=== PATIENT | female | born 1940 | race African-American/Black ===

== ENCOUNTER 2017-01-20 20:28 | Inpatient (IN) | payer MEDICARE ==
[2017-01-20] MEDS ORDERED: ONDANSETRON HCL INJ/PF 4 MG/2 ML SDV IV ONE (21:08)
[2017-01-20] MEDS ORDERED: NORMAL SALINE 1000 ML 1,000 ML IV ONE (21:08)
[2017-01-20 23:05] LABS: ALANINE AMINOTRANSFERASE 17 U/L (9-52); ALBUMIN 2.7 g/dL (3.5-5.0); ALKALINE PHOSPHATASE 70 U/L (38-126); ANION GAP 11 (5-19); ASPARTATE AMINO TRANSFERASE 11 U/L (14-36); BILIRUBIN,DIRECT 0.4 mg/dL (0.0-0.4); BILIRUBIN,TOTAL 0.7 mg/dL (0.2-1.3); BLOOD UREA NITROGEN 85 mg/dL (7-20); CALCIUM 11.1 mg/dL (8.4-10.2); CARBON DIOXIDE 26 mmol/L (22-30); CHLORIDE 109 mmol/L (98-107); CREATININE RESULT 2.04 mg/dL (0.52-1.25); GLUCOSE 148 mg/dL (75-110); LIPASE 47.3 U/L (23-300); SODIUM 146.1 mmol/L (137-145); TOTAL PROTEIN 5.3 g/dL (6.3-8.2)
--- NOTE | 2017-01-21 00:21 | ER Document Report ---
ED GI/ - General Chief Complaint: Vomiting Stated Complaint: VOMITING Time Seen by Provider: 01/20/17 21:08 Mode of Arrival: Wheelchair Information source: Relative Notes: Patient is a 76-year-old female with dementia and diabetes who presents to the ER today for one episode of vomiting today. Daughter who she lives with at home states that she does not usually complain of anything even if she does have pain, states that she has not complained of any abdominal pain. She denies that she has had any fever, chills or diarrhea that she knows of. Patient is on any medications for diabetes, diet controlled and has not seen a primary care provider in a couple of months as her primary care provider Dr. Esquivel left office. TRAVEL OUTSIDE OF THE [place] IN LAST 30 DAYS: No - Related Data Allergies/Adverse Reactions: No Known Allergies Allergy (Unverified 01/20/17 20:50) Past Medical History - General Information source: Relative - Social History Smoking Status: Unknown if Ever Smoked Family History: Reviewed & Not Pertinent Patient has suicidal ideation: No Patient has homicidal ideation: No Endocrine Medical History: Reports: Hx Diabetes Mellitus Type 2 Renal/ Medical History: Denies: Hx Peritoneal Dialysis Review of Systems - Review of Systems Constitutional: No symptoms reported EENT: No symptoms reported Cardiovascular: No symptoms reported Respiratory: No symptoms reported Gastrointestinal: See HPI Genitourinary: No symptoms reported Female Genitourinary: No symptoms reported Musculoskeletal: No symptoms reported Skin: No symptoms reported Hematologic/Lymphatic: No symptoms reported Neurological/Psychological: No symptoms reported Physical Exam - Vital signs Vitals: Temp Pulse Resp BP Pulse Ox 98.1 F 121 H 16 114/94 H 93 01/20/17 20:44 01/20/17 20:44 01/20/17 20:44 01/20/17 20:44 01/20/17 20:44 - Notes Notes: PHYSICAL EXAMINATION: GENERAL:elderly, demented, in no acute distress. HEAD: Atraumatic, normocephalic. EYES: Pupils equal round and reactive to light, extraocular movements intact, sclera anicteric, conjunctiva are normal. NECK: Normal range of motion, supple without lymphadenopathy LUNGS: CTAB and equal. No wheezes rales or rhonchi. HEART: Regular rate and rhythm without murmurs ABDOMEN: Soft, no tenderness. No guarding, no rebound BACK: no vertebral tenderness, normal ROM GI/: wearing adult diaper, no CVA tenderness EXTREMITIES: Normal range of motion, no pitting edema. No cyanosis. NEUROLOGICAL: demented, but normal motor and sensory function, able to answer questions with nods SKIN: Warm, Dry, normal turgor, no rashes or lesions noted Course - Re-evaluation Re-evalutation: 01/21/17 00:45 Patient has evidence of UTI on urinalysis with moderate leukocytes and 114 white blood cells. Patient was given IV fluids and IV Rocephin here in the emergency department. 01/21/17 00:46 01/21/17 04:26 Pt has SBO and bilateral lower lobe pneumonia, acute renal failure. 01/21/17 04:41 Dr. Vera agrees to admit to [facility] at this time. Dr. Acosta was consulted and knows about the case. Pt stable, but still tachycardic in the 120s. - Vital Signs Vital signs: Temp Pulse Resp BP Pulse Ox 98.8 F 120 H 22 H 132/93 H 94 01/21/17 01:51 01/21/17 03:09 01/21/17 05:01 01/21/17 05:01 01/21/17 05:01 - Laboratory Result Diagrams: 01/21/17 02:33 01/21/17 05:04 Laboratory results interpreted by me: 01/20/17 01/20/17 01/20/17 20:44 21:43 23:05 RDW Seg Neutrophils % Lymphocytes % Absolute Lymphocytes Sodium 146.1 H Chloride 109 H BUN 85 H Creatinine 2.04 H Est GFR ( Amer) 28 L Est GFR (Non-Af Amer) 24 L Glucose 148 H POC Glucose 185 H Calcium 11.1 H AST 11 L Total Protein 5.3 L Albumin 2.7 L Urine Protein 100 H Urine Blood SMALL H Ur Leukocyte Esterase MODERATE H 01/21/17 01/21/17 02:33 05:04 RDW 14.2 H Seg Neutrophils % 84.9 H Lymphocytes % 5.8 L Absolute Lymphocytes 0.3 L Sodium 145.2 H Chloride 112 H BUN 78 H Creatinine 1.60 H Est GFR ( Amer) 38 L Est GFR (Non-Af Amer) 31 L Glucose 169 H POC Glucose Calcium AST Total Protein Albumin Urine Protein Urine Blood Ur Leukocyte Esterase Discharge - Discharge Clinical Impression: SBO (small bowel obstruction) UTI (urinary tract infection) Qualifiers: Urinary tract infection type: site unspecified Qualified Code(s): N39.0 - Urinary tract infection, site not specified Nausea and vomiting Qualifiers: Vomiting type: unspecified Vomiting Intractability: non-intractable Qualified Code(s): R11.2 - Nausea with vomiting, unspecified Pneumonia Qualifiers: Pneumonia type: due to unspecified organism Laterality: bilateral Lung location : lower lobe of lung Qualified Code(s): J18.9 - Pneumonia, unspecified organism Acute renal failure Qualifiers: Acute renal failure type: unspecified Qualified Code(s): N17.9 - Acute kidney failure, unspecified Condition: Stable Disposition: ADMITTED INPATIENT Admitting Provider: Hospitalist Unit Admitted: [facility]
[2017-01-21 00:28] LABS: AMORPHOUS SEDIMENT,URINE 4+ /HPF; APPEARANCE,URINE TURBID; BILIRUBIN,URINE NEGATIVE (NEGATIVE); GLUCOSE, URINE NEGATIVE (NEGATIVE); KETONES,URINE NEGATIVE (NEGATIVE); LEUKOCYTE ESTERASE,URINE MODERATE (NEGATIVE); NITRITE,URINE NEGATIVE (NEGATIVE); PROTEIN,URINE 100 mg/dL (NEGATIVE); TRIPLE PHOSPHATE CRYSTAL,URINE FEW /HPF; URINE SPECIFIC GRAVITY 1.013; UROBILINOGEN,URINE NEGATIVE mg/dL (<2.0)
[2017-01-21] MEDS ORDERED: CEFTRIAXONE 1 GM/D5W RTU 50 ML IV ONE (00:34)
[2017-01-21] MEDS ORDERED: NORMAL SALINE 1000 ML 1,000 ML IV ONE (01:51)
[2017-01-21 02:44] LABS: ABSOLUTE LYMPHOCYTES (AUTO) 0.3 10^3/uL (0.5-4.7); ABSOLUTE MONOCYTES (AUTO) 0.4 10^3/uL (0.1-1.4); ABSOLUTE NEUT (AUTO) 3.7 10^3/uL (1.7-8.2); BASOPHILS % (AUTO) 0.2 % (0-2); EOSINOPHILS % (AUTO) 0.2 % (0-6); HEMATOCRIT 37.5 % (36.0-47.0); HEMOGLOBIN 12.3 g/dL (12.0-15.5); HGB HCT DIFFERENCE -0.6; LYMPHOCYTES % (AUTO) 5.8 % (13-45); MEAN CORPUSCULAR HEMOGLOBIN 30.8 pg (27.0-33.4); MEAN CORPUSCULAR HGB CONC 32.7 g/dL (32.0-36.0); MEAN CORPUSCULAR VOLUME 94 fl (80-97); MONOCYTES % (AUTO) 8.9 % (3-13); RED BLOOD COUNT 3.98 10^6/uL (3.72-5.28); RED CELL DISTRIBUTION WIDTH 14.2 % (11.5-14.0); SEGMENTED NEUTROPHILS % (AUTO) 84.9 % (42-78); WHITE BLOOD COUNT 4.4 10^3/uL (4.0-10.5)
--- NOTE | 2017-01-21 04:18 | RADIOLOGY REPORT (SQ) ---
EXAM DESCRIPTION: CT LTD RENAL STONE PROTOCOL ON COMPLETED DATE/TIME: 01/21/2017 3:32 am REASON FOR STUDY: uti, hematuria COMPARISON: None. TECHNIQUE: CT scan of the abdomen and pelvis performed without intravenous or oral contrast. Images reviewed with lung, soft tissue, and bone windows. Reconstructed coronal and sagittal MPR images revi ewed. All images stored on PACS. All CT scanners at this facility use dose modulation, iterative reconstruction, and/or weight based d osing when appropriate to reduce radiation dose to as low as reasonably achievable (ALARA). [facility]: Dose Right [facility]: CareDose [facility]: Dose Right [facility]: Teradose 4D [facility]: [employer] RADIATION DOSE: Up-to-date CT equipment and radiation dose reduction techniques were employed. CTDIv ol: 4.9 mGy. DLP: 231 mGy-cm.mGy. LIMITATIONS: None. FINDINGS: LOWER CHEST: Small-moderate airspace patchy opacities of the lower lungs, left more than r ight partially imaged. Small bilateral pleural effusions. Atherosclerosis. NON-CONTRASTED LIVER, SPLEEN, ADRENALS: Evaluation limited by lack of IV contrast. Enlargement of bi lateral adrenal glands measuring up to 2.1 cm on the left with low-attenuation suggestive of lead adr enal adenomas, not definitively characterized. PANCREAS: No masses. No peripancreatic inflammatory changes. GALLBLADDER: No identified stones by CT criteria. No inflammatory changes to suggest cholecystitis. RIGHT KIDNEY AND URETER: No suspicious masses. Assessment limited by lack of IV contrast. No signif icant calcifications. No hydronephrosis or hydroureter. LEFT KIDNEY AND URETER: No suspicious masses. Assessment limited by lack of IV contrast. No signifi cant calcifications. No hydronephrosis or hydroureter. AORTA AND RETROPERITONEUM: No aneurysm. No retroperitoneal masses or adenopathy. BOWEL AND PERITONEAL CAVITY: 3.9 cm diameter dilation of small bowel with air-fluid levels throughout the mid abdomen. Fluid distention of the stomach and visualized distal esophagus. Moderate colonic stool retention. APPENDIX: Normal. PELVIS, BLADDER, AND ABDOMINAL WALL:No abnormal masses. No free fluid. Bladder normal. BONES: Complex 12 x 12 x 6 cm mixed cystic and sclerotic lesion extends throughout the sacrum, bilate ral iliac wings, and includes an expansile 2.9 cm lytic component of the right iliac wing, image 56 o f series 4. With moderate mixed sclerosis and lucency of bilateral femoral head; cannot exclude avas cular necrosis. Moderate bony demineralization. Mild L3 anterior vertebral compression deformity. No significant ascites. No suspect lymphadenopathy. OTHER: No other significant finding. IMPRESSION: 1. Small bowel obstruction pattern. 2. Small to moderate bilateral lower lobar pneumo aixa, left more than right. 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 Cannot exclude other infect ious and neoplastic processes. 4. Increased sclerosis of bilateral femoral heads may indicate avasc ular necrosis. Consider contrast MRI correlation. COMMENT: This report was called to Dr. Ingram At04:10 on 01/21/2017. TECHNICAL DOCUMENTATION: JOB ID: [id number] Quality ID # [id number]: Final reports with documentation of one or more dose reduction techniques (e.g., Au tomated exposure control, adjustment of the mA and/or kV according to patient size, use of iterative reconstruction technique) 2010 [employer]- All Rights Reserved
[2017-01-21] MEDS ORDERED: LIDOCAINE 1% INJ-PF (10 MG/ML) 30 ML SDV NEB ONE (04:25)
[2017-01-21] MEDS ORDERED: AZITHROMYCIN INJ 500 MG VIAL IV ONE (04:33)
--- NOTE | 2017-01-21 04:43 | RADIOLOGY REPORT (SQ) ---
EXAM DESCRIPTION: CHEST SINGLE VIEW COMPLETED DATE/TIME: 01/21/2017 4:03 am REASON FOR STUDY: tachycardia, vomiting COMPARISON: CT, 01/21/2017. EXAM PARAMETERS: NUMBER OF VIEWS: One view. TECHNIQUE: Single frontal radiographic view of the chest acquired. RADIATION DOSE: NA LIMITATIONS: None. FINDINGS: LUNGS AND PLEURA: Moderate lung volumes. Small to moderate bilateral lower lobar patchine ss, left more than right. Small bilateral pleural effusions. MEDIASTINUM AND HILAR STRUCTURES: No masses. Contour normal. HEART AND VASCULAR STRUCTURES: Heart normal in size. Normal vasculature. BONES: No acute findings. HARDWARE: None in the chest. OTHER: No other significant finding. IMPRESSION: Small to moderate bilateral lower lobar pneumonia, left more than right. TECHNICAL DOCUMENTATION: JOB ID: [id number]
[2017-01-21] MEDS ORDERED: GLUCAGON,HUMAN RECOMB 1 MG INJ IM PRN (05:25)
[2017-01-21] MEDS ORDERED: DEXTROSE 50%-WATER 25 GM/50 ML DISP.SYRIN IV PRN (05:25)
[2017-01-21] MEDS ORDERED: DEXTROSE 40% GEL 15 GM TUBE PO PRN ×2 (05:25)
[2017-01-21] MEDS ORDERED: PHARMACY COMMUNICATION ORDER MC NR (05:30)
[2017-01-21] MEDS ORDERED: ACETAMINOPHEN 650 MG SUPP.RECT PR PRN (05:32)
[2017-01-21] MEDS ORDERED: IPRATROPIUM/ALBUTEROL 0.5-2.5 MG/3 ML AMPUL NEB PRN (05:32)
--- NOTE | 2017-01-21 05:51 | PDOC H&P ---
History of Present Illness Admission Date/PCP: 01/21/17 04:41 Primary care provider uncertain Patient complains of: Nausea and vomiting 1 History of Present Illness: CELESTINA SWEENEY is a 76 year old -[place] female with underlying dementia, along with diet-controlled diabetes mellitus, who was brought to the emergency room by daughter for evaluation of above complaint, along with decreased appetite. Patient has been discussed with emergency room nurse practitioner who evaluated the patient. Patient is oriented to the fact that she is in the hospital, and that she came because of vomiting, thought it was 1939. As a result of this, combined with her underlying dementia, she can provide no other history in terms of acute or chronic events, review of systems, personal habits, family history, etc. No friends or family are present. No old inpatient records available for review. Per emergency room provider notes, daughter stated patient does not complain of anything, and also denied any fever or chills, or diarrhea. Patient currently resting quietly; denies pain.. Dictation via voice recognition software. Laboratory results are listed in [employer] and are reviewed. X-ray summary results are listed below, with full report(s) reviewed. . Social history/personal habits: Reportedly lives with daughter. No further information available this point in time. No known drug allergies. Home medications initially autopopulated into [employer] may not accurately reflect patient's true medications, dosages, and/or frequencies. aviation technician to reconcile medications. Unfortunately, patient not able to provide any information related to medications/dosages/frequencies. REVIEW OF SYSTEMS: See history and present illness. No further information available this point in time. PHYSICAL EXAMINATION: 4 feet 9 inches tall. 32.8 kg. BMI 15.6 kg/m. Blood pressure 132/93. Pulse 127 and regular. 94% saturation on room air. Respirations are 24 and unlabored. Temperature 98.8. Multiple nursing staff present in room. Thin otherwise well-developed elderly -[place] female, appearing perhaps a bit younger than her stated age. Awake and reasonably alert, although appears somewhat fatigued. No obvious distress other than perhaps mildly anxious. Skin is warm and dry. No grossly obvious evidence of rash in areas of skin examined. No subcutaneous nodules palpated. Per nursing staff, no skin breakdown on sacrum or buttocks. ENT: Hearing grossly normal to normal conversation. Tongue midline on protrusion pink and slightly tacky. Eyes: No scleral icterus. Pupils equal and reactive to light at 4 mm. [place] conjunctivae. Neck is supple and nontender to gentle active range of motion and palpation. Midline trachea. No palpable thyroid nodule mass enlargement or tenderness. Lymphatic: No palpable cervical or clavicular nodes. Neck and lymphatic exams limited by patient body habitus. Psychiatric: Cannot be adequately evaluated due to her underlying dementia. Oriented only to location and why here. Lungs: Auscultation reveals clear and equal breath sounds bilaterally. No use of accessory respiratory muscles. Cardiovascular: Heart regular rate and rhythm, without gallop murmur or rub. No carotid or abdominal aortic bruits. No ankle or pedal edema. Faintly palpable dorsalis pedis pulses. Abdomen:soft somewhat distended nontender with positive bowel sounds. Unable to adequately evaluate abdomen for masses or organomegaly due to distention. No evidence of groin or abdominal wall hernia. Extremities: Feet are warm and dry. No calf tenderness to compression. No grossly obvious visual evidence of calf swelling. Gentle manipulation of lower extremities fails to reveal any obvious evidence of injury or instability to knees hips or ankles. Neurologic: Patellar reflexes absent. Absent Babinski. Light touch cannot be adequately determined due to her mental status. Plantarflexion of feet 5 / 5 and symmetric; does not follow basic request for dorsiflexion of feet. Past Medical History Past Medical History: Information from review of records. Patient unable to provide any information. Endocrine Medical History: Reports: Diabetes Mellitus Type 2 Psychiatric Medical History: Reports: Dementia Past Surgical History Past Surgical History: Reports: Other - Uncertain; patient has a well-healed lower midline abdominal incision. Social History Information Source: Emergency Med Personnel, [facility] Records Lives with: Family - Reportedly lives with daughter. Smoking Status: Unknown if Ever Smoked - Advance Directive Resuscitation Status: Full Code Surrogate healthcare decision maker:: Uncertain; likely her daughter. Family History Parental Family History Reviewed: No - Patient unable to provide any information. Children Family History Reviewed: No - Patient unable to provide any information. Sibling(s) Family History Reviewed.: No - Patient unable to provide any information. Medication/Allergy Home Medications: RX: No Home Medications 01/21/17 Allergies/Adverse Reactions: No Known Allergies Allergy (Unverified 01/20/17 20:50) Physical Exam Vital Signs: Temp Pulse Resp BP Pulse Ox 98.8 F 120 H 22 H 132/93 H 94 01/21/17 01:51 01/21/17 03:09 01/21/17 05:01 01/21/17 05:01 01/21/17 05:01 Intake & Output 01/20/17 01/21/17 01/22/17 00:59 00:59 00:59 Output Total 100 Balance -100 Results Impressions: Limited or Localized CT 01/21/17 03:02 IMPRESSION: 1. Small bowel obstruction pattern. 2. Small to moderate bilateral lower lobar pneumonia, left more than right. 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 Cannot exclude other infectious and neoplastic processes. 4. Increased sclerosis of bilateral femoral heads may indicate avascular necrosis. Consider contrast MRI correlation. Chest X-Ray 01/21/17 03:34 IMPRESSION: Small to moderate bilateral lower lobar pneumonia, left more than right. Assessment & Plan - Diagnosis (1) Abnormal CT scan, pelvis Is this a current diagnosis for this admission?: Yes Plan: Consider oncology consult when available. (2) Basal pneumonia of both lungs Is this a current diagnosis for this admission?: Yes Plan: Patient will be admitted under pneumonia protocol. As needed DuoNeb's. Antibiotics will consist of Rocephin along with intravenous Zithromax. Pharmacy to assist with dosing. Patient is a full code. I have strongly encouraged patient not to get out of bed without notifying staff , to avoid a fall with injury. Knee high SCDs for DVT prophylaxis, along with subcutaneous heparin. Time spent in evaluation and management of patient: 55 minutes. (3) Hypercalcemia Is this a current diagnosis for this admission?: Yes Plan: Follow-up chemistry. (4) Hypernatremia Is this a current diagnosis for this admission?: Yes Plan: Appropriate IV fluid. Follow-up chemistry. (5) Renal insufficiency Is this a current diagnosis for this admission?: Yes Plan: No old labs available for comparison. No evidence of obstruction on CT scan of abdomen. Follow-up chemistry. Appropriate IV fluid. (6) SBO (small bowel obstruction) Is this a current diagnosis for this admission?: Yes Plan: Nasogastric tube. Surgery consult. (7) UTI (urinary tract infection) Qualifiers: Urinary tract infection type: site unspecified Is this a current diagnosis for this admission?: Yes Plan: Blood and urine cultures. Rocephin empirically. (8) Dementia Qualifiers: Dementia type: unspecified type Dementia behavioral disturbance: without behavioral disturbance Qualified Code(s): F03.90 - Unspecified dementia without behavioral disturbance Is this a current diagnosis for this admission?: Yes (9) Diabetes mellitus type 2 in nonobese Is this a current diagnosis for this admission?: Yes Plan: Accu-Cheks with appropriate sliding scale coverage. - Time Time Spent: 50 to 70 Minutes Anticipated discharge: Home Within: Other - Inpatient Certification Based on my medical assessment, after consideration of the patient's comorbidities, presenting symptoms, or acuity I expect that the services needed warrant INPATIENT care.: Yes I certify that my determination is in accordance with my understanding of Medicare's requirements for reasonable and necessary INPATIENT services [42 CFR 412.3e].: Yes Medical Necessity: Need Close Monitoring Due to Risk of Patient Decompensation, Need For IV Fluids, Need For Continuous Telemetry Monitoring, Need for IV Antibiotics, Risk of Diagnosis Which Will Require Inpatient Eval/Care/Monitoring Post Hospital Care: D/C or Transfer Summary
[2017-01-21 05:55] LABS: ANION GAP 8 (5-19); BLOOD UREA NITROGEN 78 mg/dL (7-20); CALCIUM 10.2 mg/dL (8.4-10.2); CARBON DIOXIDE 25 mmol/L (22-30); CHLORIDE 112 mmol/L (98-107); GLUCOSE 169 mg/dL (75-110); POTASSIUM 4.3 mmol/L (3.6-5.0); SODIUM 145.2 mmol/L (137-145)
--- NOTE | 2017-01-21 06:13 | RADIOLOGY REPORT (SQ) ---
EXAM DESCRIPTION: CHEST SINGLE VIEW COMPLETED DATE/TIME: 01/21/2017 5:57 am REASON FOR STUDY: ngt placement verification COMPARISON: 01/21/2017. EXAM PARAMETERS: NUMBER OF VIEWS: One view. TECHNIQUE: Single frontal radiographic view of the chest acquired. RADIATION DOSE: NA LIMITATIONS: None. FINDINGS: LUNGS AND PLEURA: Small to moderate opacities of bilateral lower lung solares, left more th an right. Moderate lung volume. MEDIASTINUM AND HILAR STRUCTURES: No masses. Contour normal. HEART AND VASCULAR STRUCTURES: Heart normal in size. Normal vasculature. BONES: No acute findings. HARDWARE: Adequate appearing NG tube. Moderate small bowel obstruction pattern with small bowel diam eter measuring up to 4.3 cm in the left upper abdominal quadrant. OTHER: No other significant finding. IMPRESSION: 1. Small bowel obstruction pattern consistent with CT the same day. NG tube. 2. Smal l to moderate bilateral lower lobar pneumonia. TECHNICAL DOCUMENTATION: JOB ID: [id number]
[2017-01-21 06:16] LABS: ADD ON TESTING BLD IN LAB ACKNOWLEDGE
[2017-01-21 06:25] LABS: MAGNESIUM 2.1 mg/dL (1.6-2.3)
[2017-01-21] MEDS ORDERED: NORMAL SALINE 500 ML IV ONE (07:32)
--- NOTE | 2017-01-21 08:19 | CONSULTATION REPORT E ---
Consultation Report NAME: CELESTINA SWEENEY : 1940 AGE: 76Y DATE: 01/21/2017 ED17 A TO: NETO MANCIA M.D. FROM: REYES MAS M.D. Requesting Physician REASON FOR CONSULTATION: Patient with small bowel obstruction on CAT scan. HISTORY OF PRESENT ILLNESS: This is a 76-year-old female with a history of dementia and diabetes who presented to the ER for episode of vomiting that started 2 days ago and another episode on the day of being seen in the emergency room. Patient is a non-complainer. It seems like this is part of her dementia. She had a CAT scan of the abdomen in the emergency room, which showed small bowel obstruction. Her BUN is 78 and creatinine of 1.60 indicating severe dehydration. She is also tachycardic. ALLERGIES: None known. PAST MEDICAL HISTORY: Insulin-dependent diabetes and likely had 3 sections, according to the daughter. REVIEW OF SYSTEMS: Patient is demented and unable to give any information. PHYSICAL EXAMINATION: VITAL SIGNS: Temperature 98.1 degrees Fahrenheit, pulse rate of 121 per minute, respiratory rate of 16 per minute, blood pressure 114/94 and pulse ox of 93% on room air. GENERAL: Patient appears fairly developed, poorly nourished 76-year-old demented patient not complaining of anything. HEENT: Head is atraumatic, normocephalic. Eyes: PERRLA. Anicteric sclerae. Conjunctivae are normal. NECK: Normal range of motion, supple. LUNGS: Equal breath sounds. No wheezes. HEART: Tachycardic. ABDOMEN: With diffuse tenderness with voluntary guarding, most tender in the right lower quadrant and epigastric areas. BACK: No vertebral tenderness. GASTROINTESTINAL/GENITOURINARY: Wears adult diaper. No CVA tenderness. EXTREMITIES: Range of motion intact. NEUROLOGIC: Patient is demented, and when asked if she has any pains, she said none. SKIN: Warm and dry. IMAGING: CT scan showed small bowel obstruction and bilateral lower lobe pneumonia. LABORATORY: Severe dehydration and BUN of 78, creatinine of 1.60. IMPRESSION: 1. Small bowel obstruction. 2. Severe dehydration. 3. Diabetes mellitus, by history. PLAN: A discussion with the daughter was made. Had a long discussion with her as far as DNR status for her mother. I told her her mother most likely is going to need an operation and I want her to make the decision when that comes. Dr. Mcmanus, the surgeon environmental field office manager will likely talk to her about her mom as far as surgery is concerned. Patient will need IV fluids for the dehydration. DICTATING PHYSICIAN: NETO MANCIA M.D. [id number] PHY#: [id number] ID: [id number] JOB#: [id number] ACCT: [id number] cc:NETO MANCIA M.D. >
[2017-01-21] MEDS: HEPARIN SOD (PORCINE) 5,000 UNIT/ML 1 ML SYRINGE SUBCUT SCH ×2 (10:00→22:01)
[2017-01-21] MEDS: FAMOTIDINE INJ/PF 20 MG/2 ML SDV IV SCH ×2 (10:39→21:59)
[2017-01-21] MEDS ORDERED: HYDRALAZINE HCL INJ/PF 20 MG/1 ML SDV IV PRN (11:28)
[2017-01-21] MEDS ORDERED: METOPROLOL TARTRATE PF/INJ 5 MG/5 ML SDV IV PRN (12:10)
[2017-01-21 13:29] LABS: PROTHROMBIN TIME 13.9 SEC (11.4-15.4)
[2017-01-21 13:30] LABS: PARTIAL THROMBOPLASTIN TIME 30.1 SEC (23.5-35.8)
--- NOTE | 2017-01-21 15:43 | PDOC PROGRESS REPORT ---
Subjective Progress Note for:: 01/21/17 Subjective:: Patient has no complaints. Patient denies fever, chills, headache, new focal weakness, chest pain, shortness of breath, abdominal pain, nausea, vomiting, diarrhea, constipation. Physical Exam Vital Signs: Temp Pulse Resp BP Pulse Ox 98.2 F 96 18 170/59 H 98 01/21/17 11:20 01/21/17 11:34 01/21/17 11:34 01/21/17 11:20 01/21/17 11:34 Intake & Output 01/20/17 01/21/17 01/22/17 06:59 06:59 06:59 Intake Total 2125 Output Total 800 Balance 1325 GENERAL: No acute distress, cachectic HEENT: Conjunctiva clear, nonicteric, moist mucous membranes, no JVD, midline trachea RESPIRATORY: Clear to auscultation bilaterally, no wheezes, no rhonchi CARDIAC: Regular rate and rhythm, no murmurs/gallops/rubs ABDOMEN: Soft, nondistended, nonspecific tenderness, positive bowel sounds, no rebound, no guarding EXTREMETIES: No edema, cyanosis, clubbing NEUROLOGIC: Alert, disoriented/demented, CN's grossly intact, no focal deficits SKIN: Decreased skin turgor Results Impressions: Limited or Localized CT 01/21/17 03:02 IMPRESSION: 1. Small bowel obstruction pattern. 2. Small to moderate bilateral lower lobar pneumonia, left more than right. 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 Cannot exclude other infectious and neoplastic processes. 4. Increased sclerosis of bilateral femoral heads may indicate avascular necrosis. Consider contrast MRI correlation. Chest X-Ray 01/21/17 03:34 IMPRESSION: Small to moderate bilateral lower lobar pneumonia, left more than right. Assessment & Plan - Diagnosis (1) SBO (small bowel obstruction) Is this a current diagnosis for this admission?: YesPlan: Surgery consult appreciated. Conservative management for now. N.p.o., NG tube to wall suction. IV fluids. KUB in a.m. (2) Pneumonia Qualifiers: Pneumonia type: due to unspecified organism Laterality: bilateral Lung location: lower lobe of lung Qualified Code(s): J18.9 - Pneumonia, unspecified organism Is this a current diagnosis for this admission?: YesPlan: Likely bacterial. Continue IV Rocephin and IV azithromycin. (3) Acute renal failure Qualifiers: Acute renal failure type: unspecified Qualified Code(s): N17.9 - Acute kidney failure, unspecified Is this a current diagnosis for this admission?: YesPlan: Secondary to dehydration. Continue IV fluids. (4) Dehydration Is this a current diagnosis for this admission?: Yes (5) Dementia Qualifiers: Dementia type: unspecified type Dementia behavioral disturbance: without behavioral disturbance Qualified Code(s): F03.90 - Unspecified dementia without behavioral disturbance Is this a current diagnosis for this admission?: YesPlan: Continue supportive care. Patient's daughter would like patient to return home under her care after discharge. (6) UTI (urinary tract infection) Qualifiers: Urinary tract infection type: site unspecified Qualified Code(s): N39.0 - Urinary tract infection, site not specified; R31.9 - Hematuria, unspecified Is this a current diagnosis for this admission?: YesPlan: IV Rocephin pending culture. (7) Diabetes mellitus type 2 in nonobese Is this a current diagnosis for this admission?: YesPlan: Sliding scale insulin. (8) Abnormal CT scan, pelvis Is this a current diagnosis for this admission?: YesPlan: CT of the pelvis showing multiple cystic and sclerotic lesions differential including neoplastic disease or Paget's disease.. - Time Time Spent with patient: 35 or more minutes
--- NOTE | 2017-01-21 16:09 | RADIOLOGY REPORT (SQ) ---
EXAM DESCRIPTION: KUB/ABDOMEN (SINGLE VIEW) COMPLETED DATE/TIME: 01/21/2017 3:57 pm REASON FOR STUDY: SBO COMPARISON: None. NUMBER OF VIEWS: One view. TECHNIQUE: Supine radiographic image of the abdomen acquired. LIMITATIONS: Oral contrast. FINDINGS: BOWEL GAS PATTERN: Mildly dilated loops of small bowel in the mid abdomen. Abundant fecal material in nondilated colon. CALCIFICATIONS: No suspicious calcifications. SOFT TISSUES: No gross mass or suggestion of organomegaly. HARDWARE: NG tube tip overlying stomach. Turner catheter. BONES: No bone lesions or fracture. OTHER: No other significant finding. IMPRESSION: Ileus or partial small bowel obstruction. Good position of nasogastric tube.
[2017-01-21] MEDS: HYDRALAZINE HCL INJ/PF 20 MG/1 ML SDV IV PRN (17:02)
--- NOTE | 2017-01-21 19:14 | EKG REPORT ---
SEVERITY:- ABNORMAL ECG - SINUS TACHYCARDIA LVH WITH SECONDARY REPOLARIZATION ABNORMALITY : Confirmed by: Rakesh Enriquez MD 21-Jan-2017 19:13:12
[2017-01-22] MEDS: HYDROMORPHONE HCL INJ/PF 2 MG/ML AMPULE IV PRN ×2 (00:31→21:59)
[2017-01-22] MEDS: DEXTROSE 50%-WATER 25 GM/50 ML DISP.SYRIN IV PRN ×2 (00:32→12:17)
[2017-01-22] MEDS: 1/2 NORMAL SALINE 1,000 ML IV PRN (01:01)
[2017-01-22 06:46] LABS: ABSOLUTE LYMPHOCYTES (AUTO) 0.6 10^3/uL (0.5-4.7); ABSOLUTE MONOCYTES (AUTO) 0.7 10^3/uL (0.1-1.4); ABSOLUTE NEUT (AUTO) 6.1 10^3/uL (1.7-8.2); BASOPHILS % (AUTO) 0.3 % (0-2); EOSINOPHILS % (AUTO) 0.1 % (0-6); LYMPHOCYTES % (AUTO) 8.3 % (13-45); MEAN CORPUSCULAR HEMOGLOBIN 31.1 pg (27.0-33.4); MEAN CORPUSCULAR HGB CONC 33.1 g/dL (32.0-36.0); MEAN CORPUSCULAR VOLUME 94 fl (80-97); MONOCYTES % (AUTO) 9.8 % (3-13); RED CELL DISTRIBUTION WIDTH 14.7 % (11.5-14.0); SEGMENTED NEUTROPHILS % (AUTO) 81.5 % (42-78); WHITE BLOOD COUNT 7.5 10^3/uL (4.0-10.5)
[2017-01-22 06:57] LABS: ANION GAP 5 (5-19); BLOOD UREA NITROGEN 66 mg/dL (7-20); CALCIUM 10.4 mg/dL (8.4-10.2); CARBON DIOXIDE 26 mmol/L (22-30); CHLORIDE 113 mmol/L (98-107); CREATININE RESULT 1.63 mg/dL (0.52-1.25); GLUCOSE 67 mg/dL (75-110); POTASSIUM 4.2 mmol/L (3.6-5.0); SODIUM 143.5 mmol/L (137-145)
--- NOTE | 2017-01-22 09:12 | PROGRESS NOTE E ---
Progress Note NAME: CELESTINA SWEENEY : 1940 AGE: 76Y DATE: 01/22/2017 ROOM: 320 SUBJECTIVE: Patient is still somewhat obtunded and nonresponsive. She still has her NG tube. This apparently drained about 800 mL the past 24 hours. This morning, no drainage from the NG that I can tell. OBJECTIVE: She is afebrile and her white count remained normal and her BUN and creatinine slightly improved with hydration. Her abdomen remained soft with questionable tenderness in the suprapubic area. IMPRESSION: Partial bowel obstruction. At this point, I do not think she needs any emergency surgery since her abdominal findings appear to have improved from yesterday. She is also afebrile and her white count remained normal. Also, I believe she is still a DNR and we will talk to the family again if she needs any further surgical intervention. At this time, there is no need for any emergency operation. DICTATING PHYSICIAN: NETO MANCIA M.D. [id number] GÓMEZ#: [id number] ID: [id number] JOB#: [id number] ACCT: [id number] cc: >
[2017-01-22] MEDS: CEFTRIAXONE 1 GM/D5W RTU 50 ML IV SCH (10:28)
[2017-01-22] MEDS: HEPARIN SOD (PORCINE) 5,000 UNIT/ML 1 ML SYRINGE SUBCUT SCH ×2 (10:28→22:00)
[2017-01-22] MEDS: FAMOTIDINE INJ/PF 20 MG/2 ML SDV IV SCH ×2 (10:28→22:00)
[2017-01-22] MEDS: AZITHROMYCIN 500 MG in DEXTROSE 5%-WATER 250 ML IV SCH (12:05)
--- NOTE | 2017-01-22 12:27 | XCELERA REPORT ---
[address] [address] Transthoracic Echocardiogram Report Name: CELESTINA SWEENEY Age: 76 yrs Gender: Female : 1940 Patient Status: Inpatient Patient Location: 3W\S\320\S\A Study Date: 01/22/2017 08:50 AM Height: 57 in Weight: 72 lb BSA: 1.2 m2 Procedure: A complete two-dimensional transthoracic echocardiogram was performed (2D, M-mode, spectral and color flow Doppler). The study was technically difficult with many images being suboptimal in quality. Reason For Study: heart murmur Ordering Physician: DIANA DILLON Performed By: Sabrina Gilliam Interpretation Summary The study was technically difficult with many images being suboptimal in quality. Left ventricular systolic function is low normal. Doppler measurements suggest pseudonormalized left ventricular relaxation, which is associated with grade II/IV or mild to moderate diastolic dysfunction There is borderline concentric left ventricular hypertrophy. The left ventricle is grossly normal size. Wall motion cannot be accurately commented on, but no definite regional wall motion abnormalities noted. The right ventricular systolic function is normal. The right atrium is normal. The left atrial size is normal. There is no mitral valve stenosis. There is a trace amount of mitral regurgitation There is no aortic valve stenosis No aortic regurgitation is present. There is a trace to mild amount of tricuspid regurgitation There is mild pulmonary hypertension by echo Right ventricular systolic pressure is estimated to be elevated at 30- 40mmHg. The aortic root is not well visualized but is probably normal size. The inferior vena cava was not well visualized Minimal to small pericardial effusion. MMode/2D Measurements \T\ Calculations RVDd: 2.1 cm LVIDd: 3.8 cm FS: 22.5 % Ao root diam: 2.4 cm IVSd: 0.76 cm LVIDs: 2.9 cm EDV(Teich): 62.1 ml LVPWd: 0.85 cmESV(Teich): 33.5 ml Ao root area: 4.4 cm2 EF(Teich): 46.0 % LA dimension: 2.2 cm LVOT diam: 1.8 cm LVOT area: 2.5 cm2 Doppler Measurements \T\ Calculations MV E max sumeet: MV P1/2t max sumeet: Ao V2 max: LV V1 max P.4 cm/sec 57.6 cm/sec 117.9 cm/sec 1.6 mmHg MV A max sumeet: MV P1/2t: 42.6 msec Ao max PG: LV V1 max: 79.5 cm/sec MVA(P1/2t): 5.2 cm2 5.6 mmHg 64.2 cm/sec MV E/A: 0.70 MV dec slope: JOAN(V,D): 1.4 cm2 396.1 cm/sec2 PA V2 max: PI end-d sumeet: TR max sumeet: 123.4 cm/sec 107.2 cm/sec 251.9 cm/sec PA max PG: TR max P.1 mmHg 25.4 mmHg Left Ventricle The left ventricle is grossly normal size. There is borderline concentric left ventricular hypertrophy. Left ventricular systolic function is low normal. Doppler measurements suggest pseudonormalized left ventricular relaxation, which is associated with grade II/IV or mild to moderate diastolic dysfunction. Wall motion cannot be accurately commented on, but no definite regional wall motion abnormalities noted. Right Ventricle The right ventricle is grossly normal size. There is normal right ventricular wall thickness. The right ventricular systolic function is normal. Atria The right atrium is normal. The left atrial size is normal. Interarterial septum not well visualized and not well dopplered. Cannot comment on ASD/PFO presence. Mitral Valve The mitral valve leaflets are sclerotic, but show no functional abnormalities. There is no mitral valve stenosis. There is a trace amount of mitral regurgitation. Aortic Valve The aortic valve is grossly normal. There is no aortic valve stenosis. No aortic regurgitation is present. Tricuspid Valve The tricuspid valve is not well visualized, but is grossly normal. There is no tricuspid stenosis. There is a trace to mild amount of tricuspid regurgitation. There is mild pulmonary hypertension by echo. Right ventricular systolic pressure is estimated to be elevated at 30-40mmHg. Pulmonic Valve The pulmonic valve is not well visualized. Great Vessels The aortic root is not well visualized but is probably normal size. The inferior vena cava was not well visualized. Effusions Minimal pericardial effusion. : DIANA DILLON > Chan Ruth
--- NOTE | 2017-01-22 15:18 | PDOC PROGRESS REPORT ---
Subjective Progress Note for:: 01/22/17 Subjective:: The patient is severely demented. She cannot express any complaints that she may or may not have. According to the nurses report, there was fecal material noted to come out of her NG tube. She has had no appreciable bowel movements. Physical Exam Vital Signs: Temp Pulse Resp BP Pulse Ox 98.4 F 86 16 168/64 H 100 01/22/17 12:10 01/22/17 12:10 01/22/17 12:10 01/22/17 12:10 01/22/17 12:10 Intake & Output 01/21/17 01/22/17 01/23/17 06:59 06:59 06:59 Intake Total 3725 0 Output Total 1550 200 Balance 2175 -200 Weight 35.2 kg GENERAL: Well-developed thin, cachectic appearing -Senegalese female resting in bed currently in no acute distress HEART: Regular rate and rhythm. No murmurs, rubs or gallops. LUNGS: Clear to auscultation anterior perspective bilaterally with equal rise and fall of the chest. ABDOMEN: Soft, nontender, nondistended with normoactive bowel sounds. NG tube is in place. EXTREMETIES: No clubbing, cyanosis or edema. 2+ peripheral pulses bilaterally. NEURO: Awake. Not alert. Disoriented. Results Laboratory Results: 01/22/17 06:21 01/22/17 06:21 01/22/17 01/22/17 06:21 06:21 WBC 7.5 RBC 3.20 L Hgb 10.0 L D Hct 30.0 L MCV 94 MCH 31.1 MCHC 33.1 RDW 14.7 H Plt Count 142 L Seg Neutrophils % 81.5 H Lymphocytes % 8.3 L Monocytes % 9.8 Eosinophils % 0.1 Basophils % 0.3 Absolute Neutrophils 6.1 Absolute Lymphocytes 0.6 Absolute Monocytes 0.7 Absolute Eosinophils 0.0 Absolute Basophils 0.0 Sodium 143.5 Potassium 4.2 Chloride 113 H Carbon Dioxide 26 Anion Gap 5 BUN 66 H Creatinine 1.63 H Est GFR ( Amer) 37 L Est GFR (Non-Af Amer) 31 L Glucose 67 L Calcium 10.4 H Magnesium 2.0 Impressions: KUB X-Ray 01/21/17 00:00 IMPRESSION: Ileus or partial small bowel obstruction. Good position of nasogastric tube. Limited or Localized CT 01/21/17 03:02 IMPRESSION: 1. Small bowel obstruction pattern. 2. Small to moderate bilateral lower lobar pneumonia, left more than right. 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 Cannot exclude other infectious and neoplastic processes. 4. Increased sclerosis of bilateral femoral heads may indicate avascular necrosis. Consider contrast MRI correlation. Chest X-Ray 01/21/17 03:34 IMPRESSION: Small to moderate bilateral lower lobar pneumonia, left more than right. Assessment & Plan - Diagnosis (1) SBO (small bowel obstruction) Is this a current diagnosis for this admission?: YesPlan: ET tube is in place. Await surgical assessment today. It as to whether or not the patient will be going to surgery. Given her age, advanced dementia and general debility, I am not certain that she would not survive surgery. (2) Acute renal failure Qualifiers: Acute renal failure type: unspecified Qualified Code(s): N17.9 - Acute kidney failure, unspecified Is this a current diagnosis for this admission?: YesPlan: Improved with fluid (3) UTI (urinary tract infection) Qualifiers: Urinary tract infection type: site unspecified Is this a current diagnosis for this admission?: YesPlan: M negative rods. Continue current antibiotics. (4) Dehydration Is this a current diagnosis for this admission?: YesPlan: Continue IV fluids for now. Improved overall. (5) Pneumonia Qualifiers: Pneumonia type: due to unspecified organism Laterality: bilateral Lung location: lower lobe of lung Qualified Code(s): J18.9 - Pneumonia, unspecified organism Is this a current diagnosis for this admission?: YesPlan: Continue Rocephin and azithromycin. (6) Abnormal CT scan, pelvis Is this a current diagnosis for this admission?: Yes - Time Time Spent with patient: 15-24 minutes
[2017-01-23] MEDS: DEXTROSE 50%-WATER 25 GM/50 ML DISP.SYRIN IV PRN ×2 (00:33→06:09)
[2017-01-23] MEDS: 1/2 NORMAL SALINE 1,000 ML IV PRN (02:07)
[2017-01-23 07:43] LABS: ABSOLUTE LYMPHOCYTES (AUTO) 0.6 10^3/uL (0.5-4.7); ABSOLUTE MONOCYTES (AUTO) 0.7 10^3/uL (0.1-1.4); ABSOLUTE NEUT (AUTO) 4.4 10^3/uL (1.7-8.2); BASOPHILS % (AUTO) 0.2 % (0-2); EOSINOPHILS % (AUTO) 0.3 % (0-6); HEMOGLOBIN 9.8 g/dL (12.0-15.5); HGB HCT DIFFERENCE -0.6; LYMPHOCYTES % (AUTO) 10.2 % (13-45); MEAN CORPUSCULAR HEMOGLOBIN 30.4 pg (27.0-33.4); MEAN CORPUSCULAR HGB CONC 32.7 g/dL (32.0-36.0); MEAN CORPUSCULAR VOLUME 93 fl (80-97); MONOCYTES % (AUTO) 12.2 % (3-13); RED BLOOD COUNT 3.22 10^6/uL (3.72-5.28); RED CELL DISTRIBUTION WIDTH 14.5 % (11.5-14.0); SEGMENTED NEUTROPHILS % (AUTO) 77.1 % (42-78); WHITE BLOOD COUNT 5.7 10^3/uL (4.0-10.5)
[2017-01-23 07:58] LABS: BLOOD UREA NITROGEN 49 mg/dL (7-20); CALCIUM 10.4 mg/dL (8.4-10.2); CARBON DIOXIDE 26 mmol/L (22-30); CHLORIDE 112 mmol/L (98-107); CREATININE RESULT 1.24 mg/dL (0.52-1.25); GLUCOSE 65 mg/dL (75-110); MAGNESIUM 2.1 mg/dL (1.6-2.3); POTASSIUM 3.7 mmol/L (3.6-5.0); SODIUM 142.2 mmol/L (137-145)
[2017-01-23] MEDS: HYDRALAZINE HCL INJ/PF 20 MG/1 ML SDV IV PRN ×2 (08:35→23:25)
[2017-01-23 10:07] LABS: ANION GAP 5 (5-19)
[2017-01-23] MEDS: CEFTRIAXONE 1 GM/D5W RTU 50 ML IV SCH (10:18)
[2017-01-23] MEDS: HEPARIN SOD (PORCINE) 5,000 UNIT/ML 1 ML SYRINGE SUBCUT SCH ×2 (10:19→22:07)
[2017-01-23] MEDS: FAMOTIDINE INJ/PF 20 MG/2 ML SDV IV SCH ×2 (10:19→22:06)
[2017-01-23] MEDS: AZITHROMYCIN 500 MG in DEXTROSE 5%-WATER 250 ML IV SCH (12:23)
--- NOTE | 2017-01-23 13:49 | PDOC PROGRESS REPORT ---
Subjective Progress Note for:: 01/23/17 Subjective:: The patient is severely demented. She expresses pain with flushing of her IV with normal saline. There have been no acute events overnight. It is documented that her NG tube put out a total of 800 the last 24 hours. Her daughter is with her at the bedside and I confirmed that if necessary she will want her mother to have surgery. Physical Exam Vital Signs: Temp Pulse Resp BP Pulse Ox 97.4 F 100 16 154/59 H 100 01/23/17 11:31 01/23/17 11:31 01/23/17 11:31 01/23/17 11:31 01/23/17 11:31 Intake & Output 01/22/17 01/23/17 01/24/17 06:59 06:59 06:59 Intake Total 3725 2625 0 Output Total 1550 550 0 Balance 2175 2075 0 Weight 36.5 kg GENERAL: Well-developed thin, cachectic appearing -Burmese female resting in bed currently in no acute distress HEART: Tachycardic. No murmurs, rubs or gallops. LUNGS: Clear to auscultation anterior perspective bilaterally with equal rise and fall of the chest. ABDOMEN: Soft, nontender, nondistended with normoactive bowel sounds. NG tube is in place draining simons fluid. The patient passed gas while I was in the room. No bowel movement. EXTREMETIES: No clubbing, cyanosis or edema. 2+ peripheral pulses bilaterally. NEURO: Awake. Alert. Disoriented. Results Laboratory Results: 01/23/17 05:34 01/23/17 05:34 01/23/17 01/23/17 05:34 05:34 WBC 5.7 RBC 3.22 L Hgb 9.8 L Hct 30.0 L MCV 93 MCH 30.4 MCHC 32.7 RDW 14.5 H Plt Count 137 L Seg Neutrophils % 77.1 Lymphocytes % 10.2 L Monocytes % 12.2 Eosinophils % 0.3 Basophils % 0.2 Absolute Neutrophils 4.4 Absolute Lymphocytes 0.6 Absolute Monocytes 0.7 Absolute Eosinophils 0.0 Absolute Basophils 0.0 Sodium 142.2 Potassium 3.7 Chloride 112 H Carbon Dioxide 26 Anion Gap 5 BUN 49 H Creatinine 1.24 Est GFR ( Amer) 51 L Est GFR (Non-Af Amer) 42 L Glucose 65 L Calcium 10.4 H Magnesium 2.1 Impressions: KUB X-Ray 01/21/17 00:00 IMPRESSION: Ileus or partial small bowel obstruction. Good position of nasogastric tube. Limited or Localized CT 01/21/17 03:02 IMPRESSION: 1. Small bowel obstruction pattern. 2. Small to moderate bilateral lower lobar pneumonia, left more than right. 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 Cannot exclude other infectious and neoplastic processes. 4. Increased sclerosis of bilateral femoral heads may indicate avascular necrosis. Consider contrast MRI correlation. Chest X-Ray 01/21/17 03:34 IMPRESSION: Small to moderate bilateral lower lobar pneumonia, left more than right. Assessment & Plan - Diagnosis (1) SBO (small bowel obstruction) Is this a current diagnosis for this admission?: Yes Plan: ET tube is in place. Await surgical assessment today. Hopefully the patient will have a bowel movement today. She passes gas swallows in the room. If she opens up we can hopefully avoid surgery in this 76-year-old patient. (2) Acute renal failure Qualifiers: Acute renal failure type: unspecified Qualified Code(s): N17.9 - Acute kidney failure, unspecified Is this a current diagnosis for this admission?: Yes (3) UTI (urinary tract infection) Qualifiers: Urinary tract infection type: site unspecified Is this a current diagnosis for this admission?: Yes Plan: Urine is positive for Proteus mirabilis. This organism is susceptible to her current antibiotics. Continue to monitor. (4) Dehydration Is this a current diagnosis for this admission?: Yes Plan: Continue IV fluids for now. Improved overall. (5) Pneumonia Qualifiers: Pneumonia type: due to unspecified organism Laterality: bilateral Lung location: lower lobe of lung Qualified Code(s): J18.9 - Pneumonia, unspecified organism Is this a current diagnosis for this admission?: Yes Plan: Continue Rocephin and azithromycin. (6) Abnormal CT scan, pelvis Is this a current diagnosis for this admission?: Yes (7) Diabetes mellitus type 2 in nonobese Is this a current diagnosis for this admission?: Yes Plan: The patient was hypoglycemic today. Suspect this is largely due to the fact that she is not eating. We will change her fluids to D5 half-normal saline with 20 of KCl. (8) Anemia of chronic disease Plan: Blood counts are currently stable. Continue to monitor. - Time Time Spent with patient: 25-34 minutes - Inpatient Certification Medical Necessity: Significant Comorbidiites Make Outpatient Treatment Too Risky , Need Close Monitoring Due to Risk of Patient Decompensation, Need For IV Fluids, Need for IV Antibiotics
[2017-01-23] MEDS: POTASSI CL 20 MEQ/D5-1/2NS 1L 1000 ML IV PRN (14:54)
--- NOTE | 2017-01-23 16:57 | PROGRESS NOTE E ---
Progress Note NAME: CELESTINA SWEENEY : 1940 AGE: 76Y DATE: 01/23/2017 ROOM: 320 SUBJECTIVE: The patient had a bowel movement according to her nurse. The NG drainage was about 800 from last night to this morning, but from this morning to early afternoon has drained is about 200 mL. Her abdomen is less distended and soft, though difficult to tell whether she does have less tenderness, although it appears that way. She is a lot less tender in the lower abdomen. PLAN: I would hold removing the NG tube for now because of the difficulty putting it in according to the nurse and watch her closely overnight. If she continues to have bowel movement or pass gas then I will discontinue the NG tube tomorrow, or the NG drainage decreases considerably. DICTATING PHYSICIAN: NETO MANCIA M.D. [id number] PHY#: [id number] ID: [id number] JOB#: [id number] ACCT: [id number] cc: >
[2017-01-24] MEDS: POTASSI CL 20 MEQ/D5-1/2NS 1L 1000 ML IV PRN (04:19)
[2017-01-24] MEDS: AZITHROMYCIN 500 MG in DEXTROSE 5%-WATER 250 ML IV SCH (09:04)
[2017-01-24] MEDS: FAMOTIDINE INJ/PF 20 MG/2 ML SDV IV SCH (09:05)
[2017-01-24] MEDS: CEFTRIAXONE 1 GM/D5W RTU 50 ML IV SCH (09:05)
[2017-01-24] MEDS: HEPARIN SOD (PORCINE) 5,000 UNIT/ML 1 ML SYRINGE SUBCUT SCH (09:06)
[2017-01-24] MEDS ORDERED: PHENYLEPHRINE HCL INJ/PF 10 MG/1 ML SDV ONE (09:14)
[2017-01-24] MEDS ORDERED: ROCURONIUM BROMIDE INJ 50 MG/5 ML VIAL IV ONE (09:14)
[2017-01-24] MEDS ORDERED: SUCCINYLCHOLINE CHLORIDE INJ 200 MG/10 ML VIAL ONE (09:14)
[2017-01-24] MEDS ORDERED: GLUCAGON,HUMAN RECOMB 1 MG INJ SUBCUT PRN (11:57)
[2017-01-24] MEDS ORDERED: DEXTROSE 40% GEL 15 GM TUBE PO PRN ×2 (11:57)
[2017-01-24] MEDS ORDERED: DEXTROSE 50%-WATER 25 GM/50 ML DISP.SYRIN IV PRN ×2 (11:57)
--- NOTE | 2017-01-24 13:58 | PDOC PROGRESS REPORT ---
Subjective Progress Note for:: 01/24/17 Subjective:: The patient is severely demented. She is much more animated today. She speaks coherently but largely to herself and off-topic. She tells me she is hungry and that she wants to eat. She has had a total of 4 large bowel movements overnight. The patient pulled out her NG tube at 615 this morning. The surgical service was contacted did and it was agreed to let it stay out. Physical Exam Vital Signs: Temp Pulse Resp BP Pulse Ox 97.6 F 103 H 18 158/98 H 100 01/24/17 11:19 01/24/17 11:19 01/24/17 11:19 01/24/17 11:19 01/24/17 11:19 Intake & Output 01/23/17 01/24/17 01/25/17 06:59 06:59 06:59 Intake Total 2625 1943 200 Output Total 550 550 150 Balance 2075 1393 50 Weight 36.5 kg 36.2 kg GENERAL: Well-developed thin, cachectic appearing -Welsh female resting in bed currently in no acute distress HEART: Regular rate and rhythm. No murmurs, rubs or gallops. LUNGS: Clear to auscultation anterior perspective bilaterally with equal rise and fall of the chest. ABDOMEN: Soft, nontender, nondistended with normoactive bowel sounds. NG tube is out. EXTREMETIES: No clubbing, cyanosis or edema. 2+ peripheral pulses bilaterally. NEURO: Awake. Alert. Disoriented. Results Laboratory Results: 01/23/17 05:34 01/23/17 05:34 Impressions: KUB X-Ray 01/21/17 00:00 IMPRESSION: Ileus or partial small bowel obstruction. Good position of nasogastric tube. Limited or Localized CT 01/21/17 03:02 IMPRESSION: 1. Small bowel obstruction pattern. 2. Small to moderate bilateral lower lobar pneumonia, left more than right. 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 Cannot exclude other infectious and neoplastic processes. 4. Increased sclerosis of bilateral femoral heads may indicate avascular necrosis. Consider contrast MRI correlation. Chest X-Ray 01/21/17 03:34 IMPRESSION: Small to moderate bilateral lower lobar pneumonia, left more than right. Assessment & Plan - Diagnosis (1) SBO (small bowel obstruction) Is this a current diagnosis for this admission?: Yes Plan: Obstruction seems to be relieved. She has had 4 bowel movements overnight. We will do a bedside swallow eval and if this is good we will start her on clear liquids and advance as tolerated. (2) Acute renal failure Qualifiers: Acute renal failure type: unspecified Qualified Code(s): N17.9 - Acute kidney failure, unspecified Is this a current diagnosis for this admission?: Yes Plan: Improved with fluid (3) UTI (urinary tract infection) Qualifiers: Urinary tract infection type: site unspecified Is this a current diagnosis for this admission?: Yes Plan: Urine is positive for Proteus mirabilis and E. coli. This organism is susceptible to her current antibiotics. Continue to monitor. (4) Dehydration Is this a current diagnosis for this admission?: Yes Plan: Continue IV fluids for now. Improved overall. (5) Pneumonia Qualifiers: Pneumonia type: due to unspecified organism Laterality: bilateral Lung location: lower lobe of lung Qualified Code(s): J18.9 - Pneumonia, unspecified organism Is this a current diagnosis for this admission?: Yes Plan: Continue Rocephin and azithromycin. (6) Abnormal CT scan, pelvis Is this a current diagnosis for this admission?: Yes (7) Diabetes mellitus type 2 in nonobese Is this a current diagnosis for this admission?: Yes Plan: Continue D5 half-normal with 20 of KCl. If she tolerates clear liquids well and is able to advance in her diet we can certainly discontinue this. Continue sliding scale insulin.. (8) Anemia of chronic disease Plan: Blood counts are currently stable. Continue to monitor. - Time Time Spent with patient: 15-24 minutes - Inpatient Certification Medical Necessity: Need Close Monitoring Due to Risk of Patient Decompensation
[2017-01-24] MEDS ORDERED: PHARMACY COMMUNICATION ORDER MC NR (14:00)
--- NOTE | 2017-01-24 14:05 | PDOC PROGRESS REPORT ---
Subjective Progress Note for:: 01/24/17 Subjective:: No complaints. Patient is hungry. Had multiple bowel movements. Physical Exam Vital Signs: Temp Pulse Resp BP Pulse Ox 97.6 F 103 H 18 158/98 H 100 01/24/17 11:19 01/24/17 11:19 01/24/17 11:19 01/24/17 11:19 01/24/17 11:19 Intake & Output 01/23/17 01/24/17 01/25/17 06:59 06:59 06:59 Intake Total 2625 1943 200 Output Total 550 550 150 Balance 2075 1393 50 Weight 36.5 kg 36.2 kg General appearance: PRESENT: no acute distress, cooperative Respiratory exam: PRESENT: clear to auscultation justin Cardiovascular exam: PRESENT: tachycardia GI/Abdominal exam: PRESENT: other - Moderately distended, minimal tenderness. Results Laboratory Results: 01/23/17 05:34 01/23/17 05:34 Impressions: KUB X-Ray 01/21/17 00:00 IMPRESSION: Ileus or partial small bowel obstruction. Good position of nasogastric tube. Limited or Localized CT 01/21/17 03:02 IMPRESSION: 1. Small bowel obstruction pattern. 2. Small to moderate bilateral lower lobar pneumonia, left more than right. 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 Cannot exclude other infectious and neoplastic processes. 4. Increased sclerosis of bilateral femoral heads may indicate avascular necrosis. Consider contrast MRI correlation. Chest X-Ray 01/21/17 03:34 IMPRESSION: Small to moderate bilateral lower lobar pneumonia, left more than right. Assessment & Plan - Diagnosis (1) SBO (small bowel obstruction) Is this a current diagnosis for this admission?: Yes Plan: Despite having multiple bowel movements her abdomen is still distended and abdominal x-rays demonstrate dilated loops of small bowel. Make patient n.p.o. Will replace her NG tube and will obtain small bowel follow series.
[2017-01-24] MEDS ORDERED: HYDRALAZINE HCL INJ/PF 20 MG/1 ML SDV IV PRN (15:30)
--- NOTE | 2017-01-24 17:48 | Progress Note ---
Provider Note Provider Note: I was called by Dr. Patton, general surgeon, who re-the patient's current condition. He feels that the patient's abdomen is much more distended this evening. KUB was checked. He feels that the patient still has a very high- grade bowel obstruction. He is recommending that the patient go to urgent surgery. The 4 bowel movements that the patient had overnight are likely a postobstructive bowel movements. I have reached out to the patient's daughter Ms. Jazmyne Siu. I have shared with her this information. Yesterday when I spoke with her I did not recommend that she pursue surgical intervention. The patient is a 76-year-old female with diabetes, malnutrition and BMI of 17, low normal EF and moderate diastolic dysfunction, and newly diagnosed Paget's disease of the bone. Her risk of morbidity and mortality associated with surgical intervention is quite high. She would likely end up with a colostomy and recovery would be difficult given her nutritional state and comorbid conditions. Without surgery, however, the patient will likely suffer from infarcted bowel and ultimate . The options are to take this patient to surgery now or forego surgical intervention and make her comfortable to the end of life. I spoke with the patient's daughter at length. Yesterday during our conversation I did not recommend that the patient undergo surgery for the above reasons. At this time I am still recommending comfort measures. The patient is currently full code. The patient's daughter like to discuss this with her brother. I have passed along her number to Dr. Patton so that she can hear from the surgeon and get all the information necessary to make a conscientious decision. In my conversation with Dr. Patton, he would prefer an orthopedic consultation to weigh in on how likely the patient is to recover from a Paget's disease perspective i.e.- ambulation. This alone, of course, is not a determining factor in the need for surgical intervention. It will offer additional information for the family. I have placed a consult to Dr Soares.
--- NOTE | 2017-01-24 18:25 | PDOC PROGRESS REPORT ---
Subjective Progress Note for:: 01/24/17 Subjective:: demented. no apparent distress. Physical Exam Vital Signs: Temp Pulse Resp BP Pulse Ox 97.6 F 102 H 18 158/98 H 100 01/24/17 11:19 01/24/17 14:00 01/24/17 11:19 01/24/17 11:19 01/24/17 11:19 Intake & Output 01/23/17 01/24/17 01/25/17 06:59 06:59 06:59 Intake Total 2625 1943 200 Output Total 550 550 150 Balance 2075 1393 50 Weight 36.5 kg 36.2 kg General appearance: PRESENT: no acute distress GI/Abdominal exam: PRESENT: other - distended, mild tenderness with no peritoneal signs. Results Laboratory Results: 01/23/17 05:34 01/23/17 05:34 Impressions: Limited or Localized CT 01/21/17 03:02 IMPRESSION: 1. Small bowel obstruction pattern. 2. Small to moderate bilateral lower lobar pneumonia, left more than right. 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 Cannot exclude other infectious and neoplastic processes. 4. Increased sclerosis of bilateral femoral heads may indicate avascular necrosis. Consider contrast MRI correlation. Chest X-Ray 01/21/17 03:34 IMPRESSION: Small to moderate bilateral lower lobar pneumonia, left more than right. Assessment & Plan - Diagnosis (1) SBO (small bowel obstruction) Is this a current diagnosis for this admission?: Yes Plan: Despite having multiple bowel movements her abdomen is still distended and abdominal x-rays demonstrate markedly dilated loops of small bowel without colonic distention. with contrast failing to pass distally, sbf study aborted to avoid risk of aspiraiton. with the appearance of her abd xray and her abdominal distention, the most likely dx is sbo. I believe that she is passing stool post obstructively. I had a long discussion with the patient's daughter concerning the risk and benefits of an operation. I have explained to her that there is a small chance that I am wrong with the diagnosis however the much more likely possibility is that she has a bowel obstruction and the longer we wait, the higher the risk to the patient. I have concerns that she has pneumonia, significant bony disease of the pelvis that will impair mobility after the operation, malnutrition and generalized weakness. However with persistence of small bowel obstruction she will most likely succumb to its complications without an operation. I have discussed with the daughter the technical risk involved with the operation including bleeding infection intestinal and adjacent structure injury. She understands all my concerns and wishes to proceed with the operation. Will proceed with exploratory laparotomy with possible bowel resection this evening.
[2017-01-24] MEDS ORDERED: FENTANYL CITRATE INJ/PF 250 MCG/5 ML AMPULE ONE (18:39)
[2017-01-24] MEDS ORDERED: EPHEDRINE SULFATE INJ 50 MG/1 ML AMPULE ONE (18:40)
[2017-01-24] MEDS ORDERED: MIDAZOLAM 2 MG/2 ML INJ ONE (18:40)
[2017-01-24] MEDS ORDERED: ACETAMINOPHEN 0 ML IV ONE (18:40)
[2017-01-24] MEDS ORDERED: HYDROMORPHONE HCL INJ/PF 2 MG/ML AMPULE ONE (18:40)
[2017-01-24] MEDS ORDERED: PROPOFOL INJ 200 MG/20 ML VIAL IV ONE (18:40)
[2017-01-24] MEDS ORDERED: BUPIVACAINE HCL 0.25 % INJ/PF (2.5 MG/1 ML) 30 ML VIAL ONE (18:41)
[2017-01-24] MEDS ORDERED: CEFAZOLIN INJ 1 GM VIAL ONE (19:13)
[2017-01-24] MEDS ORDERED: BUPIVACAINE HCL 0.25 % INJ/PF (2.5 MG/1 ML) 30 ML VIAL INJ ONE (20:00)
[2017-01-24 21:41] LABS: CREATINE KINASE MB 0.86 ng/mL (<4.55)
[2017-01-24 21:42] LABS: TROPONIN I < 0.012 ng/mL
[2017-01-24] MEDS ORDERED: DIPHENHYDRAMINE HCL 50 MG/ML VIAL IV PRN (22:02)
[2017-01-24] MEDS ORDERED: MORPHINE SULFATE 10 MG/ML INJ IV PRN (22:02)
[2017-01-24] MEDS ORDERED: PROMETHAZINE HCL INJ 25 MG/1 ML VIAL IV PRN ×2 (22:02)
[2017-01-24] MEDS ORDERED: MEPERIDINE HCL/PF INJ 25 MG/1 ML DISP.SYRIN IV PRN (22:02)
[2017-01-24] MEDS ORDERED: OXYCODONE-ACETAMINOPHEN 5-325 MG TABLET PO PRN ×2 (22:02)
[2017-01-24] MEDS ORDERED: FENTANYL CITRATE INJ/PF 100 MCG/2 ML AMPUL IV PRN ×3 (22:02)
[2017-01-24] MEDS ORDERED: DEXTROSE 5%-WATER 250 ML with NOREPINEPHRINE BITARTRATE 4 MG IV PRN ×2 (22:12)
[2017-01-24] MEDS ORDERED: PROPOFOL 100 ML IV ONE (23:01)
[2017-01-24 23:07] LABS: ARTERIAL BLOOD BASE EXCESS -9.5 mmol/L; ARTERIAL BLOOD O2 SATURATION 99.7 % (94-98)
[2017-01-24 23:43] LABS: HEMATOCRIT 32.9 % (36.0-47.0); HEMOGLOBIN 10.6 g/dL (12.0-15.5); HGB HCT DIFFERENCE -1.1; MEAN CORPUSCULAR HEMOGLOBIN 30.3 pg (27.0-33.4); MEAN CORPUSCULAR HGB CONC 32.1 g/dL (32.0-36.0); MEAN CORPUSCULAR VOLUME 94 fl (80-97); RED BLOOD COUNT 3.49 10^6/uL (3.72-5.28); RED CELL DISTRIBUTION WIDTH 14.5 % (11.5-14.0); WHITE BLOOD COUNT 3.6 10^3/uL (4.0-10.5)
[2017-01-24] MEDS: MORPHINE SULFATE 10 MG/ML INJ IV PRN (23:45)
[2017-01-24 23:48] LABS: ANION GAP 6 (5-19); BLOOD UREA NITROGEN 22 mg/dL (7-20); CALCIUM 8.6 mg/dL (8.4-10.2); CARBON DIOXIDE 19 mmol/L (22-30); CHLORIDE 117 mmol/L (98-107); CREATININE RESULT 0.91 mg/dL (0.52-1.25); GLUCOSE 146 mg/dL (75-110); MAGNESIUM 1.6 mg/dL (1.6-2.3); PHOSPHORUS 2.4 mg/dL (2.5-4.5)
[2017-01-24 23:52] LABS: POTASSIUM 2.9 mmol/L (3.6-5.0)
[2017-01-25] MEDS ORDERED: POTASSIUM PHOS,M-BASIC-D-BASIC 30 MMOL in NORMAL SALINE 500 ML IV ONE ×2 (00:37→09:00)
[2017-01-25] MEDS: MORPHINE SULFATE 10 MG/ML INJ IV PRN ×2 (00:54→22:47)
[2017-01-25] MEDS: FAMOTIDINE INJ/PF 20 MG/2 ML SDV IV SCH (00:56)
[2017-01-25] MEDS: NORMAL SALINE 1000 ML 1,000 ML IV PRN ×2 (00:57→05:41)
[2017-01-25] MEDS: HEPARIN SOD (PORCINE) 5,000 UNIT/ML 1 ML SYRINGE SUBCUT SCH (01:00)
[2017-01-25] MEDS ORDERED: MAGNESIUM SULFATE/D5W 1 GM/100 ML RTUPB IV ONE (01:11)
[2017-01-25] MEDS ORDERED: POTASSI CL 20 MEQ/50 ML RIDER 20 MEQ/50 ML RTUPB IV ONE (01:11)
[2017-01-25 02:10] LABS: ARTERIAL BLOOD BASE EXCESS -6.7 mmol/L; ARTERIAL BLOOD O2 SATURATION 98.8 % (94-98)
[2017-01-25] MEDS: POTASSIUM CHLORIDE 20 MEQ/50 ML RTU IV SCH ×2 (02:29→04:37)
[2017-01-25] MEDS ORDERED: LEVALBUTEROL HCL NEB 1.25 MG/3 ML AMPUL NEB SCH (03:30)
--- NOTE | 2017-01-25 04:33 | PDOC PROGRESS REPORT ---
Subjective Progress Note for:: 01/25/17 Subjective:: Intubated sedated Physical Exam Vital Signs: Temp Pulse Resp BP Pulse Ox 95.4 F L 108 H 18 124/53 L 98 01/25/17 02:00 01/25/17 00:00 01/24/17 22:25 01/24/17 22:25 01/25/17 00:00 Intake & Output 01/23/17 01/24/17 01/25/17 06:59 06:59 06:59 Intake Total 2625 1943 5100 Output Total 591 955 1608 Balance 2075 1393 760 Weight 36.5 kg 36.2 kg 36.8 kg General appearance: PRESENT: no acute distress Respiratory exam: PRESENT: clear to auscultation justin Cardiovascular exam: PRESENT: tachycardia GI/Abdominal exam: PRESENT: other - Distended, diffusely tender Extremities exam: PRESENT: other - Warm. Results Laboratory Results: 01/24/17 23:12 01/24/17 23:12 01/24/17 01/24/17 01/24/17 20:58 22:50 23:12 WBC RBC Hgb Hct MCV MCH MCHC RDW Plt Count Carbonic Acid 1.17 HCO3/H2CO3 Ratio 14:1 ABG pH 7.26 L ABG pCO2 38.9 ABG pO2 345.8 H ABG HCO3 16.9 L ABG O2 Saturation 99.7 H ABG Base Excess -9.5 FiO2 100% Sodium 142.0 Potassium 2.9 L* Chloride 117 H Carbon Dioxide 19 L Anion Gap 6 BUN 22 H Creatinine 0.91 Est GFR ( Amer) > 60 Est GFR (Non-Af Amer) > 60 Glucose 146 H Calcium 8.6 Phosphorus 2.4 L Magnesium 1.6 Blood Type O NEGATIVE Antibody Screen NEGATIVE 01/24/17 01/25/17 23:12 02:00 WBC 3.6 L RBC 3.49 L Hgb 10.6 L Hct 32.9 L MCV 94 MCH 30.3 MCHC 32.1 RDW 14.5 H Plt Count 167 Carbonic Acid 0.79 L HCO3/H2CO3 Ratio 21:1 ABG pH 7.42 ABG pCO2 26.4 L ABG pO2 133.2 H ABG HCO3 16.8 L ABG O2 Saturation 98.8 H ABG Base Excess -6.7 FiO2 30% Sodium Potassium Chloride Carbon Dioxide Anion Gap BUN Creatinine Est GFR ( Amer) Est GFR (Non-Af Amer) Glucose Calcium Phosphorus Magnesium Blood Type Antibody Screen 01/24/17 01/24/17 20:58 20:58 Creatine Kinase 28 L CK-MB (CK-2) 0.86 Troponin I < 0.012 NT-Pro-B Natriuret Pep 3310 H Impressions: Limited or Localized CT 01/21/17 03:02 IMPRESSION: 1. Small bowel obstruction pattern. 2. Small to moderate bilateral lower lobar pneumonia, left more than right. 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 Cannot exclude other infectious and neoplastic processes. 4. Increased sclerosis of bilateral femoral heads may indicate avascular necrosis. Consider contrast MRI correlation. Assessment & Plan - Diagnosis (1) SBO (small bowel obstruction) Is this a current diagnosis for this admission?: Yes Plan: Status post exploratory laparotomy with ileocecal resection. Supportive care, fluid resuscitation. Replace K.
[2017-01-25 05:21] LABS: MEAN CORPUSCULAR HEMOGLOBIN 29.8 pg (27.0-33.4); MEAN CORPUSCULAR HGB CONC 31.9 g/dL (32.0-36.0); MEAN CORPUSCULAR VOLUME 94 fl (80-97); RED BLOOD COUNT 2.68 10^6/uL (3.72-5.28); RED CELL DISTRIBUTION WIDTH 14.1 % (11.5-14.0)
[2017-01-25 05:38] LABS: BLOOD UREA NITROGEN 20 mg/dL (7-20); CALCIUM 7.7 mg/dL (8.4-10.2); CHLORIDE 122 mmol/L (98-107); CREATININE RESULT 0.86 mg/dL (0.52-1.25); GLUCOSE 125 mg/dL (75-110); MAGNESIUM 1.8 mg/dL (1.6-2.3); TRIGLYCERIDES 101 mg/dL (<150)
[2017-01-25 05:40] LABS: ARTERIAL BLOOD BASE EXCESS -7.5 mmol/L; ARTERIAL BLOOD O2 SATURATION 98.9 % (94-98)
[2017-01-25 05:48] LABS: CREATINE KINASE MB 1.22 ng/mL (<4.55); TROPONIN I 0.044 ng/mL
[2017-01-25 05:55] LABS: BASOPHILS % (MANUAL) 0 % (0-2); EOSINOPHILS % (MANUAL) 0 % (0-6); LYMPHOCYTES % (MANUAL) 2 % (13-45); TOTAL CELLS COUNTED 100
[2017-01-25 05:56] LABS: CREATINE KINASE < 20 U/L (30-135)
[2017-01-25 05:57] LABS: ANISOCYTOSIS SLIGHT; BURR CELLS 1+; OVALOCYTES SLIGHT; POIKILOCYTOSIS SLIGHT; SCHISTOCYTES SLIGHT; TEAR DROP CELLS SLIGHT; TOXIC GRANULATION 1+; WHITE BLOOD COUNT 11.3 10^3/uL (4.0-10.5)
[2017-01-25 06:03] LABS: CARBON DIOXIDE 16 mmol/L (22-30)
[2017-01-25 06:06] LABS: ANION GAP 4 (5-19); POTASSIUM 4.4 mmol/L (3.6-5.0)
--- NOTE | 2017-01-25 06:48 | PDOC CONSULTATION ---
Consultation Consult Date: 01/25/17 Consult reason:: Incidental finding of Paget's disease and avascular necrosis on abdominal CT scan History of Present Illness Admission Date/PCP: 01/21/17 05:26 History of Present Illness: Patient is 76-year-old black female with known dementia and unknown functional status prior to presentation in the emergency room with a small bowel obstruction. Patient was evaluated with an abdominal CT scan which demonstrated the presence of pelvic Paget's disease and potentially bilateral femoral head avascular necrosis. Patient was taken to the operating room yesterday for the small bowel obstruction and orthopedics now consulted for functional limitations for her rehabilitation. Past Medical History Medical History: Other - Unknown. Patient currently intubated Endocrine Medical History: Reports: Diabetes Mellitus Type 2 Skin History Note: History of stage II sacral decubitus Psychiatric Medical History: Reports: Dementia Past Surgical History Past Surgical History: Reports: Other - Uncertain; patient has a well-healed lower midline abdominal incision. Social History Lives with: Family - Reportedly lives with daughter. Smoking Status: Unknown if Ever Smoked Drugs: None - Advance Directive Resuscitation Status: Full Code Family History Family History: Reviewed & Not Pertinent Parental Family History Reviewed: No Children Family History Reviewed: No Sibling(s) Family History Reviewed.: No Medication/Allergy Home Medications: No Home Medications 01/21/17 Allergies/Adverse Reactions: No Known Allergies Allergy (Unverified 01/20/17 20:50) Review of Systems ROS unobtainable: Due to endotracheal tube Physical Exam Vital Signs: Temp Pulse Resp BP Pulse Ox 36.3 C 108 H 14 140/60 H 100 01/25/17 06:00 01/25/17 00:00 01/25/17 06:00 01/25/17 05:47 01/25/17 06:00 Intake & Output 01/23/17 01/24/17 01/25/17 06:59 06:59 06:59 Intake Total 2629 1943 7272 Output Total 556 014 8292 Balance 2075 5773 2691 Weight 36.5 kg 36.2 kg 39.5 kg Physical Exam: Patient is a thin elderly black female in the intensive care unit currently intubated General appearance: PRESENT: thin Head exam: PRESENT: normocephalic Respiratory exam: PRESENT: other - Intubated Cardiovascular exam: PRESENT: RRR Pulses: PRESENT: +1 pedal pulses bilateral Vascular exam: PRESENT: normal capillary refill GI/Abdominal exam: PRESENT: soft Rectal exam: PRESENT: deferred Extremities exam: PRESENT: other - Passive range of motion both lower extremities without grimacing Skin exam: PRESENT: other - Sacral decubitus Results Laboratory Results: 01/25/17 05:00 01/25/17 05:00 01/24/17 01/24/17 01/24/17 20:58 22:50 23:12 WBC RBC Hgb Hct MCV MCH MCHC RDW Plt Count Seg Neutrophils % Lymphocytes % Monocytes % Eosinophils % Basophils % Absolute Neutrophils Absolute Lymphocytes Absolute Monocytes Absolute Eosinophils Absolute Basophils Carbonic Acid 1.17 HCO3/H2CO3 Ratio 14:1 ABG pH 7.26 L ABG pCO2 38.9 ABG pO2 345.8 H ABG HCO3 16.9 L ABG O2 Saturation 99.7 H ABG Base Excess -9.5 FiO2 100% Sodium 142.0 Potassium 2.9 L* Chloride 117 H Carbon Dioxide 19 L Anion Gap 6 BUN 22 H Creatinine 0.91 Est GFR ( Amer) > 60 Est GFR (Non-Af Amer) > 60 Glucose 146 H Calcium 8.6 Phosphorus 2.4 L Magnesium 1.6 Triglycerides Blood Type O NEGATIVE Antibody Screen NEGATIVE 01/24/17 01/25/17 01/25/17 23:12 02:00 05:00 WBC 3.6 L 11.3 H D RBC 3.49 L 2.68 L Hgb 10.6 L 8.0 L D Hct 32.9 L 25.0 L MCV 94 94 MCH 30.3 29.8 MCHC 32.1 31.9 L RDW 14.5 H 14.1 H Plt Count 167 141 L Seg Neutrophils % Not Reportable Lymphocytes % Not Reportable Monocytes % Not Reportable Eosinophils % Not Reportable Basophils % Not Reportable Absolute Neutrophils Not Reportable Absolute Lymphocytes Not Reportable Absolute Monocytes Not Reportable Absolute Eosinophils Not Reportable Absolute Basophils Not Reportable Carbonic Acid 0.79 L HCO3/H2CO3 Ratio 21:1 ABG pH 7.42 ABG pCO2 26.4 L ABG pO2 133.2 H ABG HCO3 16.8 L ABG O2 Saturation 98.8 H ABG Base Excess -6.7 FiO2 30% Sodium Potassium Chloride Carbon Dioxide Anion Gap BUN Creatinine Est GFR ( Amer) Est GFR (Non-Af Amer) Glucose Calcium Phosphorus Magnesium Triglycerides Blood Type Antibody Screen 01/25/17 01/25/17 05:00 05:28 WBC RBC Hgb Hct MCV MCH MCHC RDW Plt Count Seg Neutrophils % Lymphocytes % Monocytes % Eosinophils % Basophils % Absolute Neutrophils Absolute Lymphocytes Absolute Monocytes Absolute Eosinophils Absolute Basophils Carbonic Acid 0.72 L HCO3/H2CO3 Ratio 21:1 ABG pH 7.43 ABG pCO2 24.0 L ABG pO2 136.4 H ABG HCO3 15.7 L ABG O2 Saturation 98.9 H ABG Base Excess -7.5 FiO2 30% Sodium 142.0 Potassium 4.4 D Chloride 122 H Carbon Dioxide 16 L Anion Gap 4 L BUN 20 Creatinine 0.86 Est GFR ( Amer) > 60 Est GFR (Non-Af Amer) > 60 Glucose 125 H Calcium 7.7 L Phosphorus Magnesium 1.8 Triglycerides 101 Blood Type Antibody Screen 01/24/17 01/24/17 01/25/17 20:58 20:58 05:00 Creatine Kinase 28 L < 20 L CK-MB (CK-2) 0.86 Troponin I < 0.012 NT-Pro-B Natriuret Pep 3310 H 01/25/17 05:00 Creatine Kinase CK-MB (CK-2) 1.22 Troponin I 0.044 NT-Pro-B Natriuret Pep Impressions: Limited or Localized CT 01/21/17 03:02 IMPRESSION: 1. Small bowel obstruction pattern. 2. Small to moderate bilateral lower lobar pneumonia, left more than right. 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 Cannot exclude other infectious and neoplastic processes. 4. Increased sclerosis of bilateral femoral heads may indicate avascular necrosis. Consider contrast MRI correlation. Status: Imported from PACS Assessment & Plan - Diagnosis (1) Abnormal CT scan, pelvis Is this a current diagnosis for this admission?: Yes Plan: 76-year-old black female with unknown functional status prior to presentation in the emergency room. It is unknown whether she was functionally household ambulator prior to admission or not. There is an incidental finding of potentially Paget's disease of the pelvis and avascular necrosis of both femoral heads. These are both chronic conditions and I think that rehabilitation should proceed as her medical condition permits. If there are any functional limitations or acute sequela these can be addressed at that time. - Time Time Spent: 50 to 70 Minutes Anticipated discharge: Other
--- NOTE | 2017-01-25 07:54 | Operative Report ---
Operative Report DATE OF SURGERY: 01/24/17 PREOPERATIVE DIAGNOSIS: Small bowel obstruction POSTOPERATIVE DIAGNOSIS: Small bowel obstruction with ischemic segment of terminal ileum OPERATION: Exploratory laparotomy with ileocecal resection with ileocolic anastomosis, attempted left subclavian central venous access placement. SURGEON: GLORIA VELAZQUEZ ANESTHESIA: GA TISSUE REMOVED OR ALTERED: Very distal terminal ileum and cecum COMPLICATIONS: None ESTIMATED BLOOD LOSS: 50 cc INTRAOPERATIVE FINDINGS: Copious amount of serous fluid in the peritoneal cavity. Markedly distended small bowel. Tightly adhered segment of very distal terminal ileum with resultant obstruction with black discoloration of this segment. PROCEDURE: Informed consent was obtained. Patient was brought to the operating room placed on the operating room table in the supine position. After satisfactory induction of general anesthesia, patient's left chest and neck were prepped and draped in usual sterile fashion. The left subclavian vein was entered without difficulty but I could not feed the guidewire beyond 18 cm, despite multiple technical measures. Patient was noted with distended external jugular vein therefore a large bore IV was placed into the external jugular vein which provided adequate access to proceed and central line placement was aborted. Patient's abdomen was prepped and draped in usual sterile fashion. A midline abdominal incision was made and dissection was carried down and peritoneal cavity was entered without difficulty. There was copious amount of the serous fluid in the peritoneal cavity which was aspirated. The uterus and both of the ovaries appeared normal. The liver felt smooth. The anterior surface of the stomach felt normal. NG tube position was confirmed. The small bowel was markedly distended. It was run from the ligament of Treitz down to the ileocecal junction. At the ileocecal junction there was a tight adhesion between the very distal segment of terminal ileum and the cecum with ischemic changes of this segment of terminal ileum. This point was the point of obstruction. This tight adhesion was broken up, relieving the obstruction. However this segment of terminal ileum remained with dark striations consistent with ischemia. Furthermore I could not hear any Doppler signals within the segment's thickened inflamed mesentery. Further upstream about 8 cm from the ileocecal junction the bowel appeared healthier although slightly dusky. At about 14 cm from the ileocecal junction the bowel appeared pink with palpable pulsation in his mesentery. The right colon appeared pink with excellent blood supply palpable in its mesentery. I scrubbed out and discussed the situation with the family. I recommended resection of dissection of compromised terminal ileum along with the cecum. I had a discussion with the patient's family the risk and benefits of an anastomosis versus an end ileostomy and mucous fistula. I made it very clear that the safest short-term measure would be to do ileostomy and mucous fistula and avoid an anastomosis however an end ileostomy in a demented elderly patient would risk significant dehydration and electrolyte problems on a chronic basis. Putting this patient through a second operation for ileostomy reversal carry significant risks as well. Family wanted me to proceed with an anastomosis. The terminal ileum was divided using a DHRUV stapling device where the ileum was clearly pink and healthy. The colon was divided using a DHRUV stapling device just distal to the cecum. The mesentery of the resected bowel was taken using a LigaSure device taking the mesentery close to the bowel. Approximately 14 cm of the terminal ileum was resected. The remaining right colon and the terminal ileum appeared pink with palpable pulses in their mesentery. With the healthy-appearing remaining bowel , I proceeded with an anastomosis. A [id number] functional end-to-end anastomosis was created between the terminal ileum and the right colon using a DHRUV stapling device. The enterotomy created to introduce the stapling device was closed with a TA stapling device. The anastomosis appeared secure with no evidence of ischemia. The mesenteric defect was closed with running Vicryl suture. Hemostasis appeared excellent. Sponge needle and instrument counts were all correct. The bowel was returned back into the peritoneal cavity. Fascia was closed with running PDS suture. Skin was closed with miles. Patient tolerated the procedure with no apparent complications and was taken to the intensive care unit intubated.
[2017-01-25] MEDS: LEVALBUTEROL HCL NEB 1.25 MG/3 ML AMPUL NEB SCH ×2 (08:20→15:51)
--- NOTE | 2017-01-25 08:22 | RADIOLOGY REPORT (SQ) ---
EXAM DESCRIPTION: CHEST SINGLE VIEW COMPLETED DATE/TIME: 01/25/2017 5:59 am REASON FOR STUDY: Mechanical ventilation COMPARISON: 01/24/2017, 01/21/2017 EXAM PARAMETERS: NUMBER OF VIEWS: One view. TECHNIQUE: Single frontal radiographic view of the chest acquired. RADIATION DOSE: NA LIMITATIONS: None. FINDINGS: Endotracheal tube tip 3 cm above the tatiana. Nasogastric tube tip and side port in the stomach. LUNGS AND PLEURA: Persistent left lower lobe collapse and consolidation with air bronchograms, unchan ged. Right lung well inflated and clear. No gross pleural effusions. No pneumothorax. MEDIASTINUM AND HILAR STRUCTURES: No masses. Contour normal. HEART AND VASCULAR STRUCTURES: Heart normal in size. Normal vasculature. BONES: No acute findings. HARDWARE: As above OTHER: No other significant finding. IMPRESSION: Persistent left lower lobe collapse and consolidation. TECHNICAL DOCUMENTATION: JOB ID: [id number]
[2017-01-25] MEDS ORDERED: NORMAL SALINE 250 ML IV PRN (09:37)
[2017-01-25] MEDS ORDERED: FUROSEMIDE 20 MG TABLET PO PRN (09:37)
[2017-01-25] MEDS ORDERED: NORMAL SALINE INJ/PF 0.9% 10 ML SDV IV PRN (09:37)
--- NOTE | 2017-01-25 09:41 | PDOC PROGRESS REPORT ---
Subjective Progress Note for:: 01/25/17 Subjective:: The patient went to the OR last night and underwent ileocecal resection for bowel obstruction. She is currently in the ICU on the ventilator. fortunately , she did not have to have a colostomy bag placed. Overnight, the patientwas noted to be hypothermic to 34 degrees and was placed on a bear-hugger with temperatures normalizing. She had low BPs in the 90s and received 3 500mL boluses. Levophed was ordered, but never started. In speaking with the ICU physician, he feels that she is septic. Physical Exam Vital Signs: Temp Pulse Resp BP Pulse Ox 97.9 F 93 12 136/59 H 100 01/25/17 08:00 01/25/17 08:00 01/25/17 08:00 01/25/17 08:00 01/25/17 08:00 Intake & Output 01/24/17 01/25/17 01/26/17 06:59 06:59 06:59 Intake Total 1943 7291 Output Total 550 4600 100 Balance 1393 2691 -100 Weight 36.2 kg 39.5 kg Vent: SIMV Rate 12 Drips: Propofol, Versed Lines: EJ is present Abx: Rocephin and zithromax GENERAL: Well-developed thin, cachectic appearing -[place]osoth[place] female resting in bed currently on a vent. LUNGS: Clear to auscultation anterior perspective bilaterally with equal rise and fall of the chest. ABDOMEN: Soft, No grimace on palpation - patient is sedated. Dressing is in place with an area of sanguineous discharge. Slight distention. No bowel sounds present. : vanegas in place draining minimal perfecto colored urine. EXTREMETIES: No clubbing, cyanosis or edema. 1+ peripheral pulses bilaterally. SCDs inplace. NEURO: Sedated on the vent. SKIN: warm on the bear-hugger Results Laboratory Results: 01/25/17 05:00 01/25/17 05:00 01/24/17 01/24/17 01/24/17 20:58 22:50 23:12 WBC RBC Hgb Hct MCV MCH MCHC RDW Plt Count Seg Neutrophils % Lymphocytes % Monocytes % Eosinophils % Basophils % Absolute Neutrophils Absolute Lymphocytes Absolute Monocytes Absolute Eosinophils Absolute Basophils Carbonic Acid 1.17 HCO3/H2CO3 Ratio 14:1 ABG pH 7.26 L ABG pCO2 38.9 ABG pO2 345.8 H ABG HCO3 16.9 L ABG O2 Saturation 99.7 H ABG Base Excess -9.5 FiO2 100% Sodium 142.0 Potassium 2.9 L* Chloride 117 H Carbon Dioxide 19 L Anion Gap 6 BUN 22 H Creatinine 0.91 Est GFR ( Amer) > 60 Est GFR (Non-Af Amer) > 60 Glucose 146 H Calcium 8.6 Phosphorus 2.4 L Magnesium 1.6 Triglycerides Blood Type O NEGATIVE Antibody Screen NEGATIVE 01/24/17 01/25/17 01/25/17 23:12 02:00 05:00 WBC 3.6 L 11.3 H D RBC 3.49 L 2.68 L Hgb 10.6 L 8.0 L D Hct 32.9 L 25.0 L MCV 94 94 MCH 30.3 29.8 MCHC 32.1 31.9 L RDW 14.5 H 14.1 H Plt Count 167 141 L Seg Neutrophils % Not Reportable Lymphocytes % Not Reportable Monocytes % Not Reportable Eosinophils % Not Reportable Basophils % Not Reportable Absolute Neutrophils Not Reportable Absolute Lymphocytes Not Reportable Absolute Monocytes Not Reportable Absolute Eosinophils Not Reportable Absolute Basophils Not Reportable Carbonic Acid 0.79 L HCO3/H2CO3 Ratio 21:1 ABG pH 7.42 ABG pCO2 26.4 L ABG pO2 133.2 H ABG HCO3 16.8 L ABG O2 Saturation 98.8 H ABG Base Excess -6.7 FiO2 30% Sodium Potassium Chloride Carbon Dioxide Anion Gap BUN Creatinine Est GFR ( Amer) Est GFR (Non-Af Amer) Glucose Calcium Phosphorus Magnesium Triglycerides Blood Type Antibody Screen 01/25/17 01/25/17 05:00 05:28 WBC RBC Hgb Hct MCV MCH MCHC RDW Plt Count Seg Neutrophils % Lymphocytes % Monocytes % Eosinophils % Basophils % Absolute Neutrophils Absolute Lymphocytes Absolute Monocytes Absolute Eosinophils Absolute Basophils Carbonic Acid 0.72 L HCO3/H2CO3 Ratio 21:1 ABG pH 7.43 ABG pCO2 24.0 L ABG pO2 136.4 H ABG HCO3 15.7 L ABG O2 Saturation 98.9 H ABG Base Excess -7.5 FiO2 30% Sodium 142.0 Potassium 4.4 D Chloride 122 H Carbon Dioxide 16 L Anion Gap 4 L BUN 20 Creatinine 0.86 Est GFR ( Amer) > 60 Est GFR (Non-Af Amer) > 60 Glucose 125 H Calcium 7.7 L Phosphorus Magnesium 1.8 Triglycerides 101 Blood Type Antibody Screen 01/24/17 01/24/17 01/25/17 20:58 20:58 05:00 Creatine Kinase 28 L < 20 L CK-MB (CK-2) 0.86 Troponin I < 0.012 NT-Pro-B Natriuret Pep 3310 H 01/25/17 05:00 Creatine Kinase CK-MB (CK-2) 1.22 Troponin I 0.044 NT-Pro-B Natriuret Pep Impressions: Limited or Localized CT 01/21/17 03:02 IMPRESSION: 1. Small bowel obstruction pattern. 2. Small to moderate bilateral lower lobar pneumonia, left more than right. 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 Cannot exclude other infectious and neoplastic processes. 4. Increased sclerosis of bilateral femoral heads may indicate avascular necrosis. Consider contrast MRI correlation. Chest X-Ray 01/25/17 06:00 IMPRESSION: Persistent left lower lobe collapse and consolidation. Assessment & Plan - Diagnosis (1) Acute respiratory failure Is this a current diagnosis for this admission?: Yes Plan: Patient remains ventilated post-operatively. Pulm/CC is managing. Continue sedation for now. Weaning trials as appropriate. Patient has community acquired pneumonia on this admission. (2) Sepsis Qualifiers: Sepsis type: sepsis due to unspecified organism Qualified Code(s): A41.9 - Sepsis, unspecified organism Plan: Patient with hypothermia, elevated WBC, hyperchloremic metabolic acidosis, episodes of hypotension requiring boluses and two infections in the setting of abdominal surgery. Certainly this could be the beginning of a septic picture or the mild elevation of WBC a result of a surgery less than 24 hours old and too much fluid and acute anemia. Error on the side of caution. Check Blood cultures. Patient has know Proteus and E. coli UTI and pneumonia. She is currently on Rocephin and zithromax. We can discontinue these and broaden coverage to zosyn. I do not think that the addition of Vanc at this time is necessary. Will change fluids to LR. Check Lactic acid level. BP is currently doing well. NO need for pressor support. Continue bear-Hugger. (3) SBO (small bowel obstruction) Is this a current diagnosis for this admission?: Yes Plan: POD 1. s/p ileocecal resection. Management per surgical service. (4) Acute renal failure Qualifiers: Acute renal failure type: unspecified Qualified Code(s): N17.9 - Acute kidney failure, unspecified Is this a current diagnosis for this admission?: Yes Plan: Patient now with oligouria. She has received 1500ml bolus. We will see if this helps put up her urinary output (5) Diastolic heart failure Plan: Echo on this admission shows Grade 2/6 diastolic dysfunction. BNP is elevated. She received 1500ml bolus for hypotension. For now NO lasix. Will monitor and diurese as appropriate. (6) UTI (urinary tract infection) Qualifiers: Urinary tract infection type: site unspecified Is this a current diagnosis for this admission?: Yes Plan: Urine is positive for Proteus mirabilis and E. coli. Broaden to zosyn as above (7) Pneumonia Qualifiers: Pneumonia type: due to unspecified organism Laterality: bilateral Lung location: lower lobe of lung Qualified Code(s): J18.9 - Pneumonia, unspecified organism Is this a current diagnosis for this admission?: Yes Plan: Broaden to zosyn as above (8) Metabolic acidosis Plan: Change to lactated ringers for now. (9) Acute blood loss anemia Plan: Patient is down two units of blood. Baseline was 10 prior to surgery. Transfuse two units. (10) Diabetes mellitus type 2 in nonobese Is this a current diagnosis for this admission?: Yes Plan: Patient had hypoglycemic episode on the floor and was changed to D51/2NSS with 20kcl. She is currently on NSS and will be changed to LR. She has SSI available. If hypoglycemia re-occurs, then it will need to be added back to her fluids. (11) Anemia of chronic disease Plan: Blood counts are currently decreased. management as above. 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 bisphosphonates to be started as appropriate prior to discharge. - Time Time Spent with patient: 35 or more minutes Medications reviewed and adjusted accordingly: Yes - Inpatient Certification Based on my medical assessment, after consideration of the patient's comorbidities, presenting symptoms, or acuity I expect that the services needed warrant INPATIENT care.: Yes Medical Necessity: Significant Comorbidiites Make Outpatient Treatment Too Risky , Need Close Monitoring Due to Risk of Patient Decompensation, Need For IV Fluids, Need for Surgery
[2017-01-25] MEDS: RINGERS SOLUTION,LACTATED 1,000 ML IV PRN (09:48)
[2017-01-25 11:43] LABS: APPEARANCE,URINE SLIGHTLY-CLOUDY; BILIRUBIN,URINE NEGATIVE (NEGATIVE); GLUCOSE, URINE NEGATIVE (NEGATIVE); KETONES,URINE NEGATIVE (NEGATIVE); LEUKOCYTE ESTERASE,URINE MODERATE (NEGATIVE); NITRITE,URINE NEGATIVE (NEGATIVE); PROTEIN,URINE NEGATIVE (NEGATIVE); URINE SPECIFIC GRAVITY 1.013; UROBILINOGEN,URINE NEGATIVE mg/dL (<2.0)
[2017-01-25] MEDS ORDERED: NORMAL SALINE 10 ML SDV (AFTER EACH USE) IV PRN (11:56)
[2017-01-25 12:12] LABS: URINE CREATININE 54.4 mg/dL (15-278)
[2017-01-25] MEDS: PIPERACILLIN SODIUM/TAZOBACTAM 3.375 GM in NORMAL SALINE 100 ML IV SCH ×3 (12:30→22:02)
--- NOTE | 2017-01-25 12:37 | RADIOLOGY REPORT (SQ) ---
EXAM DESCRIPTION: PICC INSERTION; U/S GUIDE FOR VASCULAR ACCESS; CHEST SINGLE VIEW COMPLETED DATE/TIME: 01/25/2017 11:58 am REASON FOR STUDY: For TPN; IV ACCESS, TPN COMPARISON: AP chest 01/25/2017 FLUOROSCOPY TIME: No fluoro was used for the procedure 2 chest radiographs and 1 ultrasound images saved to PACS. TECHNIQUE: Fluoroscopic and ultrasound guided PICC placement. LIMITATIONS: None. PROCEDURE: After written consent and assessment were obtained, the bedside PICC catheter was placed. Ultrasound was used on the patient's right arm for PICC access. The right arm was prepped and drape d in a sterile fashion along with the ultrasound probe. The entry site was anesthetized with 4 mL of 1% lidocaine. A 21 gauge 7 cm needle was advanced through the skin and into the right basilic vein un kinjal live ultrasound guidance. An ultrasound image was saved to PACS confirming access site. A .018 guide wire was then inserted through the needle and into the venous system. The needle was the remove d and an 11 blade scalpel was used to make a 1cm skin incision. A 5 fr peel-away sheath was advanced over the wire and into the venous system. A measurement was then made using the existing wire and li ve fluoroscopic guidance. The wire was then removed and the trimmed. The PICC was advanced through th e peel-away sheath and into the venous system. The peel-away sheath was removed and the catheter was adhered to the patients arm with a stat lock. The catheter was then aspirated and flushed and a steri le bandage was placed over the access site. A fluoroscopic spot image was saved to PACS confirming t he catheter tip within the superior vena cava. IMPRESSION: SUCCESSFUL PLACEMENT OF A 5 FR DUAL LUMEN 35 CM PICC IN THE RIGHT BASILIC VEIN. COMMENT: Patient medication list reviewed: Yes- Quality ID# [id number]:Eligible professional attests to doc umenting in the medical record they obtained, updated, or reviewed the patient's current medications. . Quality ID 145: Final reports for procedures using fluoroscopy that document radiation exposure mauricio lindsey, or exposure time and number of fluorographic images (if radiation exposure indices are not avail able) Quality ID #[id number]: The patient was prepped and draped using maximum sterile barrier technique including cap, mask, sterile gown, sterile gloves, a large sterile sheet, hand hygiene, and 2% Chlorhexidine fo r cutaneous antisepsis. When ultrasound is used, sterile ultrasound techniques are followed requiring sterile gel and sterile probes. TECHNICAL DOCUMENTATION: JOB ID: [id number] [employer]- All Rights Reserved
[2017-01-25] MEDS ORDERED: HYDROCORTISONE SOD SUCCINATE INJ/PF 100 MG/2 ML SDV IV SCH (13:45)
--- NOTE | 2017-01-25 14:08 | PDOC CONSULTATION ---
Consultation Consult Date: 01/24/17 Attending physician:: BIANCA JARQUIN Consult reason:: resp failure History of Present Illness Admission Date/PCP: 01/21/17 05:26 History of Present Illness: Patient is 76-year-old black female with brought to ED oer daughter after patient c/o abdominal pain highly atypical as she does not usually complain.She is known to have dementia and lives with daughter Patient was evaluated and found to have the presence of pelvic Paget's disease and potentially bilateral femoral head avascular necrosis. Patient was taken to the operating room yesterday for the small bowel obstruction and orthopedics now consulted for functional limitations for her rehabilitation.She is currently on mechanical ventilation and a non AG metabolic acidosis with respiratory compensation Past Medical History Endocrine Medical History: Reports: Diabetes Mellitus Type 2 Psychiatric Medical History: Reports: Dementia Past Surgical History Past Surgical History: Reports: Other - Uncertain; patient has a well-healed lower midline abdominal incision. Social History Information Source: [facility] Records Lives with: Family - Reportedly lives with daughter. Smoking Status: Unknown if Ever Smoked Drugs: None - Advance Directive Resuscitation Status: Full Code Family History Family History: Reviewed & Not Pertinent Parental Family History Reviewed: No Children Family History Reviewed: No Sibling(s) Family History Reviewed.: No Medication/Allergy Home Medications: No Home Medications 01/21/17 Allergies/Adverse Reactions: No Known Allergies Allergy (Unverified 01/20/17 20:50) Review of Systems ROS unobtainable: Due to endotracheal tube, Due to mental status Physical Exam Vital Signs: Temp Pulse Resp BP Pulse Ox 97.3 F 108 H 14 140/60 H 100 01/25/17 06:00 01/25/17 00:00 01/25/17 06:00 01/25/17 05:47 01/25/17 06:00 Intake & Output 01/24/17 01/25/17 01/26/17 06:59 06:59 06:59 Intake Total 3093 7291 Output Total 550 4600 Balance 1393 2691 Weight 36.2 kg 39.5 kg General appearance: PRESENT: disheveled, thin Head exam: PRESENT: atraumatic, normocephalic Eye exam: PRESENT: conjunctiva pale Mouth exam: PRESENT: dry mucosa, neck supple, tongue midline, other - day #[address] Respiratory exam: PRESENT: decreased breath sounds, prolonged expiratory phas, rhonchi, unlabored Cardiovascular exam: PRESENT: RRR, +S1, +S2 Pulses: PRESENT: normal radial pulses GI/Abdominal exam: PRESENT: normal bowel sounds, tenderness, other - Surgical dressing. ABSENT: ascites, distended, hernia, hyperactive bowel sounds, hypoactive bowel sounds, mass, organolmegaly, rebound Rectal exam: PRESENT: deferred Gentrourinary exam: PRESENT: indwelling catheter Musculoskeletal exam: PRESENT: normal inspection Skin exam: PRESENT: dry, warm Results Laboratory Results: 01/25/17 05:00 01/25/17 05:00 01/24/17 01/24/17 01/24/17 20:58 22:50 23:12 WBC RBC Hgb Hct MCV MCH MCHC RDW Plt Count Seg Neutrophils % Lymphocytes % Monocytes % Eosinophils % Basophils % Absolute Neutrophils Absolute Lymphocytes Absolute Monocytes Absolute Eosinophils Absolute Basophils Carbonic Acid 1.17 HCO3/H2CO3 Ratio 14:1 ABG pH 7.26 L ABG pCO2 38.9 ABG pO2 345.8 H ABG HCO3 16.9 L ABG O2 Saturation 99.7 H ABG Base Excess -9.5 FiO2 100% Sodium 142.0 Potassium 2.9 L* Chloride 117 H Carbon Dioxide 19 L Anion Gap 6 BUN 22 H Creatinine 0.91 Est GFR ( Amer) > 60 Est GFR (Non-Af Amer) > 60 Glucose 146 H Calcium 8.6 Phosphorus 2.4 L Magnesium 1.6 Triglycerides Blood Type O NEGATIVE Antibody Screen NEGATIVE 01/24/17 01/25/17 01/25/17 23:12 02:00 05:00 WBC 3.6 L 11.3 H D RBC 3.49 L 2.68 L Hgb 10.6 L 8.0 L D Hct 32.9 L 25.0 L MCV 94 94 MCH 30.3 29.8 MCHC 32.1 31.9 L RDW 14.5 H 14.1 H Plt Count 167 141 L Seg Neutrophils % Not Reportable Lymphocytes % Not Reportable Monocytes % Not Reportable Eosinophils % Not Reportable Basophils % Not Reportable Absolute Neutrophils Not Reportable Absolute Lymphocytes Not Reportable Absolute Monocytes Not Reportable Absolute Eosinophils Not Reportable Absolute Basophils Not Reportable Carbonic Acid 0.79 L HCO3/H2CO3 Ratio 21:1 ABG pH 7.42 ABG pCO2 26.4 L ABG pO2 133.2 H ABG HCO3 16.8 L ABG O2 Saturation 98.8 H ABG Base Excess -6.7 FiO2 30% Sodium Potassium Chloride Carbon Dioxide Anion Gap BUN Creatinine Est GFR ( Amer) Est GFR (Non-Af Amer) Glucose Calcium Phosphorus Magnesium Triglycerides Blood Type Antibody Screen 01/25/17 01/25/17 05:00 05:28 WBC RBC Hgb Hct MCV MCH MCHC RDW Plt Count Seg Neutrophils % Lymphocytes % Monocytes % Eosinophils % Basophils % Absolute Neutrophils Absolute Lymphocytes Absolute Monocytes Absolute Eosinophils Absolute Basophils Carbonic Acid 0.72 L HCO3/H2CO3 Ratio 21:1 ABG pH 7.43 ABG pCO2 24.0 L ABG pO2 136.4 H ABG HCO3 15.7 L ABG O2 Saturation 98.9 H ABG Base Excess -7.5 FiO2 30% Sodium 142.0 Potassium 4.4 D Chloride 122 H Carbon Dioxide 16 L Anion Gap 4 L BUN 20 Creatinine 0.86 Est GFR ( Amer) > 60 Est GFR (Non-Af Amer) > 60 Glucose 125 H Calcium 7.7 L Phosphorus Magnesium 1.8 Triglycerides 101 Blood Type Antibody Screen 01/24/17 01/24/17 01/25/17 20:58 20:58 05:00 Creatine Kinase 28 L < 20 L CK-MB (CK-2) 0.86 Troponin I < 0.012 NT-Pro-B Natriuret Pep 3310 H 01/25/17 05:00 Creatine Kinase CK-MB (CK-2) 1.22 Troponin I 0.044 NT-Pro-B Natriuret Pep Impressions: Limited or Localized CT 01/21/17 03:02 IMPRESSION: 1. Small bowel obstruction pattern. 2. Small to moderate bilateral lower lobar pneumonia, left more than right. 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 Cannot exclude other infectious and neoplastic processes. 4. Increased sclerosis of bilateral femoral heads may indicate avascular necrosis. Consider contrast MRI correlation. Assessment & Plan - Diagnosis (1) Metabolic acidosis Is this a current diagnosis for this admission?: Yes Plan: non-anion gap, (2) Paget's bone disease Is this a current diagnosis for this admission?: Yes Plan: Orthopedic (3) SBO (small bowel obstruction) Is this a current diagnosis for this admission?: Yes Plan: As per general surgery (4) Sepsis Qualifiers: Sepsis type: sepsis due to unspecified organism Qualified Code(s): A41.9 - Sepsis, unspecified organism Is this a current diagnosis for this admission?: Yes (5) Dementia Qualifiers: Dementia type: unspecified type Dementia behavioral disturbance: without behavioral disturbance Qualified Code(s): F03.90 - Unspecified dementia without behavioral disturbance Is this a current diagnosis for this admission?: Yes Plan: This is baseline status - Time Critical Time spent with patient: 35 or more minutes
--- NOTE | 2017-01-25 14:12 | PDOC PROGRESS REPORT ---
Subjective Progress Note for:: 01/25/17 Subjective:: Intubated and sedated Physical Exam Vital Signs: Temp Pulse Resp BP Pulse Ox 97.3 F 108 H 14 140/60 H 100 01/25/17 06:00 01/25/17 00:00 01/25/17 06:00 01/25/17 05:47 01/25/17 06:00 Intake & Output 01/24/17 01/25/17 01/26/17 06:59 06:59 06:59 Intake Total 1943 7291 Output Total 550 4600 Balance 1393 2691 Weight 36.2 kg 39.5 kg General appearance: PRESENT: no acute distress, disheveled, thin Head exam: PRESENT: atraumatic, normocephalic Eye exam: PRESENT: conjunctiva pale, EOMI Mouth exam: PRESENT: dry mucosa, neck supple, tongue midline, other - Day #2 ET tube intact Neck exam: ABSENT: carotid bruit, JVD, lymphadenopathy, thyromegaly Respiratory exam: PRESENT: decreased breath sounds, prolonged expiratory phas, rhonchi, symmetrical, unlabored Cardiovascular exam: PRESENT: RRR, +S1, +S2 Pulses: PRESENT: normal radial pulses GI/Abdominal exam: PRESENT: tenderness, other - Midline Surgical dressing. ABSENT: ascites, diminished bowel sounds, distended, hernia, hyperactive bowel sounds, hypoactive bowel sounds, mass, Romo's sign, normal bowel sounds, organolmegaly Rectal exam: PRESENT: deferred Gentrourinary exam: PRESENT: indwelling catheter Musculoskeletal exam: PRESENT: normal inspection Neurological exam: PRESENT: awake Skin exam: PRESENT: dry, warm Results Laboratory Results: 01/25/17 05:00 01/25/17 05:00 01/24/17 01/24/17 01/24/17 20:58 22:50 23:12 WBC RBC Hgb Hct MCV MCH MCHC RDW Plt Count Seg Neutrophils % Lymphocytes % Monocytes % Eosinophils % Basophils % Absolute Neutrophils Absolute Lymphocytes Absolute Monocytes Absolute Eosinophils Absolute Basophils Carbonic Acid 1.17 HCO3/H2CO3 Ratio 14:1 ABG pH 7.26 L ABG pCO2 38.9 ABG pO2 345.8 H ABG HCO3 16.9 L ABG O2 Saturation 99.7 H ABG Base Excess -9.5 FiO2 100% Sodium 142.0 Potassium 2.9 L* Chloride 117 H Carbon Dioxide 19 L Anion Gap 6 BUN 22 H Creatinine 0.91 Est GFR ( Amer) > 60 Est GFR (Non-Af Amer) > 60 Glucose 146 H Calcium 8.6 Phosphorus 2.4 L Magnesium 1.6 Triglycerides Blood Type O NEGATIVE Antibody Screen NEGATIVE 01/24/17 01/25/17 01/25/17 23:12 02:00 05:00 WBC 3.6 L 11.3 H D RBC 3.49 L 2.68 L Hgb 10.6 L 8.0 L D Hct 32.9 L 25.0 L MCV 94 94 MCH 30.3 29.8 MCHC 32.1 31.9 L RDW 14.5 H 14.1 H Plt Count 167 141 L Seg Neutrophils % Not Reportable Lymphocytes % Not Reportable Monocytes % Not Reportable Eosinophils % Not Reportable Basophils % Not Reportable Absolute Neutrophils Not Reportable Absolute Lymphocytes Not Reportable Absolute Monocytes Not Reportable Absolute Eosinophils Not Reportable Absolute Basophils Not Reportable Carbonic Acid 0.79 L HCO3/H2CO3 Ratio 21:1 ABG pH 7.42 ABG pCO2 26.4 L ABG pO2 133.2 H ABG HCO3 16.8 L ABG O2 Saturation 98.8 H ABG Base Excess -6.7 FiO2 30% Sodium Potassium Chloride Carbon Dioxide Anion Gap BUN Creatinine Est GFR ( Amer) Est GFR (Non-Af Amer) Glucose Calcium Phosphorus Magnesium Triglycerides Blood Type Antibody Screen 01/25/17 01/25/17 05:00 05:28 WBC RBC Hgb Hct MCV MCH MCHC RDW Plt Count Seg Neutrophils % Lymphocytes % Monocytes % Eosinophils % Basophils % Absolute Neutrophils Absolute Lymphocytes Absolute Monocytes Absolute Eosinophils Absolute Basophils Carbonic Acid 0.72 L HCO3/H2CO3 Ratio 21:1 ABG pH 7.43 ABG pCO2 24.0 L ABG pO2 136.4 H ABG HCO3 15.7 L ABG O2 Saturation 98.9 H ABG Base Excess -7.5 FiO2 30% Sodium 142.0 Potassium 4.4 D Chloride 122 H Carbon Dioxide 16 L Anion Gap 4 L BUN 20 Creatinine 0.86 Est GFR ( Amer) > 60 Est GFR (Non-Af Amer) > 60 Glucose 125 H Calcium 7.7 L Phosphorus Magnesium 1.8 Triglycerides 101 Blood Type Antibody Screen 01/24/17 01/24/17 01/25/17 20:58 20:58 05:00 Creatine Kinase 28 L < 20 L CK-MB (CK-2) 0.86 Troponin I < 0.012 NT-Pro-B Natriuret Pep 3310 H 01/25/17 05:00 Creatine Kinase CK-MB (CK-2) 1.22 Troponin I 0.044 NT-Pro-B Natriuret Pep Impressions: Limited or Localized CT 01/21/17 03:02 IMPRESSION: 1. Small bowel obstruction pattern. 2. Small to moderate bilateral lower lobar pneumonia, left more than right. 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 Cannot exclude other infectious and neoplastic processes. 4. Increased sclerosis of bilateral femoral heads may indicate avascular necrosis. Consider contrast MRI correlation. Assessment & Plan - Diagnosis (1) Metabolic acidosis Is this a current diagnosis for this admission?: Yes (2) Paget's bone disease Is this a current diagnosis for this admission?: Yes (3) SBO (small bowel obstruction) Is this a current diagnosis for this admission?: Yes (4) Sepsis Qualifiers: Sepsis type: sepsis due to unspecified organism Qualified Code(s): A41.9 - Sepsis, unspecified organism Is this a current diagnosis for this admission?: Yes (5) Dementia Qualifiers: Dementia type: unspecified type Dementia behavioral disturbance: without behavioral disturbance Qualified Code(s): F03.90 - Unspecified dementia without behavioral disturbance Is this a current diagnosis for this admission?: Yes - Time Critical Time spent with patient: 25-34 minutes
--- NOTE | 2017-01-25 14:53 | RADIOLOGY REPORT (SQ) ---
EXAM DESCRIPTION: KUB COMPLETED DATE/TIME: 01/14/2017, 1512 hours REASON FOR STUDY: Check nasogastric tube placement COMPARISON: 01/24/2017, 1230 hours KUB TECHNIQUE: AP abdomen film LIMITATIONS: None FINDINGS: A nasogastric tube is present with the tip and side-port coiled in the stomach. Persistent dilated stomach and small bowel loops worrisome for small bowel obstruction. Turner catheter over the bladder Left lower lobe consolidation worrisome for pneumonia Sacral and femoral head bony sclerosis unchanged. IMPRESSION: Nasogastric tube tip and side port in the stomach. Distended stomach and small bowel worrisome for small bowel obstruction
--- NOTE | 2017-01-25 14:56 | RADIOLOGY REPORT (SQ) ---
EXAM DESCRIPTION: Small bowel follow-through COMPLETED DATE/TIME: 01/24/2017, 1515 hours REASON FOR STUDY: Small bowel obstruction COMPARISON: CT abdomen pelvis 01/21/2017, abdominal films 01/21/2017, 01/24/2017 TECHNIQUE: Gastrografin was instilled through the patient's nasogastric tube into the stomach. Sequ ential films to 1 hour were obtained. LIMITATIONS: None FINDINGS: Initial image demonstrates left lower lobe collapse and consolidation. Pneumonia could no t be excluded. Gastrografin in the patient's stomach fundus. Stomach, and small bowel are not diste nded. Subsequent films demonstrated intermittent gastroesophageal reflux. A small amount of oral contrast passed through the stomach into the duodenum and proximal dilated small bowel loops. At 0100 hours, nearly all the contrast remained in the stomach with a small amount in the dilated pro ximal small bowel loops. At this point, the study was terminated, the nasogastric tube was hooked ba ck up to suction. This result was discussed with Dr. Patton Remainder of the study demonstrates a Turner catheter in the bladder, dense bony sclerosis over the sa ros and femoral heads. IMPRESSION: Findings worrisome for small bowel obstruction. Nasogastric tube tip and side port in the stomach. At the conclusion of the study, a nasogastric tub e was put back to suction.
--- NOTE | 2017-01-25 14:58 | RADIOLOGY REPORT (SQ) ---
EXAM DESCRIPTION: CHEST SINGLE VIEW COMPLETED DATE/TIME: 01/24/2017 10:53 pm REASON FOR STUDY: ET Tube Placement COMPARISON: 01/21/2017 TECHNIQUE: Frontal radiographic views of the chest acquired. NUMBER OF VIEWS: 1 LIMITATIONS: None. FINDINGS: LUNGS AND PLEURA: Persistent left basilar airspace disease -effusion with mild volume loss . Right lung shows mild chronic interstitial markings. No pneumothorax. MEDIASTINUM AND HILAR STRUCTURES: Stable. HEART AND VASCULATURE: Stable. BONY STRUCTURES: No acute findings. HARDWARE: Endotracheal tube tip overlies the lower trachea approximately 1 cm above the level of the [place]. Nasogastric catheter is present with tip overlying the body of the stomach with contrast inj ection. OTHER: No other significant finding. IMPRESSION: Endotracheal tube tip overlies the lower trachea approximately 1 cm above the level of t he [place].Persistent left basilar airspace disease -effusion with mild volume loss. Nasogastric stef ter is present with tip overlying the body of the stomach with contrast injection. TECHNICAL DOCUMENTATION: JOB ID: [id number]
--- NOTE | 2017-01-25 15:04 | RADIOLOGY REPORT (SQ) ---
EXAM DESCRIPTION: ABDOMEN 2 VIEWS COMPLETED DATE/TIME: 01/24/2017, 1230 hours REASON FOR STUDY: Evaluate small bowel obstruction COMPARISON: CT abdomen pelvis 01/21/2017 Abdominal films 01/21/2017 TECHNIQUE: Supine and erect views of the abdomen, 01/24/2017, 1230 hours LIMITATIONS: None FINDINGS: Left basilar consolidation is present atelectasis versus pneumonia, similar compared to th e CT exam from 01/21/2017. No gross subdiaphragmatic free air. Nasogastric tube tip and side port in the stomach. There is persistent dilatation of small bowel loops out of proportion to colon worrisome for small varinder wel obstruction. Small amount of stool in the ascending and descending colon. Dense bony sclerosis over the sacrum, question prior pelvic radiation therapy. Increased density both femoral heads likely from avascular necrosis. Bones are otherwise osteoporoti c. Turner catheter drains the bladder IMPRESSION: Nasogastric tube tip and side port in the stomach. Persistent small bowel obstruction.
[2017-01-25 15:51] LABS: CREATINE KINASE MB 1.7 ng/mL (<4.55); TROPONIN I 0.05 ng/mL
[2017-01-25] MEDS: PROPOFOL 100 ML IV PRN (16:20)
[2017-01-25] MEDS ORDERED: FUROSEMIDE INJ/PF 20 MG/2 ML SDV ONE (18:02)
[2017-01-25] MEDS ORDERED: FUROSEMIDE INJ/PF 20 MG/2 ML SDV IV PRN (18:06)
[2017-01-25] MEDS ORDERED: PIPERACILLIN SODIUM/TAZOBACTAM 3.375 GM in NORMAL SALINE 100 ML IV SCH (21:00)
[2017-01-25] MEDS: NORMAL SALINE 10 ML SDV (SCHEDULED) IV SCH (22:47)
[2017-01-26] MEDS: LEVALBUTEROL HCL NEB 1.25 MG/3 ML AMPUL NEB SCH ×3 (00:46→17:41)
[2017-01-26] MEDS: PIPERACILLIN SODIUM/TAZOBACTAM 3.375 GM in NORMAL SALINE 100 ML IV SCH ×4 (03:42→21:57)
[2017-01-26] MEDS: PROPOFOL 100 ML IV PRN ×2 (05:53→16:40)
[2017-01-26 06:49] LABS: ARTERIAL BLOOD BASE EXCESS -6.6 mmol/L; ARTERIAL BLOOD O2 SATURATION 97.3 % (94-98)
[2017-01-26 06:50] LABS: ABSOLUTE LYMPHOCYTES (AUTO) 0.6 10^3/uL (0.5-4.7); ABSOLUTE MONOCYTES (AUTO) 0.6 10^3/uL (0.1-1.4); BASOPHILS % (AUTO) 0.2 % (0-2); EOSINOPHILS % (AUTO) 0.2 % (0-6); HEMATOCRIT 37.7 % (36.0-47.0); MEAN CORPUSCULAR HEMOGLOBIN 29.4 pg (27.0-33.4); MEAN CORPUSCULAR HGB CONC 34.1 g/dL (32.0-36.0); MONOCYTES % (AUTO) 6.7 % (3-13); RED BLOOD COUNT 4.38 10^6/uL (3.72-5.28); RED CELL DISTRIBUTION WIDTH 17.8 % (11.5-14.0); SEGMENTED NEUTROPHILS % (AUTO) 86.9 % (42-78); WHITE BLOOD COUNT 9.2 10^3/uL (4.0-10.5)
[2017-01-26 07:06] LABS: HEMOGLOBIN 12.9 g/dL (12.0-15.5); MEAN CORPUSCULAR VOLUME 86 fl (80-97)
[2017-01-26 07:12] LABS: ALANINE AMINOTRANSFERASE 20 U/L (9-52); ALBUMIN 1.8 g/dL (3.5-5.0); ALKALINE PHOSPHATASE 61 U/L (38-126); ANION GAP 7 (5-19); ASPARTATE AMINO TRANSFERASE 17 U/L (14-36); BILIRUBIN,TOTAL 1.7 mg/dL (0.2-1.3); BLOOD UREA NITROGEN 17 mg/dL (7-20); CALCIUM 8.4 mg/dL (8.4-10.2); CARBON DIOXIDE 17 mmol/L (22-30); CHLORIDE 119 mmol/L (98-107); CREATININE RESULT 1.11 mg/dL (0.52-1.25); GLUCOSE 76 mg/dL (75-110); MAGNESIUM 1.8 mg/dL (1.6-2.3); SODIUM 142.5 mmol/L (137-145)
--- NOTE | 2017-01-26 07:29 | RADIOLOGY REPORT (SQ) ---
EXAM DESCRIPTION: CHEST SINGLE VIEW COMPLETED DATE/TIME: 01/26/2017 6:39 am REASON FOR STUDY: sepsis COMPARISON: 01/25/2017. EXAM PARAMETERS: NUMBER OF VIEWS: One view. TECHNIQUE: Single frontal radiographic view of the chest acquired. RADIATION DOSE: NA LIMITATIONS: None. FINDINGS: LUNGS AND PLEURA: Moderate opacity -layered effusion of bilateral lower lung solares, left more than right. Moderate lung volumes. MEDIASTINUM AND HILAR STRUCTURES: No masses. Contour normal. HEART AND VASCULAR STRUCTURES: Heart normal in size. Normal vasculature. BONES: No acute findings. HARDWARE: Adequate appearing endotracheal tube. Adequate appearing NG tube. Right subclavian PICC t ip at the right atrium ; consider 4 cm retraction. OTHER: With mild gaseous bowel distention includes small bowel loops measuring up to 3.9 cm in diamet er in the left paracentral abdomen. IMPRESSION: Mild gaseous distention of the visualize small bowel may indicate ileus and/or early/par tial small bowel obstruction. Moderate left basilar opacity -effusion. Lines and tubes. TECHNICAL DOCUMENTATION: JOB ID: [id number]
[2017-01-26] MEDS: NORMAL SALINE 10 ML SDV (SCHEDULED) IV SCH ×2 (09:15→22:08)
[2017-01-26] MEDS: MORPHINE SULFATE 10 MG/ML INJ IV PRN ×2 (10:24→17:48)
--- NOTE | 2017-01-26 10:33 | PDOC PROGRESS REPORT ---
Subjective Progress Note for:: 01/26/17 Subjective:: No new issues overnight. Pt currently intubated. Physical Exam Vital Signs: Temp Pulse Resp BP Pulse Ox 94.6 F L 63 12 120/63 99 01/26/17 08:30 01/26/17 08:00 01/26/17 08:30 01/26/17 08:04 01/26/17 08:30 Intake & Output 01/25/17 01/26/17 01/27/17 06:59 06:59 06:59 Intake Total 7291 2243 Output Total 4600 1025 110 Balance 2691 1218 -110 Weight 39.5 kg 43.2 kg General appearance: PRESENT: no acute distress, other - ETT in place. Pt awake. Head exam: PRESENT: atraumatic, normocephalic Eye exam: PRESENT: conjunctiva pink, EOMI Mouth exam: PRESENT: other - ETT in place Neck exam: PRESENT: full ROM Respiratory exam: PRESENT: clear to auscultation justin, other - ETT in place. ABSENT: rales, rhonchi, wheezes Cardiovascular exam: PRESENT: RRR GI/Abdominal exam: PRESENT: normal bowel sounds, tenderness, other - Dressing in place Musculoskeletal exam: PRESENT: full ROM Neurological exam: PRESENT: awake Skin exam: PRESENT: dry, warm Results Laboratory Results: 01/26/17 06:30 01/26/17 06:30 01/25/17 01/25/17 01/25/17 09:33 10:37 10:37 WBC RBC Hgb Hct MCV MCH MCHC RDW Plt Count Seg Neutrophils % Lymphocytes % Monocytes % Eosinophils % Basophils % Absolute Neutrophils Absolute Lymphocytes Absolute Monocytes Absolute Eosinophils Absolute Basophils Carbonic Acid HCO3/H2CO3 Ratio ABG pH ABG pCO2 ABG pO2 ABG HCO3 ABG O2 Saturation ABG Base Excess FiO2 Sodium Potassium Chloride Carbon Dioxide Anion Gap BUN Creatinine Est GFR ( Amer) Est GFR (Non-Af Amer) Glucose Lactic Acid Cancelled 0.7 Calcium Magnesium Total Bilirubin AST ALT Alkaline Phosphatase Total Protein Albumin Urine Color Urine Appearance Urine pH Ur Specific [place] Urine Protein Urine Glucose (UA) Urine Ketones Urine Blood Urine Nitrite Ur Leukocyte Esterase Urine WBC (Auto) Urine RBC (Auto) Blood Type O NEGATIVE Antibody Screen NEGATIVE 01/25/17 01/26/17 01/26/17 11:15 06:30 06:30 WBC 9.2 RBC 4.38 Hgb 12.9 D Hct 37.7 MCV 86 D MCH 29.4 MCHC 34.1 RDW 17.8 H Plt Count 152 Seg Neutrophils % 86.9 H Lymphocytes % 6.0 L Monocytes % 6.7 Eosinophils % 0.2 Basophils % 0.2 Absolute Neutrophils 8.0 Absolute Lymphocytes 0.6 Absolute Monocytes 0.6 Absolute Eosinophils 0.0 Absolute Basophils 0.0 Carbonic Acid 0.88 L HCO3/H2CO3 Ratio 19:1 ABG pH 7.39 ABG pCO2 29.2 L ABG pO2 95.3 ABG HCO3 17.1 L ABG O2 Saturation 97.3 ABG Base Excess -6.6 FiO2 21% Sodium Potassium Chloride Carbon Dioxide Anion Gap BUN Creatinine Est GFR ( Amer) Est GFR (Non-Af Amer) Glucose Lactic Acid Calcium Magnesium Total Bilirubin AST ALT Alkaline Phosphatase Total Protein Albumin Urine Color YELLOW Urine Appearance SLIGHTLY-CLOUDY Urine pH 5.0 Ur Specific [place] 1.013 Urine Protein NEGATIVE Urine Glucose (UA) NEGATIVE Urine Ketones NEGATIVE Urine Blood SMALL H Urine Nitrite NEGATIVE Ur Leukocyte Esterase MODERATE H Urine WBC (Auto) 45 Urine RBC (Auto) 7 Blood Type Antibody Screen 01/26/17 01/26/17 06:30 06:30 WBC RBC Hgb Hct MCV MCH MCHC RDW Plt Count Seg Neutrophils % Lymphocytes % Monocytes % Eosinophils % Basophils % Absolute Neutrophils Absolute Lymphocytes Absolute Monocytes Absolute Eosinophils Absolute Basophils Carbonic Acid HCO3/H2CO3 Ratio ABG pH ABG pCO2 ABG pO2 ABG HCO3 ABG O2 Saturation ABG Base Excess FiO2 Sodium 142.5 Potassium 4.0 Chloride 119 H Carbon Dioxide 17 L Anion Gap 7 BUN 17 Creatinine 1.11 Est GFR ( Amer) 58 L Est GFR (Non-Af Amer) 48 L Glucose 76 Lactic Acid 1.0 Calcium 8.4 Magnesium 1.8 Total Bilirubin 1.7 H AST 17 ALT 20 Alkaline Phosphatase 61 Total Protein 4.0 L Albumin 1.8 L Urine Color Urine Appearance Urine pH Ur Specific [place] Urine Protein Urine Glucose (UA) Urine Ketones Urine Blood Urine Nitrite Ur Leukocyte Esterase Urine WBC (Auto) Urine RBC (Auto) Blood Type Antibody Screen 01/21/17 07:34 Blood Blood Culture - Final NO GROWTH IN 5 DAYS 01/24/17 01/24/17 01/25/17 20:58 20:58 05:00 Creatine Kinase 28 L < 20 L CK-MB (CK-2) 0.86 Troponin I < 0.012 NT-Pro-B Natriuret Pep 3310 H 01/25/17 01/25/17 01/25/17 05:00 14:35 14:35 Creatine Kinase 74 CK-MB (CK-2) 1.22 1.70 Troponin I 0.044 0.050 NT-Pro-B Natriuret Pep Impressions: Limited or Localized CT 01/21/17 03:02 IMPRESSION: 1. Small bowel obstruction pattern. 2. Small to moderate bilateral lower lobar pneumonia, left more than right. 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 Cannot exclude other infectious and neoplastic processes. 4. Increased sclerosis of bilateral femoral heads may indicate avascular necrosis. Consider contrast MRI correlation. Abdomen X-Ray 01/24/17 00:00 IMPRESSION: Nasogastric tube tip and side port in the stomach. Persistent small bowel obstruction. Small Bowel X-Ray 01/24/17 00:00 IMPRESSION: Findings worrisome for small bowel obstruction. Nasogastric tube tip and side port in the stomach. At the conclusion of the study, a nasogastric tube was put back to suction. KUB X-Ray 01/24/17 14:00 IMPRESSION: Nasogastric tube tip and side port in the stomach. Distended stomach and small bowel worrisome for small bowel obstruction Interventional Vascular Procedure 01/25/17 00:00 IMPRESSION: SUCCESSFUL PLACEMENT OF A 5 FR DUAL LUMEN 35 CM PICC IN THE RIGHT BASILIC VEIN. PICC Line Insertion 01/25/17 00:00 IMPRESSION: SUCCESSFUL PLACEMENT OF A 5 FR DUAL LUMEN 35 CM PICC IN THE RIGHT BASILIC VEIN. Chest X-Ray 01/26/17 06:00 IMPRESSION: Mild gaseous distention of the visualize small bowel may indicate ileus and/or early/partial small bowel obstruction. Moderate left basilar opacity -effusion. Lines and tubes. Assessment & Plan - Diagnosis (1) Acute respiratory failure Is this a current diagnosis for this admission?: Yes Plan: Pt currently intubated and off sedation. Pulmonary managing pt. Hopefully pt will be extubated soon. (2) SBO (small bowel obstruction) Is this a current diagnosis for this admission?: Yes Plan: Complicated by Ischemic segment of terminal ileum S/P Exp Lap ileocecal Resection with Ileocolic anastomosis: Pt appears to be doing well. Will continue to monitor. (3) Sepsis Qualifiers: Sepsis type: Escherichia coli Qualified Code(s): A41.51 - Sepsis due to Escherichia coli [E. coli] Is this a current diagnosis for this admission?: Yes Plan: Secondary to Acute Cystitis Due to E. Coli and P. Mirabili: Will continue current antibotic. (4) UTI (urinary tract infection) Qualifiers: Urinary tract infection type: site unspecified Is this a current diagnosis for this admission?: Yes Plan: Secondary E. Coli and P. Mirabili: Will continue current antibiotics (5) Dementia Qualifiers: Dementia type: unspecified type Dementia behavioral disturbance: without behavioral disturbance Qualified Code(s): F03.90 - Unspecified dementia without behavioral disturbance Is this a current diagnosis for this admission?: Yes Plan: Supportive care. Will monitor. (6) Hyperbilirubinemia Is this a current diagnosis for this admission?: Yes Plan: Will check CMP most likely related to recent surgery and medication. Will monitor.
--- NOTE | 2017-01-26 11:26 | PDOC PROGRESS REPORT ---
Subjective Progress Note for:: 01/26/17 Subjective:: patient intubated but awake, moves upper extremities Physical Exam Vital Signs: Temp Pulse Resp BP Pulse Ox 95.4 F L 85 11 L 170/73 H 98 01/26/17 10:00 01/26/17 10:00 01/26/17 10:00 01/26/17 10:00 01/26/17 10:00 Intake & Output 01/25/17 01/26/17 01/27/17 06:59 06:59 06:59 Intake Total 7291 2243 Output Total 4600 1025 390 Balance 2691 1218 -390 Weight 39.5 kg 43.2 kg Respiratory exam: PRESENT: clear to auscultation justin Cardiovascular exam: PRESENT: RRR GI/Abdominal exam: PRESENT: hypoactive bowel sounds, soft, other - wound covered by dressings c/d/i with dry blood staining Results Laboratory Results: 01/26/17 06:30 01/26/17 06:30 01/25/17 01/25/17 01/26/17 10:37 11:15 06:30 WBC RBC Hgb Hct MCV MCH MCHC RDW Plt Count Seg Neutrophils % Lymphocytes % Monocytes % Eosinophils % Basophils % Absolute Neutrophils Absolute Lymphocytes Absolute Monocytes Absolute Eosinophils Absolute Basophils Carbonic Acid 0.88 L HCO3/H2CO3 Ratio 19:1 ABG pH 7.39 ABG pCO2 29.2 L ABG pO2 95.3 ABG HCO3 17.1 L ABG O2 Saturation 97.3 ABG Base Excess -6.6 FiO2 21% Sodium Potassium Chloride Carbon Dioxide Anion Gap BUN Creatinine Est GFR ( Amer) Est GFR (Non-Af Amer) Glucose Lactic Acid Calcium Magnesium Total Bilirubin AST ALT Alkaline Phosphatase Total Protein Albumin Urine Color YELLOW Urine Appearance SLIGHTLY-CLOUDY Urine pH 5.0 Ur Specific [place] 1.013 Urine Protein NEGATIVE Urine Glucose (UA) NEGATIVE Urine Ketones NEGATIVE Urine Blood SMALL H Urine Nitrite NEGATIVE Ur Leukocyte Esterase MODERATE H Urine WBC (Auto) 45 Urine RBC (Auto) 7 Blood Type O NEGATIVE Antibody Screen NEGATIVE 01/26/17 01/26/17 01/26/17 06:30 06:30 06:30 WBC 9.2 RBC 4.38 Hgb 12.9 D Hct 37.7 MCV 86 D MCH 29.4 MCHC 34.1 RDW 17.8 H Plt Count 152 Seg Neutrophils % 86.9 H Lymphocytes % 6.0 L Monocytes % 6.7 Eosinophils % 0.2 Basophils % 0.2 Absolute Neutrophils 8.0 Absolute Lymphocytes 0.6 Absolute Monocytes 0.6 Absolute Eosinophils 0.0 Absolute Basophils 0.0 Carbonic Acid HCO3/H2CO3 Ratio ABG pH ABG pCO2 ABG pO2 ABG HCO3 ABG O2 Saturation ABG Base Excess FiO2 Sodium 142.5 Potassium 4.0 Chloride 119 H Carbon Dioxide 17 L Anion Gap 7 BUN 17 Creatinine 1.11 Est GFR ( Amer) 58 L Est GFR (Non-Af Amer) 48 L Glucose 76 Lactic Acid 1.0 Calcium 8.4 Magnesium 1.8 Total Bilirubin 1.7 H AST 17 ALT 20 Alkaline Phosphatase 61 Total Protein 4.0 L Albumin 1.8 L Urine Color Urine Appearance Urine pH Ur Specific [place] Urine Protein Urine Glucose (UA) Urine Ketones Urine Blood Urine Nitrite Ur Leukocyte Esterase Urine WBC (Auto) Urine RBC (Auto) Blood Type Antibody Screen 01/21/17 07:34 Blood Blood Culture - Final NO GROWTH IN 5 DAYS 01/24/17 01/24/17 01/25/17 20:58 20:58 05:00 Creatine Kinase 28 L < 20 L CK-MB (CK-2) 0.86 Troponin I < 0.012 NT-Pro-B Natriuret Pep 3310 H 01/25/17 01/25/17 01/25/17 05:00 14:35 14:35 Creatine Kinase 74 CK-MB (CK-2) 1.22 1.70 Troponin I 0.044 0.050 NT-Pro-B Natriuret Pep Impressions: Limited or Localized CT 01/21/17 03:02 IMPRESSION: 1. Small bowel obstruction pattern. 2. Small to moderate bilateral lower lobar pneumonia, left more than right. 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 Cannot exclude other infectious and neoplastic processes. 4. Increased sclerosis of bilateral femoral heads may indicate avascular necrosis. Consider contrast MRI correlation. Abdomen X-Ray 01/24/17 00:00 IMPRESSION: Nasogastric tube tip and side port in the stomach. Persistent small bowel obstruction. Small Bowel X-Ray 01/24/17 00:00 IMPRESSION: Findings worrisome for small bowel obstruction. Nasogastric tube tip and side port in the stomach. At the conclusion of the study, a nasogastric tube was put back to suction. KUB X-Ray 01/24/17 14:00 IMPRESSION: Nasogastric tube tip and side port in the stomach. Distended stomach and small bowel worrisome for small bowel obstruction Interventional Vascular Procedure 01/25/17 00:00 IMPRESSION: SUCCESSFUL PLACEMENT OF A 5 FR DUAL LUMEN 35 CM PICC IN THE RIGHT BASILIC VEIN. PICC Line Insertion 01/25/17 00:00 IMPRESSION: SUCCESSFUL PLACEMENT OF A 5 FR DUAL LUMEN 35 CM PICC IN THE RIGHT BASILIC VEIN. Chest X-Ray 01/26/17 06:00 IMPRESSION: Mild gaseous distention of the visualize small bowel may indicate ileus and/or early/partial small bowel obstruction. Moderate left basilar opacity -effusion. Lines and tubes. Assessment & Plan - Plan Summary Plan Summary: A/ POD #2 post ileocecectomy for distal SBO patient hemodynamically stable, afebrile good urine output still intubated, sleepy but awake, follows commands blood work WNL abdomen soft with hypoactive BS P/ continue ETT weaning sedation off for possible extubation in AM start TPN today continue NGT and NPO continue IV abx
[2017-01-26] MEDS ORDERED: GLUCAGON,HUMAN RECOMB 1 MG INJ IM PRN (13:09)
[2017-01-26] MEDS ORDERED: DEXTROSE 40% GEL 15 GM TUBE X 2 PO PRN (13:09)
[2017-01-26] MEDS ORDERED: DEXTROSE 50%-WATER SYRINGE 12.5 GM/25 ML DOSE IV PRN (13:09)
[2017-01-26] MEDS ORDERED: DEXTROSE 50%-WATER SYRINGE 25 GM/50 ML DOSE IV PRN (13:09)
[2017-01-26] MEDS ORDERED: DEXTROSE 40% GEL 15 GM TUBE PO PRN (13:09)
[2017-01-26] MEDS ORDERED: DEXTROSE 10%-WATER 1,000 ML IV PRN (13:09)
[2017-01-26] MEDS: RINGERS SOLUTION,LACTATED 1,000 ML IV PRN (13:41)
[2017-01-26] MEDS: AMINO ACIDS 5%/D25W 1,000 ML IV PRN (16:39)
[2017-01-27] MEDS: LEVALBUTEROL HCL NEB 1.25 MG/3 ML AMPUL NEB SCH ×3 (00:27→16:14)
[2017-01-27] MEDS: PIPERACILLIN SODIUM/TAZOBACTAM 3.375 GM in NORMAL SALINE 100 ML IV SCH ×4 (02:43→20:53)
[2017-01-27 06:25] LABS: ARTERIAL BLOOD BASE EXCESS -8.1 mmol/L; ARTERIAL BLOOD O2 SATURATION 96.9 % (94-98)
[2017-01-27 06:34] LABS: ALANINE AMINOTRANSFERASE 19 U/L (9-52); ALBUMIN 1.5 g/dL (3.5-5.0); ALKALINE PHOSPHATASE 52 U/L (38-126); ANION GAP 7 (5-19); ASPARTATE AMINO TRANSFERASE 14 U/L (14-36); BILIRUBIN,DIRECT 0.6 mg/dL (0.0-0.4); BILIRUBIN,TOTAL 0.8 mg/dL (0.2-1.3); BLOOD UREA NITROGEN 22 mg/dL (7-20); CALCIUM 8.2 mg/dL (8.4-10.2); CARBON DIOXIDE 18 mmol/L (22-30); CHLORIDE 117 mmol/L (98-107); CREATININE RESULT 1.12 mg/dL (0.52-1.25); PHOSPHORUS 3.6 mg/dL (2.5-4.5); SODIUM 141.9 mmol/L (137-145); TOTAL PROTEIN 3.3 g/dL (6.3-8.2)
[2017-01-27 06:37] LABS: ABSOLUTE LYMPHOCYTES (AUTO) 0.4 10^3/uL (0.5-4.7); ABSOLUTE MONOCYTES (AUTO) 0.4 10^3/uL (0.1-1.4); ABSOLUTE NEUT (AUTO) 6.1 10^3/uL (1.7-8.2); BASOPHILS % (AUTO) 0.1 % (0-2); EOSINOPHILS % (AUTO) 0.3 % (0-6); HEMATOCRIT 30.9 % (36.0-47.0); LYMPHOCYTES % (AUTO) 5.2 % (13-45); MEAN CORPUSCULAR HEMOGLOBIN 29.4 pg (27.0-33.4); MEAN CORPUSCULAR HGB CONC 33.3 g/dL (32.0-36.0); MEAN CORPUSCULAR VOLUME 88 fl (80-97); RED BLOOD COUNT 3.51 10^6/uL (3.72-5.28); SEGMENTED NEUTROPHILS % (AUTO) 88.4 % (42-78); WHITE BLOOD COUNT 6.9 10^3/uL (4.0-10.5)
[2017-01-27 06:42] LABS: PREALBUMIN 4.5 mg/dL (17.6-36.0)
[2017-01-27 06:47] LABS: HEMOGLOBIN 10.3 g/dL (12.0-15.5)
[2017-01-27] MEDS: INSULIN REG, HUMAN 100 UNIT/ML 3 ML VIAL (PYX) SUBCUT PRN (06:54)
[2017-01-27 07:00] LABS: GLUCOSE 404 mg/dL (75-110)
--- NOTE | 2017-01-27 07:28 | RADIOLOGY REPORT (SQ) ---
EXAM DESCRIPTION: CHEST SINGLE VIEW COMPLETED DATE/TIME: 01/27/2017 7:02 am REASON FOR STUDY: Mechanical ventilation COMPARISON: Chest x-ray 01/26/2017. EXAM PARAMETERS: NUMBER OF VIEWS: One view TECHNIQUE: Single frontal radiograph of the chest. RADIATION DOSE: N/A LIMITATIONS: None. FINDINGS: TEMPORARY SUPPORT DEVICES:ETT in expected location. NG tube courses below the luz maria-diaphr agm in to the stomach. Right-sided PICC line with the tip overlying the region of the distal right at rium. LUNGS AND PLEURA: There are small bilateral pleural effusions with bibasilar airspace opacities, left more than right. No pneumothorax. MEDIASTINUM AND HILAR STRUCTURES: No masses. Contour normal. HEART AND VASCULAR STRUCTURES: The heart is not enlarged. There is no overt vascular congestion. BONES: No acute findings. OTHER: Gaseous distension of the visualized bowel loops in the upper abdomen. IMPRESSION: Small bilateral pleural effusions with bibasilar airspace opacities, left more than righ t. Right-sided PICC line with the tip overlying the region of the distal right atrium, retraction by anibal roximately 6 cm recommended. Gaseous distension of the visualized bowel loops in the upper abdomen, may represent ileus versus obs truction. Evaluation with dedicated abdominal series as clinically warranted. RECOMMENDATIONS: Retraction of the right-sided PICC line. TECHNICAL DOCUMENTATION: JOB ID: [id number] [email or web address]- All Rights Reserved
[2017-01-27] MEDS: PROPOFOL 100 ML IV PRN ×2 (08:28→20:54)
--- NOTE | 2017-01-27 10:47 | PDOC PROGRESS REPORT ---
Subjective Progress Note for:: 01/27/17 Subjective:: Nursing reports that pt has Bright Red Blood for NGT this morning. Nursing reports that pt's abd is more swollen and seeping from closed incision. Spoke to daughter about this mornings findings. I also addressed code status with daughter and discussed that complexity of medical case. Physical Exam Vital Signs: Temp Pulse Resp BP Pulse Ox 98.8 F 85 12 149/35 H 98 01/27/17 08:00 01/27/17 08:00 01/27/17 08:00 01/27/17 08:00 01/27/17 08:00 Intake & Output 01/26/17 01/27/17 01/28/17 06:59 06:59 06:59 Intake Total 2243 3016 Output Total 1025 1810 50 Balance 1218 1206 -50 Weight 43.2 kg 39.7 kg General appearance: PRESENT: no acute distress, thin Exam: Temporal wasting, ETT in place. Head exam: PRESENT: atraumatic, normocephalic Eye exam: PRESENT: conjunctiva pink, EOMI Ear exam: PRESENT: normal external ear exam Mouth exam: PRESENT: moist Neck exam: PRESENT: other - ETT in place Respiratory exam: PRESENT: clear to auscultation justin, other - Intubated. ABSENT : rales, rhonchi, wheezes Cardiovascular exam: PRESENT: RRR, other - + trace edema in bilateral thighs GI/Abdominal exam: PRESENT: distended, hypoactive bowel sounds, tenderness, other - + clear fluid draining from close abd site Gentrourinary exam: PRESENT: indwelling catheter Extremities exam: PRESENT: full ROM, other - + trace edema of bilateral thighs. ABSENT: calf tenderness, clubbing, pedal edema Musculoskeletal exam: PRESENT: other - Pt moves lower ext and upper ext Neurological exam: PRESENT: awake Psychiatric exam: PRESENT: other - Pt intubated. Pt tracks staff when in room Skin exam: PRESENT: dry, warm Results Laboratory Results: 01/27/17 06:00 01/27/17 06:00 01/27/17 01/27/17 01/27/17 06:00 06:00 06:00 WBC 6.9 RBC 3.51 L Hgb 10.3 L D Hct 30.9 L MCV 88 MCH 29.4 MCHC 33.3 RDW 18.0 H Plt Count 151 Seg Neutrophils % 88.4 H Lymphocytes % 5.2 L Monocytes % 6.0 Eosinophils % 0.3 Basophils % 0.1 Absolute Neutrophils 6.1 Absolute Lymphocytes 0.4 L Absolute Monocytes 0.4 Absolute Eosinophils 0.0 Absolute Basophils 0.0 Carbonic Acid 0.94 L HCO3/H2CO3 Ratio 17:1 ABG pH 7.34 L ABG pCO2 31.3 L ABG pO2 94.2 ABG HCO3 16.6 L ABG O2 Saturation 96.9 ABG Base Excess -8.1 FiO2 21% Sodium Potassium Chloride Carbon Dioxide Anion Gap BUN Creatinine Est GFR ( Amer) Est GFR (Non-Af Amer) Glucose Lactic Acid 2.1 Calcium Phosphorus Total Bilirubin AST ALT Alkaline Phosphatase Total Protein Albumin Prealbumin 01/27/17 06:00 WBC RBC Hgb Hct MCV MCH MCHC RDW Plt Count Seg Neutrophils % Lymphocytes % Monocytes % Eosinophils % Basophils % Absolute Neutrophils Absolute Lymphocytes Absolute Monocytes Absolute Eosinophils Absolute Basophils Carbonic Acid HCO3/H2CO3 Ratio ABG pH ABG pCO2 ABG pO2 ABG HCO3 ABG O2 Saturation ABG Base Excess FiO2 Sodium 141.9 Potassium 4.0 Chloride 117 H Carbon Dioxide 18 L Anion Gap 7 BUN 22 H Creatinine 1.12 Est GFR ( Amer) 57 L Est GFR (Non-Af Amer) 47 L Glucose 404 H* Lactic Acid Calcium 8.2 L Phosphorus 3.6 Total Bilirubin 0.8 AST 14 ALT 19 Alkaline Phosphatase 52 Total Protein 3.3 L Albumin 1.5 L Prealbumin 4.5 L 01/21/17 07:34 Blood Blood Culture - Final NO GROWTH IN 5 DAYS 01/24/17 01/24/17 01/25/17 20:58 20:58 05:00 Creatine Kinase 28 L < 20 L CK-MB (CK-2) 0.86 Troponin I < 0.012 NT-Pro-B Natriuret Pep 3310 H 01/25/17 01/25/17 01/25/17 05:00 14:35 14:35 Creatine Kinase 74 CK-MB (CK-2) 1.22 1.70 Troponin I 0.044 0.050 NT-Pro-B Natriuret Pep Impressions: Limited or Localized CT 01/21/17 03:02 IMPRESSION: 1. Small bowel obstruction pattern. 2. Small to moderate bilateral lower lobar pneumonia, left more than right. 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 Cannot exclude other infectious and neoplastic processes. 4. Increased sclerosis of bilateral femoral heads may indicate avascular necrosis. Consider contrast MRI correlation. Abdomen X-Ray 01/24/17 00:00 IMPRESSION: Nasogastric tube tip and side port in the stomach. Persistent small bowel obstruction. Small Bowel X-Ray 01/24/17 00:00 IMPRESSION: Findings worrisome for small bowel obstruction. Nasogastric tube tip and side port in the stomach. At the conclusion of the study, a nasogastric tube was put back to suction. KUB X-Ray 01/24/17 14:00 IMPRESSION: Nasogastric tube tip and side port in the stomach. Distended stomach and small bowel worrisome for small bowel obstruction Interventional Vascular Procedure 01/25/17 00:00 IMPRESSION: SUCCESSFUL PLACEMENT OF A 5 FR DUAL LUMEN 35 CM PICC IN THE RIGHT BASILIC VEIN. PICC Line Insertion 01/25/17 00:00 IMPRESSION: SUCCESSFUL PLACEMENT OF A 5 FR DUAL LUMEN 35 CM PICC IN THE RIGHT BASILIC VEIN. Chest X-Ray 01/27/17 06:00 IMPRESSION: Small bilateral pleural effusions with bibasilar airspace opacities , left more than right. Right-sided PICC line with the tip overlying the region of the distal right atrium, retraction by approximately 6 cm recommended. Gaseous distension of the visualized bowel loops in the upper abdomen, may represent ileus versus obstruction. Evaluation with dedicated abdominal series as clinically warranted. Assessment & Plan - Diagnosis (1) Acute respiratory failure Is this a current diagnosis for this admission?: Yes Plan: Pt currently intubated and off sedation. Pulmonary managing pt. Pt will remain intubated until more medically stable. (2) SBO (small bowel obstruction) Is this a current diagnosis for this admission?: Yes Plan: Complicated by Ischemic segment of terminal ileum S/P Exp Lap ileocecal Resection with Ileocolic anastomosis: Pt will gross Bright Red Blood Per NGT. Will continue to monitor. H/H Q6 hours. (3) Postoperative anemia due to acute blood loss Is this a current diagnosis for this admission?: Yes Plan: Pt had gross red blood from NGT. Will check H/H Q6 hours. Surgery following pt. (4) Malnutrition of moderate degree Is this a current diagnosis for this admission?: Yes Plan: Pt currently on TPN. Will continue. Will discontinue IVF due to mild volume overload. (5) Hyperglycemia Is this a current diagnosis for this admission?: Yes Plan: Will continue SSI. (6) Volume overload Qualifiers: Hypervolemia type: transfusion-associated Qualified Code(s): E87.71 - Transfusion associated circulatory overload Is this a current diagnosis for this admission?: Yes Plan: Will discontinue IVF. Will allow pt to naturally diuresis. (7) Sepsis Qualifiers: Sepsis type: Escherichia coli Qualified Code(s): A41.51 - Sepsis due to Escherichia coli [E. coli] Is this a current diagnosis for this admission?: Yes Plan: Secondary to Acute Cystitis Due to E. Coli and P. Mirabili: Will continue current antibotic. (8) UTI (urinary tract infection) Qualifiers: Urinary tract infection type: site unspecified Is this a current diagnosis for this admission?: Yes Plan: Secondary E. Coli and P. Mirabili: Will continue current antibiotics (9) Dementia Qualifiers: Dementia type: unspecified type Dementia behavioral disturbance: without behavioral disturbance Qualified Code(s): F03.90 - Unspecified dementia without behavioral disturbance Is this a current diagnosis for this admission?: Yes Plan: Supportive care. Will monitor. (10) Hyperbilirubinemia Is this a current diagnosis for this admission?: Yes Plan: Resolving most likely related to recent surgery. Will monitor. (11) Metabolic acidosis Is this a current diagnosis for this admission?: Yes Plan: Secondary to GI: Will continue to monitor. - Time Time Spent with patient: 25-34 minutes
[2017-01-27] MEDS: NORMAL SALINE 10 ML SDV (SCHEDULED) IV SCH ×2 (12:10→21:07)
--- NOTE | 2017-01-27 12:18 | PDOC PROGRESS REPORT ---
Subjective Progress Note for:: 01/27/17 Subjective:: patient failed extubation trial this AM, she appears more sleepy today, not spontaneously awake, responds to pain stimuli Physical Exam Vital Signs: Temp Pulse Resp BP Pulse Ox 98.8 F 93 8 L 172/61 H 98 01/27/17 08:00 01/27/17 11:23 01/27/17 11:23 01/27/17 11:23 01/27/17 11:25 Intake & Output 01/26/17 01/27/17 01/28/17 06:59 06:59 06:59 Intake Total 2243 3016 Output Total 1025 1810 50 Balance 1218 1206 -50 Weight 43.2 kg 39.7 kg General appearance: PRESENT: other - sleepy Respiratory exam: PRESENT: clear to auscultation justin Cardiovascular exam: PRESENT: RRR, tachycardia GI/Abdominal exam: PRESENT: hypoactive bowel sounds, soft, other - midline wound : lower half with serosanguinous drainage, no cellulitis or odor Results Laboratory Results: 01/27/17 06:00 01/27/17 06:00 01/27/17 01/27/17 01/27/17 06:00 06:00 06:00 WBC 6.9 RBC 3.51 L Hgb 10.3 L D Hct 30.9 L MCV 88 MCH 29.4 MCHC 33.3 RDW 18.0 H Plt Count 151 Seg Neutrophils % 88.4 H Lymphocytes % 5.2 L Monocytes % 6.0 Eosinophils % 0.3 Basophils % 0.1 Absolute Neutrophils 6.1 Absolute Lymphocytes 0.4 L Absolute Monocytes 0.4 Absolute Eosinophils 0.0 Absolute Basophils 0.0 Carbonic Acid 0.94 L HCO3/H2CO3 Ratio 17:1 ABG pH 7.34 L ABG pCO2 31.3 L ABG pO2 94.2 ABG HCO3 16.6 L ABG O2 Saturation 96.9 ABG Base Excess -8.1 FiO2 21% Sodium Potassium Chloride Carbon Dioxide Anion Gap BUN Creatinine Est GFR ( Amer) Est GFR (Non-Af Amer) Glucose Lactic Acid 2.1 Calcium Phosphorus Total Bilirubin AST ALT Alkaline Phosphatase Total Protein Albumin Prealbumin 01/27/17 06:00 WBC RBC Hgb Hct MCV MCH MCHC RDW Plt Count Seg Neutrophils % Lymphocytes % Monocytes % Eosinophils % Basophils % Absolute Neutrophils Absolute Lymphocytes Absolute Monocytes Absolute Eosinophils Absolute Basophils Carbonic Acid HCO3/H2CO3 Ratio ABG pH ABG pCO2 ABG pO2 ABG HCO3 ABG O2 Saturation ABG Base Excess FiO2 Sodium 141.9 Potassium 4.0 Chloride 117 H Carbon Dioxide 18 L Anion Gap 7 BUN 22 H Creatinine 1.12 Est GFR ( Amer) 57 L Est GFR (Non-Af Amer) 47 L Glucose 404 H* Lactic Acid Calcium 8.2 L Phosphorus 3.6 Total Bilirubin 0.8 AST 14 ALT 19 Alkaline Phosphatase 52 Total Protein 3.3 L Albumin 1.5 L Prealbumin 4.5 L 01/24/17 01/24/17 01/25/17 20:58 20:58 05:00 Creatine Kinase 28 L < 20 L CK-MB (CK-2) 0.86 Troponin I < 0.012 NT-Pro-B Natriuret Pep 3310 H 01/25/17 01/25/17 01/25/17 05:00 14:35 14:35 Creatine Kinase 74 CK-MB (CK-2) 1.22 1.70 Troponin I 0.044 0.050 NT-Pro-B Natriuret Pep Impressions: Limited or Localized CT 01/21/17 03:02 IMPRESSION: 1. Small bowel obstruction pattern. 2. Small to moderate bilateral lower lobar pneumonia, left more than right. 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 Cannot exclude other infectious and neoplastic processes. 4. Increased sclerosis of bilateral femoral heads may indicate avascular necrosis. Consider contrast MRI correlation. Abdomen X-Ray 01/24/17 00:00 IMPRESSION: Nasogastric tube tip and side port in the stomach. Persistent small bowel obstruction. Small Bowel X-Ray 01/24/17 00:00 IMPRESSION: Findings worrisome for small bowel obstruction. Nasogastric tube tip and side port in the stomach. At the conclusion of the study, a nasogastric tube was put back to suction. KUB X-Ray 01/24/17 14:00 IMPRESSION: Nasogastric tube tip and side port in the stomach. Distended stomach and small bowel worrisome for small bowel obstruction Interventional Vascular Procedure 01/25/17 00:00 IMPRESSION: SUCCESSFUL PLACEMENT OF A 5 FR DUAL LUMEN 35 CM PICC IN THE RIGHT BASILIC VEIN. PICC Line Insertion 01/25/17 00:00 IMPRESSION: SUCCESSFUL PLACEMENT OF A 5 FR DUAL LUMEN 35 CM PICC IN THE RIGHT BASILIC VEIN. Chest X-Ray 01/27/17 06:00 IMPRESSION: Small bilateral pleural effusions with bibasilar airspace opacities , left more than right. Right-sided PICC line with the tip overlying the region of the distal right atrium, retraction by approximately 6 cm recommended. Gaseous distension of the visualized bowel loops in the upper abdomen, may represent ileus versus obstruction. Evaluation with dedicated abdominal series as clinically warranted. Assessment & Plan - Plan Summary Plan Summary: A/ POD #3 post ileocecectomy for distal SBO patient tachycardic (110-120's), afebrile, hypethermic good urine output still intubated, sleepy failed extubation trial this AM blood work: normal WBC, drop of H/H 04/08 today, down from yesterday BRB reported from NGT: clear NGT output after lavage abdomen soft with hypoactive BS; bowel movement last night BS elevatd (350-400) after TPN started yesterday Elevated BS, tachycardia, hyperglycemia are signs of sepsis (urosepsis vs. other sources) P/ continue ETT and ventilator support Keep TPN rate @ current rate start Glucerna via NGT at 5 cc/hr increase glucoscan frequency to control BS Open lower half of abdominal wound and send cx of wound; start wet-to-dry dressing changes continue current IV abx panculture (blood and urine) contact Hospitalist to empirically broaden IV antibiotic coverage for sepsis control
[2017-01-27] MEDS: INSULIN LISPRO 100 UNIT/ML 3 ML VIAL SUBCUT PRN ×2 (12:58→14:23)
[2017-01-27] MEDS: SUCRALFATE 1 GM TABLET NG SCH ×2 (12:58→18:11)
[2017-01-27] MEDS: MAG HYDROX/AL HYDROX/SIMETH SUSP 30 ML UDCUP NG SCH ×3 (14:23→21:07)
[2017-01-27] MEDS: AMINO ACIDS 5%/D25W 1,000 ML IV PRN (17:04)
[2017-01-27 19:20] LABS: APPEARANCE,URINE SLIGHTLY-CLOUDY; BILIRUBIN,URINE NEGATIVE (NEGATIVE); GLUCOSE, URINE NEGATIVE (NEGATIVE); KETONES,URINE NEGATIVE (NEGATIVE); LEUKOCYTE ESTERASE,URINE MODERATE (NEGATIVE); NITRITE,URINE NEGATIVE (NEGATIVE); PROTEIN,URINE NEGATIVE (NEGATIVE); URINE SPECIFIC GRAVITY 1.012; UROBILINOGEN,URINE NEGATIVE mg/dL (<2.0)
[2017-01-28] MEDS: LEVALBUTEROL HCL NEB 1.25 MG/3 ML AMPUL NEB SCH ×4 (00:08→23:46)
[2017-01-28] MEDS: SUCRALFATE 1 GM TABLET NG SCH ×4 (00:26→17:00)
[2017-01-28] MEDS: PIPERACILLIN SODIUM/TAZOBACTAM 3.375 GM in NORMAL SALINE 100 ML IV SCH ×4 (02:43→20:17)
[2017-01-28] MEDS: MAG HYDROX/AL HYDROX/SIMETH SUSP 30 ML UDCUP NG SCH ×6 (02:43→21:29)
[2017-01-28 07:02] LABS: PROTHROMBIN TIME 13.3 SEC (11.4-15.4)
[2017-01-28 07:08] LABS: ALANINE AMINOTRANSFERASE 26 U/L (9-52); ALBUMIN 1.7 g/dL (3.5-5.0); ALKALINE PHOSPHATASE 65 U/L (38-126); ANION GAP 5 (5-19); ASPARTATE AMINO TRANSFERASE 19 U/L (14-36); BILIRUBIN,DIRECT 0.6 mg/dL (0.0-0.4); BILIRUBIN,TOTAL 0.7 mg/dL (0.2-1.3); BLOOD UREA NITROGEN 24 mg/dL (7-20); CARBON DIOXIDE 21 mmol/L (22-30); CHLORIDE 115 mmol/L (98-107); CREATININE RESULT 1.04 mg/dL (0.52-1.25); GLUCOSE 211 mg/dL (75-110); MAGNESIUM 1.9 mg/dL (1.6-2.3); PHOSPHORUS 2.5 mg/dL (2.5-4.5); POTASSIUM 3.6 mmol/L (3.6-5.0); TOTAL PROTEIN 3.6 g/dL (6.3-8.2); TRIGLYCERIDES 110 mg/dL (<150)
[2017-01-28 07:15] LABS: PREALBUMIN 6.3 mg/dL (17.6-36.0)
--- NOTE | 2017-01-28 07:47 | RADIOLOGY REPORT (SQ) ---
EXAM DESCRIPTION: CHEST SINGLE VIEW COMPLETED DATE/TIME: 01/28/2017 6:40 am REASON FOR STUDY: Mechanical ventilation COMPARISON: 01/27/2017. EXAM PARAMETERS: NUMBER OF VIEWS: One view. TECHNIQUE: Single frontal radiographic view of the chest acquired. RADIATION DOSE: NA LIMITATIONS: None. FINDINGS: LUNGS AND PLEURA: Small-moderate opacity -haziness of bilateral lower lung solares, left mo re than right. Moderate lung volumes. MEDIASTINUM AND HILAR STRUCTURES: No masses. Contour normal. HEART AND VASCULAR STRUCTURES: Heart normal in size. Normal vasculature. BONES: No acute findings. HARDWARE: Adequate appearing endotracheal tube. Right subclavian PICC tip at the right atrium ; cons ider 8 cm retraction. OTHER: No other significant finding. IMPRESSION: No significant interval change. TECHNICAL DOCUMENTATION: JOB ID: [id number]
[2017-01-28 07:48] LABS: ARTERIAL BLOOD O2 SATURATION 99.9 % (94-98)
[2017-01-28] MEDS: NORMAL SALINE 10 ML SDV (SCHEDULED) IV SCH ×2 (10:27→21:30)
[2017-01-28] MEDS: PROPOFOL 100 ML IV PRN ×2 (10:28→21:30)
[2017-01-28] MEDS: MORPHINE SULFATE 10 MG/ML INJ IV PRN (11:45)
--- NOTE | 2017-01-28 12:25 | PDOC PROGRESS REPORT ---
Subjective Progress Note for:: 01/28/17 Subjective:: Nursing states that pt had 100 cc residual with tubefeeds. Physical Exam Vital Signs: Temp Pulse Resp BP Pulse Ox 98.6 F 96 12 162/59 H 99 01/28/17 11:30 01/28/17 10:00 01/28/17 10:00 01/28/17 11:10 01/28/17 11:30 Intake & Output 01/27/17 01/28/17 01/29/17 06:59 06:59 06:59 Intake Total 3016 1580 Output Total 1810 1150 60 Balance 1206 430 -60 Weight 39.7 kg 40.7 kg General appearance: PRESENT: no acute distress, other - Sedated Head exam: PRESENT: atraumatic, normocephalic Eye exam: PRESENT: conjunctiva pink, EOMI Mouth exam: PRESENT: moist, other - ETT in place Neck exam: ABSENT: carotid bruit, JVD, lymphadenopathy, thyromegaly Respiratory exam: PRESENT: clear to auscultation justin, other - ETT in place. ABSENT: rales, rhonchi, wheezes Cardiovascular exam: PRESENT: RRR, other - + 2 pitting edema in bilateral thighs and abd.. ABSENT: diastolic murmur, rubs, systolic murmur Pulses: PRESENT: normal dorsalis pedis pul Vascular exam: PRESENT: normal capillary refill GI/Abdominal exam: PRESENT: distended, normal bowel sounds, other - Clear drainage from close surgical wound. Extremities exam: PRESENT: other - + bilateral upper thigh edema 2 Neurological exam: PRESENT: other - sedated Skin exam: PRESENT: dry, warm Results Laboratory Results: 01/27/17 06:00 01/28/17 06:40 01/27/17 01/28/17 01/28/17 18:30 06:40 06:40 Carbonic Acid HCO3/H2CO3 Ratio ABG pH ABG pCO2 ABG pO2 ABG HCO3 ABG O2 Saturation ABG Base Excess FiO2 Sodium 141.0 Potassium 3.6 Chloride 115 H Carbon Dioxide 21 L Anion Gap 5 BUN 24 H Creatinine 1.04 Est GFR ( Amer) > 60 Est GFR (Non-Af Amer) 51 L Glucose 211 H Lactic Acid 1.1 Calcium 9.0 Phosphorus 2.5 Magnesium 1.9 Total Bilirubin 0.7 AST 19 ALT 26 Alkaline Phosphatase 65 Total Protein 3.6 L Albumin 1.7 L Prealbumin 6.3 L Triglycerides 110 Urine Color YELLOW Urine Appearance SLIGHTLY-CLOUDY Urine pH 5.0 Ur Specific [place] 1.012 Urine Protein NEGATIVE Urine Glucose (UA) NEGATIVE Urine Ketones NEGATIVE Urine Blood NEGATIVE Urine Nitrite NEGATIVE Ur Leukocyte Esterase MODERATE H Urine WBC (Auto) 48 Urine RBC (Auto) 149 01/28/17 07:40 Carbonic Acid 0.96 L HCO3/H2CO3 Ratio 22:1 ABG pH 7.44 ABG pCO2 31.9 L ABG pO2 479.4 H ABG HCO3 21.4 ABG O2 Saturation 99.9 H ABG Base Excess -2.0 FiO2 21% Sodium Potassium Chloride Carbon Dioxide Anion Gap BUN Creatinine Est GFR ( Amer) Est GFR (Non-Af Amer) Glucose Lactic Acid Calcium Phosphorus Magnesium Total Bilirubin AST ALT Alkaline Phosphatase Total Protein Albumin Prealbumin Triglycerides Urine Color Urine Appearance Urine pH Ur Specific [place] Urine Protein Urine Glucose (UA) Urine Ketones Urine Blood Urine Nitrite Ur Leukocyte Esterase Urine WBC (Auto) Urine RBC (Auto) 01/24/17 01/24/17 01/25/17 20:58 20:58 05:00 Creatine Kinase 28 L < 20 L CK-MB (CK-2) 0.86 Troponin I < 0.012 NT-Pro-B Natriuret Pep 3310 H 01/25/17 01/25/17 01/25/17 05:00 14:35 14:35 Creatine Kinase 74 CK-MB (CK-2) 1.22 1.70 Troponin I 0.044 0.050 NT-Pro-B Natriuret Pep Impressions: Limited or Localized CT 01/21/17 03:02 IMPRESSION: 1. Small bowel obstruction pattern. 2. Small to moderate bilateral lower lobar pneumonia, left more than right. 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 Cannot exclude other infectious and neoplastic processes. 4. Increased sclerosis of bilateral femoral heads may indicate avascular necrosis. Consider contrast MRI correlation. Abdomen X-Ray 01/24/17 00:00 IMPRESSION: Nasogastric tube tip and side port in the stomach. Persistent small bowel obstruction. Small Bowel X-Ray 01/24/17 00:00 IMPRESSION: Findings worrisome for small bowel obstruction. Nasogastric tube tip and side port in the stomach. At the conclusion of the study, a nasogastric tube was put back to suction. KUB X-Ray 01/24/17 14:00 IMPRESSION: Nasogastric tube tip and side port in the stomach. Distended stomach and small bowel worrisome for small bowel obstruction Interventional Vascular Procedure 01/25/17 00:00 IMPRESSION: SUCCESSFUL PLACEMENT OF A 5 FR DUAL LUMEN 35 CM PICC IN THE RIGHT BASILIC VEIN. PICC Line Insertion 01/25/17 00:00 IMPRESSION: SUCCESSFUL PLACEMENT OF A 5 FR DUAL LUMEN 35 CM PICC IN THE RIGHT BASILIC VEIN. Chest X-Ray 01/28/17 06:00 IMPRESSION: No significant interval change. Assessment & Plan - Diagnosis (1) Acute respiratory failure Is this a current diagnosis for this admission?: Yes Plan: Pt currently intubated and off sedation. Pulmonary managing pt. Pt will remain intubated until more medically stable. (2) SBO (small bowel obstruction) Is this a current diagnosis for this admission?: Yes Plan: Partial Small Bowel Obstruction Complicated by Ischemic segment of terminal ileum S/P Exp Lap ileocecal Resection with Ileocolic anastomosis: Pt had gross Bright Red Blood Per NGT which has resolved. Will continue to monitor. (3) Postoperative anemia due to acute blood loss Is this a current diagnosis for this admission?: Yes Plan: Pt had gross red blood from NGT yesterday but none today.. Surgery following pt. (4) Malnutrition of moderate degree Is this a current diagnosis for this admission?: Yes Plan: Pt currently on TPN. Pt was started on tubefeeds but not tolerating well. (5) Hyperglycemia Is this a current diagnosis for this admission?: Yes Plan: Will continue SSI. (6) Volume overload Qualifiers: Hypervolemia type: transfusion-associated Qualified Code(s): E87.71 - Transfusion associated circulatory overload Is this a current diagnosis for this admission?: Yes Plan: Will discontinue IVF. Will allow pt to naturally diuresis. (7) Sepsis Qualifiers: Sepsis type: Escherichia coli Qualified Code(s): A41.51 - Sepsis due to Escherichia coli [E. coli] Is this a current diagnosis for this admission?: Yes Plan: Secondary to Acute Cystitis Due to E. Coli and P. Mirabili: Will continue current antibotic. (8) UTI (urinary tract infection) Qualifiers: Urinary tract infection type: site unspecified Is this a current diagnosis for this admission?: Yes Plan: Secondary E. Coli and P. Mirabili: Will continue current antibiotics (9) Dementia Qualifiers: Dementia type: unspecified type Dementia behavioral disturbance: without behavioral disturbance Qualified Code(s): F03.90 - Unspecified dementia without behavioral disturbance Is this a current diagnosis for this admission?: Yes Plan: Supportive care. Will monitor. (10) Hyperbilirubinemia Is this a current diagnosis for this admission?: Yes Plan: Resolving most likely related to recent surgery. Will monitor. (11) Metabolic acidosis Is this a current diagnosis for this admission?: Yes Plan: Secondary to GI: Will continue to monitor. - Time Time Spent with patient: 15-24 minutes
--- NOTE | 2017-01-28 14:32 | PROGRESS NOTE E ---
Progress Note NAME: CELESTINA SWEENEY : 1940 AGE: 76Y DATE: 01/28/2017 ROOM: 601 SUBJECTIVE: This is a subsequent hospital note. Patient is postoperative day 4 status post exploratory laparotomy, ileocecectomy. Patient remains in the intensive care unit on minimal vent support, mild sedation. She had the inferior aspect of her midline wound opened superficially yesterday. Patient remains weak. PHYSICAL EXAMINATION: Patient is in the ICU. She is intubated with nasogastric tube in position. The abdomen is examined. Midline wound is approximated with miles above the umbilicus and below the umbilicus is open superficially. There is no pus, foul smell or drainage. The abdomen is minimally distended. The lower pelvic area is somewhat thickened but not erythematous. DIAGNOSTICS: Patient's laboratory profile shows a hemoglobin of 10.3, white blood cell count 6900. Albumin 1.7. IMPRESSION: 1. UNCOMPLICATED POSTOPERATIVE COURSE STATUS POST EXPLORATORY LAPAROTOMY, ILEOCECECTOMY WITH PRIMARY ANASTOMOSIS; FINAL PATH PENDING; UNCOMPLICATED POSTOPERATIVE COURSE; SUPERFICIALLY OPEN WOUND. 2. MULTIPLE COMORBIDITIES INCLUDING MALNUTRITION, RESPIRATORY INSUFFICIENCY. RECOMMENDATIONS: 1. Will start the patient on dressing changes; order written. 2. Continue supplemental tube feeds with continuous TPN as patient tolerates. DICTATING PHYSICIAN: EARL MARTINEZ M.D. [id number] KATHIY#: [id number] ID: [id number] JOB#: [id number] ACCT: [id number] cc: >
[2017-01-28] MEDS: INSULIN REG, HUMAN 100 UNIT/ML 3 ML VIAL (PYX) SUBCUT PRN (15:40)
[2017-01-28] MEDS: AMINO ACIDS 5%/D25W 1,000 ML IV PRN (16:59)
[2017-01-29] MEDS: SUCRALFATE 1 GM TABLET NG SCH ×2 (00:07→05:37)
[2017-01-29] MEDS: MAG HYDROX/AL HYDROX/SIMETH SUSP 30 ML UDCUP NG SCH ×2 (03:04→05:37)
[2017-01-29] MEDS: PIPERACILLIN SODIUM/TAZOBACTAM 3.375 GM in NORMAL SALINE 100 ML IV SCH ×4 (03:05→21:36)
[2017-01-29 05:21] LABS: ABSOLUTE EOSINOPHILS # (AUTO) 0.2 10^3/uL (0.0-0.6); ABSOLUTE LYMPHOCYTES (AUTO) 0.5 10^3/uL (0.5-4.7); ABSOLUTE MONOCYTES (AUTO) 0.5 10^3/uL (0.1-1.4); ABSOLUTE NEUT (AUTO) 6.7 10^3/uL (1.7-8.2); BASOPHILS % (AUTO) 0.5 % (0-2); EOSINOPHILS % (AUTO) 2.7 % (0-6); HEMATOCRIT 31.5 % (36.0-47.0); HEMOGLOBIN 10.4 g/dL (12.0-15.5); HGB HCT DIFFERENCE -0.3; LYMPHOCYTES % (AUTO) 6.2 % (13-45); MEAN CORPUSCULAR HEMOGLOBIN 29.2 pg (27.0-33.4); MEAN CORPUSCULAR VOLUME 89 fl (80-97); MONOCYTES % (AUTO) 6.3 % (3-13); RED BLOOD COUNT 3.56 10^6/uL (3.72-5.28); RED CELL DISTRIBUTION WIDTH 17.1 % (11.5-14.0); SEGMENTED NEUTROPHILS % (AUTO) 84.3 % (42-78)
[2017-01-29 05:22] LABS: ARTERIAL BLOOD BASE EXCESS -0.2 mmol/L
[2017-01-29 05:38] LABS: ALANINE AMINOTRANSFERASE 24 U/L (9-52); ALBUMIN 1.6 g/dL (3.5-5.0); ALKALINE PHOSPHATASE 75 U/L (38-126); ANION GAP 6 (5-19); ASPARTATE AMINO TRANSFERASE 20 U/L (14-36); BILIRUBIN,DIRECT 0.5 mg/dL (0.0-0.4); BILIRUBIN,TOTAL 0.7 mg/dL (0.2-1.3); BLOOD UREA NITROGEN 25 mg/dL (7-20); CALCIUM 9.5 mg/dL (8.4-10.2); CARBON DIOXIDE 24 mmol/L (22-30); CHLORIDE 114 mmol/L (98-107); GLUCOSE 169 mg/dL (75-110); MAGNESIUM 2.1 mg/dL (1.6-2.3); PHOSPHORUS 1.9 mg/dL (2.5-4.5); POTASSIUM 3.7 mmol/L (3.6-5.0); SODIUM 143.8 mmol/L (137-145); TOTAL PROTEIN 3.6 g/dL (6.3-8.2)
[2017-01-29] MEDS: PROPOFOL 100 ML IV PRN ×2 (05:38→22:44)
[2017-01-29 05:45] LABS: PREALBUMIN 7.2 mg/dL (17.6-36.0)
--- NOTE | 2017-01-29 07:43 | RADIOLOGY REPORT (SQ) ---
EXAM DESCRIPTION: CHEST SINGLE VIEW COMPLETED DATE/TIME: 01/29/2017 6:56 am REASON FOR STUDY: Mechanical ventilation COMPARISON: 01/28/2017. EXAM PARAMETERS: NUMBER OF VIEWS: One view. TECHNIQUE: Single frontal radiographic view of the chest acquired. RADIATION DOSE: NA LIMITATIONS: None. FINDINGS: LUNGS AND PLEURA: Moderate left lower lobar consolidate. Moderate lung volume. MEDIASTINUM AND HILAR STRUCTURES: No masses. Contour normal. HEART AND VASCULAR STRUCTURES: Heart normal in size. Normal vasculature. BONES: No acute findings. HARDWARE: Adequate appearing endotracheal tube and NG tube. Tip of a right subclavian PICC line at t he right atrium; consider 7.6 cm retraction. OTHER: No other significant finding. IMPRESSION: No significant interval change. TECHNICAL DOCUMENTATION: JOB ID: [id number]
[2017-01-29] MEDS: LEVALBUTEROL HCL NEB 1.25 MG/3 ML AMPUL NEB SCH ×2 (08:17→16:05)
--- NOTE | 2017-01-29 08:34 | PDOC PROGRESS REPORT ---
Subjective Progress Note for:: 01/29/17 Subjective:: leepy but arousable, follows commands by wiggling left toes Physical Exam Vital Signs: Temp Pulse Resp BP Pulse Ox 98.4 F 85 18 132/53 H 98 01/29/17 07:49 01/29/17 07:49 01/29/17 07:49 01/29/17 07:49 01/29/17 07:49 Intake & Output 01/28/17 01/29/17 01/30/17 06:59 06:59 06:59 Intake Total 1580 1941 Output Total 1150 2719 75 Balance 407 -773 -75 Weight 40.7 kg 41.6 kg General appearance: PRESENT: no acute distress, cooperative, disheveled Respiratory exam: PRESENT: clear to auscultation justin Cardiovascular exam: PRESENT: RRR GI/Abdominal exam: PRESENT: hypoactive bowel sounds, soft, other - lower midline wound: fascia intact, granulating, no drainage noted, no odor Results Laboratory Results: 01/29/17 05:00 01/29/17 05:00 01/28/17 01/29/17 01/29/17 20:45 05:00 05:00 WBC 8.0 RBC 3.56 L Hgb 10.4 L Hct 31.5 L MCV 89 MCH 29.2 MCHC 33.0 RDW 17.1 H Plt Count 164 Seg Neutrophils % 84.3 H Lymphocytes % 6.2 L Monocytes % 6.3 Eosinophils % 2.7 Basophils % 0.5 Absolute Neutrophils 6.7 Absolute Lymphocytes 0.5 Absolute Monocytes 0.5 Absolute Eosinophils 0.2 Absolute Basophils 0.0 Carbonic Acid 1.15 HCO3/H2CO3 Ratio 21:1 ABG pH 7.42 ABG pCO2 38.2 ABG pO2 89.9 ABG HCO3 24.2 ABG O2 Saturation 97.0 ABG Base Excess -0.2 FiO2 21% Sodium Potassium Chloride Carbon Dioxide Anion Gap BUN Creatinine Est GFR ( Amer) Est GFR (Non-Af Amer) Glucose Calcium Phosphorus Magnesium Total Bilirubin AST ALT Alkaline Phosphatase Total Protein Albumin Prealbumin Triglycerides 124 01/29/17 05:00 WBC RBC Hgb Hct MCV MCH MCHC RDW Plt Count Seg Neutrophils % Lymphocytes % Monocytes % Eosinophils % Basophils % Absolute Neutrophils Absolute Lymphocytes Absolute Monocytes Absolute Eosinophils Absolute Basophils Carbonic Acid HCO3/H2CO3 Ratio ABG pH ABG pCO2 ABG pO2 ABG HCO3 ABG O2 Saturation ABG Base Excess FiO2 Sodium 143.8 Potassium 3.7 Chloride 114 H Carbon Dioxide 24 Anion Gap 6 BUN 25 H Creatinine 0.90 Est GFR ( Amer) > 60 Est GFR (Non-Af Amer) > 60 Glucose 169 H Calcium 9.5 Phosphorus 1.9 L Magnesium 2.1 Total Bilirubin 0.7 AST 20 ALT 24 Alkaline Phosphatase 75 Total Protein 3.6 L Albumin 1.6 L Prealbumin 7.2 L Triglycerides 01/27/17 18:30 Catheterized Urine Urine Culture - Final Yeast, Not Sylwia Albicans 01/24/17 01/24/17 01/25/17 20:58 20:58 05:00 Creatine Kinase 28 L < 20 L CK-MB (CK-2) 0.86 Troponin I < 0.012 NT-Pro-B Natriuret Pep 3310 H 01/25/17 01/25/17 01/25/17 05:00 14:35 14:35 Creatine Kinase 74 CK-MB (CK-2) 1.22 1.70 Troponin I 0.044 0.050 NT-Pro-B Natriuret Pep Impressions: Limited or Localized CT 01/21/17 03:02 IMPRESSION: 1. Small bowel obstruction pattern. 2. Small to moderate bilateral lower lobar pneumonia, left more than right. 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 Cannot exclude other infectious and neoplastic processes. 4. Increased sclerosis of bilateral femoral heads may indicate avascular necrosis. Consider contrast MRI correlation. Abdomen X-Ray 01/24/17 00:00 IMPRESSION: Nasogastric tube tip and side port in the stomach. Persistent small bowel obstruction. Small Bowel X-Ray 01/24/17 00:00 IMPRESSION: Findings worrisome for small bowel obstruction. Nasogastric tube tip and side port in the stomach. At the conclusion of the study, a nasogastric tube was put back to suction. KUB X-Ray 01/24/17 14:00 IMPRESSION: Nasogastric tube tip and side port in the stomach. Distended stomach and small bowel worrisome for small bowel obstruction Interventional Vascular Procedure 01/25/17 00:00 IMPRESSION: SUCCESSFUL PLACEMENT OF A 5 FR DUAL LUMEN 35 CM PICC IN THE RIGHT BASILIC VEIN. PICC Line Insertion 01/25/17 00:00 IMPRESSION: SUCCESSFUL PLACEMENT OF A 5 FR DUAL LUMEN 35 CM PICC IN THE RIGHT BASILIC VEIN. Chest X-Ray 01/29/17 06:00 IMPRESSION: No significant interval change. Assessment & Plan - Plan Summary Plan Summary: A/ POD #5 post ileocecectomy for distal SBO patient afebrile, VSS good urine output still intubated, sleepy but arousable, fair arterial blood gases blood work: normal WBC, H/H stable abdomen soft with hypoactive BS; bowel movements x 3 last night high tube feeding residual this AM blood cx positive for gram positive cocci P/ continue ETT and ventilator support: plan weaning off ventilator Keep TPN rate @ current rate Hold Glucerna via NGT continue current IV abx
[2017-01-29] MEDS: NORMAL SALINE 10 ML SDV (SCHEDULED) IV SCH ×2 (10:55→21:37)
[2017-01-29] MEDS ORDERED: VANCOMYCIN HCL INJ 1000 MG VIAL IV SCH (11:30)
[2017-01-29] MEDS ORDERED: VANCOMYCIN HCL 500 MG in DEXTROSE 5%-WATER 100 ML IV SCH (12:00)
[2017-01-29] MEDS ORDERED: CIPROFLOXACIN 400 MG/D5W RTU 400 MG/200 ML RTUPB IV ONE (12:30)
--- NOTE | 2017-01-29 15:12 | PDOC PROGRESS REPORT ---
Subjective Progress Note for:: 01/29/17 Subjective:: Nursing reports that there was concern yesterday that patient had tube feed and stool coming from feeding tube. Nurse reports that patient had 2 bowel movements overnight. Physical Exam Vital Signs: Temp Pulse Resp BP Pulse Ox 98.4 F 89 13 177/60 H 98 01/29/17 14:00 01/29/17 14:00 01/29/17 14:00 01/29/17 14:00 01/29/17 14:00 Intake & Output 01/28/17 01/29/17 01/30/17 06:59 06:59 06:59 Intake Total 1580 1941 40 Output Total 1150 2714 600 Balance 430 -063 -560 Weight 40.7 kg 41.6 kg General appearance: PRESENT: no acute distress, other - Intubated. Head exam: PRESENT: atraumatic, normocephalic Eye exam: PRESENT: conjunctiva pink, EOMI Ear exam: PRESENT: normal external ear exam Mouth exam: PRESENT: other - intubated Respiratory exam: PRESENT: clear to auscultation justin, other - intubated. ABSENT : rales, rhonchi, wheezes Cardiovascular exam: PRESENT: RRR, other - + 2 pitting edema of thighs bilaterally. Pulses: PRESENT: +2 pedal pulses bilateral Vascular exam: PRESENT: normal capillary refill GI/Abdominal exam: PRESENT: other - Abdomen distended dressing in place positive for bowel sounds Extremities exam: PRESENT: other - +2 bilateral thigh edema Neurological exam: PRESENT: other - Patient minimally sedated will open eyes when stimulated Skin exam: PRESENT: other - Dressing covering closed abdominal wound Results Laboratory Results: 01/29/17 05:00 01/29/17 05:00 01/28/17 01/29/17 01/29/17 20:45 05:00 05:00 WBC 8.0 RBC 3.56 L Hgb 10.4 L Hct 31.5 L MCV 89 MCH 29.2 MCHC 33.0 RDW 17.1 H Plt Count 164 Seg Neutrophils % 84.3 H Lymphocytes % 6.2 L Monocytes % 6.3 Eosinophils % 2.7 Basophils % 0.5 Absolute Neutrophils 6.7 Absolute Lymphocytes 0.5 Absolute Monocytes 0.5 Absolute Eosinophils 0.2 Absolute Basophils 0.0 Carbonic Acid 1.15 HCO3/H2CO3 Ratio 21:1 ABG pH 7.42 ABG pCO2 38.2 ABG pO2 89.9 ABG HCO3 24.2 ABG O2 Saturation 97.0 ABG Base Excess -0.2 FiO2 21% Sodium Potassium Chloride Carbon Dioxide Anion Gap BUN Creatinine Est GFR ( Amer) Est GFR (Non-Af Amer) Glucose Calcium Phosphorus Magnesium Total Bilirubin AST ALT Alkaline Phosphatase Total Protein Albumin Prealbumin Triglycerides 124 01/29/17 05:00 WBC RBC Hgb Hct MCV MCH MCHC RDW Plt Count Seg Neutrophils % Lymphocytes % Monocytes % Eosinophils % Basophils % Absolute Neutrophils Absolute Lymphocytes Absolute Monocytes Absolute Eosinophils Absolute Basophils Carbonic Acid HCO3/H2CO3 Ratio ABG pH ABG pCO2 ABG pO2 ABG HCO3 ABG O2 Saturation ABG Base Excess FiO2 Sodium 143.8 Potassium 3.7 Chloride 114 H Carbon Dioxide 24 Anion Gap 6 BUN 25 H Creatinine 0.90 Est GFR ( Amer) > 60 Est GFR (Non-Af Amer) > 60 Glucose 169 H Calcium 9.5 Phosphorus 1.9 L Magnesium 2.1 Total Bilirubin 0.7 AST 20 ALT 24 Alkaline Phosphatase 75 Total Protein 3.6 L Albumin 1.6 L Prealbumin 7.2 L Triglycerides 01/27/17 18:30 Catheterized Urine Urine Culture - Final Yeast, Not Sylwia Albicans 01/24/17 01/24/17 01/25/17 20:58 20:58 05:00 Creatine Kinase 28 L < 20 L CK-MB (CK-2) 0.86 Troponin I < 0.012 NT-Pro-B Natriuret Pep 3310 H 01/25/17 01/25/17 01/25/17 05:00 14:35 14:35 Creatine Kinase 74 CK-MB (CK-2) 1.22 1.70 Troponin I 0.044 0.050 NT-Pro-B Natriuret Pep Impressions: Limited or Localized CT 01/21/17 03:02 IMPRESSION: 1. Small bowel obstruction pattern. 2. Small to moderate bilateral lower lobar pneumonia, left more than right. 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 Cannot exclude other infectious and neoplastic processes. 4. Increased sclerosis of bilateral femoral heads may indicate avascular necrosis. Consider contrast MRI correlation. Abdomen X-Ray 01/24/17 00:00 IMPRESSION: Nasogastric tube tip and side port in the stomach. Persistent small bowel obstruction. Small Bowel X-Ray 01/24/17 00:00 IMPRESSION: Findings worrisome for small bowel obstruction. Nasogastric tube tip and side port in the stomach. At the conclusion of the study, a nasogastric tube was put back to suction. KUB X-Ray 01/24/17 14:00 IMPRESSION: Nasogastric tube tip and side port in the stomach. Distended stomach and small bowel worrisome for small bowel obstruction Interventional Vascular Procedure 01/25/17 00:00 IMPRESSION: SUCCESSFUL PLACEMENT OF A 5 FR DUAL LUMEN 35 CM PICC IN THE RIGHT BASILIC VEIN. PICC Line Insertion 01/25/17 00:00 IMPRESSION: SUCCESSFUL PLACEMENT OF A 5 FR DUAL LUMEN 35 CM PICC IN THE RIGHT BASILIC VEIN. Chest X-Ray 01/29/17 06:00 IMPRESSION: No significant interval change. Assessment & Plan - Diagnosis (1) Acute respiratory failure Is this a current diagnosis for this admission?: Yes Plan: Pt currently intubated and off sedation. Pulmonary managing pt. Pt will remain intubated until more medically stable. (2) SBO (small bowel obstruction) Is this a current diagnosis for this admission?: Yes Plan: Partial Small Bowel Obstruction Complicated by Ischemic segment of terminal ileum S/P Exp Lap ileocecal Resection with Ileocolic anastomosis: Pt had gross Bright Red Blood Per NGT which has resolved. We will give glycerin suppository (3) Postoperative anemia due to acute blood loss Is this a current diagnosis for this admission?: Yes Plan: Pt had gross red blood from NGT yesterday but none today.. Surgery following pt. (4) Malnutrition of moderate degree Is this a current diagnosis for this admission?: Yes Plan: Pt currently on TPN. Pt was started on tubefeeds but not tolerating well. Patient continues to have high residual with tube feeds (5) Hyperglycemia Is this a current diagnosis for this admission?: Yes Plan: Will continue SSI. (6) Volume overload Qualifiers: Hypervolemia type: transfusion-associated Qualified Code(s): E87.71 - Transfusion associated circulatory overload Is this a current diagnosis for this admission?: Yes Plan: Will discontinue IVF. Will allow pt to naturally diuresis. (7) Sepsis Qualifiers: Sepsis type: Escherichia coli Qualified Code(s): A41.51 - Sepsis due to Escherichia coli [E. coli] Is this a current diagnosis for this admission?: Yes Plan: Secondary to Acute Cystitis Due to E. Coli and P. Mirabili: Resolved. Will continue current antibotic. (8) UTI (urinary tract infection) Qualifiers: Urinary tract infection type: site unspecified Is this a current diagnosis for this admission?: Yes Plan: Secondary E. Coli and P. Mirabili: Will continue current antibiotics (9) Dementia Qualifiers: Dementia type: unspecified type Dementia behavioral disturbance: without behavioral disturbance Qualified Code(s): F03.90 - Unspecified dementia without behavioral disturbance Is this a current diagnosis for this admission?: Yes Plan: Supportive care. Will monitor. 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 (11) Hyperbilirubinemia Is this a current diagnosis for this admission?: Yes Plan: Resolving most likely related to recent surgery. Will monitor. (12) Metabolic acidosis Is this a current diagnosis for this admission?: Yes Plan: Secondary to GI: Resolved. - Time Time Spent with patient: 15-24 minutes
[2017-01-29] MEDS: AMINO ACIDS 5%/D25W 1,000 ML IV PRN (15:58)
[2017-01-29] MEDS ORDERED: GLYCERIN (PEDIATRIC) SUPP.RECT PR ONE (16:00)
[2017-01-29] MEDS: CIPROFLOXACIN 400 MG/D5W RTU 400 MG/200 ML RTUPB IV SCH (17:55)
[2017-01-29] MEDS ORDERED: CIPROFLOXACIN 400 MG/D5W RTU 400 MG/200 ML RTUPB IV SCH (22:00)
[2017-01-30] MEDS: LEVALBUTEROL HCL NEB 1.25 MG/3 ML AMPUL NEB SCH ×4 (02:11→23:44)
[2017-01-30] MEDS: PIPERACILLIN SODIUM/TAZOBACTAM 3.375 GM in NORMAL SALINE 100 ML IV SCH ×4 (03:53→20:54)
[2017-01-30 05:47] LABS: ABSOLUTE EOSINOPHILS # (AUTO) 0.3 10^3/uL (0.0-0.6); ABSOLUTE LYMPHOCYTES (AUTO) 0.5 10^3/uL (0.5-4.7); ABSOLUTE MONOCYTES (AUTO) 0.6 10^3/uL (0.1-1.4); ABSOLUTE NEUT (AUTO) 7.3 10^3/uL (1.7-8.2); BASOPHILS % (AUTO) 0.3 % (0-2); EOSINOPHILS % (AUTO) 3.2 % (0-6); HEMATOCRIT 29.8 % (36.0-47.0); HGB HCT DIFFERENCE 0.2; LYMPHOCYTES % (AUTO) 5.9 % (13-45); MEAN CORPUSCULAR HEMOGLOBIN 29.3 pg (27.0-33.4); MEAN CORPUSCULAR HGB CONC 33.6 g/dL (32.0-36.0); MEAN CORPUSCULAR VOLUME 87 fl (80-97); RED BLOOD COUNT 3.42 10^6/uL (3.72-5.28); RED CELL DISTRIBUTION WIDTH 16.4 % (11.5-14.0); SEGMENTED NEUTROPHILS % (AUTO) 83.6 % (42-78); WHITE BLOOD COUNT 8.7 10^3/uL (4.0-10.5)
[2017-01-30] MEDS: CIPROFLOXACIN 400 MG/D5W RTU 400 MG/200 ML RTUPB IV SCH ×2 (05:48→17:11)
[2017-01-30 05:50] LABS: ARTERIAL BLOOD O2 SATURATION 97.6 % (94-98)
[2017-01-30] MEDS: PROPOFOL 100 ML IV PRN (06:22)
--- NOTE | 2017-01-30 07:25 | RADIOLOGY REPORT (SQ) ---
EXAM DESCRIPTION: CHEST SINGLE VIEW COMPLETED DATE/TIME: 01/30/2017 6:12 am REASON FOR STUDY: Mechanical ventilation COMPARISON: 01/29/2017. EXAM PARAMETERS: NUMBER OF VIEWS: One view. TECHNIQUE: Single frontal radiographic view of the chest acquired. RADIATION DOSE: NA LIMITATIONS: Rotational artifact. FINDINGS: LUNGS AND PLEURA: Moderate opacity -effusion of the left lower hemithorax. Moderate lung volumes. MEDIASTINUM AND HILAR STRUCTURES: No masses. Contour normal. HEART AND VASCULAR STRUCTURES: Borderline cardiac silhouette size. Rotated view. BONES: No acute findings. HARDWARE: Likely adequate endotracheal tube and NG tube. Tip of a right subclavian PICC at the right atrium ; consider 5.2 cm retraction. OTHER: No other significant finding. IMPRESSION: Interval worsening includes moderate left basilar opacity. TECHNICAL DOCUMENTATION: JOB ID: [id number]
[2017-01-30] MEDS ORDERED: GLYCERIN (ADULT) SUPP.RECT PR ONE ×2 (07:51→12:30)
[2017-01-30] MEDS ORDERED: FUROSEMIDE INJ/PF 40 MG/4 ML SDV IV ONE ×2 (07:53→12:30)
--- NOTE | 2017-01-30 08:04 | PDOC PROGRESS REPORT ---
Subjective Progress Note for:: 01/30/17 Subjective:: Nursing states that pt failed weaning trial. Nursing states that pt has 3-4 bowel movements yesterday. Physical Exam Vital Signs: Temp Pulse Resp BP Pulse Ox 97.7 F 79 12 111/50 L 99 01/30/17 06:18 01/29/17 20:00 01/29/17 16:05 01/30/17 06:18 01/30/17 06:18 Intake & Output 01/29/17 01/30/17 01/31/17 06:59 06:59 06:59 Intake Total 1941 2295 Output Total 2714 1670 Balance -773 625 Weight 41.6 kg 41.2 kg General appearance: PRESENT: no acute distress, other - Sedated, intubated. Head exam: PRESENT: atraumatic, normocephalic Eye exam: PRESENT: conjunctiva pink, EOMI Ear exam: PRESENT: normal external ear exam Mouth exam: PRESENT: other - dry mucosal membranes Neck exam: ABSENT: carotid bruit, JVD, lymphadenopathy, thyromegaly Respiratory exam: PRESENT: other - Intubated and sedated. Diminished breath sounds at bases. Cardiovascular exam: PRESENT: other - + upper thigh edema +2, + for upper ext edema +2. Pulses: PRESENT: normal femoral pulses Vascular exam: PRESENT: normal capillary refill GI/Abdominal exam: PRESENT: other - Dressing in place midline, abd not as distended as yesterday, + BS Extremities exam: PRESENT: +2 edema - upper thighs and hands Neurological exam: PRESENT: other - Sedated. Skin exam: PRESENT: dry, warm, other - abd with dressing in place Results Laboratory Results: 01/30/17 05:20 01/29/17 05:00 01/30/17 01/30/17 05:20 05:20 WBC 8.7 RBC 3.42 L Hgb 10.0 L Hct 29.8 L MCV 87 MCH 29.3 MCHC 33.6 RDW 16.4 H Plt Count 176 Seg Neutrophils % 83.6 H Lymphocytes % 5.9 L Monocytes % 7.0 Eosinophils % 3.2 Basophils % 0.3 Absolute Neutrophils 7.3 Absolute Lymphocytes 0.5 Absolute Monocytes 0.6 Absolute Eosinophils 0.3 Absolute Basophils 0.0 Carbonic Acid 1.11 HCO3/H2CO3 Ratio 22:1 ABG pH 7.44 ABG pCO2 37.0 ABG pO2 96.6 ABG HCO3 24.8 ABG O2 Saturation 97.6 ABG Base Excess 1.0 FiO2 21% 01/24/17 01/24/17 01/25/17 20:58 20:58 05:00 Creatine Kinase 28 L < 20 L CK-MB (CK-2) 0.86 Troponin I < 0.012 NT-Pro-B Natriuret Pep 3310 H 01/25/17 01/25/17 01/25/17 05:00 14:35 14:35 Creatine Kinase 74 CK-MB (CK-2) 1.22 1.70 Troponin I 0.044 0.050 NT-Pro-B Natriuret Pep Impressions: Limited or Localized CT 01/21/17 03:02 IMPRESSION: 1. Small bowel obstruction pattern. 2. Small to moderate bilateral lower lobar pneumonia, left more than right. 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 Cannot exclude other infectious and neoplastic processes. 4. Increased sclerosis of bilateral femoral heads may indicate avascular necrosis. Consider contrast MRI correlation. Abdomen X-Ray 01/24/17 00:00 IMPRESSION: Nasogastric tube tip and side port in the stomach. Persistent small bowel obstruction. Small Bowel X-Ray 01/24/17 00:00 IMPRESSION: Findings worrisome for small bowel obstruction. Nasogastric tube tip and side port in the stomach. At the conclusion of the study, a nasogastric tube was put back to suction. KUB X-Ray 01/24/17 14:00 IMPRESSION: Nasogastric tube tip and side port in the stomach. Distended stomach and small bowel worrisome for small bowel obstruction Interventional Vascular Procedure 01/25/17 00:00 IMPRESSION: SUCCESSFUL PLACEMENT OF A 5 FR DUAL LUMEN 35 CM PICC IN THE RIGHT BASILIC VEIN. PICC Line Insertion 01/25/17 00:00 IMPRESSION: SUCCESSFUL PLACEMENT OF A 5 FR DUAL LUMEN 35 CM PICC IN THE RIGHT BASILIC VEIN. Chest X-Ray 01/30/17 06:00 IMPRESSION: Interval worsening includes moderate left basilar opacity. Assessment & Plan - Diagnosis (1) Acute respiratory failure Is this a current diagnosis for this admission?: Yes Plan: Pt failed weaning trial yesterday. Concern for volume overload. IVF has been discontinue for 2-3 days. Will give Lasix 40 mg IV. Will repeat if needed. Will continue to challenge patient to see if she is able to be weaned. (2) SBO (small bowel obstruction) Is this a current diagnosis for this admission?: Yes Plan: Partial Small Bowel Obstruction Complicated by Ischemic segment of terminal ileum S/P Exp Lap ileocecal Resection with Ileocolic anastomosis: Pt had gross Bright Red Blood Per NGT which has resolved. We repeat glycerin suppository and start reglan. (3) Postoperative anemia due to acute blood loss Is this a current diagnosis for this admission?: Yes Plan: Pt had gross red blood from NGT yesterday but none today.. Surgery following pt. (4) Malnutrition of moderate degree Is this a current diagnosis for this admission?: Yes Plan: Pt currently on TPN. Pt was started on tubefeeds but not tolerating well. Patient continues to have high residual with tube feeds will start Reglan. (5) Hyperglycemia Is this a current diagnosis for this admission?: Yes Plan: Will continue SSI. (6) Volume overload Qualifiers: Hypervolemia type: transfusion-associated Qualified Code(s): E87.71 - Transfusion associated circulatory overload Is this a current diagnosis for this admission?: Yes Plan: Will discontinue IVF. Will give Lasix 40 mg IV X 1. (7) Sepsis Qualifiers: Sepsis type: Escherichia coli Qualified Code(s): A41.51 - Sepsis due to Escherichia coli [E. coli] Is this a current diagnosis for this admission?: Yes Plan: Secondary to Acute Cystitis Due to E. Coli and P. Mirabili: Resolved. Will continue current antibotic. (8) UTI (urinary tract infection) Qualifiers: Urinary tract infection type: site unspecified Is this a current diagnosis for this admission?: Yes Plan: Secondary E. Coli and P. Mirabili: Will continue current antibiotics (9) Dementia Qualifiers: Dementia type: unspecified type Dementia behavioral disturbance: without behavioral disturbance Qualified Code(s): F03.90 - Unspecified dementia without behavioral disturbance Is this a current diagnosis for this admission?: Yes Plan: Supportive care. Will monitor. 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 Will check Phosp level in am. (11) Hyperbilirubinemia Is this a current diagnosis for this admission?: Yes Plan: Resolving most likely related to recent surgery. Will monitor. (12) Metabolic acidosis Is this a current diagnosis for this admission?: Yes Plan: Secondary to GI: Resolved. - Time Time Spent with patient: 25-34 minutes
[2017-01-30] MEDS ORDERED: METOCLOPRAMIDE HCL INJ/PF 10 MG/2 ML SDV IV ONE (09:00)
[2017-01-30] MEDS ORDERED: POTASSIUM PHOS M BASIC D BASIC IV ONE (09:30)
[2017-01-30] MEDS ORDERED: NORMAL SALINE IV ONE (09:30)
--- NOTE | 2017-01-30 09:55 | RADIOLOGY REPORT (SQ) ---
EXAM DESCRIPTION: CT ABD/PELVIS NO ORAL OR IV COMPLETED DATE/TIME: 01/30/2017 9:31 am REASON FOR STUDY: ABD swelling and pain. COMPARISON: CT abdomen pelvis 01/21/2017 Small bowel follow-through 01/24/2017 Abdominal films 01/24/2017, 01/21/2017 TECHNIQUE: CT scan of the abdomen and pelvis performed without intravenous or oral contrast. Images reviewed with lung, soft tissue, and bone windows. Reconstructed coronal and sagittal MPR images revi ewed. All images stored on PACS. All CT scanners at this facility use dose modulation, iterative reconstruction, and/or weight based d osing when appropriate to reduce radiation dose to as low as reasonably achievable (ALARA). [facility]: Dose Right [facility]: CareDose [facility]: Dose Right [facility]: Teradose 4D [facility]: [employer] RADIATION DOSE: Up-to-date CT equipment and radiation dose reduction techniques were employed. CTDIv ol: 3.0 mGy. DLP: 142 mGy-cm.mGy. LIMITATIONS: None. FINDINGS: LOWER CHEST: Small bilateral pleural effusions are present with bibasilar atelectasis. A nasogastric tube is present with the tip and side port in the stomach. NON-CONTRASTED LIVER, SPLEEN, ADRENALS: Evaluation limited by lack of IV contrast. No identified sign ificant masses. PANCREAS: No masses. No peripancreatic inflammatory changes. GALLBLADDER: There is radiopaque contrast in the gallbladder on axial image 27. RIGHT KIDNEY AND URETER: No suspicious masses. Assessment limited by lack of IV contrast. No signif icant calcifications. No hydronephrosis or hydroureter. LEFT KIDNEY AND URETER: No suspicious masses. Assessment limited by lack of IV contrast. No signifi cant calcifications. No hydronephrosis or hydroureter. AORTA AND RETROPERITONEUM: No aneurysm. No retroperitoneal masses or adenopathy. BOWEL AND PERITONEAL CAVITY: There is trace postoperative free air. Trace pelvic free fluid. Right lower quadrant small bowel anastomotic miles. Nasogastric tube tip and side port in the stomach wi th small a moderate amount of gastric fluid present. Fluid-filled nondilated small bowel loops and c olon. Small amount of oral contrast from small bowel follow-through 01/24/2017 in the descending colo n. APPENDIX: Not visualized PELVIS, BLADDER, AND ABDOMINAL WALL:Post hysterectomy. Turner catheter drains the bladder. Midline a nterior abdominal wall skin miles. BONES: Stable sclerosis of the sacrum and medial right innominate bone OTHER: Report called Dr. Mayen IMPRESSION: Post resection of a short segment of distal small bowel. Anastomotic miles are presen t in the right lower quadrant without evidence of recurrent bowel obstruction. Probable ileus TECHNICAL DOCUMENTATION: JOB ID: [id number] Quality ID # [id number]: Final reports with documentation of one or more dose reduction techniques (e.g., Au tomated exposure control, adjustment of the mA and/or kV according to patient size, use of iterative reconstruction technique) 2010 [employer]- All Rights Reserved
[2017-01-30] MEDS: NORMAL SALINE 10 ML SDV (SCHEDULED) IV SCH ×2 (11:13→23:15)
[2017-01-30] MEDS: METOCLOPRAMIDE HCL INJ/PF 10 MG/2 ML SDV IV SCH ×2 (15:35→17:12)
--- NOTE | 2017-01-30 16:25 | PDOC PROGRESS REPORT ---
Subjective Progress Note for:: 01/30/17 Subjective:: Intubated no apparent distress Physical Exam Vital Signs: Temp Pulse Resp BP Pulse Ox 98.6 F 89 12 161/69 H 99 01/30/17 15:51 01/30/17 15:51 01/30/17 15:51 01/30/17 15:51 01/30/17 15:51 Intake & Output 01/29/17 01/30/17 01/31/17 06:59 06:59 06:59 Intake Total 1941 2295 Output Total 2714 1670 1900 Balance -773 625 -1900 Weight 41.6 kg 41.2 kg General appearance: PRESENT: no acute distress Respiratory exam: PRESENT: other - Decreased bowel sounds at the bases Cardiovascular exam: PRESENT: RRR GI/Abdominal exam: PRESENT: other - Moderately distended. Difficult to assess tenderness. No fascial separation palpable in the patient's midline wound however patient has clear serosanguineous drainage. Results Laboratory Results: 01/30/17 05:20 01/29/17 05:00 01/30/17 01/30/17 05:20 05:20 WBC 8.7 RBC 3.42 L Hgb 10.0 L Hct 29.8 L MCV 87 MCH 29.3 MCHC 33.6 RDW 16.4 H Plt Count 176 Seg Neutrophils % 83.6 H Lymphocytes % 5.9 L Monocytes % 7.0 Eosinophils % 3.2 Basophils % 0.3 Absolute Neutrophils 7.3 Absolute Lymphocytes 0.5 Absolute Monocytes 0.6 Absolute Eosinophils 0.3 Absolute Basophils 0.0 Carbonic Acid 1.11 HCO3/H2CO3 Ratio 22:1 ABG pH 7.44 ABG pCO2 37.0 ABG pO2 96.6 ABG HCO3 24.8 ABG O2 Saturation 97.6 ABG Base Excess 1.0 FiO2 21% 01/25/17 12:45 Blood Blood Culture - Final NO GROWTH IN 5 DAYS 01/25/17 10:37 Blood Blood Culture - Final NO GROWTH IN 5 DAYS 01/27/17 12:00 Abdomen - Incision Site Gram Stain - Final 01/27/17 12:00 Abdomen - Incision Site Wound Culture - Final NO GROWTH 3 DAYS 01/24/17 01/24/17 01/25/17 20:58 20:58 05:00 Creatine Kinase 28 L < 20 L CK-MB (CK-2) 0.86 Troponin I < 0.012 NT-Pro-B Natriuret Pep 3310 H 01/25/17 01/25/17 01/25/17 05:00 14:35 14:35 Creatine Kinase 74 CK-MB (CK-2) 1.22 1.70 Troponin I 0.044 0.050 NT-Pro-B Natriuret Pep Impressions: Limited or Localized CT 01/21/17 03:02 IMPRESSION: 1. Small bowel obstruction pattern. 2. Small to moderate bilateral lower lobar pneumonia, left more than right. 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 Cannot exclude other infectious and neoplastic processes. 4. Increased sclerosis of bilateral femoral heads may indicate avascular necrosis. Consider contrast MRI correlation. Abdomen X-Ray 01/24/17 00:00 IMPRESSION: Nasogastric tube tip and side port in the stomach. Persistent small bowel obstruction. Small Bowel X-Ray 01/24/17 00:00 IMPRESSION: Findings worrisome for small bowel obstruction. Nasogastric tube tip and side port in the stomach. At the conclusion of the study, a nasogastric tube was put back to suction. KUB X-Ray 01/24/17 14:00 IMPRESSION: Nasogastric tube tip and side port in the stomach. Distended stomach and small bowel worrisome for small bowel obstruction Interventional Vascular Procedure 01/25/17 00:00 IMPRESSION: SUCCESSFUL PLACEMENT OF A 5 FR DUAL LUMEN 35 CM PICC IN THE RIGHT BASILIC VEIN. PICC Line Insertion 01/25/17 00:00 IMPRESSION: SUCCESSFUL PLACEMENT OF A 5 FR DUAL LUMEN 35 CM PICC IN THE RIGHT BASILIC VEIN. Abdomen/Pelvis CT 01/30/17 00:00 IMPRESSION: Post resection of a short segment of distal small bowel. Anastomotic miles are present in the right lower quadrant without evidence of recurrent bowel obstruction. Probable ileus Chest X-Ray 01/30/17 06:00 IMPRESSION: Interval worsening includes moderate left basilar opacity. Assessment & Plan - Diagnosis (1) SBO (small bowel obstruction) Is this a current diagnosis for this admission?: Yes Plan: Status post exploratory laparotomy with ileocecal resection. Patient with significant respiratory issues still. CT scan difficult to interpret but her small bowel distention appears improved. There is contrast in her colon now. Bowel movements, good urine output, lack of fever, lack of leukocytosis, lack of hemodynamic instability argues against an intestinal leak. Her underlying severe malnutrition is potentially a fatal problem. Although she has no palpable fascial separation, she is not healing as evidenced by peritoneal fluid leakage from her abdominal wound. For now continue supportive therapy and continue TPN. Prognosis however is poor.
[2017-01-30] MEDS: AMINO ACIDS 5%/D25W 1,000 ML IV PRN (16:34)
[2017-01-30] MEDS: INSULIN LISPRO 100 UNIT/ML 3 ML VIAL SUBCUT PRN (17:11)
[2017-01-31] MEDS: PROPOFOL 100 ML IV PRN ×2 (02:28→19:46)
[2017-01-31] MEDS: PIPERACILLIN SODIUM/TAZOBACTAM 3.375 GM in NORMAL SALINE 100 ML IV SCH ×4 (03:05→20:18)
[2017-01-31] MEDS: CIPROFLOXACIN 400 MG/D5W RTU 400 MG/200 ML RTUPB IV SCH ×2 (05:45→17:38)
[2017-01-31 06:35] LABS: ABSOLUTE EOSINOPHILS # (AUTO) 0.2 10^3/uL (0.0-0.6); ABSOLUTE LYMPHOCYTES (AUTO) 0.5 10^3/uL (0.5-4.7); ABSOLUTE MONOCYTES (AUTO) 0.6 10^3/uL (0.1-1.4); ABSOLUTE NEUT (AUTO) 7.1 10^3/uL (1.7-8.2); BASOPHILS % (AUTO) 0.4 % (0-2); EOSINOPHILS % (AUTO) 1.9 % (0-6); HEMATOCRIT 29.2 % (36.0-47.0); HEMOGLOBIN 9.6 g/dL (12.0-15.5); HGB HCT DIFFERENCE -0.4; MEAN CORPUSCULAR HEMOGLOBIN 29.2 pg (27.0-33.4); MEAN CORPUSCULAR HGB CONC 32.9 g/dL (32.0-36.0); MEAN CORPUSCULAR VOLUME 89 fl (80-97); MONOCYTES % (AUTO) 7.3 % (3-13); RED BLOOD COUNT 3.29 10^6/uL (3.72-5.28); RED CELL DISTRIBUTION WIDTH 17.3 % (11.5-14.0); SEGMENTED NEUTROPHILS % (AUTO) 84.4 % (42-78); WHITE BLOOD COUNT 8.4 10^3/uL (4.0-10.5)
[2017-01-31 06:38] LABS: ARTERIAL BLOOD BASE EXCESS 0.7 mmol/L; ARTERIAL BLOOD O2 SATURATION 97.8 % (94-98)
[2017-01-31 07:00] LABS: ALANINE AMINOTRANSFERASE 35 U/L (9-52); ALBUMIN 1.7 g/dL (3.5-5.0); ALKALINE PHOSPHATASE 94 U/L (38-126); ASPARTATE AMINO TRANSFERASE 41 U/L (14-36); BILIRUBIN,DIRECT 0.6 mg/dL (0.0-0.4); BILIRUBIN,TOTAL 0.6 mg/dL (0.2-1.3); BLOOD UREA NITROGEN 27 mg/dL (7-20); CALCIUM 8.9 mg/dL (8.4-10.2); CARBON DIOXIDE 26 mmol/L (22-30); CHLORIDE 105 mmol/L (98-107); CREATININE RESULT 0.83 mg/dL (0.52-1.25); GLUCOSE 358 mg/dL (75-110); PHOSPHORUS 2.7 mg/dL (2.5-4.5); POTASSIUM 4.1 mmol/L (3.6-5.0); SODIUM 134.1 mmol/L (137-145); TOTAL PROTEIN 3.9 g/dL (6.3-8.2); TRIGLYCERIDES 135 mg/dL (<150)
[2017-01-31 07:07] LABS: PREALBUMIN 10.1 mg/dL (17.6-36.0)
--- NOTE | 2017-01-31 07:09 | RADIOLOGY REPORT (SQ) ---
EXAM DESCRIPTION: CHEST SINGLE VIEW COMPLETED DATE/TIME: 01/31/2017 6:18 am REASON FOR STUDY: Mechanical ventilation COMPARISON: 01/30/2017. EXAM PARAMETERS: NUMBER OF VIEWS: One view. TECHNIQUE: Single frontal radiographic view of the chest acquired. RADIATION DOSE: NA LIMITATIONS: None. FINDINGS: LUNGS AND PLEURA: Adequate lung volumes, clear parenchyma, normal cardiac silhouette. MEDIASTINUM AND HILAR STRUCTURES: No masses. Contour normal. HEART AND VASCULAR STRUCTURES: Heart normal in size. Normal vasculature. BONES: No acute findings. HARDWARE: Adequate appearing endotracheal tube and nasogastric tube. Tip of a right subclavian PICC at the right atrium ; consider 6.6 cm retraction. OTHER: No other significant finding. IMPRESSION: No significant interval change. TECHNICAL DOCUMENTATION: JOB ID: [id number]
[2017-01-31 07:34] LABS: ANION GAP 3 (5-19)
[2017-01-31] MEDS: LEVALBUTEROL HCL NEB 1.25 MG/3 ML AMPUL NEB SCH ×3 (08:39→23:49)
[2017-01-31] MEDS: MORPHINE SULFATE 10 MG/ML INJ IV PRN (09:14)
[2017-01-31] MEDS: FUROSEMIDE INJ/PF 40 MG/4 ML SDV IV SCH ×2 (11:31→21:46)
[2017-01-31] MEDS: NORMAL SALINE 10 ML SDV (SCHEDULED) IV SCH ×2 (11:33→21:48)
[2017-01-31] MEDS: METOCLOPRAMIDE HCL INJ/PF 10 MG/2 ML SDV IV SCH ×2 (14:14→21:47)
--- NOTE | 2017-01-31 14:31 | PDOC PROGRESS REPORT ---
Subjective Progress Note for:: 01/31/17 Subjective:: Patient is intubated and sedated on a ventilator. Physical Exam Vital Signs: Temp Pulse Resp BP Pulse Ox 97.7 F 92 16 174/61 H 99 01/31/17 11:36 01/31/17 08:39 01/31/17 10:00 01/31/17 11:36 01/31/17 12:40 Intake & Output 01/30/17 01/31/17 02/01/17 06:59 06:59 06:59 Intake Total 2295 2823 50 Output Total 1670 5150 0530 Balance 665 -317 -4992 Weight 41.2 kg 40.3 kg General appearance: PRESENT: thin GI/Abdominal exam: PRESENT: diminished bowel sounds, soft. ABSENT: guarding, rebound, tenderness Results Laboratory Results: 01/31/17 06:15 01/31/17 06:15 01/31/17 01/31/17 01/31/17 06:15 06:15 06:15 WBC 8.4 RBC 3.29 L Hgb 9.6 L Hct 29.2 L MCV 89 MCH 29.2 MCHC 32.9 RDW 17.3 H Plt Count 192 Seg Neutrophils % 84.4 H Lymphocytes % 6.0 L Monocytes % 7.3 Eosinophils % 1.9 Basophils % 0.4 Absolute Neutrophils 7.1 Absolute Lymphocytes 0.5 Absolute Monocytes 0.6 Absolute Eosinophils 0.2 Absolute Basophils 0.0 Carbonic Acid 1.22 HCO3/H2CO3 Ratio 20:1 ABG pH 7.41 ABG pCO2 40.6 ABG pO2 102.7 H ABG HCO3 25.3 ABG O2 Saturation 97.8 ABG Base Excess 0.7 FiO2 21% Sodium 134.1 L Potassium 4.1 Chloride 105 Carbon Dioxide 26 Anion Gap 3 L BUN 27 H Creatinine 0.83 Est GFR ( Amer) > 60 Est GFR (Non-Af Amer) > 60 Glucose 358 H Calcium 8.9 Phosphorus 2.7 Total Bilirubin 0.6 AST 41 H ALT 35 Alkaline Phosphatase 94 Total Protein 3.9 L Albumin 1.7 L Prealbumin 10.1 L Triglycerides 135 01/27/17 16:29 Blood Blood Culture - Final Staphylococcus Auricularis 01/25/17 12:45 Blood Blood Culture - Final NO GROWTH IN 5 DAYS 01/25/17 10:37 Blood Blood Culture - Final NO GROWTH IN 5 DAYS 01/24/17 01/24/17 01/25/17 20:58 20:58 05:00 Creatine Kinase 28 L < 20 L CK-MB (CK-2) 0.86 Troponin I < 0.012 NT-Pro-B Natriuret Pep 3310 H 01/25/17 01/25/17 01/25/17 05:00 14:35 14:35 Creatine Kinase 74 CK-MB (CK-2) 1.22 1.70 Troponin I 0.044 0.050 NT-Pro-B Natriuret Pep Impressions: Limited or Localized CT 01/21/17 03:02 IMPRESSION: 1. Small bowel obstruction pattern. 2. Small to moderate bilateral lower lobar pneumonia, left more than right. 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 Cannot exclude other infectious and neoplastic processes. 4. Increased sclerosis of bilateral femoral heads may indicate avascular necrosis. Consider contrast MRI correlation. Abdomen X-Ray 01/24/17 00:00 IMPRESSION: Nasogastric tube tip and side port in the stomach. Persistent small bowel obstruction. Small Bowel X-Ray 01/24/17 00:00 IMPRESSION: Findings worrisome for small bowel obstruction. Nasogastric tube tip and side port in the stomach. At the conclusion of the study, a nasogastric tube was put back to suction. KUB X-Ray 01/24/17 14:00 IMPRESSION: Nasogastric tube tip and side port in the stomach. Distended stomach and small bowel worrisome for small bowel obstruction Interventional Vascular Procedure 01/25/17 00:00 IMPRESSION: SUCCESSFUL PLACEMENT OF A 5 FR DUAL LUMEN 35 CM PICC IN THE RIGHT BASILIC VEIN. PICC Line Insertion 01/25/17 00:00 IMPRESSION: SUCCESSFUL PLACEMENT OF A 5 FR DUAL LUMEN 35 CM PICC IN THE RIGHT BASILIC VEIN. Abdomen/Pelvis CT 01/30/17 00:00 IMPRESSION: Post resection of a short segment of distal small bowel. Anastomotic miles are present in the right lower quadrant without evidence of recurrent bowel obstruction. Probable ileus Chest X-Ray 01/31/17 06:00 IMPRESSION: No significant interval change. Assessment & Plan - Diagnosis (1) SBO (small bowel obstruction) Is this a current diagnosis for this admission?: Yes - Plan Summary Plan Summary: Continue supportive management. Consider switching to tube feeding, and discontinue hyperalimentation. Have spoken extensively with the family regarding DNR status. Family intends to keep the patient as a full code at this time
[2017-01-31] MEDS: AMINO ACIDS 5%/D25W 1,000 ML IV PRN (14:34)
[2017-01-31] MEDS: HYDRALAZINE HCL INJ/PF 20 MG/1 ML SDV IV PRN (16:56)
[2017-01-31] MEDS: INSULIN LISPRO 100 UNIT/ML 3 ML VIAL SUBCUT PRN (17:26)
--- NOTE | 2017-01-31 22:34 | PDOC PROGRESS REPORT ---
Subjective Progress Note for:: 01/31/17 Subjective:: Patient lying in bed intubated and mildly sedated. Patient family at bedside. Nurse is concerned about the swelling of the patient's arms and legs and her increased secretions. Physical Exam Vital Signs: Temp Pulse Resp BP Pulse Ox 97.9 F 96 16 146/60 H 99 01/31/17 21:31 01/31/17 16:08 01/31/17 18:00 01/31/17 18:12 01/31/17 19:50 Intake & Output 01/30/17 01/31/17 02/01/17 06:59 06:59 06:59 Intake Total 2295 2823 791 Output Total 1670 5140 2101 Balance 190 -226 -4737 Weight 41.2 kg 40.3 kg General appearance: PRESENT: no acute distress, thin, other Head exam: PRESENT: normocephalic Eye exam: PRESENT: other - Eyes closed Respiratory exam: PRESENT: clear to auscultation justin - Intubated chest clear although coarse breath sounds Cardiovascular exam: PRESENT: RRR GI/Abdominal exam: PRESENT: normal bowel sounds - Surgical incision vertically clean and dry dressing in place, soft Rectal exam: PRESENT: deferred Extremities exam: PRESENT: other - Edema of the upper extremities. Of the thighs not so much of the feet. Musculoskeletal exam: PRESENT: normal inspection Neurological exam: PRESENT: other - Sedated Skin exam: PRESENT: warm Results Laboratory Results: 01/31/17 06:15 01/31/17 06:15 01/31/17 01/31/17 01/31/17 06:15 06:15 06:15 WBC 8.4 RBC 3.29 L Hgb 9.6 L Hct 29.2 L MCV 89 MCH 29.2 MCHC 32.9 RDW 17.3 H Plt Count 192 Seg Neutrophils % 84.4 H Lymphocytes % 6.0 L Monocytes % 7.3 Eosinophils % 1.9 Basophils % 0.4 Absolute Neutrophils 7.1 Absolute Lymphocytes 0.5 Absolute Monocytes 0.6 Absolute Eosinophils 0.2 Absolute Basophils 0.0 Carbonic Acid 1.22 HCO3/H2CO3 Ratio 20:1 ABG pH 7.41 ABG pCO2 40.6 ABG pO2 102.7 H ABG HCO3 25.3 ABG O2 Saturation 97.8 ABG Base Excess 0.7 FiO2 21% Sodium 134.1 L Potassium 4.1 Chloride 105 Carbon Dioxide 26 Anion Gap 3 L BUN 27 H Creatinine 0.83 Est GFR ( Amer) > 60 Est GFR (Non-Af Amer) > 60 Glucose 358 H Calcium 8.9 Phosphorus 2.7 Total Bilirubin 0.6 AST 41 H ALT 35 Alkaline Phosphatase 94 Total Protein 3.9 L Albumin 1.7 L Prealbumin 10.1 L Triglycerides 135 01/27/17 16:29 Blood Blood Culture - Final Staphylococcus Auricularis 01/24/17 01/24/17 01/25/17 20:58 20:58 05:00 Creatine Kinase 28 L < 20 L CK-MB (CK-2) 0.86 Troponin I < 0.012 NT-Pro-B Natriuret Pep 3310 H 01/25/17 01/25/17 01/25/17 05:00 14:35 14:35 Creatine Kinase 74 CK-MB (CK-2) 1.22 1.70 Troponin I 0.044 0.050 NT-Pro-B Natriuret Pep Impressions: Limited or Localized CT 01/21/17 03:02 IMPRESSION: 1. Small bowel obstruction pattern. 2. Small to moderate bilateral lower lobar pneumonia, left more than right. 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 Cannot exclude other infectious and neoplastic processes. 4. Increased sclerosis of bilateral femoral heads may indicate avascular necrosis. Consider contrast MRI correlation. Abdomen X-Ray 01/24/17 00:00 IMPRESSION: Nasogastric tube tip and side port in the stomach. Persistent small bowel obstruction. Small Bowel X-Ray 01/24/17 00:00 IMPRESSION: Findings worrisome for small bowel obstruction. Nasogastric tube tip and side port in the stomach. At the conclusion of the study, a nasogastric tube was put back to suction. KUB X-Ray 01/24/17 14:00 IMPRESSION: Nasogastric tube tip and side port in the stomach. Distended stomach and small bowel worrisome for small bowel obstruction Interventional Vascular Procedure 01/25/17 00:00 IMPRESSION: SUCCESSFUL PLACEMENT OF A 5 FR DUAL LUMEN 35 CM PICC IN THE RIGHT BASILIC VEIN. PICC Line Insertion 01/25/17 00:00 IMPRESSION: SUCCESSFUL PLACEMENT OF A 5 FR DUAL LUMEN 35 CM PICC IN THE RIGHT BASILIC VEIN. Abdomen/Pelvis CT 01/30/17 00:00 IMPRESSION: Post resection of a short segment of distal small bowel. Anastomotic miles are present in the right lower quadrant without evidence of recurrent bowel obstruction. Probable ileus Chest X-Ray 01/31/17 06:00 IMPRESSION: No significant interval change. Assessment & Plan - Diagnosis (1) Acute respiratory failure Qualifiers: Respiratory failure complication: unspecified whether with hypoxia or hypercapnia Qualified Code(s): J96.00 - Acute respiratory failure, unspecified whether with hypoxia or hypercapnia Is this a current diagnosis for this admission?: Yes Plan: Patient currently intubated and sedated. Weaning trial was attempted on 2016 however was failed it was thought to be due to volume overload. Patient was diuresed at that time. We will continue to diurese the patient as patient does show clinical evidence of third spacing. We will continue pulmonary toilet and attempt to wean again a couple of days. (2) SBO (small bowel obstruction) Is this a current diagnosis for this admission?: Yes Plan: Patient had partial small bowel obstruction complicated by ischemic segment of the terminal terminal ileum patient is status post exploratory lap with ileocecal resection with ileal colic anastomosis. Surgery is following closely. Patient has not had any more bright red blood per NG tube. Patient was started on Reglan this dose was increased. Patient is on 5 cc of continuous feeds however is having residuals. Will monitor to make sure patient is having regular bowel movements. (3) Postoperative anemia due to acute blood loss Is this a current diagnosis for this admission?: Yes Plan: Patient has some bright red blood via NGT on 01/30. Will monitor hemoglobin. (4) Hyperbilirubinemia Is this a current diagnosis for this admission?: Yes Plan: Will continue to monitor. (5) Hypophosphatasia Is this a current diagnosis for this admission?: Yes Plan: Patient was given K phos. Will follow up labs. (6) Malnutrition of moderate degree Is this a current diagnosis for this admission?: Yes Plan: Patient is on tube feeds and TPN. Tubes feeds at 5cc/hr. Patient is having residuals. Patient started on reglan on 01/31 and dose will increased today. (7) Metabolic acidosis Is this a current diagnosis for this admission?: Yes Plan: Resolved. Due to GI issue and infection. (8) Sepsis Qualifiers: Sepsis type: Escherichia coli Qualified Code(s): A41.51 - Sepsis due to Escherichia coli [E. coli] Is this a current diagnosis for this admission?: Yes Plan: Due to acute cystitis due to E coli and P Mirabili. Resolved. Patient currently on zosyn. (9) UTI (urinary tract infection) Qualifiers: Urinary tract infection type: site unspecified Is this a current diagnosis for this admission?: Yes Plan: Patient currently on zosyn. (10) Volume overload Qualifiers: Hypervolemia type: transfusion-associated Qualified Code(s): E87.71 - Transfusion associated circulatory overload Is this a current diagnosis for this admission?: Yes Plan: Patient given 1 time dose of lasix on 01/31. Will start patient on lasix 40mg IV bid x 4 doses. (11) Dementia Qualifiers: Dementia type: unspecified type Dementia behavioral disturbance: without behavioral disturbance Qualified Code(s): F03.90 - Unspecified dementia without behavioral disturbance Is this a current diagnosis for this admission?: Yes - Time Time Spent with patient: 25-34 minutes
[2017-02-01] MEDS: PIPERACILLIN SODIUM/TAZOBACTAM 3.375 GM in NORMAL SALINE 100 ML IV SCH (02:15)
[2017-02-01 05:40] LABS: ARTERIAL BLOOD BASE EXCESS 2.8 mmol/L; ARTERIAL BLOOD O2 SATURATION 99.6 % (94-98)
[2017-02-01 06:10] LABS: ANION GAP 5 (5-19); BLOOD UREA NITROGEN 34 mg/dL (7-20); CARBON DIOXIDE 30 mmol/L (22-30); CHLORIDE 105 mmol/L (98-107); CREATININE RESULT 0.95 mg/dL (0.52-1.25); GLUCOSE 169 mg/dL (75-110); MAGNESIUM 2.4 mg/dL (1.6-2.3); POTASSIUM 4.1 mmol/L (3.6-5.0); SODIUM 139.9 mmol/L (137-145)
[2017-02-01] MEDS: CIPROFLOXACIN 400 MG/D5W RTU 400 MG/200 ML RTUPB IV SCH (06:18)
[2017-02-01] MEDS: METOCLOPRAMIDE HCL INJ/PF 10 MG/2 ML SDV IV SCH ×3 (06:18→21:29)
[2017-02-01] MEDS: PROPOFOL 100 ML IV PRN (06:50)
--- NOTE | 2017-02-01 07:48 | RADIOLOGY REPORT (SQ) ---
EXAM DESCRIPTION: KUB/ABDOMEN (SINGLE VIEW) COMPLETED DATE/TIME: 02/01/2017 6:07 am REASON FOR STUDY: SBO COMPARISON: 01/24/2015. NUMBER OF VIEWS: One view. TECHNIQUE: Supine radiographic image of the abdomen acquired. LIMITATIONS: None. FINDINGS: BOWEL GAS PATTERN: Mild gaseous small bowel distention and stacking. Bowel diameters jacquelyn ure up to 3.4 cm in the left paracentral abdomen. CALCIFICATIONS: No suspicious calcifications. SOFT TISSUES: No gross mass or suggestion of organomegaly. HARDWARE: NG tube tip overlies the left upper abdominal quadrant/ stomach and proximal port is at the gastroesophageal junction. Urinary bladder catheter. BONES: No acute fracture. Sclerosis/deformity of the sacrum, stable. OTHER: Midline abdominal skin clips. IMPRESSION: Mild dilation and stacking of left paracentral jejunal small bowel may indicate ileus or J Josefina itis. TECHNICAL DOCUMENTATION: JOB ID: [id number] [employer]- All Rights Reserved
--- NOTE | 2017-02-01 07:49 | RADIOLOGY REPORT (SQ) ---
EXAM DESCRIPTION: CHEST SINGLE VIEW COMPLETED DATE/TIME: 02/01/2017 6:07 am REASON FOR STUDY: Mechanical ventilation COMPARISON: 01/31/2017. EXAM PARAMETERS: NUMBER OF VIEWS: One view. TECHNIQUE: Single frontal radiographic view of the chest acquired. RADIATION DOSE: NA LIMITATIONS: None. FINDINGS: LUNGS AND PLEURA: No opacities, masses or pneumothorax. No pleural effusion. MEDIASTINUM AND HILAR STRUCTURES: No masses. Contour normal. HEART AND VASCULAR STRUCTURES: Heart normal in size. Normal vasculature. BONES: No acute findings. HARDWARE: Adequate appearing endotracheal tube. Tip of a nasogastric tube is at the stomach; proxima l port is just above the level of the diaphragms. Consider advancing the NG tube 3+ cm. Tip of a ri ght subclavian PICC line is at the right atrium ; consider 5.3 cm retraction. OTHER: No other significant finding. IMPRESSION: No significant interval change. TECHNICAL DOCUMENTATION: JOB ID: [id number]
[2017-02-01] MEDS: LEVALBUTEROL HCL NEB 1.25 MG/3 ML AMPUL NEB SCH ×2 (07:54→15:44)
[2017-02-01] MEDS: NORMAL SALINE 10 ML SDV (SCHEDULED) IV SCH ×2 (09:20→21:29)
[2017-02-01] MEDS ORDERED: BISACODYL 10 MG SUPP.RECT PR ONE (10:00)
[2017-02-01] MEDS ORDERED: LANSOPRAZOLE 15 MG TAB.RAP.DR PO ONE (11:00)
[2017-02-01] MEDS: FUROSEMIDE INJ/PF 40 MG/4 ML SDV IV SCH ×2 (11:14→21:28)
[2017-02-01] MEDS: INSULIN LISPRO 100 UNIT/ML 3 ML VIAL SUBCUT PRN (12:30)
[2017-02-01] MEDS: AMINO ACIDS 5%/D25W 1,000 ML IV PRN (14:49)
--- NOTE | 2017-02-01 22:22 | PDOC PROGRESS REPORT ---
Subjective Progress Note for:: 02/01/17 Subjective:: Patient remains intubated. However, she is being weaned off the ventilator, as she is now awake. Physical Exam Vital Signs: Temp Pulse Resp BP Pulse Ox 98.6 F 92 14 167/64 H 100 02/01/17 21:38 02/01/17 19:29 02/01/17 18:00 02/01/17 18:12 02/01/17 20:23 Intake & Output 01/31/17 02/01/17 02/02/17 06:59 06:59 06:59 Intake Total 2823 2146 749 Output Total 3510 4285 7518 Balance -059 -0110 -4023 Weight 37.8 kg Mouth exam: PRESENT: moist Neck exam: PRESENT: full ROM. ABSENT: JVD Cardiovascular exam: PRESENT: RRR GI/Abdominal exam: PRESENT: normal bowel sounds, soft. ABSENT: distended, guarding, tenderness Results Laboratory Results: 01/31/17 06:15 02/01/17 05:25 02/01/17 02/01/17 05:25 05:25 Carbonic Acid 1.13 HCO3/H2CO3 Ratio 23:1 ABG pH 7.47 H ABG pCO2 37.5 ABG pO2 246.4 H ABG HCO3 26.5 H ABG O2 Saturation 99.6 H ABG Base Excess 2.8 FiO2 21% Sodium 139.9 Potassium 4.1 Chloride 105 Carbon Dioxide 30 Anion Gap 5 BUN 34 H Creatinine 0.95 Est GFR ( Amer) > 60 Est GFR (Non-Af Amer) 57 L Glucose 169 H Calcium 10.0 Magnesium 2.4 H 01/27/17 16:00 Blood Blood Culture - Final NO GROWTH IN 5 DAYS 01/24/17 01/24/17 01/25/17 20:58 20:58 05:00 Creatine Kinase 28 L < 20 L CK-MB (CK-2) 0.86 Troponin I < 0.012 NT-Pro-B Natriuret Pep 3310 H 01/25/17 01/25/17 01/25/17 05:00 14:35 14:35 Creatine Kinase 74 CK-MB (CK-2) 1.22 1.70 Troponin I 0.044 0.050 NT-Pro-B Natriuret Pep Impressions: Limited or Localized CT 01/21/17 03:02 IMPRESSION: 1. Small bowel obstruction pattern. 2. Small to moderate bilateral lower lobar pneumonia, left more than right. 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 Cannot exclude other infectious and neoplastic processes. 4. Increased sclerosis of bilateral femoral heads may indicate avascular necrosis. Consider contrast MRI correlation. Abdomen X-Ray 01/24/17 00:00 IMPRESSION: Nasogastric tube tip and side port in the stomach. Persistent small bowel obstruction. Small Bowel X-Ray 01/24/17 00:00 IMPRESSION: Findings worrisome for small bowel obstruction. Nasogastric tube tip and side port in the stomach. At the conclusion of the study, a nasogastric tube was put back to suction. Interventional Vascular Procedure 01/25/17 00:00 IMPRESSION: SUCCESSFUL PLACEMENT OF A 5 FR DUAL LUMEN 35 CM PICC IN THE RIGHT BASILIC VEIN. PICC Line Insertion 01/25/17 00:00 IMPRESSION: SUCCESSFUL PLACEMENT OF A 5 FR DUAL LUMEN 35 CM PICC IN THE RIGHT BASILIC VEIN. Abdomen/Pelvis CT 01/30/17 00:00 IMPRESSION: Post resection of a short segment of distal small bowel. Anastomotic miles are present in the right lower quadrant without evidence of recurrent bowel obstruction. Probable ileus Chest X-Ray 02/01/17 06:00 IMPRESSION: No significant interval change. KUB X-Ray 02/01/17 07:00 IMPRESSION: Mild dilation and stacking of left paracentral jejunal small bowel may indicate ileus or J Josefina itis. Assessment & Plan - Diagnosis (1) SBO (small bowel obstruction) Is this a current diagnosis for this admission?: Yes - Plan Summary Plan Summary: Patient is improving nicely as she is being weaned off the ventilator, and appears to be breathing comfortably. She is tolerating her tube feeding at 5 cc /h, and her urine output is adequate. We will continue supportive therapy
--- NOTE | 2017-02-01 22:37 | PDOC PROGRESS REPORT ---
Subjective Progress Note for:: 02/01/17 Subjective:: Patient was seen earlier today. Patient is being weaned off of sedation. Weaning trial is being attempted today. Physical Exam Vital Signs: Temp Pulse Resp BP Pulse Ox 98.6 F 92 14 167/64 H 100 02/01/17 21:38 02/01/17 19:29 02/01/17 18:00 02/01/17 18:12 02/01/17 20:23 Intake & Output 01/31/17 02/01/17 02/02/17 06:59 06:59 06:59 Intake Total 2823 2146 749 Output Total 3510 6470 3698 Balance -394 -7339 -1812 Weight 37.8 kg General appearance: PRESENT: no acute distress, thin Eye exam: PRESENT: other - eye open and looking around Throat exam: PRESENT: other - ET tube in place Respiratory exam: PRESENT: clear to auscultation justin - intubated Cardiovascular exam: PRESENT: RRR GI/Abdominal exam: PRESENT: normal bowel sounds - surgical scar on abdomen dressing in place no clear signs of infection., soft Rectal exam: PRESENT: deferred Extremities exam: PRESENT: other - swelling of the had appears to be improving. Neurological exam: PRESENT: alert, awake Skin exam: PRESENT: intact, warm Results Laboratory Results: 01/31/17 06:15 02/01/17 05:25 02/01/17 02/01/17 05:25 05:25 Carbonic Acid 1.13 HCO3/H2CO3 Ratio 23:1 ABG pH 7.47 H ABG pCO2 37.5 ABG pO2 246.4 H ABG HCO3 26.5 H ABG O2 Saturation 99.6 H ABG Base Excess 2.8 FiO2 21% Sodium 139.9 Potassium 4.1 Chloride 105 Carbon Dioxide 30 Anion Gap 5 BUN 34 H Creatinine 0.95 Est GFR ( Amer) > 60 Est GFR (Non-Af Amer) 57 L Glucose 169 H Calcium 10.0 Magnesium 2.4 H 01/27/17 16:00 Blood Blood Culture - Final NO GROWTH IN 5 DAYS 01/24/17 01/24/17 01/25/17 20:58 20:58 05:00 Creatine Kinase 28 L < 20 L CK-MB (CK-2) 0.86 Troponin I < 0.012 NT-Pro-B Natriuret Pep 3310 H 01/25/17 01/25/17 01/25/17 05:00 14:35 14:35 Creatine Kinase 74 CK-MB (CK-2) 1.22 1.70 Troponin I 0.044 0.050 NT-Pro-B Natriuret Pep Impressions: Limited or Localized CT 01/21/17 03:02 IMPRESSION: 1. Small bowel obstruction pattern. 2. Small to moderate bilateral lower lobar pneumonia, left more than right. 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 Cannot exclude other infectious and neoplastic processes. 4. Increased sclerosis of bilateral femoral heads may indicate avascular necrosis. Consider contrast MRI correlation. Abdomen X-Ray 01/24/17 00:00 IMPRESSION: Nasogastric tube tip and side port in the stomach. Persistent small bowel obstruction. Small Bowel X-Ray 01/24/17 00:00 IMPRESSION: Findings worrisome for small bowel obstruction. Nasogastric tube tip and side port in the stomach. At the conclusion of the study, a nasogastric tube was put back to suction. Interventional Vascular Procedure 01/25/17 00:00 IMPRESSION: SUCCESSFUL PLACEMENT OF A 5 FR DUAL LUMEN 35 CM PICC IN THE RIGHT BASILIC VEIN. PICC Line Insertion 01/25/17 00:00 IMPRESSION: SUCCESSFUL PLACEMENT OF A 5 FR DUAL LUMEN 35 CM PICC IN THE RIGHT BASILIC VEIN. Abdomen/Pelvis CT 01/30/17 00:00 IMPRESSION: Post resection of a short segment of distal small bowel. Anastomotic miles are present in the right lower quadrant without evidence of recurrent bowel obstruction. Probable ileus Chest X-Ray 02/01/17 06:00 IMPRESSION: No significant interval change. KUB X-Ray 02/01/17 07:00 IMPRESSION: Mild dilation and stacking of left paracentral jejunal small bowel may indicate ileus or J Josefina itis. Assessment & Plan - Diagnosis (1) Acute respiratory failure Qualifiers: Respiratory failure complication: unspecified whether with hypoxia or hypercapnia Qualified Code(s): J96.00 - Acute respiratory failure, unspecified whether with hypoxia or hypercapnia Is this a current diagnosis for this admission?: Yes Plan: Patient currently intubated and sedated. Weaning trial was attempted on 2016 however was failed it was thought to be due to volume overload. Patient was diuresed at that time. She has been in negative fluid balance for the last several days.Furthermore chest x-ray looks clear. Patient ABGs look stable. Will attempt to wean and possibly the extubate today. (2) Hyperbilirubinemia Is this a current diagnosis for this admission?: Yes Plan: Will continue to monitor. (3) Malnutrition of moderate degree Is this a current diagnosis for this admission?: Yes Plan: Patient is on tube feeds and TPN. Tubes feeds at 5cc/hr. Patient is having residuals. Patient was given a suppository today and did have a bowel movement. Patient started on reglan on 01/31 was increased to 10 mg IV 3 times daily on . Patient tube feeds are being changed per dietitian recommendation. States that this may be more easily digested. (4) Postoperative anemia due to acute blood loss Is this a current diagnosis for this admission?: Yes Plan: Patient has some bright red blood via NGT on 01/30. Hemoglobin is gradually trending down. We will continue to monitor. (5) SBO (small bowel obstruction) Is this a current diagnosis for this admission?: Yes Plan: Patient had partial small bowel obstruction complicated by ischemic segment of the terminal terminal ileum patient is status post exploratory lap with ileocecal resection with ileal colic anastomosis. Surgery is following closely. Patient has not had any more bright red blood per NG tube. Patient was started on Reglan this dose was increased. Patient is on 5 cc of continuous feeds however is having residuals. She did have a bowel movement on 02/02/2016. KUB did show mild dilatation and stenting of the left paracentral jejunal small bowel may indicate ileus or jejunitis. (6) Sepsis Qualifiers: Sepsis type: Escherichia coli Qualified Code(s): A41.51 - Sepsis due to Escherichia coli [E. coli] Is this a current diagnosis for this admission?: Yes Plan: Due to acute cystitis due to E coli and P Mirabili. Resolved. She was started on Cipro by surgery for Zosyn will be discontinued. (7) UTI (urinary tract infection) Qualifiers: Urinary tract infection type: site unspecified Is this a current diagnosis for this admission?: Yes Plan: Consults and was discontinued on 02/01/2017. Patient is currently on Cipro which was started by surgery. (8) Volume overload Qualifiers: Hypervolemia type: transfusion-associated Qualified Code(s): E87.71 - Transfusion associated circulatory overload Is this a current diagnosis for this admission?: Yes Plan: Patient given 1 time dose of lasix on 01/31. Patient has been continued on Lasix 40 mg IV twice daily to complete a total of 4 doses. Patient is now negative fluid balance. Patient renal function has tolerated and potassium levels are normal. This is in preparation for possible extubation if patient tolerates her weaning trial. (9) Dementia Qualifiers: Dementia type: unspecified type Dementia behavioral disturbance: without behavioral disturbance Qualified Code(s): F03.90 - Unspecified dementia without behavioral disturbance Is this a current diagnosis for this admission?: Yes Plan: Continue supportive care. Avoid any excessive use of narcotics and/or sedation as this may worsen her dementia. (10) Diabetes mellitus type 2 in nonobese Is this a current diagnosis for this admission?: Yes Plan: Continue sliding-scale insulin - Time Time Spent with patient: 15-24 minutes
[2017-02-02] MEDS: LEVALBUTEROL HCL NEB 1.25 MG/3 ML AMPUL NEB SCH ×5 (00:04→20:08)
[2017-02-02] MEDS: MORPHINE SULFATE 10 MG/ML INJ IV PRN ×2 (02:05→15:36)
[2017-02-02] MEDS: PROPOFOL 100 ML IV PRN ×2 (02:06→22:11)
[2017-02-02] MEDS: CIPROFLOXACIN 400 MG/D5W RTU 400 MG/200 ML RTUPB IV SCH (06:16)
[2017-02-02] MEDS: METOCLOPRAMIDE HCL INJ/PF 10 MG/2 ML SDV IV SCH ×3 (06:16→22:12)
[2017-02-02 06:45] LABS: HEMATOCRIT 27.7 % (36.0-47.0); HEMOGLOBIN 9.3 g/dL (12.0-15.5); HGB HCT DIFFERENCE 0.2; MEAN CORPUSCULAR HEMOGLOBIN 29.4 pg (27.0-33.4); MEAN CORPUSCULAR HGB CONC 33.5 g/dL (32.0-36.0); MEAN CORPUSCULAR VOLUME 88 fl (80-97); RED BLOOD COUNT 3.16 10^6/uL (3.72-5.28); RED CELL DISTRIBUTION WIDTH 16.6 % (11.5-14.0); WHITE BLOOD COUNT 6.6 10^3/uL (4.0-10.5)
[2017-02-02 07:00] LABS: ANION GAP 7 (5-19); BLOOD UREA NITROGEN 38 mg/dL (7-20); CALCIUM 9.7 mg/dL (8.4-10.2); CARBON DIOXIDE 29 mmol/L (22-30); CHLORIDE 101 mmol/L (98-107); CREATININE RESULT 1.07 mg/dL (0.52-1.25); GLUCOSE 280 mg/dL (75-110); POTASSIUM 3.7 mmol/L (3.6-5.0); SODIUM 136.6 mmol/L (137-145)
[2017-02-02 07:02] LABS: ARTERIAL BLOOD BASE EXCESS 4.2 mmol/L; ARTERIAL BLOOD O2 SATURATION 97.8 % (94-98)
--- NOTE | 2017-02-02 07:03 | RADIOLOGY REPORT (SQ) ---
EXAM DESCRIPTION: CHEST SINGLE VIEW COMPLETED DATE/TIME: 02/02/2017 6:49 am REASON FOR STUDY: Mechanical ventilation COMPARISON: 02/01/2017. 01/31/2017. CT, 01/30/2017. EXAM PARAMETERS: NUMBER OF VIEWS: One view. TECHNIQUE: Single frontal radiographic view of the chest acquired. RADIATION DOSE: NA LIMITATIONS: Rotational artifact. FINDINGS: LUNGS AND PLEURA: No opacities, masses or pneumothorax. No pleural effusion. MEDIASTINUM AND HILAR STRUCTURES: No masses. Contour normal. HEART AND VASCULAR STRUCTURES: Heart normal in size. Normal vasculature. BONES: No acute findings. HARDWARE: Adequate appearing endotracheal tube. NG tube is seen at the left paracentral aspect of mi dline on AP portable upright rotated view with tip and proximal port overlying the left upper abdomin al quadrant ; this abnormal appearing coarse is likely due to rotational artifact as compared with pr ior exams. OTHER: No other significant finding. IMPRESSION: Improved aeration of the lungs. Endotracheal tube. Indeterminate course of the NG tube probably due to rotational artifact. TECHNICAL DOCUMENTATION: JOB ID: [id number]
[2017-02-02] MEDS ORDERED: LANSOPRAZOLE 15 MG TAB.RAP.DR PO SCH (08:00)
[2017-02-02] MEDS: INSULIN LISPRO 100 UNIT/ML 3 ML VIAL SUBCUT PRN ×2 (08:23→18:47)
[2017-02-02] MEDS: NORMAL SALINE 10 ML SDV (SCHEDULED) IV SCH ×2 (10:22→22:12)
--- NOTE | 2017-02-02 11:48 | PDOC PROGRESS REPORT ---
Subjective Progress Note for:: 02/02/17 Subjective:: Postoperative day 9 status post exploratory laparotomy, still on ventilator, tolerating tube feeds and TPN at slow rate. Very weak and unable to be weaned from ventilator Physical Exam Vital Signs: Temp Pulse Resp BP Pulse Ox 98.4 F 100 12 125/56 L 99 02/02/17 10:30 02/02/17 11:41 02/02/17 11:41 02/02/17 10:13 02/02/17 11:41 Intake & Output 02/01/17 02/02/17 02/03/17 06:59 06:59 06:59 Intake Total 2146 1505 Output Total 3255 3025 205 Balance -1109 -1520 -205 Weight 37.8 kg 35.1 kg Exam: Patient is sedated, but apparently when medication suspended, arouses and follows commands. GI/Abdominal exam: PRESENT: other - Seen removed upper aspect of midline wound with miles intact. Lower aspect draining some serous fluid but skin edges loosely approximated. There is no granulation tissue. Results Laboratory Results: 02/02/17 06:20 02/02/17 06:20 02/02/17 02/02/17 02/02/17 06:20 06:20 06:20 WBC 6.6 RBC 3.16 L Hgb 9.3 L Hct 27.7 L MCV 88 MCH 29.4 MCHC 33.5 RDW 16.6 H Plt Count 209 Carbonic Acid 1.35 HCO3/H2CO3 Ratio 21:1 ABG pH 7.43 ABG pCO2 44.7 ABG pO2 102.9 H ABG HCO3 29.0 H ABG O2 Saturation 97.8 ABG Base Excess 4.2 FiO2 21% Sodium 136.6 L Potassium 3.7 Chloride 101 Carbon Dioxide 29 Anion Gap 7 BUN 38 H Creatinine 1.07 Est GFR ( Amer) > 60 Est GFR (Non-Af Amer) 50 L Glucose 280 H Calcium 9.7 01/27/17 16:00 Blood Blood Culture - Final NO GROWTH IN 5 DAYS 01/24/17 01/24/17 01/25/17 20:58 20:58 05:00 Creatine Kinase 28 L < 20 L CK-MB (CK-2) 0.86 Troponin I < 0.012 NT-Pro-B Natriuret Pep 3310 H 01/25/17 01/25/17 01/25/17 05:00 14:35 14:35 Creatine Kinase 74 CK-MB (CK-2) 1.22 1.70 Troponin I 0.044 0.050 NT-Pro-B Natriuret Pep Impressions: Limited or Localized CT 01/21/17 03:02 IMPRESSION: 1. Small bowel obstruction pattern. 2. Small to moderate bilateral lower lobar pneumonia, left more than right. 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 Cannot exclude other infectious and neoplastic processes. 4. Increased sclerosis of bilateral femoral heads may indicate avascular necrosis. Consider contrast MRI correlation. Abdomen X-Ray 01/24/17 00:00 IMPRESSION: Nasogastric tube tip and side port in the stomach. Persistent small bowel obstruction. Small Bowel X-Ray 01/24/17 00:00 IMPRESSION: Findings worrisome for small bowel obstruction. Nasogastric tube tip and side port in the stomach. At the conclusion of the study, a nasogastric tube was put back to suction. Interventional Vascular Procedure 01/25/17 00:00 IMPRESSION: SUCCESSFUL PLACEMENT OF A 5 FR DUAL LUMEN 35 CM PICC IN THE RIGHT BASILIC VEIN. PICC Line Insertion 01/25/17 00:00 IMPRESSION: SUCCESSFUL PLACEMENT OF A 5 FR DUAL LUMEN 35 CM PICC IN THE RIGHT BASILIC VEIN. Abdomen/Pelvis CT 01/30/17 00:00 IMPRESSION: Post resection of a short segment of distal small bowel. Anastomotic miles are present in the right lower quadrant without evidence of recurrent bowel obstruction. Probable ileus KUB X-Ray 02/01/17 07:00 IMPRESSION: Mild dilation and stacking of left paracentral jejunal small bowel may indicate ileus or J Josefina itis. Chest X-Ray 02/02/17 06:00 IMPRESSION: Improved aeration of the lungs. Endotracheal tube. Indeterminate course of the NG tube probably due to rotational artifact. Assessment & Plan - Diagnosis (1) SBO (small bowel obstruction) Is this a current diagnosis for this admission?: Yes Plan: Patient now day status post motor laparotomy, with chronic respiratory failure; reasonably approximated midline wound inferiorly. On TPN and tolerating tube feeds with bowel function. Plan: 1. Continue current level support; patient is getting TPN through a PICC line 2. Family conference may be appropriate in light of the fact that patient may require PEG trach combination for long-term placement if she does not the corner soon.
[2017-02-02] MEDS: AMINO ACIDS 5%/D25W 1,000 ML IV PRN (15:36)
--- NOTE | 2017-02-02 18:49 | PDOC PROGRESS REPORT ---
Subjective Progress Note for:: 02/02/17 Subjective:: She has been stable. Is totally off propofol. Patient is not really breathing above the band. Patient did have high residual today per the nurse she said she had to 50 cc out. Patient is currently on continuous tube feeds at 15 cc an hour however is still on TPN and she is not really tolerating her tube feeds. Physical Exam Vital Signs: Temp Pulse Resp BP Pulse Ox 99.0 F 98 12 115/52 L 98 02/02/17 18:13 02/02/17 15:15 02/02/17 15:15 02/02/17 18:13 02/02/17 18:13 Intake & Output 02/01/17 02/02/17 02/03/17 06:59 06:59 06:59 Intake Total 2146 1505 862 Output Total 3255 3025 395 Balance -1109 -1520 467 Weight 37.8 kg 35.1 kg General appearance: PRESENT: no acute distress, thin Head exam: PRESENT: normocephalic Eye exam: PRESENT: other - Eyes closed but will open on command Respiratory exam: PRESENT: clear to auscultation justin, other - Intubated nonspecific dated patient not breathing over the vent Cardiovascular exam: PRESENT: RRR, tachycardia GI/Abdominal exam: PRESENT: normal bowel sounds, soft, other - Midline surgical scar Rectal exam: PRESENT: deferred Extremities exam: PRESENT: other - Edema of her upper extremities improve Neurological exam: PRESENT: other - Of sedation opens eyes on command. Patient in restraints Skin exam: PRESENT: intact - Surgical scar on abdomen, warm Results Laboratory Results: 02/02/17 06:20 02/02/17 06:20 02/02/17 02/02/17 02/02/17 06:20 06:20 06:20 WBC 6.6 RBC 3.16 L Hgb 9.3 L Hct 27.7 L MCV 88 MCH 29.4 MCHC 33.5 RDW 16.6 H Plt Count 209 Carbonic Acid 1.35 HCO3/H2CO3 Ratio 21:1 ABG pH 7.43 ABG pCO2 44.7 ABG pO2 102.9 H ABG HCO3 29.0 H ABG O2 Saturation 97.8 ABG Base Excess 4.2 FiO2 21% Sodium 136.6 L Potassium 3.7 Chloride 101 Carbon Dioxide 29 Anion Gap 7 BUN 38 H Creatinine 1.07 Est GFR ( Amer) > 60 Est GFR (Non-Af Amer) 50 L Glucose 280 H Calcium 9.7 01/27/17 16:00 Blood Blood Culture - Final NO GROWTH IN 5 DAYS 01/24/17 01/24/17 01/25/17 20:58 20:58 05:00 Creatine Kinase 28 L < 20 L CK-MB (CK-2) 0.86 Troponin I < 0.012 NT-Pro-B Natriuret Pep 3310 H 01/25/17 01/25/17 01/25/17 05:00 14:35 14:35 Creatine Kinase 74 CK-MB (CK-2) 1.22 1.70 Troponin I 0.044 0.050 NT-Pro-B Natriuret Pep Impressions: Limited or Localized CT 01/21/17 03:02 IMPRESSION: 1. Small bowel obstruction pattern. 2. Small to moderate bilateral lower lobar pneumonia, left more than right. 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 Cannot exclude other infectious and neoplastic processes. 4. Increased sclerosis of bilateral femoral heads may indicate avascular necrosis. Consider contrast MRI correlation. Abdomen X-Ray 01/24/17 00:00 IMPRESSION: Nasogastric tube tip and side port in the stomach. Persistent small bowel obstruction. Small Bowel X-Ray 01/24/17 00:00 IMPRESSION: Findings worrisome for small bowel obstruction. Nasogastric tube tip and side port in the stomach. At the conclusion of the study, a nasogastric tube was put back to suction. Interventional Vascular Procedure 01/25/17 00:00 IMPRESSION: SUCCESSFUL PLACEMENT OF A 5 FR DUAL LUMEN 35 CM PICC IN THE RIGHT BASILIC VEIN. PICC Line Insertion 01/25/17 00:00 IMPRESSION: SUCCESSFUL PLACEMENT OF A 5 FR DUAL LUMEN 35 CM PICC IN THE RIGHT BASILIC VEIN. Abdomen/Pelvis CT 01/30/17 00:00 IMPRESSION: Post resection of a short segment of distal small bowel. Anastomotic miles are present in the right lower quadrant without evidence of recurrent bowel obstruction. Probable ileus KUB X-Ray 02/01/17 07:00 IMPRESSION: Mild dilation and stacking of left paracentral jejunal small bowel may indicate ileus or J Josefina itis. Chest X-Ray 02/02/17 06:00 IMPRESSION: Improved aeration of the lungs. Endotracheal tube. Indeterminate course of the NG tube probably due to rotational artifact. Assessment & Plan - Diagnosis (1) Acute respiratory failure Qualifiers: Respiratory failure complication: unspecified whether with hypoxia or hypercapnia Qualified Code(s): J96.00 - Acute respiratory failure, unspecified whether with hypoxia or hypercapnia Is this a current diagnosis for this admission?: Yes Plan: Patient currently intubated and sedated. Weaning trial was attempted on 2016 however was failed it was thought to be due to volume overload. Patient was diuresed at that time. She has been in negative fluid balance for the last several days.Furthermore chest x-ray looks clear. Patient ABGs look stable. She failed weaning trial on 02/01/2017. Patient is totally off sedation at this time. Patient is not breathing above the vent. Concerned that patient will may be difficult to extubate. (2) Hyperbilirubinemia Is this a current diagnosis for this admission?: Yes Plan: Will continue to monitor. (3) Malnutrition of moderate degree Is this a current diagnosis for this admission?: Yes Plan: Patient is on tube feeds and TPN. Tubes feeds increased to 15 cc/h. Patient is having residuals. Patient started on reglan on 01/31 was increased to 10 mg IV 3 times daily on 02/01. Patient tube feeds changed on 02/01/2017 in hopes that this will be more easily digested. (4) Postoperative anemia due to acute blood loss Is this a current diagnosis for this admission?: Yes Plan: Patient has some bright red blood via NGT on 01/30. Hemoglobin is gradually trending down. Will continue to monitor. (5) SBO (small bowel obstruction) Is this a current diagnosis for this admission?: Yes Plan: Patient had partial small bowel obstruction complicated by ischemic segment of the terminal terminal ileum patient is status post exploratory lap with ileocecal resection with ileal colic anastomosis. Surgery is following closely. Patient has not had any more bright red blood per NG tube. Patient was started on Reglan this dose was increased. Patient somewhat tolerating her tube feeds at 15 cc/h she is occasionally having high residuals. She did have a bowel movement on 02/02/2016. KUB did show mild dilatation and stenting of the left paracentral jejunal small bowel may indicate ileus or jejunitis. (6) Sepsis Qualifiers: Sepsis type: Escherichia coli Qualified Code(s): A41.51 - Sepsis due to Escherichia coli [E. coli] Is this a current diagnosis for this admission?: Yes Plan: Due to acute cystitis due to E coli and P Mirabili. Resolved. Continue Cipro. (7) UTI (urinary tract infection) Qualifiers: Urinary tract infection type: site unspecified Is this a current diagnosis for this admission?: Yes Plan: Consults and was discontinued on 02/01/2017. Patient is currently on Cipro which was started by surgery. (8) Volume overload Qualifiers: Hypervolemia type: transfusion-associated Qualified Code(s): E87.71 - Transfusion associated circulatory overload Is this a current diagnosis for this admission?: Yes Plan: Patient given 1 time dose of lasix on 01/31. Not the patient was given Lasix 40 mg IV twice a day on the and . Patient is now negative fluid balance. Patient renal function has tolerated and potassium levels are normal. Fluids in order to help facilitate extubation if she was having some pulmonary congestion. Patient still failed weaning trial despite this. (9) Dementia Qualifiers: Dementia type: unspecified type Dementia behavioral disturbance: without behavioral disturbance Qualified Code(s): F03.90 - Unspecified dementia without behavioral disturbance Is this a current diagnosis for this admission?: Yes Plan: Continue supportive care. Avoid any excessive use of narcotics and/or sedation as this may worsen her dementia. (10) Diabetes mellitus type 2 in nonobese Is this a current diagnosis for this admission?: Yes Plan: Continue sliding-scale insulin - Time Time Spent with patient: 15-24 minutes Anticipated discharge: Other - Possible LTAC if patient is requiring PEG and trach
[2017-02-03] MEDS: LEVALBUTEROL HCL NEB 1.25 MG/3 ML AMPUL NEB SCH ×7 (00:26→23:48)
[2017-02-03] MEDS: CIPROFLOXACIN 400 MG/D5W RTU 400 MG/200 ML RTUPB IV SCH (06:10)
[2017-02-03] MEDS: METOCLOPRAMIDE HCL INJ/PF 10 MG/2 ML SDV IV SCH ×3 (06:10→21:56)
[2017-02-03 06:40] LABS: HEMATOCRIT 25.1 % (36.0-47.0); HEMOGLOBIN 8.5 g/dL (12.0-15.5); HGB HCT DIFFERENCE 0.4; MEAN CORPUSCULAR HEMOGLOBIN 29.6 pg (27.0-33.4); MEAN CORPUSCULAR HGB CONC 33.7 g/dL (32.0-36.0); MEAN CORPUSCULAR VOLUME 88 fl (80-97); RED BLOOD COUNT 2.86 10^6/uL (3.72-5.28)
[2017-02-03 06:41] LABS: ARTERIAL BLOOD BASE EXCESS 3.5 mmol/L; ARTERIAL BLOOD O2 SATURATION 97.9 % (94-98)
--- NOTE | 2017-02-03 06:43 | RADIOLOGY REPORT (SQ) ---
EXAM DESCRIPTION: CHEST SINGLE VIEW COMPLETED DATE/TIME: 02/03/2017 6:29 am REASON FOR STUDY: Mechanical ventilation COMPARISON: Chest x-ray 02/02/2017. CT abdomen and pelvis 01/30/2017. EXAM PARAMETERS: NUMBER OF VIEWS: One view TECHNIQUE: Single frontal radiograph of the chest. RADIATION DOSE: N/A LIMITATIONS: Patient positioning. FINDINGS: TEMPORARY SUPPORT DEVICES:ETT in expected location. NG tube courses below the left luz maria-d iaphragm in to the stomach. PICC catheter from right peripheral approach is overlying the region of t he right atrium. LUNGS AND PLEURA: The patient is rotated. There is no consolidation, pleural effusion or pneumothora x. MEDIASTINUM AND HILAR STRUCTURES: No masses. Contour normal. HEART AND VASCULAR STRUCTURES: The heart is not enlarged. There is no overt vascular congestion. BONES: No acute findings. IMPRESSION: No acute radiographic finding in the chest. TECHNICAL DOCUMENTATION: JOB ID: [id number] [employer]- All Rights Reserved
[2017-02-03 06:54] LABS: BLOOD UREA NITROGEN 45 mg/dL (7-20); CALCIUM 9.9 mg/dL (8.4-10.2); CHLORIDE 101 mmol/L (98-107); GLUCOSE 242 mg/dL (75-110); POTASSIUM 4.2 mmol/L (3.6-5.0); TRIGLYCERIDES 86 mg/dL (<150)
[2017-02-03 07:02] LABS: CARBON DIOXIDE 29 mmol/L (22-30); SODIUM 135.2 mmol/L (137-145)
[2017-02-03 07:06] LABS: ANION GAP 5 (5-19)
[2017-02-03] MEDS: NORMAL SALINE 10 ML SDV (SCHEDULED) IV SCH ×2 (10:29→21:56)
--- NOTE | 2017-02-03 11:07 | PDOC PROGRESS REPORT ---
Subjective Progress Note for:: 02/03/17 Subjective:: Patient intubated, sedated, in no ventilator weaning yesterday. Tolerating some tube feeds had a bowel movement. Physical Exam Vital Signs: Temp Pulse Resp BP Pulse Ox 98.8 F 101 H 10 L 169/60 H 99 02/03/17 08:00 02/03/17 08:00 02/03/17 07:54 02/03/17 07:45 02/03/17 08:00 Intake & Output 02/02/17 02/03/17 02/04/17 06:59 06:59 06:59 Intake Total 1505 1705 Output Total 3025 760 585 Balance -1520 945 -585 Weight 35.1 kg 35.1 kg General appearance: PRESENT: no acute distress GI/Abdominal exam: PRESENT: other - Midline incision remains intact with miles superiorly and approximated inferiorly. Results Laboratory Results: 02/03/17 06:20 02/03/17 06:20 02/03/17 02/03/17 02/03/17 06:20 06:20 06:20 WBC 6.0 RBC 2.86 L Hgb 8.5 L Hct 25.1 L MCV 88 MCH 29.6 MCHC 33.7 RDW 16.0 H Plt Count 204 Carbonic Acid 1.19 HCO3/H2CO3 Ratio 23:1 ABG pH 7.46 H ABG pCO2 39.5 ABG pO2 100.3 H ABG HCO3 27.5 H ABG O2 Saturation 97.9 ABG Base Excess 3.5 FiO2 21% Sodium 135.2 L Potassium 4.2 Chloride 101 Carbon Dioxide 29 Anion Gap 5 BUN 45 H Creatinine 1.10 Est GFR ( Amer) 58 L Est GFR (Non-Af Amer) 48 L Glucose 242 H Calcium 9.9 Triglycerides 86 02/01/17 14:05 Tracheal Aspirate Gram Stain - Final 02/01/17 14:05 Tracheal Aspirate Sputum Culture - Final Yeast, Not Sylwia Albicans Normal Evon Absent 01/24/17 01/24/17 01/25/17 20:58 20:58 05:00 Creatine Kinase 28 L < 20 L CK-MB (CK-2) 0.86 Troponin I < 0.012 NT-Pro-B Natriuret Pep 3310 H 01/25/17 01/25/17 01/25/17 05:00 14:35 14:35 Creatine Kinase 74 CK-MB (CK-2) 1.22 1.70 Troponin I 0.044 0.050 NT-Pro-B Natriuret Pep Impressions: Limited or Localized CT 01/21/17 03:02 IMPRESSION: 1. Small bowel obstruction pattern. 2. Small to moderate bilateral lower lobar pneumonia, left more than right. 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 Cannot exclude other infectious and neoplastic processes. 4. Increased sclerosis of bilateral femoral heads may indicate avascular necrosis. Consider contrast MRI correlation. Abdomen X-Ray 01/24/17 00:00 IMPRESSION: Nasogastric tube tip and side port in the stomach. Persistent small bowel obstruction. Small Bowel X-Ray 01/24/17 00:00 IMPRESSION: Findings worrisome for small bowel obstruction. Nasogastric tube tip and side port in the stomach. At the conclusion of the study, a nasogastric tube was put back to suction. Interventional Vascular Procedure 01/25/17 00:00 IMPRESSION: SUCCESSFUL PLACEMENT OF A 5 FR DUAL LUMEN 35 CM PICC IN THE RIGHT BASILIC VEIN. PICC Line Insertion 01/25/17 00:00 IMPRESSION: SUCCESSFUL PLACEMENT OF A 5 FR DUAL LUMEN 35 CM PICC IN THE RIGHT BASILIC VEIN. Abdomen/Pelvis CT 01/30/17 00:00 IMPRESSION: Post resection of a short segment of distal small bowel. Anastomotic miles are present in the right lower quadrant without evidence of recurrent bowel obstruction. Probable ileus KUB X-Ray 02/01/17 07:00 IMPRESSION: Mild dilation and stacking of left paracentral jejunal small bowel may indicate ileus or J Josefina itis. Chest X-Ray 02/03/17 06:00 IMPRESSION: No acute radiographic finding in the chest. Assessment & Plan - Diagnosis (1) SBO (small bowel obstruction) Is this a current diagnosis for this admission?: Yes (2) S/P exploratory laparotomy Is this a current diagnosis for this admission?: Yes Plan: Patient is now postoperative day 10 status post exploratory laparotomy, ileocecectomy, doing well from a gastrointestinal postoperative standpoint. Ongoing issues remain deconditioning, malnutrition and inability to wean from ventilator Plan: 1. Consolidate and/or discontinue antibiotics if no longer indicated 2. Replace Turner catheter prophylactically 3. Continue to titrate up tube feeds and wean TPN down 4. Suggest having consultation with family regarding expectations of care, outcomes, levels of aggressiveness of ongoing treatment
[2017-02-03] MEDS: INSULIN LISPRO 100 UNIT/ML 3 ML VIAL SUBCUT PRN ×2 (12:31→18:36)
[2017-02-03] MEDS: AMINO ACIDS 5%/D25W 1,000 ML IV PRN (15:45)
[2017-02-03] MEDS: MORPHINE SULFATE 10 MG/ML INJ IV PRN ×2 (16:31→23:18)
[2017-02-03] MEDS: PROPOFOL 100 ML IV PRN (16:33)
[2017-02-04] MEDS: LEVALBUTEROL HCL NEB 1.25 MG/3 ML AMPUL NEB SCH ×5 (04:02→20:39)
[2017-02-04] MEDS: PROPOFOL 100 ML IV PRN ×2 (05:21→21:01)
[2017-02-04] MEDS: METOCLOPRAMIDE HCL INJ/PF 10 MG/2 ML SDV IV SCH ×3 (05:22→21:12)
[2017-02-04] MEDS: INSULIN LISPRO 100 UNIT/ML 3 ML VIAL SUBCUT PRN ×3 (05:58→20:17)
[2017-02-04 06:24] LABS: ARTERIAL BLOOD BASE EXCESS 3.5 mmol/L
--- NOTE | 2017-02-04 07:23 | RADIOLOGY REPORT (SQ) ---
EXAM DESCRIPTION: CHEST SINGLE VIEW COMPLETED DATE/TIME: 02/04/2017 6:09 am REASON FOR STUDY: Mechanical ventilation COMPARISON: 02/03/2017 EXAM PARAMETERS: NUMBER OF VIEWS: One view. TECHNIQUE: Single frontal radiographic view of the chest acquired. RADIATION DOSE: NA LIMITATIONS: None. FINDINGS: LUNGS AND PLEURA: No opacities, masses or pneumothorax. No pleural effusion. MEDIASTINUM AND HILAR STRUCTURES: No masses. Contour normal. HEART AND VASCULAR STRUCTURES: Heart normal in size. Normal vasculature. BONES: No acute findings. HARDWARE: Adequate appearing endotracheal tube. Stable serpiginous route of the NG tube with proxima l port overlying the left upper abdominal quadrant and tip obscured. Tip of a right subclavian PICC line is at the right atrium ; consider 8 cm retraction. OTHER: No other significant finding. IMPRESSION: No significant interval change. TECHNICAL DOCUMENTATION: JOB ID: [id number]
[2017-02-04 08:39] LABS: HEMATOCRIT 26.1 % (36.0-47.0); HEMOGLOBIN 8.8 g/dL (12.0-15.5); HGB HCT DIFFERENCE 0.3; MEAN CORPUSCULAR HGB CONC 33.6 g/dL (32.0-36.0); MEAN CORPUSCULAR VOLUME 89 fl (80-97); RED BLOOD COUNT 2.92 10^6/uL (3.72-5.28); RED CELL DISTRIBUTION WIDTH 16.2 % (11.5-14.0); WHITE BLOOD COUNT 5.9 10^3/uL (4.0-10.5)
[2017-02-04 08:48] LABS: PROTHROMBIN TIME 13.8 SEC (11.4-15.4)
[2017-02-04 09:06] LABS: ALANINE AMINOTRANSFERASE 68 U/L (9-52); ALKALINE PHOSPHATASE 136 U/L (38-126); ANION GAP 6 (5-19); ASPARTATE AMINO TRANSFERASE 68 U/L (14-36); BILIRUBIN,DIRECT 0.3 mg/dL (0.0-0.4); BILIRUBIN,TOTAL 0.3 mg/dL (0.2-1.3); BLOOD UREA NITROGEN 41 mg/dL (7-20); CALCIUM 10.2 mg/dL (8.4-10.2); CARBON DIOXIDE 27 mmol/L (22-30); CHLORIDE 106 mmol/L (98-107); CREATININE RESULT 0.88 mg/dL (0.52-1.25); GLUCOSE 134 mg/dL (75-110); MAGNESIUM 2.6 mg/dL (1.6-2.3); PHOSPHORUS 3.2 mg/dL (2.5-4.5); POTASSIUM 4.4 mmol/L (3.6-5.0); SODIUM 138.5 mmol/L (137-145); TOTAL PROTEIN 4.4 g/dL (6.3-8.2); TRIGLYCERIDES 83 mg/dL (<150)
[2017-02-04 09:13] LABS: PREALBUMIN 18.2 mg/dL (17.6-36.0)
[2017-02-04] MEDS: NORMAL SALINE 10 ML SDV (SCHEDULED) IV SCH ×2 (09:16→21:12)
[2017-02-04 09:21] LABS: ARTERIAL BLOOD BASE EXCESS 3.2 mmol/L; ARTERIAL BLOOD O2 SATURATION 97.6 % (94-98)
--- NOTE | 2017-02-04 09:22 | PDOC PROGRESS REPORT ---
Subjective Progress Note for:: 02/03/17 Subjective:: Patient had 200cc of residuals last night. Feeds were held and restarted at midnight. Patient appear to be tolerating at this time. Patient last bowel movement yesterday. Patient wake today but still having difficulty weaning. Surgery did ask for the medicine service to take over as primary. Furthermore, with patient not being able to be weaned off vent and not recovery it is time to talk to the family again about the plan of care. Physical Exam Vital Signs: Temp Pulse Resp BP Pulse Ox 98.8 F 101 H 10 L 169/60 H 99 02/03/17 08:00 02/03/17 08:00 02/03/17 07:54 02/03/17 07:45 02/03/17 08:00 Intake & Output 02/02/17 02/03/17 02/04/17 06:59 06:59 06:59 Intake Total 1505 1705 Output Total 3025 760 350 Balance -1520 945 -350 Weight 35.1 kg 35.1 kg General appearance: PRESENT: cooperative, thin Head exam: PRESENT: normocephalic Eye exam: PRESENT: PERRLA. ABSENT: scleral icterus Mouth exam: PRESENT: other - ET tube in place Respiratory exam: PRESENT: clear to auscultation justin, other - On vent Cardiovascular exam: PRESENT: tachycardia Pulses: PRESENT: +2 pedal pulses bilateral GI/Abdominal exam: PRESENT: normal bowel sounds, soft, tenderness Rectal exam: PRESENT: deferred Gentrourinary exam: PRESENT: indwelling catheter Extremities exam: PRESENT: +2 edema. ABSENT: pedal edema, +1 edema Neurological exam: PRESENT: alert, awake Skin exam: PRESENT: intact, warm, other - surgical incision with dressing in place clean and dry Results Laboratory Results: 02/03/17 06:20 02/03/17 06:20 02/03/17 02/03/17 02/03/17 06:20 06:20 06:20 WBC 6.0 RBC 2.86 L Hgb 8.5 L Hct 25.1 L MCV 88 MCH 29.6 MCHC 33.7 RDW 16.0 H Plt Count 204 Carbonic Acid 1.19 HCO3/H2CO3 Ratio 23:1 ABG pH 7.46 H ABG pCO2 39.5 ABG pO2 100.3 H ABG HCO3 27.5 H ABG O2 Saturation 97.9 ABG Base Excess 3.5 FiO2 21% Sodium 135.2 L Potassium 4.2 Chloride 101 Carbon Dioxide 29 Anion Gap 5 BUN 45 H Creatinine 1.10 Est GFR ( Amer) 58 L Est GFR (Non-Af Amer) 48 L Glucose 242 H Calcium 9.9 Triglycerides 86 01/24/17 01/24/17 01/25/17 20:58 20:58 05:00 Creatine Kinase 28 L < 20 L CK-MB (CK-2) 0.86 Troponin I < 0.012 NT-Pro-B Natriuret Pep 3310 H 01/25/17 01/25/17 01/25/17 05:00 14:35 14:35 Creatine Kinase 74 CK-MB (CK-2) 1.22 1.70 Troponin I 0.044 0.050 NT-Pro-B Natriuret Pep Impressions: Limited or Localized CT 01/21/17 03:02 IMPRESSION: 1. Small bowel obstruction pattern. 2. Small to moderate bilateral lower lobar pneumonia, left more than right. 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 Cannot exclude other infectious and neoplastic processes. 4. Increased sclerosis of bilateral femoral heads may indicate avascular necrosis. Consider contrast MRI correlation. Abdomen X-Ray 01/24/17 00:00 IMPRESSION: Nasogastric tube tip and side port in the stomach. Persistent small bowel obstruction. Small Bowel X-Ray 01/24/17 00:00 IMPRESSION: Findings worrisome for small bowel obstruction. Nasogastric tube tip and side port in the stomach. At the conclusion of the study, a nasogastric tube was put back to suction. Interventional Vascular Procedure 01/25/17 00:00 IMPRESSION: SUCCESSFUL PLACEMENT OF A 5 FR DUAL LUMEN 35 CM PICC IN THE RIGHT BASILIC VEIN. PICC Line Insertion 01/25/17 00:00 IMPRESSION: SUCCESSFUL PLACEMENT OF A 5 FR DUAL LUMEN 35 CM PICC IN THE RIGHT BASILIC VEIN. Abdomen/Pelvis CT 01/30/17 00:00 IMPRESSION: Post resection of a short segment of distal small bowel. Anastomotic miles are present in the right lower quadrant without evidence of recurrent bowel obstruction. Probable ileus KUB X-Ray 02/01/17 07:00 IMPRESSION: Mild dilation and stacking of left paracentral jejunal small bowel may indicate ileus or J Josefina itis. Chest X-Ray 02/03/17 06:00 IMPRESSION: No acute radiographic finding in the chest. Assessment & Plan - Diagnosis (1) Acute respiratory failure Qualifiers: Respiratory failure complication: unspecified whether with hypoxia or hypercapnia Qualified Code(s): J96.00 - Acute respiratory failure, unspecified whether with hypoxia or hypercapnia Is this a current diagnosis for this admission?: Yes Plan: Patient currently intubated and sedated. Weaning trial was attempted on 2016 however was failed it was thought to be due to volume overload. Patient was diuresed at that time. She has been in negative fluid balance for the last several days.Furthermore chest x-ray looks clear. Patient ABGs look stable. She failed weaning trial on 02/01/2017. Patient is totally off sedation at this time. Patient is not breathing above the vent. Concerned that patient will may be difficult to extubate and may require a trach. Continue breathing treatments every 4 hours for more aggressive pulmonary toilet. Will try to speak with daughter again regarding code status. (2) Malnutrition of moderate degree Is this a current diagnosis for this admission?: Yes Plan: Patient is on tube feeds and TPN. Tubes feeds increased to 15 cc/h. Had over 200cc last night. None thus far since restarting feeds at midnight. Patient started on reglan on 01/31 was increased to 10 mg IV 3 times daily on 02/01. Patient tube feeds changed on 02/01/2017 in hopes that this will be more easily digested. (3) Hyperbilirubinemia Is this a current diagnosis for this admission?: Yes Plan: Will continue to monitor.Possibly due to surgery. (4) Postoperative anemia due to acute blood loss Is this a current diagnosis for this admission?: Yes (5) SBO (small bowel obstruction) Is this a current diagnosis for this admission?: Yes Plan: Patient had partial small bowel obstruction complicated by ischemic segment of the terminal terminal ileum patient is status post exploratory lap with ileocecal resection with ileal colic anastomosis. Surgery is following closely and has commented on patient slow recovery. Patient has not had any more bright red blood per NG tube. Patient was started on Reglan this dose was increased. Patient somewhat tolerating her tube feeds at 15 cc/h she is occasionally having high residuals. She did have a bowel movement on 2015. KUB did show mild dilatation and stenting of the left paracentral jejunal small bowel may indicate ileus or jejunitis. (6) Sepsis Qualifiers: Sepsis type: Escherichia coli Qualified Code(s): A41.51 - Sepsis due to Escherichia coli [E. coli] Is this a current diagnosis for this admission?: Yes Plan: All antibiotics were discontinued on 02/03. (7) UTI (urinary tract infection) Qualifiers: Urinary tract infection type: site unspecified Is this a current diagnosis for this admission?: Yes Plan: Zosyn discontinued on 02/01/2017. All antibiotics discontinued on 02/03. Patient has received 10 days total of antibiotics (zosyn and or cipro). (8) Volume overload Qualifiers: Hypervolemia type: transfusion-associated Qualified Code(s): E87.71 - Transfusion associated circulatory overload Is this a current diagnosis for this admission?: Yes Plan: Patient given 1 time dose of lasix on 01/31. Not the patient was given Lasix 40 mg IV twice a day on the and . Patient is now negative fluid balance. Patient renal function has tolerated and potassium levels are normal. Fluids in order to help facilitate extubation if she was having some pulmonary congestion. Patient still failed weaning trial despite this. All diurectis have been discontinued. (9) Dementia Qualifiers: Dementia type: unspecified type Dementia behavioral disturbance: without behavioral disturbance Qualified Code(s): F03.90 - Unspecified dementia without behavioral disturbance Is this a current diagnosis for this admission?: Yes Plan: Continue supportive care. Avoid any excessive use of narcotics and/or sedation as this may worsen her dementia. (10) Diabetes mellitus type 2 in nonobese Is this a current diagnosis for this admission?: Yes Plan: Continue sliding-scale insulin - Time Time Spent with patient: 15-24 minutes - Will schedule a family meeting as patient is not recovering as expected. She is having difficulty weaning off the vent and is not tolerating tube feeds.
--- NOTE | 2017-02-04 11:15 | PDOC CONSULTATION ---
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 Patient was taken to the operating room yesterday for the small bowel obstruction and orthopedics now consulted for functional limitations for her rehabilitation.She is currently on mechanical ventilation and a non AG metabolic acidosis with respiratory compensation Past Medical History Endocrine Medical History: Reports: Diabetes Mellitus Type 2 Psychiatric Medical History: Reports: Dementia Past Surgical History Past Surgical History: Reports: Other - Uncertain; patient has a well-healed lower midline abdominal incision. Social History Lives with: Family - Reportedly lives with daughter. Smoking Status: Unknown if Ever Smoked Drugs: None - Advance Directive Resuscitation Status: Full Code Family History Family History: Reviewed & Not Pertinent Medication/Allergy Home Medications: No Home Medications 01/21/17 Allergies/Adverse Reactions: No Known Allergies Allergy (Unverified 01/20/17 20:50) Physical Exam Vital Signs: Temp Pulse Resp BP Pulse Ox 99.0 F 102 H 12 147/60 H 98 02/04/17 06:00 02/04/17 04:02 02/04/17 04:02 02/04/17 05:47 02/04/17 06:00 Intake & Output 02/03/17 02/04/17 02/05/17 06:59 06:59 06:59 Intake Total 1705 321 Output Total 667 1560 Balance 945 -1239 Weight 35.1 kg 35.2 kg Results Laboratory Results: 02/03/17 06:20 02/03/17 06:20 02/04/17 02/04/17 05:45 06:10 Carbonic Acid Cancelled 1.84 H HCO3/H2CO3 Ratio Cancelled 16:1 ABG pH Cancelled 7.32 L ABG pCO2 Cancelled 61.2 H ABG pO2 Cancelled 35.2 L* ABG HCO3 Cancelled 30.6 H ABG O2 Saturation Cancelled 61.0 L ABG Base Excess Cancelled 3.5 FiO2 Cancelled 21% 02/01/17 14:05 Tracheal Aspirate Gram Stain - Final 02/01/17 14:05 Tracheal Aspirate Sputum Culture - Final Yeast, Not Sylwia Albicans Normal Evon Absent 01/24/17 01/24/17 01/25/17 20:58 20:58 05:00 Creatine Kinase 28 L < 20 L CK-MB (CK-2) 0.86 Troponin I < 0.012 NT-Pro-B Natriuret Pep 3310 H 01/25/17 01/25/17 01/25/17 05:00 14:35 14:35 Creatine Kinase 74 CK-MB (CK-2) 1.22 1.70 Troponin I 0.044 0.050 NT-Pro-B Natriuret Pep Impressions: Limited or Localized CT 01/21/17 03:02 IMPRESSION: 1. Small bowel obstruction pattern. 2. Small to moderate bilateral lower lobar pneumonia, left more than right. 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 Cannot exclude other infectious and neoplastic processes. 4. Increased sclerosis of bilateral femoral heads may indicate avascular necrosis. Consider contrast MRI correlation. Abdomen X-Ray 01/24/17 00:00 IMPRESSION: Nasogastric tube tip and side port in the stomach. Persistent small bowel obstruction. Small Bowel X-Ray 01/24/17 00:00 IMPRESSION: Findings worrisome for small bowel obstruction. Nasogastric tube tip and side port in the stomach. At the conclusion of the study, a nasogastric tube was put back to suction. Interventional Vascular Procedure 01/25/17 00:00 IMPRESSION: SUCCESSFUL PLACEMENT OF A 5 FR DUAL LUMEN 35 CM PICC IN THE RIGHT BASILIC VEIN. PICC Line Insertion 01/25/17 00:00 IMPRESSION: SUCCESSFUL PLACEMENT OF A 5 FR DUAL LUMEN 35 CM PICC IN THE RIGHT BASILIC VEIN. Abdomen/Pelvis CT 01/30/17 00:00 IMPRESSION: Post resection of a short segment of distal small bowel. Anastomotic miles are present in the right lower quadrant without evidence of recurrent bowel obstruction. Probable ileus KUB X-Ray 02/01/17 07:00 IMPRESSION: Mild dilation and stacking of left paracentral jejunal small bowel may indicate ileus or J Josefina itis. Chest X-Ray 02/04/17 06:00 IMPRESSION: No significant interval change. Assessment & Plan - Diagnosis (1) Metabolic acidosis Is this a current diagnosis for this admission?: Yes (2) Paget's bone disease Is this a current diagnosis for this admission?: Yes (3) SBO (small bowel obstruction) Is this a current diagnosis for this admission?: Yes (4) Sepsis Qualifiers: Sepsis type: Escherichia coli Qualified Code(s): A41.51 - Sepsis due to Escherichia coli [E. coli] Is this a current diagnosis for this admission?: Yes (5) Dementia Qualifiers: Dementia type: unspecified type Dementia behavioral disturbance: without behavioral disturbance Qualified Code(s): F03.90 - Unspecified dementia without behavioral disturbance Is this a current diagnosis for this admission?: Yes - Time Critical Time spent with patient: 25-34 minutes
--- NOTE | 2017-02-04 11:30 | PDOC PROGRESS REPORT ---
Subjective Progress Note for:: 02/04/17 Subjective:: Patient is intubated, and slowly responsive Physical Exam Vital Signs: Temp Pulse Resp BP Pulse Ox 99.5 F 115 H 12 148/62 H 97 02/04/17 10:47 02/04/17 10:00 02/04/17 10:00 02/04/17 10:47 02/04/17 10:47 Intake & Output 02/03/17 02/04/17 02/05/17 06:59 06:59 06:59 Intake Total 1705 321 Output Total 760 1560 175 Balance 945 -1239 -175 Weight 35.1 kg 35.2 kg GI/Abdominal exam: PRESENT: normal bowel sounds, soft. ABSENT: guarding - Wound is clean, dry, and intact., rebound, tenderness Results Laboratory Results: 02/04/17 08:17 02/04/17 08:17 02/04/17 02/04/17 02/04/17 05:45 06:10 08:17 WBC RBC Hgb Hct MCV MCH MCHC RDW Plt Count Carbonic Acid Cancelled 1.84 H HCO3/H2CO3 Ratio Cancelled 16:1 ABG pH Cancelled 7.32 L ABG pCO2 Cancelled 61.2 H ABG pO2 Cancelled 35.2 L* ABG HCO3 Cancelled 30.6 H ABG O2 Saturation Cancelled 61.0 L ABG Base Excess Cancelled 3.5 FiO2 Cancelled 21% Sodium 138.5 Potassium 4.4 Chloride 106 Carbon Dioxide 27 Anion Gap 6 BUN 41 H Creatinine 0.88 Est GFR ( Amer) > 60 Est GFR (Non-Af Amer) > 60 Glucose 134 H Calcium 10.2 Phosphorus 3.2 Magnesium 2.6 H Total Bilirubin 0.3 AST 68 H ALT 68 H Alkaline Phosphatase 136 H Total Protein 4.4 L Albumin 2.0 L Prealbumin 18.2 Triglycerides 83 02/04/17 02/04/17 08:17 09:02 WBC 5.9 RBC 2.92 L Hgb 8.8 L Hct 26.1 L MCV 89 MCH 30.0 MCHC 33.6 RDW 16.2 H Plt Count 207 Carbonic Acid 1.41 H HCO3/H2CO3 Ratio 20:1 ABG pH 7.40 ABG pCO2 47.0 H ABG pO2 101.1 H ABG HCO3 28.5 H ABG O2 Saturation 97.6 ABG Base Excess 3.2 FiO2 21% Sodium Potassium Chloride Carbon Dioxide Anion Gap BUN Creatinine Est GFR ( Amer) Est GFR (Non-Af Amer) Glucose Calcium Phosphorus Magnesium Total Bilirubin AST ALT Alkaline Phosphatase Total Protein Albumin Prealbumin Triglycerides 02/01/17 14:05 Tracheal Aspirate Gram Stain - Final 02/01/17 14:05 Tracheal Aspirate Sputum Culture - Final Yeast, Not Sylwia Albicans Normal Evon Absent 01/24/17 01/24/17 01/25/17 20:58 20:58 05:00 Creatine Kinase 28 L < 20 L CK-MB (CK-2) 0.86 Troponin I < 0.012 NT-Pro-B Natriuret Pep 3310 H 01/25/17 01/25/17 01/25/17 05:00 14:35 14:35 Creatine Kinase 74 CK-MB (CK-2) 1.22 1.70 Troponin I 0.044 0.050 NT-Pro-B Natriuret Pep Impressions: Limited or Localized CT 01/21/17 03:02 IMPRESSION: 1. Small bowel obstruction pattern. 2. Small to moderate bilateral lower lobar pneumonia, left more than right. 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 Cannot exclude other infectious and neoplastic processes. 4. Increased sclerosis of bilateral femoral heads may indicate avascular necrosis. Consider contrast MRI correlation. Abdomen X-Ray 01/24/17 00:00 IMPRESSION: Nasogastric tube tip and side port in the stomach. Persistent small bowel obstruction. Small Bowel X-Ray 01/24/17 00:00 IMPRESSION: Findings worrisome for small bowel obstruction. Nasogastric tube tip and side port in the stomach. At the conclusion of the study, a nasogastric tube was put back to suction. Interventional Vascular Procedure 01/25/17 00:00 IMPRESSION: SUCCESSFUL PLACEMENT OF A 5 FR DUAL LUMEN 35 CM PICC IN THE RIGHT BASILIC VEIN. PICC Line Insertion 01/25/17 00:00 IMPRESSION: SUCCESSFUL PLACEMENT OF A 5 FR DUAL LUMEN 35 CM PICC IN THE RIGHT BASILIC VEIN. Abdomen/Pelvis CT 01/30/17 00:00 IMPRESSION: Post resection of a short segment of distal small bowel. Anastomotic miles are present in the right lower quadrant without evidence of recurrent bowel obstruction. Probable ileus KUB X-Ray 02/01/17 07:00 IMPRESSION: Mild dilation and stacking of left paracentral jejunal small bowel may indicate ileus or J Josefina itis. Chest X-Ray 02/04/17 06:00 IMPRESSION: No significant interval change. Assessment & Plan - Diagnosis (1) SBO (small bowel obstruction) Is this a current diagnosis for this admission?: Yes - Plan Summary Plan Summary: Continue weaning process. If patient fails extubation, tracheostomy and PEG tube insertion will be considered
[2017-02-04] MEDS: AMINO ACIDS 5%/D25W 1,000 ML IV PRN (16:38)
--- NOTE | 2017-02-04 21:51 | PDOC PROGRESS REPORT ---
Subjective Progress Note for:: 02/04/17 Subjective:: Patient doing well today. Did speak patient daughter about extubation and possible trach if patient does not tolerate being extubated. I asked the daughter to speak to family members about the decision for trach and PEG if extubation does not go well. She stated she understood. Plan is for possible extubation tomorrow on 02/05/2017. Physical Exam Vital Signs: Temp Pulse Resp BP Pulse Ox 99.5 F 115 H 16 132/53 H 99 02/04/17 21:00 02/04/17 20:39 02/04/17 21:00 02/04/17 20:47 02/04/17 21:00 Intake & Output 02/03/17 02/04/17 02/05/17 06:59 06:59 06:59 Intake Total 1705 321 704 Output Total 760 1560 885 Balance 945 -1239 -181 Weight 35.1 kg 35.2 kg General appearance: PRESENT: thin, other - frail Head exam: PRESENT: normocephalic Eye exam: PRESENT: EOMI Respiratory exam: PRESENT: clear to auscultation justin, unlabored, other - Intubated Cardiovascular exam: PRESENT: tachycardia GI/Abdominal exam: PRESENT: normal bowel sounds - flat surgical wound clean dry and closed dressing in place, soft Rectal exam: PRESENT: deferred Gentrourinary exam: PRESENT: indwelling catheter Extremities exam: ABSENT: pedal edema Neurological exam: PRESENT: alert, awake - off sedation Skin exam: PRESENT: warm - surgical wound clean and dry Results Laboratory Results: 02/04/17 08:17 02/04/17 08:17 02/04/17 02/04/17 02/04/17 05:45 06:10 08:17 WBC RBC Hgb Hct MCV MCH MCHC RDW Plt Count Carbonic Acid Cancelled 1.84 H HCO3/H2CO3 Ratio Cancelled 16:1 ABG pH Cancelled 7.32 L ABG pCO2 Cancelled 61.2 H ABG pO2 Cancelled 35.2 L* ABG HCO3 Cancelled 30.6 H ABG O2 Saturation Cancelled 61.0 L ABG Base Excess Cancelled 3.5 FiO2 Cancelled 21% Sodium 138.5 Potassium 4.4 Chloride 106 Carbon Dioxide 27 Anion Gap 6 BUN 41 H Creatinine 0.88 Est GFR ( Amer) > 60 Est GFR (Non-Af Amer) > 60 Glucose 134 H Calcium 10.2 Phosphorus 3.2 Magnesium 2.6 H Total Bilirubin 0.3 AST 68 H ALT 68 H Alkaline Phosphatase 136 H Total Protein 4.4 L Albumin 2.0 L Prealbumin 18.2 Triglycerides 83 02/04/17 02/04/17 08:17 09:02 WBC 5.9 RBC 2.92 L Hgb 8.8 L Hct 26.1 L MCV 89 MCH 30.0 MCHC 33.6 RDW 16.2 H Plt Count 207 Carbonic Acid 1.41 H HCO3/H2CO3 Ratio 20:1 ABG pH 7.40 ABG pCO2 47.0 H ABG pO2 101.1 H ABG HCO3 28.5 H ABG O2 Saturation 97.6 ABG Base Excess 3.2 FiO2 21% Sodium Potassium Chloride Carbon Dioxide Anion Gap BUN Creatinine Est GFR ( Amer) Est GFR (Non-Af Amer) Glucose Calcium Phosphorus Magnesium Total Bilirubin AST ALT Alkaline Phosphatase Total Protein Albumin Prealbumin Triglycerides 01/24/17 01/24/17 01/25/17 20:58 20:58 05:00 Creatine Kinase 28 L < 20 L CK-MB (CK-2) 0.86 Troponin I < 0.012 NT-Pro-B Natriuret Pep 3310 H 01/25/17 01/25/17 01/25/17 05:00 14:35 14:35 Creatine Kinase 74 CK-MB (CK-2) 1.22 1.70 Troponin I 0.044 0.050 NT-Pro-B Natriuret Pep Impressions: Limited or Localized CT 01/21/17 03:02 IMPRESSION: 1. Small bowel obstruction pattern. 2. Small to moderate bilateral lower lobar pneumonia, left more than right. 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 Cannot exclude other infectious and neoplastic processes. 4. Increased sclerosis of bilateral femoral heads may indicate avascular necrosis. Consider contrast MRI correlation. Abdomen X-Ray 01/24/17 00:00 IMPRESSION: Nasogastric tube tip and side port in the stomach. Persistent small bowel obstruction. Small Bowel X-Ray 01/24/17 00:00 IMPRESSION: Findings worrisome for small bowel obstruction. Nasogastric tube tip and side port in the stomach. At the conclusion of the study, a nasogastric tube was put back to suction. Interventional Vascular Procedure 01/25/17 00:00 IMPRESSION: SUCCESSFUL PLACEMENT OF A 5 FR DUAL LUMEN 35 CM PICC IN THE RIGHT BASILIC VEIN. PICC Line Insertion 01/25/17 00:00 IMPRESSION: SUCCESSFUL PLACEMENT OF A 5 FR DUAL LUMEN 35 CM PICC IN THE RIGHT BASILIC VEIN. Abdomen/Pelvis CT 01/30/17 00:00 IMPRESSION: Post resection of a short segment of distal small bowel. Anastomotic miles are present in the right lower quadrant without evidence of recurrent bowel obstruction. Probable ileus KUB X-Ray 02/01/17 07:00 IMPRESSION: Mild dilation and stacking of left paracentral jejunal small bowel may indicate ileus or J Josefina itis. Chest X-Ray 02/04/17 06:00 IMPRESSION: No significant interval change. Assessment & Plan - Diagnosis (1) Acute respiratory failure Qualifiers: Respiratory failure complication: unspecified whether with hypoxia or hypercapnia Qualified Code(s): J96.00 - Acute respiratory failure, unspecified whether with hypoxia or hypercapnia Is this a current diagnosis for this admission?: Yes Plan: Patient intubated but no longer sedated. Patient has been off sedation for the past 2 days. Patient was diuresed and on the dry side. Patient received aggressive pulmonary toilet with every 4 breathing treatments. Weaning trials attempted again however patient is having apneic moments. Patient will start breathing again when stimulated. Did discuss with patient daughter at length about the plan going further if she is extubated and does not do well. The option of trach with PEG was given versus comfort care. Daughter is contacting other family member members to make final decision. As for extubation possibly on 02/05/2017. (2) Malnutrition of moderate degree Is this a current diagnosis for this admission?: Yes Plan: Patient is on tube feeds and TPN. Tubes feeds increased to 15 cc/h. Patient seems to be tolerated feeds a little better. Patient started on reglan on 01/31 was increased to 10 mg IV 3 times daily on 02/01. Patient tube feeds changed on 02/01/2017 in hopes that this will be more easily digested. TPN being gradually weaned. (3) Hyperbilirubinemia Is this a current diagnosis for this admission?: Yes Plan: Possibly due to surgery stable. (4) Postoperative anemia due to acute blood loss Is this a current diagnosis for this admission?: Yes Plan: Patient has some bright red blood via NGT on 01/30. Hemoglobin is gradually trending down, but it is most likely due to daily lab draws. Will attempt to limit blood draws. (5) SBO (small bowel obstruction) Is this a current diagnosis for this admission?: Yes Plan: Patient had partial small bowel obstruction complicated by ischemic segment of the terminal terminal ileum patient is status post exploratory lap with ileocecal resection with ileal colic anastomosis. Surgery is following closely and has commented on patient slow recovery. Patient has not had any more bright red blood per NG tube. Patient was started on Reglan this dose was increased. Patient somewhat tolerating her tube feeds at 15 cc/h she is occasionally having high residuals. She did have a bowel movement on 2015. (6) Sepsis Qualifiers: Sepsis type: Escherichia coli Qualified Code(s): A41.51 - Sepsis due to Escherichia coli [E. coli] Is this a current diagnosis for this admission?: Yes Plan: All antibiotics were discontinued on 02/03. Patient has no other signs of infection. (7) UTI (urinary tract infection) Qualifiers: Urinary tract infection type: site unspecified Is this a current diagnosis for this admission?: Yes Plan: Zosyn discontinued on 02/01/2017. All antibiotics discontinued on 02/03. Patient has received 10 days total of antibiotics (zosyn and or cipro). (8) Volume overload Qualifiers: Hypervolemia type: transfusion-associated Qualified Code(s): E87.71 - Transfusion associated circulatory overload Is this a current diagnosis for this admission?: Yes Plan: Patient given 1 time dose of lasix on 01/31. Not the patient was given Lasix 40 mg IV twice a day on the and . Patient is now negative fluid balance. Patient renal function has tolerated and potassium levels are normal. Fluids in order to help facilitate extubation if she was having some pulmonary congestion. Patient still failed weaning trial despite this. All diurectis have been discontinued. (9) Dementia Qualifiers: Dementia type: unspecified type Dementia behavioral disturbance: without behavioral disturbance Qualified Code(s): F03.90 - Unspecified dementia without behavioral disturbance Is this a current diagnosis for this admission?: Yes Plan: Continue supportive care. Avoid any excessive use of narcotics and/or sedation as this may worsen her dementia. (10) Diabetes mellitus type 2 in nonobese Is this a current diagnosis for this admission?: Yes Plan: Continue sliding-scale insulin - Time Time Spent with patient: 25-34 minutes - Plan Summary Plan Summary: Has long discussion with family about extubation and plan following extubation trach and peg vs comfort measures. Decision will be made on 02/05 after all the all the necessary family has been contacted.
[2017-02-05] MEDS: LEVALBUTEROL HCL NEB 1.25 MG/3 ML AMPUL NEB SCH ×6 (00:06→20:47)
[2017-02-05] MEDS: HYDRALAZINE HCL INJ/PF 20 MG/1 ML SDV IV PRN ×2 (04:51→09:58)
[2017-02-05 05:26] LABS: ARTERIAL BLOOD BASE EXCESS 3.8 mmol/L
[2017-02-05] MEDS: METOCLOPRAMIDE HCL INJ/PF 10 MG/2 ML SDV IV SCH ×3 (06:02→22:23)
[2017-02-05] MEDS: INSULIN LISPRO 100 UNIT/ML 3 ML VIAL SUBCUT PRN ×3 (07:04→19:37)
--- NOTE | 2017-02-05 07:52 | RADIOLOGY REPORT (SQ) ---
EXAM DESCRIPTION: CHEST SINGLE VIEW COMPLETED DATE/TIME: 02/05/2017 6:49 am REASON FOR STUDY: Mechanical ventilation COMPARISON: 02/04/2017. EXAM PARAMETERS: NUMBER OF VIEWS: One view. TECHNIQUE: Single frontal radiographic view of the chest acquired. RADIATION DOSE: NA LIMITATIONS: None. FINDINGS: LUNGS AND PLEURA: Mild hyperinflation. MEDIASTINUM AND HILAR STRUCTURES: No masses. Contour normal. HEART AND VASCULAR STRUCTURES: Heart normal in size. Normal vasculature. BONES: No acute findings. HARDWARE: Rotation artifact with likely adequate endotracheal tube. Adequate appearing NG tube. Tip of a right subclavian PICC is at the right atrium ; consider 7 cm retraction. OTHER: No other significant finding. IMPRESSION: No significant interval change. TECHNICAL DOCUMENTATION: JOB ID: [id number]
[2017-02-05] MEDS: MORPHINE SULFATE 10 MG/ML INJ IV PRN (08:09)
[2017-02-05] MEDS ORDERED: METOPROLOL TARTRATE PF/INJ 5 MG/5 ML SDV IV ONE ×3 (09:00→12:45)
[2017-02-05] MEDS ORDERED: DEXAMETHASONE SOD PHOSPHATE INJ 4 MG/1 ML VIAL ONE ×2 (09:57→14:32)
[2017-02-05] MEDS ORDERED: RACEPINEPHRINE HCL 2.25% NEB 0.5 ML AMPUL NEB ONE (10:02)
[2017-02-05] MEDS ORDERED: BUDESONIDE NEB 0.5 MG/2 ML AMPUL NEB ONE ×2 (10:42→11:30)
[2017-02-05 10:52] LABS: ARTERIAL BLOOD O2 SATURATION 98.6 % (94-98)
[2017-02-05] MEDS ORDERED: SUCCINYLCHOLINE CHLORIDE INJ 200 MG/10 ML VIAL ONE (11:09)
--- NOTE | 2017-02-05 11:15 | PDOC PROGRESS REPORT ---
Subjective Progress Note for:: 02/05/17 Subjective:: Intubated and arousable Physical Exam Vital Signs: Temp Pulse Resp BP Pulse Ox 99.0 F 99 15 184/67 H 99 02/05/17 05:00 02/05/17 03:53 02/05/17 05:00 02/05/17 04:47 02/05/17 05:00 Intake & Output 02/04/17 02/05/17 02/06/17 06:59 06:59 06:59 Intake Total 321 1404 Output Total 1560 1365 Balance -1239 39 Weight 35.2 kg 34.6 kg General appearance: PRESENT: no acute distress, disheveled, thin, well-developed Head exam: PRESENT: atraumatic, normocephalic Eye exam: PRESENT: conjunctiva pale, EOMI Mouth exam: PRESENT: dry mucosa, neck supple, tongue midline, other - ET tube Neck exam: ABSENT: carotid bruit, JVD, lymphadenopathy, thyromegaly Respiratory exam: PRESENT: prolonged expiratory phas, rhonchi, symmetrical, unlabored Cardiovascular exam: PRESENT: RRR, +S1, +S2. ABSENT: bradycardia, irregular rhythm Pulses: PRESENT: normal radial pulses Rectal exam: PRESENT: deferred Gentrourinary exam: PRESENT: indwelling catheter Musculoskeletal exam: PRESENT: normal inspection Neurological exam: PRESENT: awake Skin exam: PRESENT: dry, warm Results Laboratory Results: 02/04/17 08:17 02/04/17 08:17 02/04/17 02/04/17 02/04/17 08:17 08:17 09:02 WBC 5.9 RBC 2.92 L Hgb 8.8 L Hct 26.1 L MCV 89 MCH 30.0 MCHC 33.6 RDW 16.2 H Plt Count 207 Carbonic Acid 1.41 H HCO3/H2CO3 Ratio 20:1 ABG pH 7.40 ABG pCO2 47.0 H ABG pO2 101.1 H ABG HCO3 28.5 H ABG O2 Saturation 97.6 ABG Base Excess 3.2 FiO2 21% Sodium 138.5 Potassium 4.4 Chloride 106 Carbon Dioxide 27 Anion Gap 6 BUN 41 H Creatinine 0.88 Est GFR ( Amer) > 60 Est GFR (Non-Af Amer) > 60 Glucose 134 H Calcium 10.2 Phosphorus 3.2 Magnesium 2.6 H Total Bilirubin 0.3 AST 68 H ALT 68 H Alkaline Phosphatase 136 H Total Protein 4.4 L Albumin 2.0 L Prealbumin 18.2 Triglycerides 83 02/05/17 05:00 WBC RBC Hgb Hct MCV MCH MCHC RDW Plt Count Carbonic Acid 1.21 HCO3/H2CO3 Ratio 23:1 ABG pH 7.46 H ABG pCO2 40.3 ABG pO2 103.0 H ABG HCO3 28.0 H ABG O2 Saturation 98.0 ABG Base Excess 3.8 FiO2 21% Sodium Potassium Chloride Carbon Dioxide Anion Gap BUN Creatinine Est GFR ( Amer) Est GFR (Non-Af Amer) Glucose Calcium Phosphorus Magnesium Total Bilirubin AST ALT Alkaline Phosphatase Total Protein Albumin Prealbumin Triglycerides 01/24/17 01/24/17 01/25/17 20:58 20:58 05:00 Creatine Kinase 28 L < 20 L CK-MB (CK-2) 0.86 Troponin I < 0.012 NT-Pro-B Natriuret Pep 3310 H 01/25/17 01/25/17 01/25/17 05:00 14:35 14:35 Creatine Kinase 74 CK-MB (CK-2) 1.22 1.70 Troponin I 0.044 0.050 NT-Pro-B Natriuret Pep Impressions: Limited or Localized CT 01/21/17 03:02 IMPRESSION: 1. Small bowel obstruction pattern. 2. Small to moderate bilateral lower lobar pneumonia, left more than right. 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 Cannot exclude other infectious and neoplastic processes. 4. Increased sclerosis of bilateral femoral heads may indicate avascular necrosis. Consider contrast MRI correlation. Abdomen X-Ray 01/24/17 00:00 IMPRESSION: Nasogastric tube tip and side port in the stomach. Persistent small bowel obstruction. Small Bowel X-Ray 01/24/17 00:00 IMPRESSION: Findings worrisome for small bowel obstruction. Nasogastric tube tip and side port in the stomach. At the conclusion of the study, a nasogastric tube was put back to suction. Interventional Vascular Procedure 01/25/17 00:00 IMPRESSION: SUCCESSFUL PLACEMENT OF A 5 FR DUAL LUMEN 35 CM PICC IN THE RIGHT BASILIC VEIN. PICC Line Insertion 01/25/17 00:00 IMPRESSION: SUCCESSFUL PLACEMENT OF A 5 FR DUAL LUMEN 35 CM PICC IN THE RIGHT BASILIC VEIN. Abdomen/Pelvis CT 01/30/17 00:00 IMPRESSION: Post resection of a short segment of distal small bowel. Anastomotic miles are present in the right lower quadrant without evidence of recurrent bowel obstruction. Probable ileus KUB X-Ray 02/01/17 07:00 IMPRESSION: Mild dilation and stacking of left paracentral jejunal small bowel may indicate ileus or J Josefina itis. Chest X-Ray 02/05/17 06:00 IMPRESSION: No significant interval change. Assessment & Plan - Diagnosis (1) Metabolic acidosis Is this a current diagnosis for this admission?: No (2) Paget's bone disease Is this a current diagnosis for this admission?: No (3) SBO (small bowel obstruction) Is this a current diagnosis for this admission?: No (4) Sepsis Qualifiers: Sepsis type: Escherichia coli Qualified Code(s): A41.51 - Sepsis due to Escherichia coli [E. coli] Is this a current diagnosis for this admission?: No (5) Dementia Qualifiers: Dementia type: unspecified type Dementia behavioral disturbance: without behavioral disturbance Qualified Code(s): F03.90 - Unspecified dementia without behavioral disturbance Is this a current diagnosis for this admission?: Yes - Time Critical Time spent with patient: 35 or more minutes - extubation 55 min
--- NOTE | 2017-02-05 11:39 | PDOC PROGRESS REPORT ---
Subjective Progress Note for:: 02/05/17 Subjective:: Patient was intubated at the time of my exam. Physical Exam Vital Signs: Temp Pulse Resp BP Pulse Ox 99.1 F 132 H 16 152/74 H 98 02/05/17 10:00 02/05/17 10:57 02/05/17 10:57 02/05/17 10:10 02/05/17 10:57 Intake & Output 02/04/17 02/05/17 02/06/17 06:59 06:59 06:59 Intake Total 321 1404 Output Total 1560 1365 200 Balance -1239 39 -200 Weight 35.2 kg 34.6 kg General appearance: PRESENT: no acute distress Eye exam: PRESENT: conjunctiva pink. ABSENT: scleral icterus Mouth exam: PRESENT: moist, tongue midline Neck exam: ABSENT: JVD Respiratory exam: PRESENT: clear to auscultation justin. ABSENT: rales, rhonchi, wheezes Cardiovascular exam: PRESENT: RRR, systolic murmur - 3/6 systolic murmur.. ABSENT: diastolic murmur, rubs GI/Abdominal exam: PRESENT: normal bowel sounds, soft, other - Surgical dressing in place. ABSENT: distended, guarding, mass, organolmegaly, rebound, tenderness Extremities exam: ABSENT: calf tenderness, clubbing, pedal edema Neurological exam: PRESENT: other - Patient was intubated. Psychiatric exam: PRESENT: other - Unable to assess Skin exam: PRESENT: dry, intact, warm. ABSENT: cyanosis, rash Results Laboratory Results: 02/04/17 08:17 02/04/17 08:17 02/05/17 02/05/17 05:00 10:25 Carbonic Acid 1.21 1.60 H HCO3/H2CO3 Ratio 23:1 17:1 ABG pH 7.46 H 7.33 L ABG pCO2 40.3 53.3 H ABG pO2 103.0 H 139.8 H ABG HCO3 28.0 H 27.7 H ABG O2 Saturation 98.0 98.6 H ABG Base Excess 3.8 1.0 FiO2 21% 30% 01/24/17 01/24/17 01/25/17 20:58 20:58 05:00 Creatine Kinase 28 L < 20 L CK-MB (CK-2) 0.86 Troponin I < 0.012 NT-Pro-B Natriuret Pep 3310 H 01/25/17 01/25/17 01/25/17 05:00 14:35 14:35 Creatine Kinase 74 CK-MB (CK-2) 1.22 1.70 Troponin I 0.044 0.050 NT-Pro-B Natriuret Pep Impressions: Limited or Localized CT 01/21/17 03:02 IMPRESSION: 1. Small bowel obstruction pattern. 2. Small to moderate bilateral lower lobar pneumonia, left more than right. 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 Cannot exclude other infectious and neoplastic processes. 4. Increased sclerosis of bilateral femoral heads may indicate avascular necrosis. Consider contrast MRI correlation. Abdomen X-Ray 01/24/17 00:00 IMPRESSION: Nasogastric tube tip and side port in the stomach. Persistent small bowel obstruction. Small Bowel X-Ray 01/24/17 00:00 IMPRESSION: Findings worrisome for small bowel obstruction. Nasogastric tube tip and side port in the stomach. At the conclusion of the study, a nasogastric tube was put back to suction. Interventional Vascular Procedure 01/25/17 00:00 IMPRESSION: SUCCESSFUL PLACEMENT OF A 5 FR DUAL LUMEN 35 CM PICC IN THE RIGHT BASILIC VEIN. PICC Line Insertion 01/25/17 00:00 IMPRESSION: SUCCESSFUL PLACEMENT OF A 5 FR DUAL LUMEN 35 CM PICC IN THE RIGHT BASILIC VEIN. Abdomen/Pelvis CT 01/30/17 00:00 IMPRESSION: Post resection of a short segment of distal small bowel. Anastomotic miles are present in the right lower quadrant without evidence of recurrent bowel obstruction. Probable ileus KUB X-Ray 02/01/17 07:00 IMPRESSION: Mild dilation and stacking of left paracentral jejunal small bowel may indicate ileus or J Josefina itis. Chest X-Ray 02/05/17 06:00 IMPRESSION: No significant interval change. Assessment & Plan - Diagnosis (1) Acute respiratory failure Qualifiers: Respiratory failure complication: unspecified whether with hypoxia or hypercapnia Qualified Code(s): J96.00 - Acute respiratory failure, unspecified whether with hypoxia or hypercapnia Is this a current diagnosis for this admission?: Yes Plan: Patient is slowly improving. Patient will try to be weaned off the ventilator today. (2) Sepsis Qualifiers: Sepsis type: Escherichia coli Qualified Code(s): A41.51 - Sepsis due to Escherichia coli [E. coli] Is this a current diagnosis for this admission?: Yes Plan: Patient has completed a course of antibiotics. (3) UTI (urinary tract infection) Qualifiers: Urinary tract infection type: site unspecified Is this a current diagnosis for this admission?: Yes Plan: Has completed a course of antibiotics. (4) Hyperbilirubinemia Is this a current diagnosis for this admission?: Yes Plan: Resolved. (5) Malnutrition of moderate degree Is this a current diagnosis for this admission?: Yes Plan: Continue with TPN until she is able to take oral. (6) Postoperative anemia due to acute blood loss Is this a current diagnosis for this admission?: Yes Plan: Hemoglobin remained stable. (7) SBO (small bowel obstruction) Is this a current diagnosis for this admission?: No Plan: Resolved. (8) Volume overload Qualifiers: Hypervolemia type: transfusion-associated Qualified Code(s): E87.71 - Transfusion associated circulatory overload Is this a current diagnosis for this admission?: Yes Plan: She has received Lasix previously. (9) Dementia Qualifiers: Dementia type: unspecified type Dementia behavioral disturbance: without behavioral disturbance Qualified Code(s): F03.90 - Unspecified dementia without behavioral disturbance Is this a current diagnosis for this admission?: Yes (10) Diabetes mellitus type 2 in nonobese Is this a current diagnosis for this admission?: Yes Plan: Cover with sliding scale insulin. - Time Time Spent with patient: 25-34 minutes - Inpatient Certification Medical Necessity: Need Close Monitoring Due to Risk of Patient Decompensation
[2017-02-05] MEDS: NORMAL SALINE 10 ML SDV (SCHEDULED) IV SCH ×2 (11:49→22:23)
[2017-02-05 13:42] LABS: HEMATOCRIT 30.8 % (36.0-47.0); HEMOGLOBIN 10.1 g/dL (12.0-15.5); HGB HCT DIFFERENCE -0.5; MEAN CORPUSCULAR HEMOGLOBIN 29.1 pg (27.0-33.4); MEAN CORPUSCULAR HGB CONC 32.6 g/dL (32.0-36.0); MEAN CORPUSCULAR VOLUME 89 fl (80-97); RED BLOOD COUNT 3.45 10^6/uL (3.72-5.28); RED CELL DISTRIBUTION WIDTH 16.7 % (11.5-14.0); WHITE BLOOD COUNT 11.4 10^3/uL (4.0-10.5)
[2017-02-05 13:44] LABS: ALANINE AMINOTRANSFERASE 119 U/L (9-52); ALBUMIN 2.7 g/dL (3.5-5.0); ALKALINE PHOSPHATASE 200 U/L (38-126); ANION GAP 6 (5-19); ASPARTATE AMINO TRANSFERASE 118 U/L (14-36); BILIRUBIN,DIRECT 0.4 mg/dL (0.0-0.4); BILIRUBIN,TOTAL 0.4 mg/dL (0.2-1.3); BLOOD UREA NITROGEN 38 mg/dL (7-20); CALCIUM 11.1 mg/dL (8.4-10.2); CARBON DIOXIDE 27 mmol/L (22-30); CHLORIDE 107 mmol/L (98-107); CREATININE RESULT 0.82 mg/dL (0.52-1.25); GLUCOSE 294 mg/dL (75-110); MAGNESIUM 2.6 mg/dL (1.6-2.3); POTASSIUM 5.2 mmol/L (3.6-5.0); SODIUM 139.5 mmol/L (137-145); TOTAL PROTEIN 5.6 g/dL (6.3-8.2)
[2017-02-05 13:58] LABS: BASOPHILS % (MANUAL) 0 % (0-2); EOSINOPHILS % (MANUAL) 0 % (0-6); LYMPHOCYTES % (MANUAL) 5 % (13-45); TOTAL CELLS COUNTED 100
[2017-02-05 14:00] LABS: ANISOCYTOSIS 1+; OVALOCYTES SLIGHT; POIKILOCYTOSIS SLIGHT; TOXIC GRANULATION SLIGHT
[2017-02-05 14:01] LABS: PLATELET CLUMPS PRESENT
--- NOTE | 2017-02-05 14:07 | PDOC PROGRESS REPORT ---
Subjective Progress Note for:: 02/05/17 Physical Exam Vital Signs: Temp Pulse Resp BP Pulse Ox 98.2 F 139 H 17 189/87 H 97 02/05/17 12:00 02/05/17 12:00 02/05/17 12:00 02/05/17 12:00 02/05/17 12:00 Intake & Output 02/04/17 02/05/17 02/06/17 06:59 06:59 06:59 Intake Total 321 1404 Output Total 1560 1365 300 Balance -1239 39 -300 Weight 35.2 kg 34.6 kg General appearance: PRESENT: no acute distress Respiratory exam: PRESENT: clear to auscultation justin Cardiovascular exam: PRESENT: RRR GI/Abdominal exam: PRESENT: normal bowel sounds, soft. ABSENT: guarding - Incision is clean/dry/intact. No serous leak whatsoever., tenderness Results Laboratory Results: 02/05/17 13:00 02/05/17 13:00 02/05/17 02/05/17 02/05/17 05:00 10:25 13:00 WBC 11.4 H RBC 3.45 L Hgb 10.1 L Hct 30.8 L MCV 89 MCH 29.1 MCHC 32.6 RDW 16.7 H Plt Count 332 Seg Neutrophils % Not Reportable Lymphocytes % Not Reportable Monocytes % Not Reportable Eosinophils % Not Reportable Basophils % Not Reportable Absolute Neutrophils Not Reportable Absolute Lymphocytes Not Reportable Absolute Monocytes Not Reportable Absolute Eosinophils Not Reportable Absolute Basophils Not Reportable Carbonic Acid 1.21 1.60 H HCO3/H2CO3 Ratio 23:1 17:1 ABG pH 7.46 H 7.33 L ABG pCO2 40.3 53.3 H ABG pO2 103.0 H 139.8 H ABG HCO3 28.0 H 27.7 H ABG O2 Saturation 98.0 98.6 H ABG Base Excess 3.8 1.0 FiO2 21% 30% Sodium Potassium Chloride Carbon Dioxide Anion Gap BUN Creatinine Est GFR ( Amer) Est GFR (Non-Af Amer) Glucose Calcium Magnesium Total Bilirubin AST ALT Alkaline Phosphatase Total Protein Albumin 02/05/17 13:00 WBC RBC Hgb Hct MCV MCH MCHC RDW Plt Count Seg Neutrophils % Lymphocytes % Monocytes % Eosinophils % Basophils % Absolute Neutrophils Absolute Lymphocytes Absolute Monocytes Absolute Eosinophils Absolute Basophils Carbonic Acid HCO3/H2CO3 Ratio ABG pH ABG pCO2 ABG pO2 ABG HCO3 ABG O2 Saturation ABG Base Excess FiO2 Sodium 139.5 Potassium 5.2 H Chloride 107 Carbon Dioxide 27 Anion Gap 6 BUN 38 H Creatinine 0.82 Est GFR ( Amer) > 60 Est GFR (Non-Af Amer) > 60 Glucose 294 H Calcium 11.1 H Magnesium 2.6 H Total Bilirubin 0.4 AST 118 H ALT 119 H Alkaline Phosphatase 200 H Total Protein 5.6 L Albumin 2.7 L 01/24/17 01/24/17 01/25/17 20:58 20:58 05:00 Creatine Kinase 28 L < 20 L CK-MB (CK-2) 0.86 Troponin I < 0.012 NT-Pro-B Natriuret Pep 3310 H 01/25/17 01/25/17 01/25/17 05:00 14:35 14:35 Creatine Kinase 74 CK-MB (CK-2) 1.22 1.70 Troponin I 0.044 0.050 NT-Pro-B Natriuret Pep 02/05/17 13:00 Creatine Kinase CK-MB (CK-2) Troponin I NT-Pro-B Natriuret Pep 537 H Impressions: Limited or Localized CT 01/21/17 03:02 IMPRESSION: 1. Small bowel obstruction pattern. 2. Small to moderate bilateral lower lobar pneumonia, left more than right. 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 Cannot exclude other infectious and neoplastic processes. 4. Increased sclerosis of bilateral femoral heads may indicate avascular necrosis. Consider contrast MRI correlation. Abdomen X-Ray 01/24/17 00:00 IMPRESSION: Nasogastric tube tip and side port in the stomach. Persistent small bowel obstruction. Small Bowel X-Ray 01/24/17 00:00 IMPRESSION: Findings worrisome for small bowel obstruction. Nasogastric tube tip and side port in the stomach. At the conclusion of the study, a nasogastric tube was put back to suction. Interventional Vascular Procedure 01/25/17 00:00 IMPRESSION: SUCCESSFUL PLACEMENT OF A 5 FR DUAL LUMEN 35 CM PICC IN THE RIGHT BASILIC VEIN. PICC Line Insertion 01/25/17 00:00 IMPRESSION: SUCCESSFUL PLACEMENT OF A 5 FR DUAL LUMEN 35 CM PICC IN THE RIGHT BASILIC VEIN. Abdomen/Pelvis CT 01/30/17 00:00 IMPRESSION: Post resection of a short segment of distal small bowel. Anastomotic miles are present in the right lower quadrant without evidence of recurrent bowel obstruction. Probable ileus KUB X-Ray 02/01/17 07:00 IMPRESSION: Mild dilation and stacking of left paracentral jejunal small bowel may indicate ileus or J Josefina itis. Chest X-Ray 02/05/17 06:00 IMPRESSION: No significant interval change. Assessment & Plan - Diagnosis (1) SBO (small bowel obstruction) Is this a current diagnosis for this admission?: No - Plan Summary Plan Summary: His albumin is now 2.7 and she is doing quite well. Patient will be extubated today.Patient is now DNR.
[2017-02-05] MEDS ORDERED: DILTIAZEM HCL/D5W 125 MG/125 ML RTUINJ IV PRN (14:30)
[2017-02-05] MEDS ORDERED: DILTIAZEM HCL/D5W 125 MG/125 ML RTUINJ IV ONE (14:32)
[2017-02-05] MEDS ORDERED: DILTIAZEM HCL INJ 25 MG/5 ML VIAL ONE (14:32)
[2017-02-05] MEDS ORDERED: DEXAMETHASONE SOD PHOSPHATE INJ 4 MG/1 ML VIAL IV ONE (15:00)
[2017-02-05] MEDS ORDERED: DILTIAZEM HCL INJ 25 MG/5 ML VIAL IV ONE (15:00)
[2017-02-05 16:37] LABS: ARTERIAL BLOOD BASE EXCESS -6.4 mmol/L; ARTERIAL BLOOD O2 SATURATION 98.2 % (94-98)
--- NOTE | 2017-02-05 16:40 | RADIOLOGY REPORT (SQ) ---
EXAM DESCRIPTION: CHEST SINGLE VIEW COMPLETED DATE/TIME: 02/05/2017 4:30 pm REASON FOR STUDY: resp failure COMPARISON: Chest films 01/28/2017, 02/02/2017, 02/03/2017, 02/04/2017, 02/05/2017 EXAM PARAMETERS: NUMBER OF VIEWS: One view. TECHNIQUE: Single frontal radiographic view of the chest acquired. RADIATION DOSE: NA LIMITATIONS: None. FINDINGS: The endotracheal tube has been removed. Nasogastric tube tip and side port in the stomach. Right-sided PICC line tip superior vena cava. LUNGS AND PLEURA: Minimal left retrocardiac atelectasis. No fluffy alveolar infiltrates worrisome fo r edema or pneumonia. MEDIASTINUM AND HILAR STRUCTURES: No masses. Contour normal. HEART AND VASCULAR STRUCTURES: Heart normal in size. Normal vasculature. BONES: No acute findings. HARDWARE: As above OTHER: No other significant finding. IMPRESSION: Minimal left retrocardiac atelectasis, stable. Endotracheal tube removed. Otherwise no change. TECHNICAL DOCUMENTATION: JOB ID: [id number]
[2017-02-05] MEDS ORDERED: PROPOFOL INJ 200 MG/20 ML VIAL IV ONE (17:53)
[2017-02-05] MEDS ORDERED: PHARMACY COMMUNICATION ORDER MC NR (18:00)
--- NOTE | 2017-02-05 18:01 | RADIOLOGY REPORT (SQ) ---
EXAM DESCRIPTION: CHEST SINGLE VIEW COMPLETED DATE/TIME: 02/05/2017 5:53 pm REASON FOR STUDY: intubation COMPARISON: 02/05/2017 EXAM PARAMETERS: NUMBER OF VIEWS: One view. TECHNIQUE: Single frontal radiographic view of the chest acquired. RADIATION DOSE: NA LIMITATIONS: None. FINDINGS: LUNGS AND PLEURA: No opacities, masses or pneumothorax. No pleural effusion. MEDIASTINUM AND HILAR STRUCTURES: No masses. Contour normal. HEART AND VASCULAR STRUCTURES: Heart normal in size. Normal vasculature. BONES: No acute findings. HARDWARE: An endotracheal tube has its tip 3 or 4 cm above the tatiana. A PICC line is present on the right with the tip in the superior vena cava. An NG tube extends to the stomach. OTHER: No other significant finding. IMPRESSION: No acute pulmonary disease. Findings as described. TECHNICAL DOCUMENTATION: JOB ID: [id number]
[2017-02-05] MEDS ORDERED: DEXTROSE 40% GEL 15 GM TUBE NG PRN (18:30)
[2017-02-05] MEDS ORDERED: DEXTROSE 40% GEL 15 GM TUBE X 2 NG PRN (18:30)
[2017-02-05 18:38] LABS: ARTERIAL BLOOD BASE EXCESS 1.2 mmol/L; ARTERIAL BLOOD O2 SATURATION 95.4 % (94-98)
[2017-02-05 19:12] LABS: CREATINE KINASE MB 2.6 ng/mL (<4.55); TROPONIN I 0.081 ng/mL
[2017-02-05] MEDS: BUDESONIDE NEB 0.5 MG/2 ML AMPUL NEB SCH (20:47)
[2017-02-06] MEDS: LEVALBUTEROL HCL NEB 1.25 MG/3 ML AMPUL NEB SCH ×3 (00:27→08:04)
[2017-02-06] MEDS: INSULIN LISPRO 100 UNIT/ML 3 ML VIAL SUBCUT PRN ×2 (00:50→06:55)
[2017-02-06] MEDS: METOCLOPRAMIDE HCL INJ/PF 10 MG/2 ML SDV IV SCH (06:13)
[2017-02-06 06:21] LABS: ARTERIAL BLOOD BASE EXCESS 3.1 mmol/L; ARTERIAL BLOOD O2 SATURATION 97.7 % (94-98)
[2017-02-06 06:37] LABS: ALANINE AMINOTRANSFERASE 124 U/L (9-52); ALBUMIN 2.3 g/dL (3.5-5.0); ALKALINE PHOSPHATASE 137 U/L (38-126); ANION GAP 5 (5-19); ASPARTATE AMINO TRANSFERASE 109 U/L (14-36); BILIRUBIN,DIRECT 0.3 mg/dL (0.0-0.4); BILIRUBIN,TOTAL 0.3 mg/dL (0.2-1.3); BLOOD UREA NITROGEN 54 mg/dL (7-20); CARBON DIOXIDE 27 mmol/L (22-30); CHLORIDE 107 mmol/L (98-107); CREATININE RESULT 0.97 mg/dL (0.52-1.25); GLUCOSE 239 mg/dL (75-110); MAGNESIUM 2.7 mg/dL (1.6-2.3); POTASSIUM 5.3 mmol/L (3.6-5.0); SODIUM 138.9 mmol/L (137-145); TOTAL PROTEIN 4.8 g/dL (6.3-8.2)
[2017-02-06 06:39] LABS: HEMATOCRIT 24.7 % (36.0-47.0); HEMOGLOBIN 8.3 g/dL (12.0-15.5); HGB HCT DIFFERENCE 0.2; MEAN CORPUSCULAR HEMOGLOBIN 29.5 pg (27.0-33.4); MEAN CORPUSCULAR HGB CONC 33.5 g/dL (32.0-36.0); MEAN CORPUSCULAR VOLUME 88 fl (80-97); RED CELL DISTRIBUTION WIDTH 16.4 % (11.5-14.0)
[2017-02-06] MEDS: PROPOFOL 100 ML IV PRN (06:55)
[2017-02-06 07:25] LABS: BASOPHILS % (MANUAL) 0 % (0-2); EOSINOPHILS % (MANUAL) 0 % (0-6); LYMPHOCYTES % (MANUAL) 4 % (13-45); TOTAL CELLS COUNTED 100
--- NOTE | 2017-02-06 07:27 | RADIOLOGY REPORT (SQ) ---
EXAM DESCRIPTION: CHEST SINGLE VIEW COMPLETED DATE/TIME: 02/06/2017 6:01 am REASON FOR STUDY: Mechanical ventilation COMPARISON: 02/05/2017. EXAM PARAMETERS: NUMBER OF VIEWS: One view. TECHNIQUE: Single frontal radiographic view of the chest acquired. RADIATION DOSE: NA LIMITATIONS: Rotated. FINDINGS: LUNGS AND PLEURA: Pulmonary vascular congestion. MEDIASTINUM AND HILAR STRUCTURES: No masses. Contour normal. HEART AND VASCULAR STRUCTURES: Heart normal in size. Normal vasculature. BONES: No acute findings. HARDWARE: Adequate appearing endotracheal and nasogastric tubes. Tip of a right subclavian PICC line at the right atrium ; consider 5.5 cm retraction. OTHER: Moderate gaseous bowel distention. IMPRESSION: No significant interval change. TECHNICAL DOCUMENTATION: JOB ID: [id number]
[2017-02-06 07:29] LABS: ANISOCYTOSIS 1+; POLYCHROMASIA SLIGHT
[2017-02-06] MEDS: BUDESONIDE NEB 0.5 MG/2 ML AMPUL NEB SCH (08:04)
--- NOTE | 2017-02-06 09:50 | PDOC PROGRESS REPORT ---
Subjective Progress Note for:: 02/06/17 Subjective:: Intubated ,unresponsive Physical Exam Vital Signs: Temp Pulse Resp BP Pulse Ox 98.6 F 93 14 140/52 H 100 02/06/17 07:53 02/06/17 07:53 02/06/17 07:53 02/06/17 07:53 02/06/17 07:53 Intake & Output 02/05/17 02/06/17 02/07/17 06:59 06:59 06:59 Intake Total 1404 1443 Output Total 1365 870 20 Balance 39 573 -20 Weight 34.6 kg 34.5 kg General appearance: PRESENT: disheveled, thin, well-developed Head exam: PRESENT: atraumatic, normocephalic Eye exam: PRESENT: conjunctiva pale Mouth exam: PRESENT: dry mucosa, neck supple, tongue midline, other - #6 ET tube Neck exam: ABSENT: carotid bruit, JVD, lymphadenopathy, thyromegaly Respiratory exam: PRESENT: decreased breath sounds, rhonchi, symmetrical, unlabored Cardiovascular exam: PRESENT: RRR, +S1, +S2 Pulses: PRESENT: normal radial pulses GI/Abdominal exam: PRESENT: diminished bowel sounds, soft Rectal exam: PRESENT: deferred Gentrourinary exam: PRESENT: indwelling catheter Musculoskeletal exam: PRESENT: normal inspection Skin exam: PRESENT: dry, warm Results Laboratory Results: 02/06/17 06:10 02/06/17 06:10 02/05/17 02/05/17 02/05/17 10:25 13:00 13:00 WBC 11.4 H RBC 3.45 L Hgb 10.1 L Hct 30.8 L MCV 89 MCH 29.1 MCHC 32.6 RDW 16.7 H Plt Count 332 Seg Neutrophils % Not Reportable Lymphocytes % Not Reportable Monocytes % Not Reportable Eosinophils % Not Reportable Basophils % Not Reportable Absolute Neutrophils Not Reportable Absolute Lymphocytes Not Reportable Absolute Monocytes Not Reportable Absolute Eosinophils Not Reportable Absolute Basophils Not Reportable Carbonic Acid 1.60 H HCO3/H2CO3 Ratio 17:1 ABG pH 7.33 L ABG pCO2 53.3 H ABG pO2 139.8 H ABG HCO3 27.7 H ABG O2 Saturation 98.6 H ABG Base Excess 1.0 FiO2 30% Sodium 139.5 Potassium 5.2 H Chloride 107 Carbon Dioxide 27 Anion Gap 6 BUN 38 H Creatinine 0.82 Est GFR ( Amer) > 60 Est GFR (Non-Af Amer) > 60 Glucose 294 H Calcium 11.1 H Magnesium 2.6 H Total Bilirubin 0.4 AST 118 H ALT 119 H Alkaline Phosphatase 200 H Total Protein 5.6 L Albumin 2.7 L 02/05/17 02/05/17 02/06/17 16:25 18:29 06:10 WBC RBC Hgb Hct MCV MCH MCHC RDW Plt Count Seg Neutrophils % Lymphocytes % Monocytes % Eosinophils % Basophils % Absolute Neutrophils Absolute Lymphocytes Absolute Monocytes Absolute Eosinophils Absolute Basophils Carbonic Acid 3.17 H 1.42 H 1.26 HCO3/H2CO3 Ratio 8:1 18:1 21:1 ABG pH 7.01 L* 7.37 7.44 ABG pCO2 105.4 H* 47.3 H 41.9 ABG pO2 172.9 H 80.0 100.5 H ABG HCO3 26.2 H 26.8 H 27.6 H ABG O2 Saturation 98.2 H 95.4 97.7 ABG Base Excess -6.4 1.2 3.1 FiO2 3L 21% 21% Sodium Potassium Chloride Carbon Dioxide Anion Gap BUN Creatinine Est GFR ( Amer) Est GFR (Non-Af Amer) Glucose Calcium Magnesium Total Bilirubin AST ALT Alkaline Phosphatase Total Protein Albumin 02/06/17 02/06/17 06:10 06:10 WBC 8.0 RBC 2.80 L Hgb 8.3 L Hct 24.7 L MCV 88 MCH 29.5 MCHC 33.5 RDW 16.4 H Plt Count 249 Seg Neutrophils % Not Reportable Lymphocytes % Not Reportable Monocytes % Not Reportable Eosinophils % Not Reportable Basophils % Not Reportable Absolute Neutrophils Not Reportable Absolute Lymphocytes Not Reportable Absolute Monocytes Not Reportable Absolute Eosinophils Not Reportable Absolute Basophils Not Reportable Carbonic Acid HCO3/H2CO3 Ratio ABG pH ABG pCO2 ABG pO2 ABG HCO3 ABG O2 Saturation ABG Base Excess FiO2 Sodium 138.9 Potassium 5.3 H Chloride 107 Carbon Dioxide 27 Anion Gap 5 BUN 54 H Creatinine 0.97 Est GFR ( Amer) > 60 Est GFR (Non-Af Amer) 56 L Glucose 239 H Calcium 11.0 H Magnesium 2.7 H Total Bilirubin 0.3 AST 109 H ALT 124 H Alkaline Phosphatase 137 H Total Protein 4.8 L Albumin 2.3 L 01/24/17 01/24/17 01/25/17 20:58 20:58 05:00 Creatine Kinase 28 L < 20 L CK-MB (CK-2) 0.86 Troponin I < 0.012 NT-Pro-B Natriuret Pep 3310 H 01/25/17 01/25/17 01/25/17 05:00 14:35 14:35 Creatine Kinase 74 CK-MB (CK-2) 1.22 1.70 Troponin I 0.044 0.050 NT-Pro-B Natriuret Pep 02/05/17 02/05/17 02/05/17 13:00 18:00 18:00 Creatine Kinase < 20 L CK-MB (CK-2) 2.60 Troponin I 0.081 NT-Pro-B Natriuret Pep 537 H Impressions: Limited or Localized CT 01/21/17 03:02 IMPRESSION: 1. Small bowel obstruction pattern. 2. Small to moderate bilateral lower lobar pneumonia, left more than right. 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 Cannot exclude other infectious and neoplastic processes. 4. Increased sclerosis of bilateral femoral heads may indicate avascular necrosis. Consider contrast MRI correlation. Abdomen X-Ray 01/24/17 00:00 IMPRESSION: Nasogastric tube tip and side port in the stomach. Persistent small bowel obstruction. Small Bowel X-Ray 01/24/17 00:00 IMPRESSION: Findings worrisome for small bowel obstruction. Nasogastric tube tip and side port in the stomach. At the conclusion of the study, a nasogastric tube was put back to suction. Interventional Vascular Procedure 01/25/17 00:00 IMPRESSION: SUCCESSFUL PLACEMENT OF A 5 FR DUAL LUMEN 35 CM PICC IN THE RIGHT BASILIC VEIN. PICC Line Insertion 01/25/17 00:00 IMPRESSION: SUCCESSFUL PLACEMENT OF A 5 FR DUAL LUMEN 35 CM PICC IN THE RIGHT BASILIC VEIN. Abdomen/Pelvis CT 01/30/17 00:00 IMPRESSION: Post resection of a short segment of distal small bowel. Anastomotic miles are present in the right lower quadrant without evidence of recurrent bowel obstruction. Probable ileus KUB X-Ray 02/01/17 07:00 IMPRESSION: Mild dilation and stacking of left paracentral jejunal small bowel may indicate ileus or J Josefina itis. Chest X-Ray 02/06/17 06:00 IMPRESSION: No significant interval change. Assessment & Plan - Diagnosis (1) Metabolic acidosis Is this a current diagnosis for this admission?: No (2) Paget's bone disease Is this a current diagnosis for this admission?: No (3) SBO (small bowel obstruction) Is this a current diagnosis for this admission?: No (4) Sepsis Qualifiers: Sepsis type: Escherichia coli Qualified Code(s): A41.51 - Sepsis due to Escherichia coli [E. coli] Is this a current diagnosis for this admission?: Yes (5) Dementia Qualifiers: Dementia type: unspecified type Dementia behavioral disturbance: without behavioral disturbance Qualified Code(s): F03.90 - Unspecified dementia without behavioral disturbance Is this a current diagnosis for this admission?: Yes - Time Critical Time spent with patient: 35 or more minutes - 60 min - Plan Summary Plan Summary: patient 's RN and PCP were informed "patient to be made comfort care" per her daughter.I concur with this course of action.
[2017-02-06] MEDS ORDERED: INSULIN GLARGINE,HUM.REC.ANLOG 300 UNIT/3 ML INSULN.PEN SUBCUT SCH (10:00)
[2017-02-06] MEDS: MORPHINE SULFATE 10 MG/ML INJ IV PRN ×3 (10:19→22:55)
--- NOTE | 2017-02-06 10:19 | PDOC PROGRESS REPORT ---
Subjective Progress Note for:: 02/06/17 Subjective:: Patient was extubated yesterday however required reintubation because of CO2 retention. Physical Exam Vital Signs: Temp Pulse Resp BP Pulse Ox 98.4 F 101 H 12 140/47 H 99 02/06/17 08:40 02/06/17 08:04 02/06/17 08:40 02/06/17 08:40 02/06/17 08:40 Intake & Output 02/05/17 02/06/17 02/07/17 06:59 06:59 06:59 Intake Total 1404 1443 Output Total 1365 870 20 Balance 39 573 -20 Weight 34.6 kg 34.5 kg General appearance: PRESENT: no acute distress Eye exam: PRESENT: conjunctiva pink. ABSENT: scleral icterus Mouth exam: PRESENT: moist, tongue midline Neck exam: ABSENT: JVD Respiratory exam: PRESENT: clear to auscultation justin. ABSENT: rales, rhonchi, wheezes Cardiovascular exam: PRESENT: RRR, systolic murmur. ABSENT: diastolic murmur, rubs GI/Abdominal exam: PRESENT: normal bowel sounds, soft, other - Surgical dressing in place. ABSENT: distended, guarding, mass, organolmegaly, rebound, tenderness Extremities exam: ABSENT: calf tenderness, clubbing, pedal edema Neurological exam: PRESENT: other - Sedated at the time of my exam Psychiatric exam: PRESENT: other - Unable to assess Skin exam: PRESENT: dry, intact, warm. ABSENT: cyanosis, rash Results Laboratory Results: 02/06/17 06:10 02/06/17 06:10 02/05/17 02/05/17 02/05/17 10:25 13:00 13:00 WBC 11.4 H RBC 3.45 L Hgb 10.1 L Hct 30.8 L MCV 89 MCH 29.1 MCHC 32.6 RDW 16.7 H Plt Count 332 Seg Neutrophils % Not Reportable Lymphocytes % Not Reportable Monocytes % Not Reportable Eosinophils % Not Reportable Basophils % Not Reportable Absolute Neutrophils Not Reportable Absolute Lymphocytes Not Reportable Absolute Monocytes Not Reportable Absolute Eosinophils Not Reportable Absolute Basophils Not Reportable Carbonic Acid 1.60 H HCO3/H2CO3 Ratio 17:1 ABG pH 7.33 L ABG pCO2 53.3 H ABG pO2 139.8 H ABG HCO3 27.7 H ABG O2 Saturation 98.6 H ABG Base Excess 1.0 FiO2 30% Sodium 139.5 Potassium 5.2 H Chloride 107 Carbon Dioxide 27 Anion Gap 6 BUN 38 H Creatinine 0.82 Est GFR ( Amer) > 60 Est GFR (Non-Af Amer) > 60 Glucose 294 H Calcium 11.1 H Magnesium 2.6 H Total Bilirubin 0.4 AST 118 H ALT 119 H Alkaline Phosphatase 200 H Total Protein 5.6 L Albumin 2.7 L 02/05/17 02/05/17 02/06/17 16:25 18:29 06:10 WBC RBC Hgb Hct MCV MCH MCHC RDW Plt Count Seg Neutrophils % Lymphocytes % Monocytes % Eosinophils % Basophils % Absolute Neutrophils Absolute Lymphocytes Absolute Monocytes Absolute Eosinophils Absolute Basophils Carbonic Acid 3.17 H 1.42 H 1.26 HCO3/H2CO3 Ratio 8:1 18:1 21:1 ABG pH 7.01 L* 7.37 7.44 ABG pCO2 105.4 H* 47.3 H 41.9 ABG pO2 172.9 H 80.0 100.5 H ABG HCO3 26.2 H 26.8 H 27.6 H ABG O2 Saturation 98.2 H 95.4 97.7 ABG Base Excess -6.4 1.2 3.1 FiO2 3L 21% 21% Sodium Potassium Chloride Carbon Dioxide Anion Gap BUN Creatinine Est GFR ( Amer) Est GFR (Non-Af Amer) Glucose Calcium Magnesium Total Bilirubin AST ALT Alkaline Phosphatase Total Protein Albumin 02/06/17 02/06/17 06:10 06:10 WBC 8.0 RBC 2.80 L Hgb 8.3 L Hct 24.7 L MCV 88 MCH 29.5 MCHC 33.5 RDW 16.4 H Plt Count 249 Seg Neutrophils % Not Reportable Lymphocytes % Not Reportable Monocytes % Not Reportable Eosinophils % Not Reportable Basophils % Not Reportable Absolute Neutrophils Not Reportable Absolute Lymphocytes Not Reportable Absolute Monocytes Not Reportable Absolute Eosinophils Not Reportable Absolute Basophils Not Reportable Carbonic Acid HCO3/H2CO3 Ratio ABG pH ABG pCO2 ABG pO2 ABG HCO3 ABG O2 Saturation ABG Base Excess FiO2 Sodium 138.9 Potassium 5.3 H Chloride 107 Carbon Dioxide 27 Anion Gap 5 BUN 54 H Creatinine 0.97 Est GFR ( Amer) > 60 Est GFR (Non-Af Amer) 56 L Glucose 239 H Calcium 11.0 H Magnesium 2.7 H Total Bilirubin 0.3 AST 109 H ALT 124 H Alkaline Phosphatase 137 H Total Protein 4.8 L Albumin 2.3 L 01/24/17 01/24/17 01/25/17 20:58 20:58 05:00 Creatine Kinase 28 L < 20 L CK-MB (CK-2) 0.86 Troponin I < 0.012 NT-Pro-B Natriuret Pep 3310 H 01/25/17 01/25/17 01/25/17 05:00 14:35 14:35 Creatine Kinase 74 CK-MB (CK-2) 1.22 1.70 Troponin I 0.044 0.050 NT-Pro-B Natriuret Pep 02/05/17 02/05/17 02/05/17 13:00 18:00 18:00 Creatine Kinase < 20 L CK-MB (CK-2) 2.60 Troponin I 0.081 NT-Pro-B Natriuret Pep 537 H Impressions: Limited or Localized CT 01/21/17 03:02 IMPRESSION: 1. Small bowel obstruction pattern. 2. Small to moderate bilateral lower lobar pneumonia, left more than right. 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 Cannot exclude other infectious and neoplastic processes. 4. Increased sclerosis of bilateral femoral heads may indicate avascular necrosis. Consider contrast MRI correlation. Abdomen X-Ray 01/24/17 00:00 IMPRESSION: Nasogastric tube tip and side port in the stomach. Persistent small bowel obstruction. Small Bowel X-Ray 01/24/17 00:00 IMPRESSION: Findings worrisome for small bowel obstruction. Nasogastric tube tip and side port in the stomach. At the conclusion of the study, a nasogastric tube was put back to suction. Interventional Vascular Procedure 01/25/17 00:00 IMPRESSION: SUCCESSFUL PLACEMENT OF A 5 FR DUAL LUMEN 35 CM PICC IN THE RIGHT BASILIC VEIN. PICC Line Insertion 01/25/17 00:00 IMPRESSION: SUCCESSFUL PLACEMENT OF A 5 FR DUAL LUMEN 35 CM PICC IN THE RIGHT BASILIC VEIN. Abdomen/Pelvis CT 01/30/17 00:00 IMPRESSION: Post resection of a short segment of distal small bowel. Anastomotic miles are present in the right lower quadrant without evidence of recurrent bowel obstruction. Probable ileus KUB X-Ray 02/01/17 07:00 IMPRESSION: Mild dilation and stacking of left paracentral jejunal small bowel may indicate ileus or J Josefina itis. Chest X-Ray 02/06/17 06:00 IMPRESSION: No significant interval change. Assessment & Plan - Diagnosis (1) Acute respiratory failure Qualifiers: Respiratory failure complication: unspecified whether with hypoxia or hypercapnia Qualified Code(s): J96.00 - Acute respiratory failure, unspecified whether with hypoxia or hypercapnia Is this a current diagnosis for this admission?: Yes Plan: Yesterday the patient was extubated however required reintubation secondary to her CO2 retention. The family today has agreed to comfort care and we will extubate later today. (2) Sepsis Qualifiers: Sepsis type: Escherichia coli Qualified Code(s): A41.51 - Sepsis due to Escherichia coli [E. coli] Is this a current diagnosis for this admission?: Yes Plan: Patient has completed a course of antibiotics. (3) UTI (urinary tract infection) Qualifiers: Urinary tract infection type: site unspecified Is this a current diagnosis for this admission?: Yes Plan: Has completed a course of antibiotics. (4) Hyperbilirubinemia Is this a current diagnosis for this admission?: Yes Plan: Resolved. (5) Malnutrition of moderate degree Is this a current diagnosis for this admission?: Yes Plan: We will stop the TPN as she is now comfort care. (6) Postoperative anemia due to acute blood loss Is this a current diagnosis for this admission?: Yes Plan: Hemoglobin remained stable. (7) SBO (small bowel obstruction) Is this a current diagnosis for this admission?: No Plan: Resolved. (8) Volume overload Qualifiers: Hypervolemia type: transfusion-associated Qualified Code(s): E87.71 - Transfusion associated circulatory overload Is this a current diagnosis for this admission?: Yes Plan: Currently euvolemic (9) Dementia Qualifiers: Dementia type: unspecified type Dementia behavioral disturbance: without behavioral disturbance Qualified Code(s): F03.90 - Unspecified dementia without behavioral disturbance Is this a current diagnosis for this admission?: Yes (10) Diabetes mellitus type 2 in nonobese Is this a current diagnosis for this admission?: Yes Plan: Cover with sliding scale insulin. - Time Time Spent with patient: 25-34 minutes - Inpatient Certification Medical Necessity: Need Close Monitoring Due to Risk of Patient Decompensation - Plan Summary Plan Summary: Patient is to be made a comfort care. Will extubate later today.
[2017-02-06] MEDS: NORMAL SALINE 10 ML SDV (SCHEDULED) IV SCH (10:44)
--- NOTE | 2017-02-06 11:48 | EKG REPORT ---
SEVERITY:- ABNORMAL ECG - SINUS RHYTHM PROBABLE LEFT VENTRICULAR HYPERTROPHY ST ELEVATION, CONSIDER ANTERIOR INJURY VS LVH RELATED : Confirmed by: Chan Ruth 06-Feb-2017 11:47:09
--- NOTE | 2017-02-06 12:50 | PDOC PROGRESS REPORT ---
Subjective Progress Note for:: 02/06/17 Physical Exam Vital Signs: Temp Pulse Resp BP Pulse Ox 98.4 F 101 H 12 139/50 H 99 02/06/17 10:01 02/06/17 08:04 02/06/17 10:01 02/06/17 09:55 02/06/17 10:01 Intake & Output 02/05/17 02/06/17 02/07/17 06:59 06:59 06:59 Intake Total 1404 1443 Output Total 1365 870 20 Balance 39 573 -20 Weight 34.6 kg 34.5 kg General appearance: PRESENT: no acute distress - Pt. reintubated, well-developed , well-nourished Results Laboratory Results: 02/06/17 06:10 02/06/17 06:10 02/05/17 02/05/17 02/05/17 13:00 13:00 16:25 WBC 11.4 H RBC 3.45 L Hgb 10.1 L Hct 30.8 L MCV 89 MCH 29.1 MCHC 32.6 RDW 16.7 H Plt Count 332 Seg Neutrophils % Not Reportable Lymphocytes % Not Reportable Monocytes % Not Reportable Eosinophils % Not Reportable Basophils % Not Reportable Absolute Neutrophils Not Reportable Absolute Lymphocytes Not Reportable Absolute Monocytes Not Reportable Absolute Eosinophils Not Reportable Absolute Basophils Not Reportable Carbonic Acid 3.17 H HCO3/H2CO3 Ratio 8:1 ABG pH 7.01 L* ABG pCO2 105.4 H* ABG pO2 172.9 H ABG HCO3 26.2 H ABG O2 Saturation 98.2 H ABG Base Excess -6.4 FiO2 3L Sodium 139.5 Potassium 5.2 H Chloride 107 Carbon Dioxide 27 Anion Gap 6 BUN 38 H Creatinine 0.82 Est GFR ( Amer) > 60 Est GFR (Non-Af Amer) > 60 Glucose 294 H Calcium 11.1 H Magnesium 2.6 H Total Bilirubin 0.4 AST 118 H ALT 119 H Alkaline Phosphatase 200 H Total Protein 5.6 L Albumin 2.7 L 02/05/17 02/06/17 02/06/17 18:29 06:10 06:10 WBC 8.0 RBC 2.80 L Hgb 8.3 L Hct 24.7 L MCV 88 MCH 29.5 MCHC 33.5 RDW 16.4 H Plt Count 249 Seg Neutrophils % Not Reportable Lymphocytes % Not Reportable Monocytes % Not Reportable Eosinophils % Not Reportable Basophils % Not Reportable Absolute Neutrophils Not Reportable Absolute Lymphocytes Not Reportable Absolute Monocytes Not Reportable Absolute Eosinophils Not Reportable Absolute Basophils Not Reportable Carbonic Acid 1.42 H 1.26 HCO3/H2CO3 Ratio 18:1 21:1 ABG pH 7.37 7.44 ABG pCO2 47.3 H 41.9 ABG pO2 80.0 100.5 H ABG HCO3 26.8 H 27.6 H ABG O2 Saturation 95.4 97.7 ABG Base Excess 1.2 3.1 FiO2 21% 21% Sodium Potassium Chloride Carbon Dioxide Anion Gap BUN Creatinine Est GFR ( Amer) Est GFR (Non-Af Amer) Glucose Calcium Magnesium Total Bilirubin AST ALT Alkaline Phosphatase Total Protein Albumin 02/06/17 06:10 WBC RBC Hgb Hct MCV MCH MCHC RDW Plt Count Seg Neutrophils % Lymphocytes % Monocytes % Eosinophils % Basophils % Absolute Neutrophils Absolute Lymphocytes Absolute Monocytes Absolute Eosinophils Absolute Basophils Carbonic Acid HCO3/H2CO3 Ratio ABG pH ABG pCO2 ABG pO2 ABG HCO3 ABG O2 Saturation ABG Base Excess FiO2 Sodium 138.9 Potassium 5.3 H Chloride 107 Carbon Dioxide 27 Anion Gap 5 BUN 54 H Creatinine 0.97 Est GFR ( Amer) > 60 Est GFR (Non-Af Amer) 56 L Glucose 239 H Calcium 11.0 H Magnesium 2.7 H Total Bilirubin 0.3 AST 109 H ALT 124 H Alkaline Phosphatase 137 H Total Protein 4.8 L Albumin 2.3 L 01/24/17 01/24/17 01/25/17 20:58 20:58 05:00 Creatine Kinase 28 L < 20 L CK-MB (CK-2) 0.86 Troponin I < 0.012 NT-Pro-B Natriuret Pep 3310 H 01/25/17 01/25/17 01/25/17 05:00 14:35 14:35 Creatine Kinase 74 CK-MB (CK-2) 1.22 1.70 Troponin I 0.044 0.050 NT-Pro-B Natriuret Pep 02/05/17 02/05/17 02/05/17 13:00 18:00 18:00 Creatine Kinase < 20 L CK-MB (CK-2) 2.60 Troponin I 0.081 NT-Pro-B Natriuret Pep 537 H Impressions: Limited or Localized CT 01/21/17 03:02 IMPRESSION: 1. Small bowel obstruction pattern. 2. Small to moderate bilateral lower lobar pneumonia, left more than right. 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 Cannot exclude other infectious and neoplastic processes. 4. Increased sclerosis of bilateral femoral heads may indicate avascular necrosis. Consider contrast MRI correlation. Abdomen X-Ray 01/24/17 00:00 IMPRESSION: Nasogastric tube tip and side port in the stomach. Persistent small bowel obstruction. Small Bowel X-Ray 01/24/17 00:00 IMPRESSION: Findings worrisome for small bowel obstruction. Nasogastric tube tip and side port in the stomach. At the conclusion of the study, a nasogastric tube was put back to suction. Interventional Vascular Procedure 01/25/17 00:00 IMPRESSION: SUCCESSFUL PLACEMENT OF A 5 FR DUAL LUMEN 35 CM PICC IN THE RIGHT BASILIC VEIN. PICC Line Insertion 01/25/17 00:00 IMPRESSION: SUCCESSFUL PLACEMENT OF A 5 FR DUAL LUMEN 35 CM PICC IN THE RIGHT BASILIC VEIN. Abdomen/Pelvis CT 01/30/17 00:00 IMPRESSION: Post resection of a short segment of distal small bowel. Anastomotic miles are present in the right lower quadrant without evidence of recurrent bowel obstruction. Probable ileus KUB X-Ray 02/01/17 07:00 IMPRESSION: Mild dilation and stacking of left paracentral jejunal small bowel may indicate ileus or J Josefina itis. Chest X-Ray 02/06/17 06:00 IMPRESSION: No significant interval change. Assessment & Plan - Diagnosis (1) SBO (small bowel obstruction) Is this a current diagnosis for this admission?: No - Plan Summary Plan Summary: Family has decided on comfort care only.
[2017-02-07] MEDS: MORPHINE SULFATE 10 MG/ML INJ IV PRN ×2 (06:24→20:39)
--- NOTE | 2017-02-07 08:10 | PDOC PROGRESS REPORT ---
Subjective Progress Note for:: 02/07/17 Subjective:: awake and responsive Physical Exam Vital Signs: Temp Pulse Resp BP Pulse Ox 96.3 F L 75 9 L 139/50 H 100 02/06/17 18:30 02/06/17 20:00 02/06/17 19:30 02/06/17 09:55 02/06/17 19:30 Intake & Output 02/06/17 02/07/17 02/08/17 06:59 06:59 06:59 Intake Total 1443 Output Total 870 20 Balance 573 -20 Weight 34.5 kg General appearance: PRESENT: no acute distress, cooperative, disheveled, thin Head exam: PRESENT: atraumatic, normocephalic Eye exam: PRESENT: conjunctiva pale, EOMI Mouth exam: PRESENT: dry mucosa, neck supple, tongue midline Neck exam: ABSENT: carotid bruit, JVD, lymphadenopathy, thyromegaly Respiratory exam: PRESENT: decreased breath sounds, prolonged expiratory phas, rhonchi, unlabored Cardiovascular exam: PRESENT: bradycardia, RRR, +S1, +S2 Pulses: PRESENT: normal radial pulses GI/Abdominal exam: PRESENT: normal bowel sounds, soft. ABSENT: distended, guarding, mass, organolmegaly, rebound, tenderness Rectal exam: PRESENT: deferred Gentrourinary exam: PRESENT: indwelling catheter Musculoskeletal exam: PRESENT: normal inspection Neurological exam: PRESENT: alert, awake Psychiatric exam: PRESENT: normal mood Skin exam: PRESENT: dry, warm Results Laboratory Results: 02/06/17 06:10 02/06/17 06:10 01/24/17 01/24/17 01/25/17 20:58 20:58 05:00 Creatine Kinase 28 L < 20 L CK-MB (CK-2) 0.86 Troponin I < 0.012 NT-Pro-B Natriuret Pep 3310 H 01/25/17 01/25/17 01/25/17 05:00 14:35 14:35 Creatine Kinase 74 CK-MB (CK-2) 1.22 1.70 Troponin I 0.044 0.050 NT-Pro-B Natriuret Pep 02/05/17 02/05/17 02/05/17 13:00 18:00 18:00 Creatine Kinase < 20 L CK-MB (CK-2) 2.60 Troponin I 0.081 NT-Pro-B Natriuret Pep 537 H Impressions: Limited or Localized CT 01/21/17 03:02 IMPRESSION: 1. Small bowel obstruction pattern. 2. Small to moderate bilateral lower lobar pneumonia, left more than right. 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 Cannot exclude other infectious and neoplastic processes. 4. Increased sclerosis of bilateral femoral heads may indicate avascular necrosis. Consider contrast MRI correlation. Abdomen X-Ray 01/24/17 00:00 IMPRESSION: Nasogastric tube tip and side port in the stomach. Persistent small bowel obstruction. Small Bowel X-Ray 01/24/17 00:00 IMPRESSION: Findings worrisome for small bowel obstruction. Nasogastric tube tip and side port in the stomach. At the conclusion of the study, a nasogastric tube was put back to suction. Interventional Vascular Procedure 01/25/17 00:00 IMPRESSION: SUCCESSFUL PLACEMENT OF A 5 FR DUAL LUMEN 35 CM PICC IN THE RIGHT BASILIC VEIN. PICC Line Insertion 01/25/17 00:00 IMPRESSION: SUCCESSFUL PLACEMENT OF A 5 FR DUAL LUMEN 35 CM PICC IN THE RIGHT BASILIC VEIN. Abdomen/Pelvis CT 01/30/17 00:00 IMPRESSION: Post resection of a short segment of distal small bowel. Anastomotic miles are present in the right lower quadrant without evidence of recurrent bowel obstruction. Probable ileus KUB X-Ray 02/01/17 07:00 IMPRESSION: Mild dilation and stacking of left paracentral jejunal small bowel may indicate ileus or J Josefina itis. Chest X-Ray 02/06/17 06:00 IMPRESSION: No significant interval change. Assessment & Plan - Diagnosis (1) Metabolic acidosis Is this a current diagnosis for this admission?: No (2) Paget's bone disease Is this a current diagnosis for this admission?: No (3) SBO (small bowel obstruction) Is this a current diagnosis for this admission?: No (4) Sepsis Qualifiers: Sepsis type: Escherichia coli Qualified Code(s): A41.51 - Sepsis due to Escherichia coli [E. coli] Is this a current diagnosis for this admission?: Yes (5) Dementia Qualifiers: Dementia type: unspecified type Dementia behavioral disturbance: without behavioral disturbance Qualified Code(s): F03.90 - Unspecified dementia without behavioral disturbance Is this a current diagnosis for this admission?: Yes - Time Critical Time spent with patient: 15-24 minutes
--- NOTE | 2017-02-07 10:36 | PDOC PROGRESS REPORT ---
Subjective Progress Note for:: 02/07/17 Subjective:: Denies any complaints. Physical Exam Vital Signs: Temp Pulse Resp BP Pulse Ox 96.3 F L 82 12 139/50 H 98 02/06/17 18:30 02/07/17 08:00 02/07/17 08:00 02/06/17 09:55 02/07/17 08:00 Intake & Output 02/06/17 02/07/17 02/08/17 06:59 06:59 06:59 Intake Total 1443 Output Total 870 20 Balance 573 -20 Weight 34.5 kg General appearance: PRESENT: no acute distress Eye exam: PRESENT: conjunctiva pink. ABSENT: scleral icterus Mouth exam: PRESENT: moist, tongue midline Neck exam: ABSENT: JVD Respiratory exam: PRESENT: clear to auscultation justin. ABSENT: rales, rhonchi, wheezes Cardiovascular exam: PRESENT: RRR. ABSENT: diastolic murmur, rubs, systolic murmur GI/Abdominal exam: PRESENT: normal bowel sounds, soft, other - Surgical dressing in place.. ABSENT: distended, guarding, mass, organolmegaly, rebound, tenderness Extremities exam: ABSENT: calf tenderness, clubbing, pedal edema Neurological exam: PRESENT: awake, other - Patient has a hard time answering questions. Psychiatric exam: PRESENT: flat affect Skin exam: PRESENT: dry, intact, warm. ABSENT: cyanosis, rash Results Laboratory Results: 02/06/17 06:10 02/06/17 06:10 01/24/17 01/24/17 01/25/17 20:58 20:58 05:00 Creatine Kinase 28 L < 20 L CK-MB (CK-2) 0.86 Troponin I < 0.012 NT-Pro-B Natriuret Pep 3310 H 01/25/17 01/25/17 01/25/17 05:00 14:35 14:35 Creatine Kinase 74 CK-MB (CK-2) 1.22 1.70 Troponin I 0.044 0.050 NT-Pro-B Natriuret Pep 02/05/17 02/05/17 02/05/17 13:00 18:00 18:00 Creatine Kinase < 20 L CK-MB (CK-2) 2.60 Troponin I 0.081 NT-Pro-B Natriuret Pep 537 H Impressions: Limited or Localized CT 01/21/17 03:02 IMPRESSION: 1. Small bowel obstruction pattern. 2. Small to moderate bilateral lower lobar pneumonia, left more than right. 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 Cannot exclude other infectious and neoplastic processes. 4. Increased sclerosis of bilateral femoral heads may indicate avascular necrosis. Consider contrast MRI correlation. Abdomen X-Ray 01/24/17 00:00 IMPRESSION: Nasogastric tube tip and side port in the stomach. Persistent small bowel obstruction. Small Bowel X-Ray 01/24/17 00:00 IMPRESSION: Findings worrisome for small bowel obstruction. Nasogastric tube tip and side port in the stomach. At the conclusion of the study, a nasogastric tube was put back to suction. Interventional Vascular Procedure 01/25/17 00:00 IMPRESSION: SUCCESSFUL PLACEMENT OF A 5 FR DUAL LUMEN 35 CM PICC IN THE RIGHT BASILIC VEIN. PICC Line Insertion 01/25/17 00:00 IMPRESSION: SUCCESSFUL PLACEMENT OF A 5 FR DUAL LUMEN 35 CM PICC IN THE RIGHT BASILIC VEIN. Abdomen/Pelvis CT 01/30/17 00:00 IMPRESSION: Post resection of a short segment of distal small bowel. Anastomotic miles are present in the right lower quadrant without evidence of recurrent bowel obstruction. Probable ileus KUB X-Ray 02/01/17 07:00 IMPRESSION: Mild dilation and stacking of left paracentral jejunal small bowel may indicate ileus or J Josefina itis. Chest X-Ray 02/06/17 06:00 IMPRESSION: No significant interval change. Assessment & Plan - Diagnosis (1) Acute respiratory failure Qualifiers: Respiratory failure complication: unspecified whether with hypoxia or hypercapnia Qualified Code(s): J96.00 - Acute respiratory failure, unspecified whether with hypoxia or hypercapnia Is this a current diagnosis for this admission?: Yes Plan: Patient was extubated yesterday. She is maintaining an adequate airway. Family has opted for comfort care. (2) Sepsis Qualifiers: Sepsis type: Escherichia coli Qualified Code(s): A41.51 - Sepsis due to Escherichia coli [E. coli] Is this a current diagnosis for this admission?: Yes Plan: Patient has completed a course of antibiotics. (3) UTI (urinary tract infection) Qualifiers: Urinary tract infection type: site unspecified Is this a current diagnosis for this admission?: Yes Plan: Has completed a course of antibiotics. (4) Hyperbilirubinemia Is this a current diagnosis for this admission?: Yes Plan: Resolved. (5) Malnutrition of moderate degree Is this a current diagnosis for this admission?: Yes (6) Postoperative anemia due to acute blood loss Is this a current diagnosis for this admission?: Yes Plan: Hemoglobin remained stable. (7) SBO (small bowel obstruction) Is this a current diagnosis for this admission?: No Plan: Resolved. (8) Volume overload Qualifiers: Hypervolemia type: transfusion-associated Qualified Code(s): E87.71 - Transfusion associated circulatory overload Is this a current diagnosis for this admission?: Yes Plan: Currently euvolemic (9) Dementia Qualifiers: Dementia type: unspecified type Dementia behavioral disturbance: without behavioral disturbance Qualified Code(s): F03.90 - Unspecified dementia without behavioral disturbance Is this a current diagnosis for this admission?: Yes (10) Diabetes mellitus type 2 in nonobese Is this a current diagnosis for this admission?: Yes - Time Time Spent with patient: 15-24 minutes - Inpatient Certification Medical Necessity: Need Close Monitoring Due to Risk of Patient Decompensation
[2017-02-07 15:39] LABS: ALBUMIN 2 2.4 g/dL (2.9-4.4); ALPHA-1-GLOBULIN 2 0.3 g/dL (0.0-0.4); GAMMA GLOBULIN 0.7 g/dL (0.4-1.8); PROTEIN TOTAL SERUM 4.9 g/dL (6.0-8.5)
--- NOTE | 2017-02-07 21:02 | PDOC PROGRESS REPORT ---
Subjective Progress Note for:: 02/07/17 Subjective:: Patient is lying comfortably in bed, awake, alert, and according to the nurses is eating. Physical Exam Vital Signs: Temp Pulse Resp BP Pulse Ox 98.2 F 112 H 12 145/56 H 93 02/07/17 16:00 02/07/17 16:00 02/07/17 16:00 02/07/17 16:00 02/07/17 16:00 Intake & Output 02/06/17 02/07/17 02/08/17 06:59 06:59 06:59 Intake Total 1443 5 Output Total 870 20 Balance 573 -20 5 Weight 34.5 kg General appearance: PRESENT: no acute distress Respiratory exam: PRESENT: clear to auscultation justin Cardiovascular exam: PRESENT: RRR GI/Abdominal exam: PRESENT: normal bowel sounds, soft. ABSENT: guarding, rebound, tenderness Results Laboratory Results: 02/06/17 06:10 02/06/17 06:10 01/24/17 01/24/17 01/25/17 20:58 20:58 05:00 Creatine Kinase 28 L < 20 L CK-MB (CK-2) 0.86 Troponin I < 0.012 NT-Pro-B Natriuret Pep 3310 H 01/25/17 01/25/17 01/25/17 05:00 14:35 14:35 Creatine Kinase 74 CK-MB (CK-2) 1.22 1.70 Troponin I 0.044 0.050 NT-Pro-B Natriuret Pep 02/05/17 02/05/17 02/05/17 13:00 18:00 18:00 Creatine Kinase < 20 L CK-MB (CK-2) 2.60 Troponin I 0.081 NT-Pro-B Natriuret Pep 537 H Impressions: Limited or Localized CT 01/21/17 03:02 IMPRESSION: 1. Small bowel obstruction pattern. 2. Small to moderate bilateral lower lobar pneumonia, left more than right. 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 Cannot exclude other infectious and neoplastic processes. 4. Increased sclerosis of bilateral femoral heads may indicate avascular necrosis. Consider contrast MRI correlation. Abdomen X-Ray 01/24/17 00:00 IMPRESSION: Nasogastric tube tip and side port in the stomach. Persistent small bowel obstruction. Small Bowel X-Ray 01/24/17 00:00 IMPRESSION: Findings worrisome for small bowel obstruction. Nasogastric tube tip and side port in the stomach. At the conclusion of the study, a nasogastric tube was put back to suction. Interventional Vascular Procedure 01/25/17 00:00 IMPRESSION: SUCCESSFUL PLACEMENT OF A 5 FR DUAL LUMEN 35 CM PICC IN THE RIGHT BASILIC VEIN. PICC Line Insertion 01/25/17 00:00 IMPRESSION: SUCCESSFUL PLACEMENT OF A 5 FR DUAL LUMEN 35 CM PICC IN THE RIGHT BASILIC VEIN. Abdomen/Pelvis CT 01/30/17 00:00 IMPRESSION: Post resection of a short segment of distal small bowel. Anastomotic miles are present in the right lower quadrant without evidence of recurrent bowel obstruction. Probable ileus KUB X-Ray 02/01/17 07:00 IMPRESSION: Mild dilation and stacking of left paracentral jejunal small bowel may indicate ileus or J Josefina itis. Chest X-Ray 02/06/17 06:00 IMPRESSION: No significant interval change. Assessment & Plan - Diagnosis (1) SBO (small bowel obstruction) Is this a current diagnosis for this admission?: No - Plan Summary Plan Summary: Patient is miraculously doing well, as comfort care had been established, after she had failed extubation. Patient is now alert and apparently doing very well. Supportive therapy will be continued
[2017-02-08] MEDS: MORPHINE SULFATE 10 MG/ML INJ IV PRN (03:59)
[2017-02-08] MEDS ORDERED: GLUCAGON,HUMAN RECOMB 1 MG INJ IM PRN (08:58)
[2017-02-08] MEDS ORDERED: INSULIN LISPRO 100 UNIT/ML 3 ML VIAL SUBCUT PRN (08:58)
[2017-02-08] MEDS ORDERED: DEXTROSE 40% GEL 15 GM TUBE PO PRN ×2 (08:58)
[2017-02-08] MEDS ORDERED: DEXTROSE 50%-WATER 25 GM/50 ML DISP.SYRIN IV PRN ×2 (08:58)
--- NOTE | 2017-02-08 10:10 | PDOC PROGRESS REPORT ---
Subjective Progress Note for:: 02/08/17 Subjective:: Denies any complaints. Physical Exam Vital Signs: Temp Pulse Resp BP Pulse Ox 98.3 F 102 H 12 169/69 H 93 02/08/17 03:50 02/08/17 04:34 02/08/17 03:50 02/08/17 04:34 02/08/17 03:50 Intake & Output 02/07/17 02/08/17 02/09/17 06:59 06:59 06:59 Intake Total 5 Output Total 20 Balance -20 5 Weight 34.8 kg General appearance: PRESENT: no acute distress Eye exam: PRESENT: conjunctiva pink. ABSENT: scleral icterus Mouth exam: PRESENT: moist, tongue midline Neck exam: ABSENT: JVD Respiratory exam: PRESENT: clear to auscultation justin. ABSENT: rales, rhonchi, wheezes Cardiovascular exam: PRESENT: RRR. ABSENT: diastolic murmur, rubs, systolic murmur GI/Abdominal exam: PRESENT: normal bowel sounds, soft, other - Miles in place in the midline.. ABSENT: distended, guarding, mass, organolmegaly, rebound, tenderness Extremities exam: ABSENT: calf tenderness, clubbing, pedal edema Neurological exam: PRESENT: alert, awake, oriented to person. ABSENT: oriented to place, oriented to time, oriented to situation Psychiatric exam: PRESENT: appropriate affect Skin exam: PRESENT: other - Miles in place in the midline abdomen. Results Laboratory Results: 02/06/17 06:10 02/06/17 06:10 01/24/17 01/24/17 01/25/17 20:58 20:58 05:00 Creatine Kinase 28 L < 20 L CK-MB (CK-2) 0.86 Troponin I < 0.012 NT-Pro-B Natriuret Pep 3310 H 01/25/17 01/25/17 01/25/17 05:00 14:35 14:35 Creatine Kinase 74 CK-MB (CK-2) 1.22 1.70 Troponin I 0.044 0.050 NT-Pro-B Natriuret Pep 02/05/17 02/05/17 02/05/17 13:00 18:00 18:00 Creatine Kinase < 20 L CK-MB (CK-2) 2.60 Troponin I 0.081 NT-Pro-B Natriuret Pep 537 H Impressions: Limited or Localized CT 01/21/17 03:02 IMPRESSION: 1. Small bowel obstruction pattern. 2. Small to moderate bilateral lower lobar pneumonia, left more than right. 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 Cannot exclude other infectious and neoplastic processes. 4. Increased sclerosis of bilateral femoral heads may indicate avascular necrosis. Consider contrast MRI correlation. Abdomen X-Ray 01/24/17 00:00 IMPRESSION: Nasogastric tube tip and side port in the stomach. Persistent small bowel obstruction. Small Bowel X-Ray 01/24/17 00:00 IMPRESSION: Findings worrisome for small bowel obstruction. Nasogastric tube tip and side port in the stomach. At the conclusion of the study, a nasogastric tube was put back to suction. Interventional Vascular Procedure 01/25/17 00:00 IMPRESSION: SUCCESSFUL PLACEMENT OF A 5 FR DUAL LUMEN 35 CM PICC IN THE RIGHT BASILIC VEIN. PICC Line Insertion 01/25/17 00:00 IMPRESSION: SUCCESSFUL PLACEMENT OF A 5 FR DUAL LUMEN 35 CM PICC IN THE RIGHT BASILIC VEIN. Abdomen/Pelvis CT 01/30/17 00:00 IMPRESSION: Post resection of a short segment of distal small bowel. Anastomotic miles are present in the right lower quadrant without evidence of recurrent bowel obstruction. Probable ileus KUB X-Ray 02/01/17 07:00 IMPRESSION: Mild dilation and stacking of left paracentral jejunal small bowel may indicate ileus or J Josefina itis. Chest X-Ray 02/06/17 06:00 IMPRESSION: No significant interval change. Assessment & Plan - Diagnosis (1) Acute respiratory failure Qualifiers: Respiratory failure complication: unspecified whether with hypoxia or hypercapnia Qualified Code(s): J96.00 - Acute respiratory failure, unspecified whether with hypoxia or hypercapnia Is this a current diagnosis for this admission?: Yes Plan: Resolved (2) Sepsis Qualifiers: Sepsis type: Escherichia coli Qualified Code(s): A41.51 - Sepsis due to Escherichia coli [E. coli] Is this a current diagnosis for this admission?: Yes Plan: Patient has completed a course of antibiotics. (3) UTI (urinary tract infection) Qualifiers: Urinary tract infection type: site unspecified Is this a current diagnosis for this admission?: Yes Plan: Has completed a course of antibiotics. (4) Hyperbilirubinemia Is this a current diagnosis for this admission?: Yes Plan: Resolved. (5) Malnutrition of moderate degree Is this a current diagnosis for this admission?: Yes Plan: We will encourage p.o. intake. (6) Postoperative anemia due to acute blood loss Is this a current diagnosis for this admission?: Yes Plan: Hemoglobin remained stable. (7) SBO (small bowel obstruction) Is this a current diagnosis for this admission?: No Plan: Resolved. (8) Volume overload Qualifiers: Hypervolemia type: transfusion-associated Qualified Code(s): E87.71 - Transfusion associated circulatory overload Is this a current diagnosis for this admission?: Yes Plan: Currently euvolemic (9) Dementia Qualifiers: Dementia type: unspecified type Dementia behavioral disturbance: without behavioral disturbance Qualified Code(s): F03.90 - Unspecified dementia without behavioral disturbance Is this a current diagnosis for this admission?: Yes (10) Diabetes mellitus type 2 in nonobese Is this a current diagnosis for this admission?: Yes Plan: Cover with sliding scale insulin. (11) Hypertension Is this a current diagnosis for this admission?: Yes Plan: Patient's blood pressure has been elevated and we will start Norvasc. - Time Time Spent with patient: 25-34 minutes - Plan Summary Plan Summary: Patient has improved well enough that we will restart physical therapy.
[2017-02-08] MEDS: AMLODIPINE BESYLATE 5 MG TABLET PO SCH (10:18)
[2017-02-08] MEDS: NORMAL SALINE 10 ML SDV (SCHEDULED) IV SCH (21:46)
[2017-02-09 05:52] LABS: ABSOLUTE EOSINOPHILS # (AUTO) 0.1 10^3/uL (0.0-0.6); ABSOLUTE LYMPHOCYTES (AUTO) 0.7 10^3/uL (0.5-4.7); ABSOLUTE MONOCYTES (AUTO) 0.6 10^3/uL (0.1-1.4); ABSOLUTE NEUT (AUTO) 4.1 10^3/uL (1.7-8.2); BASOPHILS % (AUTO) 0.5 % (0-2); EOSINOPHILS % (AUTO) 1.4 % (0-6); HEMATOCRIT 30.4 % (36.0-47.0); HEMOGLOBIN 10.2 g/dL (12.0-15.5); HGB HCT DIFFERENCE 0.2; LYMPHOCYTES % (AUTO) 13.2 % (13-45); MEAN CORPUSCULAR HEMOGLOBIN 29.5 pg (27.0-33.4); MEAN CORPUSCULAR HGB CONC 33.5 g/dL (32.0-36.0); MEAN CORPUSCULAR VOLUME 88 fl (80-97); MONOCYTES % (AUTO) 10.1 % (3-13); RED BLOOD COUNT 3.45 10^6/uL (3.72-5.28); RED CELL DISTRIBUTION WIDTH 16.2 % (11.5-14.0); SEGMENTED NEUTROPHILS % (AUTO) 74.8 % (42-78); WHITE BLOOD COUNT 5.4 10^3/uL (4.0-10.5)
[2017-02-09 06:02] LABS: ANION GAP 5 (5-19); BLOOD UREA NITROGEN 28 mg/dL (7-20); CALCIUM 10.9 mg/dL (8.4-10.2); CARBON DIOXIDE 28 mmol/L (22-30); CHLORIDE 107 mmol/L (98-107); CREATININE RESULT 0.97 mg/dL (0.52-1.25); GLUCOSE 107 mg/dL (75-110); POTASSIUM 4.4 mmol/L (3.6-5.0); SODIUM 140.2 mmol/L (137-145)
--- NOTE | 2017-02-09 10:27 | PDOC PROGRESS REPORT ---
Subjective Progress Note for:: 02/09/17 Subjective:: Denies any complaints. Physical Exam Vital Signs: Temp Pulse Resp BP Pulse Ox 98.9 F 108 H 12 173/68 H 100 02/09/17 07:30 02/09/17 07:30 02/09/17 07:30 02/09/17 07:30 02/09/17 07:30 Intake & Output 02/08/17 02/09/17 02/10/17 06:59 06:59 06:59 Intake Total 5 240 Balance 5 240 Weight 34.8 kg 34.8 kg General appearance: PRESENT: no acute distress Eye exam: PRESENT: conjunctiva pink. ABSENT: scleral icterus Mouth exam: PRESENT: moist, tongue midline Neck exam: ABSENT: JVD Respiratory exam: PRESENT: clear to auscultation justin. ABSENT: rales, rhonchi, wheezes Cardiovascular exam: PRESENT: RRR. ABSENT: diastolic murmur, rubs, systolic murmur GI/Abdominal exam: PRESENT: normal bowel sounds, soft, other - [place] in place in the midline surgical wound.. ABSENT: distended, guarding, mass, organolmegaly, rebound, tenderness Extremities exam: ABSENT: calf tenderness, clubbing, pedal edema Neurological exam: PRESENT: alert, awake, oriented to person, oriented to place , oriented to time, oriented to situation, CN II-XII grossly intact. ABSENT: motor sensory deficit Psychiatric exam: PRESENT: appropriate affect Skin exam: PRESENT: dry, intact, warm. ABSENT: cyanosis, rash Results Laboratory Results: 02/09/17 05:40 02/09/17 05:40 02/09/17 02/09/17 05:40 05:40 WBC 5.4 RBC 3.45 L Hgb 10.2 L Hct 30.4 L MCV 88 MCH 29.5 MCHC 33.5 RDW 16.2 H Plt Count 386 Seg Neutrophils % 74.8 Lymphocytes % 13.2 Monocytes % 10.1 Eosinophils % 1.4 Basophils % 0.5 Absolute Neutrophils 4.1 Absolute Lymphocytes 0.7 Absolute Monocytes 0.6 Absolute Eosinophils 0.1 Absolute Basophils 0.0 Sodium 140.2 Potassium 4.4 Chloride 107 Carbon Dioxide 28 Anion Gap 5 BUN 28 H Creatinine 0.97 Est GFR ( Amer) > 60 Est GFR (Non-Af Amer) 56 L Glucose 107 Calcium 10.9 H 01/24/17 01/24/17 01/25/17 20:58 20:58 05:00 Creatine Kinase 28 L < 20 L CK-MB (CK-2) 0.86 Troponin I < 0.012 NT-Pro-B Natriuret Pep 3310 H 01/25/17 01/25/17 01/25/17 05:00 14:35 14:35 Creatine Kinase 74 CK-MB (CK-2) 1.22 1.70 Troponin I 0.044 0.050 NT-Pro-B Natriuret Pep 02/05/17 02/05/17 02/05/17 13:00 18:00 18:00 Creatine Kinase < 20 L CK-MB (CK-2) 2.60 Troponin I 0.081 NT-Pro-B Natriuret Pep 537 H Impressions: Limited or Localized CT 01/21/17 03:02 IMPRESSION: 1. Small bowel obstruction pattern. 2. Small to moderate bilateral lower lobar pneumonia, left more than right. 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 Cannot exclude other infectious and neoplastic processes. 4. Increased sclerosis of bilateral femoral heads may indicate avascular necrosis. Consider contrast MRI correlation. Abdomen X-Ray 01/24/17 00:00 IMPRESSION: Nasogastric tube tip and side port in the stomach. Persistent small bowel obstruction. Small Bowel X-Ray 01/24/17 00:00 IMPRESSION: Findings worrisome for small bowel obstruction. Nasogastric tube tip and side port in the stomach. At the conclusion of the study, a nasogastric tube was put back to suction. Interventional Vascular Procedure 01/25/17 00:00 IMPRESSION: SUCCESSFUL PLACEMENT OF A 5 FR DUAL LUMEN 35 CM PICC IN THE RIGHT BASILIC VEIN. PICC Line Insertion 01/25/17 00:00 IMPRESSION: SUCCESSFUL PLACEMENT OF A 5 FR DUAL LUMEN 35 CM PICC IN THE RIGHT BASILIC VEIN. Abdomen/Pelvis CT 01/30/17 00:00 IMPRESSION: Post resection of a short segment of distal small bowel. Anastomotic miles are present in the right lower quadrant without evidence of recurrent bowel obstruction. Probable ileus KUB X-Ray 02/01/17 07:00 IMPRESSION: Mild dilation and stacking of left paracentral jejunal small bowel may indicate ileus or J Josefina itis. Chest X-Ray 02/06/17 06:00 IMPRESSION: No significant interval change. Assessment & Plan - Diagnosis (1) Acute respiratory failure Qualifiers: Respiratory failure complication: unspecified whether with hypoxia or hypercapnia Qualified Code(s): J96.00 - Acute respiratory failure, unspecified whether with hypoxia or hypercapnia Is this a current diagnosis for this admission?: Yes Plan: Resolved (2) Sepsis Qualifiers: Sepsis type: Escherichia coli Qualified Code(s): A41.51 - Sepsis due to Escherichia coli [E. coli] Is this a current diagnosis for this admission?: Yes Plan: Patient has completed a course of antibiotics. (3) UTI (urinary tract infection) Qualifiers: Urinary tract infection type: site unspecified Is this a current diagnosis for this admission?: Yes Plan: Has completed a course of antibiotics. (4) Hyperbilirubinemia Is this a current diagnosis for this admission?: Yes Plan: Resolved. (5) Malnutrition of moderate degree Is this a current diagnosis for this admission?: Yes Plan: We will encourage p.o. intake. (6) Postoperative anemia due to acute blood loss Is this a current diagnosis for this admission?: Yes Plan: Hemoglobin remained stable. (7) SBO (small bowel obstruction) Is this a current diagnosis for this admission?: No Plan: Resolved. (8) Volume overload Qualifiers: Hypervolemia type: transfusion-associated Qualified Code(s): E87.71 - Transfusion associated circulatory overload Is this a current diagnosis for this admission?: Yes Plan: Currently euvolemic (9) Dementia Qualifiers: Dementia type: unspecified type Dementia behavioral disturbance: without behavioral disturbance Qualified Code(s): F03.90 - Unspecified dementia without behavioral disturbance Is this a current diagnosis for this admission?: Yes (10) Diabetes mellitus type 2 in nonobese Is this a current diagnosis for this admission?: Yes Plan: Cover with sliding scale insulin. (11) Hypertension Is this a current diagnosis for this admission?: Yes Plan: Patient's blood pressure was elevated and we started Norvasc. - Time Time Spent with patient: 25-34 minutes - Inpatient Certification Medical Necessity: Need Close Monitoring Due to Risk of Patient Decompensation
[2017-02-09] MEDS: AMLODIPINE BESYLATE 5 MG TABLET PO SCH (10:57)
[2017-02-09] MEDS: NORMAL SALINE 10 ML SDV (AFTER EACH USE) IV PRN (10:58)
[2017-02-09] MEDS: NORMAL SALINE 10 ML SDV (SCHEDULED) IV SCH ×2 (10:58→21:56)
--- NOTE | 2017-02-10 10:05 | PDOC PROGRESS REPORT ---
Subjective Progress Note for:: 02/10/17 Subjective:: Denies any complaints. Physical Exam Vital Signs: Temp Pulse Resp BP Pulse Ox 98.9 F 82 18 151/61 H 97 02/10/17 07:19 02/10/17 07:19 02/10/17 07:19 02/10/17 07:19 02/10/17 07:19 Intake & Output 02/09/17 02/10/17 02/11/17 06:59 06:59 06:59 Intake Total 240 420 Balance 240 420 Weight 34.8 kg 33.1 kg General appearance: PRESENT: no acute distress Eye exam: PRESENT: conjunctiva pink. ABSENT: scleral icterus Mouth exam: PRESENT: moist, tongue midline Neck exam: ABSENT: JVD Respiratory exam: PRESENT: clear to auscultation justin. ABSENT: rales, rhonchi, wheezes Cardiovascular exam: PRESENT: RRR. ABSENT: diastolic murmur, rubs, systolic murmur GI/Abdominal exam: PRESENT: normal bowel sounds, soft, other - [place] in place in the midline abdomen.. ABSENT: distended, guarding, mass, organolmegaly, rebound, tenderness Extremities exam: ABSENT: calf tenderness, clubbing, pedal edema Neurological exam: PRESENT: alert, awake, oriented to person. ABSENT: oriented to place, oriented to time, oriented to situation Psychiatric exam: PRESENT: appropriate affect Skin exam: PRESENT: dry, intact, warm, other - [place] in place in the midline abdominal wound.. ABSENT: cyanosis, rash Results Laboratory Results: 02/09/17 05:40 02/09/17 05:40 01/24/17 01/24/17 01/25/17 20:58 20:58 05:00 Creatine Kinase 28 L < 20 L CK-MB (CK-2) 0.86 Troponin I < 0.012 NT-Pro-B Natriuret Pep 3310 H 01/25/17 01/25/17 01/25/17 05:00 14:35 14:35 Creatine Kinase 74 CK-MB (CK-2) 1.22 1.70 Troponin I 0.044 0.050 NT-Pro-B Natriuret Pep 02/05/17 02/05/17 02/05/17 13:00 18:00 18:00 Creatine Kinase < 20 L CK-MB (CK-2) 2.60 Troponin I 0.081 NT-Pro-B Natriuret Pep 537 H Impressions: Limited or Localized CT 01/21/17 03:02 IMPRESSION: 1. Small bowel obstruction pattern. 2. Small to moderate bilateral lower lobar pneumonia, left more than right. 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 Cannot exclude other infectious and neoplastic processes. 4. Increased sclerosis of bilateral femoral heads may indicate avascular necrosis. Consider contrast MRI correlation. Abdomen X-Ray 01/24/17 00:00 IMPRESSION: Nasogastric tube tip and side port in the stomach. Persistent small bowel obstruction. Small Bowel X-Ray 01/24/17 00:00 IMPRESSION: Findings worrisome for small bowel obstruction. Nasogastric tube tip and side port in the stomach. At the conclusion of the study, a nasogastric tube was put back to suction. Interventional Vascular Procedure 01/25/17 00:00 IMPRESSION: SUCCESSFUL PLACEMENT OF A 5 FR DUAL LUMEN 35 CM PICC IN THE RIGHT BASILIC VEIN. PICC Line Insertion 01/25/17 00:00 IMPRESSION: SUCCESSFUL PLACEMENT OF A 5 FR DUAL LUMEN 35 CM PICC IN THE RIGHT BASILIC VEIN. Abdomen/Pelvis CT 01/30/17 00:00 IMPRESSION: Post resection of a short segment of distal small bowel. Anastomotic miles are present in the right lower quadrant without evidence of recurrent bowel obstruction. Probable ileus KUB X-Ray 02/01/17 07:00 IMPRESSION: Mild dilation and stacking of left paracentral jejunal small bowel may indicate ileus or J Josefina itis. Chest X-Ray 02/06/17 06:00 IMPRESSION: No significant interval change. Assessment & Plan - Diagnosis (1) Acute respiratory failure Qualifiers: Respiratory failure complication: unspecified whether with hypoxia or hypercapnia Qualified Code(s): J96.00 - Acute respiratory failure, unspecified whether with hypoxia or hypercapnia Is this a current diagnosis for this admission?: Yes Plan: Resolved (2) Sepsis Qualifiers: Sepsis type: Escherichia coli Qualified Code(s): A41.51 - Sepsis due to Escherichia coli [E. coli] Is this a current diagnosis for this admission?: Yes Plan: Patient has completed a course of antibiotics. (3) UTI (urinary tract infection) Qualifiers: Urinary tract infection type: site unspecified Is this a current diagnosis for this admission?: Yes Plan: Has completed a course of antibiotics. (4) Hyperbilirubinemia Is this a current diagnosis for this admission?: Yes Plan: Resolved. (5) Malnutrition of moderate degree Is this a current diagnosis for this admission?: Yes Plan: We will encourage p.o. intake. (6) Postoperative anemia due to acute blood loss Is this a current diagnosis for this admission?: Yes Plan: Hemoglobin remained stable. (7) SBO (small bowel obstruction) Is this a current diagnosis for this admission?: No Plan: Resolved. (8) Volume overload Qualifiers: Hypervolemia type: transfusion-associated Qualified Code(s): E87.71 - Transfusion associated circulatory overload Is this a current diagnosis for this admission?: Yes Plan: Currently euvolemic (9) Dementia Qualifiers: Dementia type: unspecified type Dementia behavioral disturbance: without behavioral disturbance Qualified Code(s): F03.90 - Unspecified dementia without behavioral disturbance Is this a current diagnosis for this admission?: Yes (10) Diabetes mellitus type 2 in nonobese Is this a current diagnosis for this admission?: Yes Plan: Cover with sliding scale insulin. (11) Hypertension Is this a current diagnosis for this admission?: Yes Plan: Patient's blood pressure was elevated and we started Norvasc. - Time Time Spent with patient: 25-34 minutes - Inpatient Certification Medical Necessity: Need Close Monitoring Due to Risk of Patient Decompensation - Plan Summary Plan Summary: We will plan on discharge home with home health tomorrow.
[2017-02-10] MEDS: AMLODIPINE BESYLATE 5 MG TABLET PO SCH (11:37)
[2017-02-10] MEDS: NORMAL SALINE 10 ML SDV (AFTER EACH USE) IV PRN ×2 (11:38→22:05)
[2017-02-10] MEDS: NORMAL SALINE 10 ML SDV (SCHEDULED) IV SCH ×2 (11:39→22:05)
--- NOTE | 2017-02-10 14:00 | PDOC PROGRESS REPORT ---
Subjective Progress Note for:: 02/08/17 Subjective:: awake and responsive Physical Exam Vital Signs: Temp Pulse Resp BP Pulse Ox 98.3 F 102 H 12 169/69 H 93 02/08/17 03:50 02/08/17 04:34 02/08/17 03:50 02/08/17 04:34 02/08/17 03:50 Intake & Output 02/07/17 02/08/17 02/09/17 06:59 06:59 06:59 Intake Total 5 Output Total 20 Balance -20 5 Weight 34.8 kg General appearance: PRESENT: no acute distress, disheveled, well-developed Head exam: PRESENT: atraumatic, normocephalic Eye exam: PRESENT: conjunctiva pale, EOMI Mouth exam: PRESENT: moist, neck supple, tongue midline Neck exam: ABSENT: carotid bruit, JVD, meningismus, tenderness, thyromegaly, tracheostomy Respiratory exam: PRESENT: decreased breath sounds, prolonged expiratory phas, rhonchi, symmetrical, unlabored. ABSENT: chest wall tenderness, clear to auscultation justin, retraction, stridor Cardiovascular exam: PRESENT: RRR, +S1, +S2. ABSENT: irregular rhythm GI/Abdominal exam: PRESENT: normal bowel sounds, soft. ABSENT: distended, guarding, mass, organolmegaly, rebound, tenderness Rectal exam: PRESENT: deferred Neurological exam: PRESENT: awake Psychiatric exam: ABSENT: agitated, anxious, homicidal ideation, manic, suicidal ideation Skin exam: PRESENT: dry, warm Results Laboratory Results: 02/06/17 06:10 02/06/17 06:10 01/24/17 01/24/17 01/25/17 20:58 20:58 05:00 Creatine Kinase 28 L < 20 L CK-MB (CK-2) 0.86 Troponin I < 0.012 NT-Pro-B Natriuret Pep 3310 H 01/25/17 01/25/17 01/25/17 05:00 14:35 14:35 Creatine Kinase 74 CK-MB (CK-2) 1.22 1.70 Troponin I 0.044 0.050 NT-Pro-B Natriuret Pep 02/05/17 02/05/17 02/05/17 13:00 18:00 18:00 Creatine Kinase < 20 L CK-MB (CK-2) 2.60 Troponin I 0.081 NT-Pro-B Natriuret Pep 537 H Impressions: Limited or Localized CT 01/21/17 03:02 IMPRESSION: 1. Small bowel obstruction pattern. 2. Small to moderate bilateral lower lobar pneumonia, left more than right. 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 Cannot exclude other infectious and neoplastic processes. 4. Increased sclerosis of bilateral femoral heads may indicate avascular necrosis. Consider contrast MRI correlation. Abdomen X-Ray 01/24/17 00:00 IMPRESSION: Nasogastric tube tip and side port in the stomach. Persistent small bowel obstruction. Small Bowel X-Ray 01/24/17 00:00 IMPRESSION: Findings worrisome for small bowel obstruction. Nasogastric tube tip and side port in the stomach. At the conclusion of the study, a nasogastric tube was put back to suction. Interventional Vascular Procedure 01/25/17 00:00 IMPRESSION: SUCCESSFUL PLACEMENT OF A 5 FR DUAL LUMEN 35 CM PICC IN THE RIGHT BASILIC VEIN. PICC Line Insertion 01/25/17 00:00 IMPRESSION: SUCCESSFUL PLACEMENT OF A 5 FR DUAL LUMEN 35 CM PICC IN THE RIGHT BASILIC VEIN. Abdomen/Pelvis CT 01/30/17 00:00 IMPRESSION: Post resection of a short segment of distal small bowel. Anastomotic miles are present in the right lower quadrant without evidence of recurrent bowel obstruction. Probable ileus KUB X-Ray 02/01/17 07:00 IMPRESSION: Mild dilation and stacking of left paracentral jejunal small bowel may indicate ileus or J Ojsefina itis. Chest X-Ray 02/06/17 06:00 IMPRESSION: No significant interval change. Assessment & Plan - Diagnosis (1) Metabolic acidosis Is this a current diagnosis for this admission?: No (2) Paget's bone disease Is this a current diagnosis for this admission?: No (3) SBO (small bowel obstruction) Is this a current diagnosis for this admission?: No (4) Sepsis Qualifiers: Sepsis type: Escherichia coli Qualified Code(s): A41.51 - Sepsis due to Escherichia coli [E. coli] Is this a current diagnosis for this admission?: No (5) Dementia Qualifiers: Dementia type: unspecified type Dementia behavioral disturbance: without behavioral disturbance Qualified Code(s): F03.90 - Unspecified dementia without behavioral disturbance Is this a current diagnosis for this admission?: Yes
[2017-02-10] MEDS ORDERED: DIPHENOXYLATE HCL/ATROP SULF 2.5-0.025 MG TABLET PO PRN (18:24)
[2017-02-11] MEDS: AMLODIPINE BESYLATE 5 MG TABLET PO SCH (09:26)
[2017-02-11] MEDS: NORMAL SALINE 10 ML SDV (SCHEDULED) IV SCH (09:27)
[2017-02-11 10:32] VITALS: BP 147/53
--- NOTE | 2017-02-11 12:05 | PDOC DISCHARGE SUMMARY ---
General - Admit/Disc Date/PCP Admission Date/Primary Care Provider: 01/21/17 05:26 Discharge Date: 02/11/17 - Discharge Diagnosis (1) Acute respiratory failure Is this a current diagnosis for this admission?: Yes (2) Sepsis Is this a current diagnosis for this admission?: Yes (3) UTI (urinary tract infection) Is this a current diagnosis for this admission?: Yes (4) Hyperbilirubinemia Is this a current diagnosis for this admission?: Yes (5) Malnutrition of moderate degree Is this a current diagnosis for this admission?: Yes (6) Postoperative anemia due to acute blood loss Is this a current diagnosis for this admission?: Yes (7) SBO (small bowel obstruction) Is this a current diagnosis for this admission?: Yes (8) Volume overload Is this a current diagnosis for this admission?: Yes (9) Dementia Is this a current diagnosis for this admission?: Yes (10) Diabetes mellitus type 2 in nonobese Is this a current diagnosis for this admission?: Yes (11) Hypertension Is this a current diagnosis for this admission?: Yes - Additional Information Resuscitation Status: Comfort Measures Only Discharge Diet: As Tolerated Discharge Activity: Activity As Tolerated Home Medications: Amlodipine Besylate [Norvasc 5 mg Tablet] 5 mg PO DAILY #30 tablet 02/11/17 Diphenoxylate HCl/Atrop Sulf [Lomotil 2.5 mg Tablet] 1 tab PO Q4HP PRN #20 tablet 02/11/17 History of Present Illness History of Present Illness: CELESTINA SWEENEY is a 76 year old female with dementia who also has diet-controlled diabetes was brought to emergency room by her daughter for complaints of nausea and vomiting. The patient has not had any fevers or chills. Patient was found to have a small bowel obstruction. She is admitted for further workup. Is also noted to have pneumonia as well as UTI and acute on chronic renal insufficiency. Hospital Course Hospital Course: 76-year-old female who presented with nausea and vomiting. Patient at the time of admission was found to have a pneumonia, urinary tract infection, and a small bowel obstruction. Patient was admitted and started on broad-spectrum antibiotics. General surgery was consulted because of the small bowel obstruction and the patient eventually went to surgery for correction of her small bowel obstruction. Patient had a terminal ileal resection. The patient postoperative had problems with difficulty weaning off the ventilator. This was most likely secondary to her underlying malnutrition. Patient was very thin and had poor intake because of her dementia prior to surgery. The patient was extubated and eventually required reintubation because of her underlying difficulty maintaining her airway. This was discussed with the family and that if she continued to have problems that she would need a tracheostomy. Family decided they did not want this aggressive intervention and when she improved well enough we extubate her with anticipation of making her comfort care. Patient however was able to breathe on her own and continue to improve. The comfort care was rescinded and she was made a DO NOT RESUSCITATE and started on physical therapy. The patient has completed a course of antibiotics for treatment of her pneumonia and urinary tract infection. Her small bowel obstruction has resolved she is tolerating a diet without difficulty. She is still severely demented but her daughter cares for her at home. Patient is doing well enough that she is able to be discharged home and will follow up with home health for physical therapy. Physical Exam Vital Signs: Temp Pulse Resp BP Pulse Ox 98.3 F 100 16 147/53 H 100 02/11/17 10:33 02/11/17 10:33 02/11/17 10:33 02/11/17 10:33 02/11/17 10:33 Intake & Output 02/10/17 02/11/17 02/12/17 06:59 06:59 06:59 Intake Total 420 600 Balance 420 600 Weight 33.1 kg 33.5 kg General appearance: PRESENT: no acute distress Eye exam: PRESENT: conjunctiva pink. ABSENT: scleral icterus Mouth exam: PRESENT: moist, tongue midline Neck exam: ABSENT: JVD Respiratory exam: PRESENT: clear to auscultation justni. ABSENT: rales, rhonchi, wheezes Cardiovascular exam: PRESENT: RRR. ABSENT: diastolic murmur, rubs, systolic murmur GI/Abdominal exam: PRESENT: normal bowel sounds, soft. ABSENT: distended, guarding, mass, organolmegaly, rebound, tenderness Extremities exam: ABSENT: calf tenderness, clubbing, pedal edema Neurological exam: PRESENT: alert, awake, oriented to person. ABSENT: oriented to place, oriented to time, oriented to situation Psychiatric exam: PRESENT: appropriate affect Skin exam: PRESENT: dry, intact, warm, other - Patient surgical wound in the midline of the abdomen is dry and intact. Joryd have been removed.. ABSENT: cyanosis, rash Results Laboratory Results: 02/09/17 05:40 02/09/17 05:40 01/24/17 01/24/17 01/25/17 20:58 20:58 05:00 Creatine Kinase 28 L < 20 L CK-MB (CK-2) 0.86 Troponin I < 0.012 NT-Pro-B Natriuret Pep 3310 H 01/25/17 01/25/17 01/25/17 05:00 14:35 14:35 Creatine Kinase 74 CK-MB (CK-2) 1.22 1.70 Troponin I 0.044 0.050 NT-Pro-B Natriuret Pep 02/05/17 02/05/17 02/05/17 13:00 18:00 18:00 Creatine Kinase < 20 L CK-MB (CK-2) 2.60 Troponin I 0.081 NT-Pro-B Natriuret Pep 537 H Impressions: Limited or Localized CT 01/21/17 03:02 IMPRESSION: 1. Small bowel obstruction pattern. 2. Small to moderate bilateral lower lobar pneumonia, left more than right. 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 Cannot exclude other infectious and neoplastic processes. 4. Increased sclerosis of bilateral femoral heads may indicate avascular necrosis. Consider contrast MRI correlation. Abdomen X-Ray 01/24/17 00:00 IMPRESSION: Nasogastric tube tip and side port in the stomach. Persistent small bowel obstruction. Small Bowel X-Ray 01/24/17 00:00 IMPRESSION: Findings worrisome for small bowel obstruction. Nasogastric tube tip and side port in the stomach. At the conclusion of the study, a nasogastric tube was put back to suction. Interventional Vascular Procedure 01/25/17 00:00 IMPRESSION: SUCCESSFUL PLACEMENT OF A 5 FR DUAL LUMEN 35 CM PICC IN THE RIGHT BASILIC VEIN. PICC Line Insertion 01/25/17 00:00 IMPRESSION: SUCCESSFUL PLACEMENT OF A 5 FR DUAL LUMEN 35 CM PICC IN THE RIGHT BASILIC VEIN. Abdomen/Pelvis CT 01/30/17 00:00 IMPRESSION: Post resection of a short segment of distal small bowel. Anastomotic jordy are present in the right lower quadrant without evidence of recurrent bowel obstruction. Probable ileus KUB X-Ray 02/01/17 07:00 IMPRESSION: Mild dilation and stacking of left paracentral jejunal small bowel may indicate ileus or J Josefina itis. Chest X-Ray 02/06/17 06:00 IMPRESSION: No significant interval change. Qualifiers PATEINT BEING DISCHARGED WITH ANY OF THE FOLLOWING DIAGNOSIS?: No Plan Discharge Plan: Patient will follow up with surgery in 1-2 weeks. Follow-up with primary care in 2 weeks. Patient is discharged home with home health. Time Spent: Greater than 30 Minutes
== END 2017-02-11 11:30 | disposition home health service (06) | DRG 329 ==
LOC: ER 20:28 → UNDOADMIN 01-21 04:41 → EH 01-21 04:41 → 3S 01-21 08:17 → 3W 01-21 17:34 → ICU 01-24 22:25 → 4N 02-07 10:31
PROVIDERS: ADMIT Family Medicine; ATTEND Pediatrics
PROC: 0DBH0ZZ Excision of Cecum, Open Approach (ICD-10-PCS; 2017-01-24)
PROC: 05HQ33Z Insertion of Infusion Device into Left External Jugular Vein, Percutaneous Approach (ICD-10-PCS; 2017-01-24)
PROC: 0D9670Z Drainage of Stomach with Drainage Device, Via Natural or Artificial Opening (ICD-10-PCS; 2017-01-24)
PROC: 5A1955Z Respiratory Ventilation, Greater than 96 Consecutive Hours (ICD-10-PCS; 2017-01-24)
PROC: 0BH17EZ Insertion of Endotracheal Airway into Trachea, Via Natural or Artificial Opening (ICD-10-PCS; 2017-01-24)
PROC: 0DBB0ZZ Excision of Ileum, Open Approach (ICD-10-PCS; principal; 2017-01-24 19:30)
PROC: 02HV33Z Insertion of Infusion Device into Superior Vena Cava, Percutaneous Approach (ICD-10-PCS; 2017-01-25)
PROC: B5181ZA Fluoroscopy of Superior Vena Cava using Low Osmolar Contrast, Guidance (ICD-10-PCS; 2017-01-25)
PROC: B548ZZA Ultrasonography of Superior Vena Cava, Guidance (ICD-10-PCS; 2017-01-25)
DX: K56.5 Intestinal adhesions [bands] with obstruction (postinfection) (principal); J15.9 Unspecified bacterial pneumonia; A41.51 Sepsis due to Escherichia coli [E. coli]; J96.00 Acute respiratory failure, unspecified whether with hypoxia or hypercapnia; N17.9 Acute kidney failure, unspecified; N39.0 Urinary tract infection, site not specified; E44.0 Moderate protein-calorie malnutrition; Z68.1 Body mass index [BMI] 19.9 or less, adult; E87.0 Hyperosmolality and hypernatremia; D62 Acute posthemorrhagic anemia; Z66 Do not resuscitate; E86.0 Dehydration; E87.71 Transfusion associated circulatory overload; B96.20 Unspecified Escherichia coli [E. coli] as the cause of diseases classified elsewhere; B96.4 Proteus (mirabilis) (morganii) as the cause of diseases classified elsewhere; E80.6 Other disorders of bilirubin metabolism; M88.9 Osteitis deformans of unspecified bone; E83.52 Hypercalcemia; F03.90 Unspecified dementia, unspecified severity, without behavioral disturbance, psychotic disturbance, mood disturbance, and anxiety; E11.9 Type 2 diabetes mellitus without complications; I10 Essential (primary) hypertension; Z79.899 Other long term (current) drug therapy
CPT/HCPCS: 00840; 31500; 36415; 36430; 36569; 71010; 74000; 74020; 74176; 74250; 76380; 76937; 80048; 80053; 81001; 82550; 82553; 82570; 82803; 82962; 83605; 83690; 83735; 83880; 84100; 84134; 84165; 84300; 84443; 84478; 84484; 85025; 85027; 85610; 85730; 86850; 86900; 86901; 86920; 87040; 87070; 87077; 87086; 87088; 87186; 87205; 88307; 93005; 93010; 93306; 94002; 94003; 94660; 96361; 96365; 96375; 99285; C1751; G8978-GP; G8979-GP; J0131; J0330; J0360; J0456; J0690; J0696; J0744; J1100; J1170; J1642; J1644; J1815; J1940; J2250; J2270; J2370; J2405; J2543; J2704; J2765; J3010; J3370; J3475; J3480; J3490; J7030; J7040; J7060; J7120; P9016; S0028

== ENCOUNTER → 2017-05-09 | Outpatient (CLI) | payer MEDICARE ==
[2017-05-09 17:11] LABS: ABSOLUTE LYMPHOCYTES (AUTO) 1.1 10^3/uL (0.5-4.7); ABSOLUTE MONOCYTES (AUTO) 0.3 10^3/uL (0.1-1.4); ABSOLUTE NEUT (AUTO) 2.6 10^3/uL (1.7-8.2); BASOPHILS % (AUTO) 0.6 % (0-2); EOSINOPHILS % (AUTO) 0.9 % (0-6); HEMATOCRIT 29.5 % (36.0-47.0); HEMOGLOBIN 9.7 g/dL (12.0-15.5); HGB HCT DIFFERENCE -0.4; LYMPHOCYTES % (AUTO) 27.2 % (13-45); MEAN CORPUSCULAR HGB CONC 32.8 g/dL (32.0-36.0); MEAN CORPUSCULAR VOLUME 86 fl (80-97); MONOCYTES % (AUTO) 6.3 % (3-13); RED BLOOD COUNT 3.45 10^6/uL (3.72-5.28); RED CELL DISTRIBUTION WIDTH 17.5 % (11.5-14.0); WHITE BLOOD COUNT 4.1 10^3/uL (4.0-10.5)
--- NOTE | 2017-05-09 17:29 | RADIOLOGY REPORT (SQ) ---
EXAM DESCRIPTION: PELVIS AP COMPLETED DATE/TIME: 05/09/2017 5:07 pm REASON FOR STUDY: PRESSURE ULCER OF SACRAL REGION, STAGE 4 L89.154 PRESSURE ULCER OF SACRAL REGION, STAGE 4 COMPARISON: None. NUMBER OF VIEWS: One view TECHNIQUE: AP Pelvis LIMITATIONS: None. FINDINGS: MINERALIZATION: Osteopenia. HIPS: Chronic cystic changes of both femoral heads. Stable. PELVIS AND SACRUM: Chronic sclerosis and diffuse lytic changes in the sacrum and iliac wings. Simila r in appearance to CT of 01/30/2017. PUBIS AND ISCHIUM: No acute fracture. LOWER LUMBAR SPINE: No significant findings as visualized. SOFT TISSUES: No findings. OTHER: No other significant finding. IMPRESSION: Plain radiograph similar in appearance to CT scan 01/30/2017. Pelvis and sacrum likely c ombination of microfractures and possible chronic osteomyelitis. TECHNICAL DOCUMENTATION: JOB ID: [id number] [employer]- All Rights Reserved
[2017-05-09 17:38] LABS: ALANINE AMINOTRANSFERASE 27 U/L (9-52); ALKALINE PHOSPHATASE 69 U/L (38-126); ANION GAP 10 (5-19); ASPARTATE AMINO TRANSFERASE 19 U/L (14-36); BILIRUBIN,DIRECT 0.3 mg/dL (0.0-0.4); BILIRUBIN,TOTAL 0.5 mg/dL (0.2-1.3); BLOOD UREA NITROGEN 18 mg/dL (7-20); C-REACTIVE PROTEIN 7.7 mg/L (<10.0); CALCIUM 9.5 mg/dL (8.4-10.2); CARBON DIOXIDE 22 mmol/L (22-30); CHLORIDE 114 mmol/L (98-107); CREATININE RESULT 0.88 mg/dL (0.52-1.25); GLUCOSE 102 mg/dL (75-110); POTASSIUM 3.7 mmol/L (3.6-5.0); SODIUM 145.5 mmol/L (137-145); TOTAL PROTEIN 5.6 g/dL (6.3-8.2)
[2017-05-09 17:45] LABS: PREALBUMIN 16.1 mg/dL (17.6-36.0)
[2017-05-09 17:55] LABS: ERYTHROCYTE SEDIMENTATION RATE 35 mm/hr (0-30)
== END ==
LOC: WC 16:05
PROVIDERS: ATTEND Surgery
DX: L89.154 Pressure ulcer of sacral region, stage 4 (principal)
CPT/HCPCS: 36415; 72170; 80053; 84134; 85025; 85652; 86140

== ENCOUNTER 2017-05-27 11:18 | Day surgery (SDC) | payer MEDICARE ==
[2017-05-27] MEDS ORDERED: BUPIVACAINE HCL 0.25 % INJ/PF (2.5 MG/1 ML) 30 ML VIAL ONE (11:20)
[2017-05-27] MEDS ORDERED: COLLAGENASE CLOSTRIDIUM HIST. OINT 30 GM ONE (11:20)
[2017-05-27] MEDS ORDERED: SILVER SULFADIAZINE 1% CREAM 25 GM ONE (11:20)
[2017-05-27] MEDS ORDERED: LIDOCAINE 0.5% INJ-PF (5 MG/ML) 50 ML SDV ONE (11:20)
[2017-05-27] MEDS ORDERED: BACITRACIN INJ 50,000 UNIT VIAL ONE (11:20)
--- NOTE | 2017-05-27 12:57 | PDOC H&P ---
General Chief Complaint: The patient presents with a persisting sacral pressure ulcer which requires debridement in order to facilitate closure. - Current Medications/Allergies Allergies/Adverse Reactions: No Known Allergies Allergy (Unverified 01/20/17 20:50) Past Medical History Endocrine Medical History: Reports: Diabetes Mellitus Type 2 Psychiatric Medical History: Reports: Dementia Past Surgical History Past Surgical History: Reports: Other - Uncertain; patient has a well-healed lower midline abdominal incision. Family History Family History: Reviewed & Not Pertinent Parental Family History Reviewed: No Children Family History Reviewed: No Sibling(s) Family History Reviewed.: No Social History Smoking Status: Never Smoker Drugs: None Physical Exam Additional comments: Constitutional: Well-developed well-nourished -[place] lady, frail build. No apparent acute distress. Eyes: Mucous membranes pink and moist, pupils equal and reactive to light. Conjunctiva normal. ENT: Hearing grossly normal. External pinna normal to inspection. Tongue normal to inspection. Cardiac: Heart sounds 1 and 2 normal. Respiratory breath sounds are present bilaterally, normal. Normal respiratory effort. Skin: Sacral decubitus ulcer about 4 x 2 cm x 4 cm deep. Psychiatric: Judgment, memory, insight seem questionable. Mood is pleasant and appropriate. Extremities: Upper extremities show normal range of movement. Pulses present noted to the radial arteries. Capillary refill normal. No cyanosis noted. No muscle wasting noted. Impression/Plan Plan: The patient is admitted for debridement of the sacral decubitus ulcer. The hope is to obtain healthy tissues to facilitate healing.
[2017-05-27 13:29] LABS: HEMATOCRIT 29.3 % (36.0-47.0); HEMOGLOBIN 9.5 g/dL (12.0-15.5); HGB HCT DIFFERENCE -0.8; MEAN CORPUSCULAR HEMOGLOBIN 27.4 pg (27.0-33.4); MEAN CORPUSCULAR HGB CONC 32.4 g/dL (32.0-36.0); MEAN CORPUSCULAR VOLUME 85 fl (80-97); RED BLOOD COUNT 3.47 10^6/uL (3.72-5.28); WHITE BLOOD COUNT 4.4 10^3/uL (4.0-10.5)
[2017-05-27] MEDS ORDERED: ONDANSETRON HCL INJ/PF 4 MG/2 ML SDV IV PRN (13:36)
[2017-05-27] MEDS ORDERED: MORPHINE SULFATE 10 MG/ML INJ IV PRN (13:36)
[2017-05-27] MEDS ORDERED: FENTANYL CITRATE INJ/PF 100 MCG/2 ML AMPUL IV PRN ×3 (13:36)
[2017-05-27] MEDS ORDERED: PROMETHAZINE HCL INJ 25 MG/1 ML VIAL IV PRN ×2 (13:36)
[2017-05-27] MEDS ORDERED: MEPERIDINE HCL/PF INJ 25 MG/1 ML DISP.SYRIN IV PRN (13:36)
[2017-05-27] MEDS ORDERED: DIPHENHYDRAMINE HCL 50 MG/ML VIAL IV PRN (13:36)
[2017-05-27 13:50] LABS: ANION GAP 8 (5-19); BLOOD UREA NITROGEN 21 mg/dL (7-20); CALCIUM 9.9 mg/dL (8.4-10.2); CARBON DIOXIDE 23 mmol/L (22-30); CHLORIDE 117 mmol/L (98-107); CREATININE RESULT 0.81 mg/dL (0.52-1.25); GLUCOSE 82 mg/dL (75-110); POTASSIUM 3.9 mmol/L (3.6-5.0)
--- NOTE | 2017-05-27 15:13 | PDOC DISCHARGE SUMMARY ---
Discharge Summary (SDC) - Discharge Final Diagnosis: #1 Stage IV sacral decubitus ulcer. 2. Dementia. 3. Hypertension. Date of Surgery: 05/27/17 Discharge Date: 05/27/17 Condition: Fair Treatment or Instructions: Discharge home [after recovery per ASU criteria]. Diet , as tolerated, when fully awake advance as tolerated. Activities within moderation encouraged. Follow up in wound clinic by appointment on Saturday of this week. Call for appointment. Leave wounds [covered], [keep clean and dry, until office visit in 1 week]. Meds per med rec. May shower [in 48 hrs], [try to keep operated area as dry as possible]. Discharge Diet: As Tolerated Respiratory Treatments at Home: Deep Breathing/Coughing Discharge Activity: Activity As Tolerated Report the Following to Your Physician Immediately: Shortness of Breath, Unusual Bleeding
--- NOTE | 2017-05-27 15:15 | Operative Report ---
Operative Report DATE OF SURGERY: 05/27/17 PREOPERATIVE DIAGNOSIS: #1 Stage IV sacral decubitus ulcer. 2. Dementia. 3. Hypertension. POSTOPERATIVE DIAGNOSIS: #1 Stage IV sacral decubitus ulcer. 2. Dementia. 3. Hypertension. OPERATION: Debridement of sacral decubitus. SURGEON: [employer] TECHNICIAN: None ANESTHESIA: LMAC TISSUE REMOVED OR ALTERED: Scar and necrotic tissue in sacral decubitus ulcer. COMPLICATIONS: None. ESTIMATED BLOOD LOSS: 5 mL. INTRAOPERATIVE FINDINGS: Of a sacral decubitus ulcer shallow about 5 mm deep with some granulation tissue over the sacrum. The edges are heavily rolled in with heavy scar and some necrosis. The scar and removed and rolled in edges were excised. PROCEDURE: PROCEDURE: The sacral area t ]was prepared with [Betadine] and draped out with sterile linen. After the"universal time-out", in which it was confirmed that the patient [did receive antibiotic], the procedure commenced. The patient was appropriately anesthetized. The wound was evaluated. The wound was debrided of non viable tissue using scalpel and cautery with removal of loose debris, as well. The wound was irrigated with [Peroxide] . The wound was now irrigated with saline and [ Surgicel] placed within it, dressed with [Kerlix] and the procedure concluded.
[2017-05-27] MEDS ORDERED: LIDOCAINE 2% INJ-PF (20 MG/ML) 2 ML AMPUL ONE (15:39)
[2017-05-27] MEDS ORDERED: ONDANSETRON HCL INJ/PF 4 MG/2 ML SDV ONE (15:39)
[2017-05-27 18:26] VITALS: BP 168/91
== END 2017-05-27 17:15 | disposition home or self-care (01) ==
LOC: OROUT 11:18
PROVIDERS: ATTEND Surgery
PROC: 0JB70ZZ Excision of Back Subcutaneous Tissue and Fascia, Open Approach (ICD-10-PCS; principal; 2017-05-27 14:30)
DX: L89.154 Pressure ulcer of sacral region, stage 4 (principal); I10 Essential (primary) hypertension; E11.9 Type 2 diabetes mellitus without complications; F03.90 Unspecified dementia, unspecified severity, without behavioral disturbance, psychotic disturbance, mood disturbance, and anxiety; Z86.73 Personal history of transient ischemic attack (TIA), and cerebral infarction without residual deficits
CPT/HCPCS: 36415; 85027; 80048; 88304 ×2; 11042; J3490 ×3; J2405